=== PATIENT | female | born 1955 | race African-American/Black ===

== ENCOUNTER 2021-05-08 16:26 | Emergency (ER) | payer BC ==
--- OUTSIDE RECORDS SUMMARY | 2021-05-08 16:29 | XMS REPORT | Continuity of Care Document ---
:1955 Author Organization [facility] t Address [address] [place] [address] Care Team Providers Name Role Phone Lucila MONTANEZ Primary Care Physician Ta Attending Clinician [phone] Gaston Attending Clinician Unavailable Karishma Attending Clinician Unavailable Dion SINGH, A Attending Clinician Unavailable Geovany MONTANEZ S Attending Clinician KAREN Attending Clinician Unavailable BRIANNA Attending Clinician Unavailable Crescencio NUÑEZ Attending Clinician Ta Unavailable [phone] Payers Payer Name Policy Type Policy Number Effective Date Expiration Date S ource Problems Condition Condition Condition Status Onset Resolution Last Treating Co mments Source Name Details Category Date Date Treatment Clinician Date BMI Condition Active 2019-092020-09-21 Ermelinda Szymanski [facility]acy 37.0-37.9 13:45:26 Commu ni 00:00: ty 00 Health Exercise Condition Active 2019-092020-09-21 Ermelinda [facility] 13:45:26 Comm uni 00:00: ty 00 Health Dietary Condition Active 2019-092020-09-21 Ermelinda Szymanski [facility] 13:45:26 Comm uni 00:00: ty 00 Health Obesity Condition Active 2019-092020-09-21 Ta, Ermelinda [facility] 13:45:26 Communi 00:00: ty 00 Health Mammogram Condition Active 2019-092020-09-20 Ta, Ermelinda [facility] yearly 16:05:06 Communi screening 00:00: ty 00 Health Diabetes Condition Active 2019-092020-09-20 Ta, Ermelinda [facility] mellitus 16:05:06 Commun i (DM), type 00:00: ty 2, 00 Health controlled with vascular complicati ons Hypothyroi Condition Active 2019-092020-09-20 Ta, Erm[facility]inda [facility] d 16:05:05 Communi 00:00: ty 00 Health Hypertensi Condition Active 2019-092020-09-20 Ta, E[facility] on 16:05:05 Communi 00:00: ty 00 Health Prolapse Condition Active 2019-092020-09-20 Ta, Ermelinda [facility] of vaginal 16:05:05 Comm real5D vault 00:00: ty after 00 Health hysterecto my Annual Condition Active 2019-092020-09-20 Ta, Ermelinda L [facility] gynecologi 16:05:05 Comm uni stevan 00:00: ty examinatio 00 Health n Allergies, Adverse Reactions, Alerts Allergy Allergy Status Severity Reaction(s) Onset Inactive Treating Comm ents Source Name Type Date Date Clinician Diphenhy Propensi Active Palpitations 2018-09 [facility] dramine ty to [address] Hcl adverse 00:00: Hospita reaction 00 l s to drug Other Propensi Active Other (See 2017 antihista M ethodi ty to Comments) 8-[address] adverse 00:00: doesnot Hospita reaction 00 know the l s name get palpitati on Family History Family Member Diagnosis Comments Start Date Stop Date Source Natural [facility] mother [facility] Social History Social Habit Start Date Stop Date Quantity Comments Source smoke detector 2020-09-20 2020-09-20 Yes [facility] present in home 15:13:22 15:13:22 Health helmet use when 2020-09-20 2020-09-20 No [facility] riding 15:13:22 15:13:22 Health seatbelt usage 2020-09-20 2020-09-20 Yes [facility] 15:13:22 15:13:22 Health sunscreen use 2020-09-20 2020-09-20 Yes [facility] 15:13:22 15:13:22 Health I do not always 2020-09-20 2020-09-20 Yes [facility] have enough money 15:13:22 15:13:22 Health to buy food with fiber intake 2020-09-20 2020-09-20 Yes [facility] 15:13:22 15:13:22 Health fat intake per day 2020-09-20 2020-09-20 Yes [facility] 15:13:22 15:13:22 Health iron intake per 2020-09-20 2020-09-20 Yes [facility] day 15:13:22 15:13:22 Health exercise type 2020-09-20 2020-09-20 none [facility] 15:13:22 15:13:22 Health patient considered 2020-09-20 2020-09-20 No [facility] to be homeless 15:13:22 15:13:22 Health drug use 2020-09-20 2020-09-20 Never [facility] ty 15:13:22 15:13:22 Health alcohol use 2020-09-20 2020-09-20 Never [facility] 15:13:22 15:13:22 Health sexual orientation 2020-09-20 2020-09-20 Heterosexual [facility] 15:13:22 15:13:22 Health assessment of 2020-09-20 2020-09-20 Adequate [facility] health literacy 15:13:22 15:13:22 Health ([facility] 2014 Standards, 3C10) passive cigarette 2020-09-20 2020-09-20 No [facility] smoke exposure 15:13:22 15:13:22 Health is there any 2020-09-20 2020-09-20 No [facility] chance that you 15:13:22 15:13:22 Health could be ? if the patient is 2020-09-20 2020-09-20 No [facility] using/has used a 15:13:22 15:13:22 Health vaping item, Current, Former, Never Used, Not asked Alcohol intake 2017-05-30 2017-05-30 Current non-drinker M [facility] 00:00:00 00:00:00 of alcohol Hospital (finding) Sex Ass[birth year] At [birth year] [facility] Smoking Status Start Date Stop Date Source Never smoker [facility] Medications Ordered Filled Start Stop Current Ordering Indication Dosage Frequency Signature Comments Components Source Medication Medication Date Date Medication? Clinician (SIG) Name Name MIRALAX 2019-09 Yes prn [facility] (POLYETHYLE 2-30 Communi NE GLYCOL 00:00: ty 3350 PACK) 00 Health PACK (PRAVASTATI 2019-09 Yes 1{Table 1xD Every Day [facility] N SODIUM) 2-30 t} Communi 80 MG TABS 00:00: ty 00 Health PLAVIX 2019-09 Yes 1 by mouth [facility] (CLOPIDOGRE 2-30 every day Com cesia L 00:00: ty BISULFATE) 00 Health 75 MG TABS (FUROSEMIDE 2019-09 Yes 1{Table 2xD Twice a [facility] ) 40 MG 2-30 t} Day Communi TABS 00:00: ty 00 Health FORTAMET 2019-09 Yes Twice a [facility] (METFORMIN 2-30 Day Communi HCL) 500 MG 00:00: ty [id number] 00 Health OSENI 2019-09 Yes 1{Table 1xD qd [facility] (ALOGLIPTIN 2-30 t} Communi -PIOGLITAZO 00:00: ty NE) 25-30 00 Health MG TABS (GLYBURIDE) 2019-09 Yes 1{Table 2xD bid Leg acy 5 MG TABS 2-30 t} Communi 00:00: ty 00 Health [facility] 2019-09 Yes Twice a [facility] OMEPRAZOLE 2-30 Day Communi (OMEPRAZOLE 00:00: ty ) 20 MG 00 Health TBDD LEVO-T 2019-09 Yes 1{Table 1xD 1 By Mouth [place] [facility] (LEVOTHYROX 2-30 t} Every Day Com cesia INE SODIUM) 00:00: ty 112 MCG 00 Health TABS metFORMIN Yes 500mg Q.5D Take 500 Met hodi (GLUCOPHAGE 8-[address] ) 500 mg 00:17: mouth 2 Hospit a tablet 05 (two) l times a day with meals. metfomin ER glyBURIDE Yes 5mg Q.5D Take 5 mg Met [facility] (DIABETA) 5 05-[address] MG tablet 00:17: (two) Hospita 05 times a l day with meals. metoprolol 2017-0 Yes 50mg Q.[id number] Take 50 mg [facility] tartrate 05-17 [id number] mouth [address] (LOPRESSOR) 00:17: 3D (three) Hos jossie 50 mg 05 times a l tablet day. clopidogrel 2017-0 Yes 75mg QD Take 75 mg [facility] (PLAVIX) 75 05-[address] mg tablet 00:17: nightly. Hosp neo 05 l aspirin 2017-0 Yes 81mg QD Take 81 mg Meth rolando (ECOTRIN) 05-[address] 81 MG 00:17: nightly. Hospita enteric 05 l coated tablet baclofen 2016-0 Yes 10mg Q.55204404 Take 10 mg [facility] (LIORESAL) 05-17 [id number] [address] mouth [address] 10 MG 00:17: 3D (three) Hospita tablet 05 times a l day. As needed only pravastatin 0 Yes 80mg QD Take 80 mg [facility] (PRAVACHOL) 05-[address] 80 MG 00:17: nightly. Hospita tablet 05 l alogliptin- 2016-0 Yes 1{tbl} QD Take 1 Me thodi pioglitazon -[address] (OSENI) 00:17: mouth Hospita 25-30 mg 05 daily. l tablet furosemide 2017-0 Yes 20mg Q.5D Take 20 mg M ethodi (LASIX) 20 05-[address] mg tablet 00:17: (two) Hospita 05 times a l day. magnesium 2017-0 Yes 250mg QD Take 250 Met [facility] oxide 250 8-[address] mg tablet 00:17: mouth Hospita 05 daily. l Vital Signs Vital Name Observation Time Observation Value Comments Source oxygen saturation, 2020-09-20 15:13:22 98 /min [facility] oximetry Health blood pressure, 2020-09-20 15:13:22 78 mm[Hg] [facility] diastolic [facility] blood pressure, 2020-09-20 15:13:22 124 mm[Hg] [facility] systolic [facility] pulse rate 2020-09-20 15:13:22 97 /min [facility] temperature E&M 2020-09-20 15:13:22 98.2 [degF] [facility] weight E&M 2020-09-20 15:13:22 219 [lb_av] [facility] weight in kilograms 2020-09-20 15:13:22 99.55 kg [facility] E&M Health height in 2020-09-20 15:13:22 162.56 cm [facility] centimeters E&M Health temperature site 2020-09-20 15:13:22 oral [facility] Procedures This patient has no known procedures. Plan of Care Planned Activity Planned Date Details Comments Source Future Scheduled Test DIABETES: RETINAL EYE [facility] EXAM [code = DIABETES: RETINAL EYE EXAM] Future Scheduled Test DIABETIC FOOT EXAM [facility] [code = DIABETIC FOOT EXAM] Future Scheduled Test URINE MICROALBUMIN [facility] [code = URINE MICROALBUMIN] Future Scheduled Test COVID-19 VACCINE (1) [facility] [code = COVID-19 VACCINE (1)] Future Scheduled Test Hepatitis C screening [facility] (procedure) [code = 835943087] Future Scheduled Test Screening for malignant [facility] neoplasm of cervix (procedure) [code = 608331941] Future Scheduled Test BREAST CANCER SCREENING [facility] [code = BREAST CANCER SCREENING] Future Scheduled Test COLONOSCOPY SCREENING [facility] [code = COLONOSCOPY SCREENING] Future Scheduled Test SHINGLES VACCINES (#1) [facility] [code = SHINGLES VACCINES (#1)] Future Scheduled Test INFLUENZA VACCINE [code [facility] = INFLUENZA VACCINE] Encounters Start End Encounter Admission Attending Care Care Encounter Source Date/Time Date/Time Type Type Clinicians Facility Department ID 2020-01-28 Outpatient [id number] 10:36:26 2019-09-17 Outpatient [id number] 08:18:24 2020-09-21 2020-09-21 Office Ermelinda Szymanski [facility] Encounter / Legacy 00:00:00 00:00:00 Visit [id number] Com cesia [id number] [facility] 2020-09-21 2020-09-21 Office Ermelinda Szymanski [facility] Encounter / Legacy 00:00:00 00:00:00 Visit [id number] Com cesia 580595 [facility] 2020-09-20 2020-09-20 Office Ta, [facility]inda [facility] En[facility] / [facility] 00:00:00 00:00:00 Visit [id number] Com cesia 787402 [facility] 2020-09-20 2020-09-20 Office Ta, [facility] Encounter / [facility] 00:00:00 00:00:00 Visit [id number] Com cesia 815208 Health 2020-09-20 2020-09-20 Office Ta, [facility] Encounter / [facility] 00:00:00 00:00:00 Visit [id number] Com cesia 774637 Health 2020-09-20 2020-09-20 Office Ta, [facility] Encounter / [facility] 00:00:00 00:00:00 Visit [id number] Com cesia 577745 [facility] 2020-09-20 2020-09-20 Office Ta, [facility]inda [facility] Encounter / Legacy 00:00:00 00:00:00 Visit [id number] Com cesia 960256 [facility] 2020-09-20 2020-09-20 Office Ta, Ermelinda [facility] Encounter / Legacy 00:00:00 00:00:00 Visit Karina Feldman 19 [id number] Ejvioleta KarishmaCora [id number] [facility] 2020-08-30 2020-08-30 Transition Henry Ashleydwain [id number] 00:00:00 00:00:00 of Care Jermaine Brown [id number] [place] [id number] 2020-05-30 2020-05-30 Emergency [facility] [id number] 18:49:00 20:45:00 Brandy Bennett [id number] [place] [id number] [place] [id number] 2019-11-24 2019-11-[address] [facility] [facility] 08:00:00 08:00:00 2019-11-19 2019-11-20 [facility] [id number] [place] [address] 00:00:00 00:00:00 BEAU [address] 2019-08-02 2019-08-02 Outpatient BRIANNA [facility] [id number] [place] 00:00:00 00:00:00 JABARI [address] 2019-05-10 2019-05-10 Telephone PAUL Prather [id number] 00:00:00 00:00:00 Ozzy TAYLOR [id number] MONDAMIN JESSIE [id number] [id number] Results Test Description Test Time Test Comments Results Result [facility] Comments - NM GASTRIC 2020-12-13 [facility]:42[facility] 1955 Sex: F Patie nt Name: LA NENA CHO Unit No: [id number] EXAMS: CPT CODE: [id number] NM GASTRIC EMPTYING 91815 C3 REASON FOR EXAM: K 21.0, K 59.0 COMPARISON: None Tc-99m sulfur colloid labeled to egg in standard meal 40.7 mCi PO at TECHNIQUE: Gastric emptying study was performed after a radiolabeled egg meal. The upper abdomen was imaged in supine ZAMBIAN position for 90 minutes with subsequent data processing and generation of a time/activity curve. FINDINGS: There is approximately 100% emptying of the radiotracer from the stomach at 70 minutes. The normal emptying is greater than 40% emptied at 90 minutes. The lag phase in the time/activity curve is unremarkable. IMPRESSION: 1. Normal gastric emptying. at 1142 Reported and signed by: ABNER BRENNAN M.D. CC: Andrew Kellogg MD Technologist: Jolene Arias Trscr Dt/Tm: 12/13/2020 (7252) by:[email or web address] Printed Date/Time: 12/13/2020 (9354) Name: LA NENA CHO [facility] Phys: ROSARIOLindaYamileth - Andrew Kellogg MD [address] : 1955 Age: 65 Sex: [place] [address] Loc: P.NUC Exam Date: 12/13/2020 Status: REG CLI PH: FAX: PAGE 1 Signed Report - XR ESOPHAGUS 2020-12-06 12:24:00 [facility] 1955 Sex: F Ann Marie nt Name: LA NENA CHO Unit No: [id number] EXAMS: CPT CODE: [id number] XR ESOPHAGUS 83558 Esophagram 6 views 12/06/2020 CLINICAL INDICATION: Astrocytoma deal reflux COMPARISON: None available LOCATION: W1 IMPRESSION: The esophagus is normal in caliber and motility. There is a small reducing hiatal hernia, with evidence for prior fundoplication. No gastroesophageal reflux was elicited during the examination. FLUOROSCOPY TIME: 0.8 minutes. at 1224 Reported and signed by: RENATO DOHERTY M.D. CC: Andrew Kellogg MD; Nolan Duque MD Technologist: Devin Lugo Fluoro Time: DAP (Gy m2): Air Kerma (mGy): Trscr Dt/Tm: 12/06/2020 (7334) by:[email or web address] Printed Date/Time: 12/06/2020 (1227) Name: LA NENA CHO [facility] Phys: Andrew Rodriguez MD [address] : 1955 Age: 65 [place]: [place] [address] Loc: P.RAD Exam Date: 12/06/2020 Status: REG CLI PH: FAX: PAGE 1 Signed Report - XR ABD ACUTE 2020-08-21 W[facility]CHEST 12:47:00 [facility] 1955 Sex: F Patie nt Name: LA NENA CHO Unit No: [id number] EXAMS: CPT CODE: [id number] XR ABD ACUTE W/CHEST 74903 ACUTE ABDOMINAL SERIES DICTATION LOCATION: A1 HISTORY: Retroperitoneal tissue dissection. A single view of the chest and 2 views of the abdomen were obtained at 12:07 PM. Comparison was made to prior exam from June 28, 2019. FINDINGS: The lungs are clear of acute infiltrate or mass. The heart and pulmonary vasculature are within normal limits. No pleural effusion is present. No free air is identified under the diaphragm. There is mild increased gas in the distal colon. The small bowel gas pattern is nonspecific. Cholecystomy clips and inferior vena cava filter noted along with vascular calcifications in the pelvis. No unusual density or calcification is seen. No acute skeletal abnormality is noted. IMPRESSION: 1. Mild increased gas in the distal colon. 2. No other obvious acute thoracic or abdominal abnormality. at 1247 Reported and signed by: Go Freed Jr, MD CC: Andrew Kellogg MD Technologist: Lake Call Time: DAP (Gy m2): Air Kerma (mGy): Trscr Dt/Tm: 08/21/2020 (1247) by:Naresh Printed Date/Time: 08/21/2020 (5874) Name: RAHULPANCHITOLA NENA [facility] Phys: COLRO. - Andrew Kellogg MD [address] : 1955 Age: 64 Sex: [place] [address] Loc: P.RAD Exam Date: 08/21/2020 Status: REG CLI PH: FAX: PAGE 1 Signed Report - XR ABD ACUTE 2019-06-28 Patient Name: W/CHEST 17:15:00 LA NENA CHO Unit No: [id number] EXAMS: CPT CODE: [id number] XR ABD ACUTE W/CHEST 66063 Location code: R 16 Abdomen Three Views Indication: K59.00 Comparison:none Findings: Chest one view: Heart and mediastinum are unremarkable. Costophrenic angles are clear. Lungs are clear. Dextroscoliosis of the thoracic spine. Mild levoscoliosis of lumbar spine. Abdomen two views, flat and upright: Organ silhouettes are unremarkable. Surgical clips in the right upper quadrant post cholecystectomy. IVC filter in place. Moderate feces in the colon. No abnormal masses or calcifications. Bone is unremarkable for patient age. Impression: 1. Patient may be constipated. Correlate clinically. 2. IVC filter in place. 3. Cholecystectomy. at 7535 Reported and signed by: ANJELICA CARNEY M.D. Name: LA NENA CHO [facility] Imaging Phys: RO.Andrew Fernandez MD : 1955 Age: 63 Sex: F [place] Loc: P.RAD Exam Date: 06/28/2019 Status: REG CLI PH: FAX: PAGE 1 Signed Report (CONTINUED) Patient Name: LA NENA CHO Unit No: [id number] EXAMS: CPT CODE: [id number] XR ABD ACUTE W/CHEST 75830 <Continued> CC: Andrew Kellogg MD Technologist: Namrata Cabezas [facility] Dt/Tm: 06/28/2019 (5605) by:[email or web address] Printed Date/Time: 06/28/2019 (2148) Name: LA NENA CHO [facility] Imaging Phys: COLRO.01 - Andrew Kellogg MD : 1955 Age: 63 Sex: F [place] Loc: P.RAD Exam Date: 06/28/2019 Status: REG CLI PH: FAX: PAGE 2 Signed Report
--- NOTE | 2021-05-08 17:39 | RAD REPORT ---
EXAM DESCRIPTION: RAD - Chest Single View - 05/08/2021 5:29 pm CLINICAL HISTORY: CHEST PAIN COMPARISON: Chest Pa And Lat (2 Views) dated 09/18/2018 FINDINGS: No evidence of edema or pneumonia. The heart size is within normal limits.No acute osseous abnormality. No significant pleural effusions or pneumothorax. IMPRESSION: No acute cardiopulmonary disease.
[2021-05-08] MEDS ORDERED: ASPIRIN 81 MG CHEWABLE TABLET ONE (17:57)
[2021-05-08 17:58] LABS: Absolute Lymphocytes (CBC) 0.8 K/uL (0.7-4.9); Basophils % 0.4 % (0-1.3); Hematocrit 37.1 % (36.0-45.0); Protime INR 1.09; RBC Red Blood Cell Count 4.06 M/uL (3.86-4.86)
[2021-05-08 18:23] LABS: ALT/SGPT 19 U/L (12-78); AST/SGOT 10 U/L (15-37); Albumin 3.6 g/dL (3.4-5.0); Alkaline Phosphatase 117 U/L (45-117); BUN Blood Urea Nitrogen 17 mg/dL (7-18); Bicarbonate 33 mmol/L (21-32); Bilirubin Direct < 0.1 mg/dL (0-0.2); Bilirubin Total 0.2 mg/dL (0.2-1.0); Glucose Level 122 mg/dL (74-106); Magnesium 1.6 mg/dL (1.8-2.4); NT PRO-BNP 26 pg/mL (<125); Potassium 3.7 mmol/L (3.5-5.1); Protein, Total 7.7 g/dL (6.4-8.2); Sodium Level 141 mmol/L (136-145); Troponin (Emerg Dept Use Only) < 0.02 ng/mL (0.0-0.045)
[2021-05-08] MEDS ORDERED: Magnesium Sulfate 2gm IVPB 2 G/50 ML BAG IV ONE (18:57)
--- NOTE | 2021-05-08 21:17 | EDPHYS ---
Physician Documentation [facility] Name: Neha Allison Age: 65 yrs Sex: Female : 1955 Arrival Date: 05/08/2021 Time: 16:36 Bed 7 Private MD: ED Physician Nik Esquivel HPI: 05/08 18:36 This 65 yrs old Black Female presents to ER via EMS with complaints of Chest Pain. jr8 18:36 Onset: The symptoms/episode began/occurred acutely, this morning. Associated signs and jr8 symptoms: Pertinent positives: Nausea. Modifying factors: The patient symptoms are alleviated by nothing, the patient symptoms are aggravated by nothing. The patient has experienced a previous episode. The patient has not recently seen a physician. This is a 65-year-old female patient that had reflux sensation that started last night early this morning. Had taken an omeprazole without any relief. While at work today had increase in pain. 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 No EKG changes at that time. Was sent to the emergency room for further evaluation. Patient now with minimal to no chest pain.. Historical: - Allergies: 16:40 Bees; aa5 16:40 ANTIHISTAMINES; aa5 - Home Meds: 17:00 metoprolol tartrate 100 mg oral tab once daily [Active]; Plavix 75 mg oral tab once aa5 daily [Active]; furosemide 40 mg Oral tab once daily [Active]; metformin 500 mg Oral tab 2 times per day [Active]; Oseni oral [Active]; pravastatin oral [Active]; Aspirin Oral [Active]; Potassium Chloride Oral [Active]; Magnesium Oxide Oral [Active]; levothyroxine oral [Active]; glyburide Oral [Active]; - PMHx: 16:40 PE; Myocardial infarction; Diabetes mellitus; Hypercholesterolemia; Hypertensive aa5 disorder; - PSHx: 16:40 IVC filter; Heart stent; Thyroidectomy; Cholecystectomy; aa5 - Immunization history:: Client reports having NOT received the Covid vaccine. Flu vaccine is not up to date. - Social history:: Smoking status: Patient denies any tobacco usage or history of. ROS: 18:36 Eyes: Negative for injury, pain, redness, and discharge, ENT: Negative for injury, jr8 pain, and discharge, Neck: Negative for injury, pain, and swelling, Respiratory: Negative for shortness of breath, cough, wheezing, and pleuritic chest pain, Abdomen/GI: Negative for abdominal pain, nausea, vomiting, diarrhea, and constipation, Back: Negative for injury and pain, MS/Extremity: Negative for injury and deformity, Skin: Negative for injury, rash, and discoloration, Neuro: Negative for headache, weakness, numbness, tingling, and seizure. 18:36 Cardiovascular: Positive for chest pain, Negative for edema, orthopnea, palpitations, paroxysmal nocturnal dyspnea. Exam: 18:36 Constitutional: This is a well developed, well nourished patient who is awake, alert, jr8 and in no acute distress. ENT: Nares patent. No nasal discharge, no septal abnormalities noted. Tympanic membranes are normal and external auditory canals are clear. Oropharynx with no redness, swelling, or masses, exudates, or evidence of obstruction, uvula midline. Mucous membranes moist. Neck: Trachea midline, no thyromegaly or masses palpated, and no cervical lymphadenopathy. Supple, full range of motion without nuchal rigidity, or vertebral point tenderness. No Meningismus. Cardiovascular: Regular rate and rhythm with a normal S1 and S2. No gallops, murmurs, or rubs. Normal PMI, no JVD. No pulse deficits. Respiratory: Lungs have equal breath sounds bilaterally, clear to auscultation and percussion. No rales, rhonchi or wheezes noted. No increased work of breathing, no retractions or nasal flaring. Abdomen/GI: Soft, non-tender, with normal bowel sounds. No distension or tympany. No guarding or rebound. No evidence of tenderness throughout. Back: No spinal tenderness. No costovertebral tenderness. Full range of motion. Skin: Warm, dry with normal turgor. Normal color with no rashes, no lesions, and no evidence of cellulitis. MS/ Extremity: Pulses equal, no cyanosis. Neurovascular intact. Full, normal range of motion. Neuro: Awake and alert, GCS 15, oriented to person, place, time, and situation. Cranial nerves II-XII grossly intact. Motor strength 5/5 in all extremities. Sensory grossly intact. Cerebellar exam normal. Normal gait. Vital Signs: 16:36 BP 134 / 77; Pulse 85; Resp 18 S; Temp 98.1(O); Pulse Ox 100% on R/A; Pain 1/10; aa5 19:00 BP 124 / 64; Pulse 81; Resp 16 S; Pulse Ox 98% on R/A; Pain 1/10; aa5 20:00 BP 102 / 54; Pulse 74; Resp 16; Pulse Ox 96% on R/A; jb4 21:00 BP 126 / 78; Pulse 76; Resp 18; Pulse Ox 96% on R/A; jb4 MDM: 17:04 Patient medically screened. jr8 18:36 Data reviewed: vital signs, nurses notes, lab test result(s), EKG, radiologic studies, jr8 plain films. Data interpreted: Pulse oximetry: on room air is 100 %. Interpretation: normal. Counseling: I had a detailed discussion with the patient and/or guardian regarding: the historical points, exam findings, and any diagnostic results supporting the discharge/admit diagnosis, lab results, radiology results. ED course: Discussed with patient that her first round of cardiac enzymes along with her chemistries and CBC, EKG and chest x-ray were without acute findings. Recommended that we admit her for observation based on her history and story. Patient wants to go home at this time stated that she has a cardiology follow-up appointment this . Explained to her that we cannot fully rule out any impending cardiac abnormality without cardiology assessing her and doing further evaluation but that if she is wanting to go home we can at least do another troponin and continue to monitor her for the next couple hours. That is negative and she is chest pain-free would let her go home to follow-up in the understanding that if she were to have any hint of increase in pain or any other anginal equivalent signs and symptoms that she needs to immediately come back for further evaluation. Patient is receptive to this and agrees with this plan at this time. Patient will be handed to Angela DAVIS at this time for troponin evaluation and determination on whether or not it is negative or positive and if the patient can go home safely . 05/08 17:04 Order name: Basic Metabolic Panel; Complete Time: 18:27 8 05/08 17:04 Order name: CBC with Diff; Complete Time: 18:27 [facility] 05/08 17:04 Order name: LFT's; Complete Time: 18:27 05/08 17:04 Order name: Magnesium; Complete Time: 18:27 05/08 17:04 Order name: NT PRO-BNP; Complete Time: 18:27 05/08 17:04 Order name: PT-INR; Complete Time: 18:27 05/08 17:04 Order name: Troponin (emerg Dept Use Only); Complete Time: 18:27 05/08 17:04 Order name: XRAY Chest (1 view); Complete Time: 17:42 05/08 17:04 Order name: EKG; Complete Time: 17:05 05/08 17:04 Order name: Cardiac monitoring; Complete Time: 17:24 05/08 19:20 Order name: Troponin (emerg Dept Use Only); Complete Time: 21:15 kb 05/08 19:20 Order name: EKG; Complete Time: 19:21 kb 05/08 17:04 Order name: EKG - Nurse/Tech; Complete Time: 17:24 05/08 17:04 Order name: IV Saline Lock; Complete Time: 18:14 05/08 17:04 Order name: Labs collected and sent; Complete Time: 18:14 05/08 17:04 Order name: O2 Per Protocol; Complete Time: 17:24 05/08 17:04 Order name: O2 Sat Monitoring; Complete Time: 17:24 05/08 19:20 Order name: EKG - Nurse/Tech; Complete Time: 21:34 kb Administered Medications: 17:40 Drug: Aspirin Chewable Tablet 324 mg Route: PO; aa5 19:02 Drug: Magnesium Sulfate 2 grams Route: IVPB; Infused Over: 2 hrs; Site: left aa5 antecubital; Disposition Summary: 05/08/21 21:16 Discharge Ordered Location: Home kb Condition: Stable kb Diagnosis - Chest pain, unspecified kb Followup: kb - With: Emergency Department - When: As needed - Reason: Worsening of condition Followup: kb - With: Private Physician - When: 2 - 3 days - Reason: Recheck today's complaints, Continuance of care, Re-evaluation by your physician Discharge Instructions: - Nonspecific Chest Pain, Adult, [id number] kb - Discharge Summary Sheet jb4 Forms: - Medication Reconciliation Form kb - Thank You Letter kb - Antibiotic Education kb - Prescription Opioid Use kb - SBAR form jb4 - Work release form mw2 Addendum: 05/10/2021 07:10 Co-signature as Attending Physician, Nik Esquivel I agree with the assessment and plan s p3 of care. Signatures: Dispatcher [employer] EDAngela Cole, BUTCHER'S ASSISTANT-C BUTCHER'S ASSISTANT-Sheree Jimenez RN RN aa5 Jose Amos PA PA jr8 Nik Esquivel sp3 Corrections: (The following items were deleted from the chart) 05/08 17:14 17:00 Home Meds: levothyroxine oral; aa5 aa5
--- NOTE | 2021-05-08 21:17 | ER ---
Nurse's Notes [facility] Name: Neha Allison Age: 65 yrs Sex: Female : 1955 Arrival Date: 05/08/2021 Time: 16:36 Bed 7 Private MD: Diagnosis: Chest pain, unspecified Presentation: 05/08 16:36 Chief complaint: Patient states: woke up with chest pain today. Pt states "I thought it aa5 was indigestion so I took omeprazole without relief". Pt was at work at the [employer] and started having increased CP, dizziness, and nausea. Pt was given Nitro x 1 by [employer] staff with relief of chest pain. EMS reports pt reported pain was 1/10 upon scene arrival and refused Zofran. 16:36 Coronavirus screen: At this time, the client does not indicate any symptoms associated aa5 with coronavirus-19. Ebola Screen: Patient negative for fever greater than or equal to 101.5 degrees Fahrenheit, and additional compatible Ebola Virus Disease symptoms. Initial Sepsis Screen: Does the patient meet any 2 criteria? No. Patient's initial sepsis screen is negative. Does the patient have a suspected source of infection? No. Patient's initial sepsis screen is negative. Risk Assessment: Do you want to hurt yourself or someone else? Patient reports no desire to harm self or others. Onset of symptoms was May 08, 2021. 16:36 Acuity: PATRICK 3 aa5 16:36 Method Of Arrival: EMS: [facility] aa5 Historical: - Allergies: 16:40 Bees; aa5 16:40 ANTIHISTAMINES; aa5 - Home Meds: 17:00 metoprolol tartrate 100 mg oral tab once daily [Active]; Plavix 75 mg oral tab once aa5 daily [Active]; furosemide 40 mg Oral tab once daily [Active]; metformin 500 mg Oral tab 2 times per day [Active]; Oseni oral [Active]; pravastatin oral [Active]; Aspirin Oral [Active]; Potassium Chloride Oral [Active]; Magnesium Oxide Oral [Active]; levothyroxine oral [Active]; glyburide Oral [Active]; - PMHx: 16:40 PE; Myocardial infarction; Diabetes mellitus; Hypercholesterolemia; Hypertensive aa5 disorder; - PSHx: 16:40 IVC filter; Heart stent; Thyroidectomy; Cholecystectomy; aa5 - Immunization history:: Client reports having NOT received the Covid vaccine. Flu vaccine is not up to date. - Social history:: Smoking status: Patient denies any tobacco usage or history of. Screenin:40 Abuse screen: Denies threats or abuse. Nutritional screening: No deficits noted. aa5 Tuberculosis screening: No symptoms or risk factors identified. Fall Risk None identified. Assessment: 16:40 General: Appears comfortable, Behavior is calm, cooperative, Denies feeling ill. Pain: aa5 Complains of pain in chest Pain does not radiate. Pain currently is 1 out of 10 on a pain scale. Quality of pain is described as Indigestion Pain began "this morning" Is continuous. Neuro: Level of Consciousness is awake, alert, obeys commands, Oriented to person, place, time, situation. Cardiovascular: Heart tones S1 S2 present Rhythm is sinus rhythm. Respiratory: Airway is patent Respiratory effort is even, unlabored, Respiratory pattern is regular, symmetrical, Breath sounds are clear bilaterally. Denies cough, shortness of breath. GI: Abdomen is round non-distended, Patient currently denies diarrhea, nausea, vomiting. : No signs and/or symptoms were reported regarding the genitourinary system. EENT: No signs and/or symptoms were reported regarding the EENT system. Derm: Skin is dry, Skin is normal, Skin temperature is warm. Musculoskeletal: Range of motion: intact in all extremities. 17:42 Reassessment: Pt notified of wait time for lab results. . aa5 17:42 General: Appears comfortable. aa5 19:00 Neuro: Level of Consciousness is awake, alert, obeys commands, Oriented to person, aa5 place, time, situation. Respiratory: Airway is patent Respiratory effort is even, unlabored, Respiratory pattern is regular, symmetrical. Derm: Skin is dry, Skin is normal, Skin temperature is warm. 19:00 Pain: Complains of pain in chest Pain currently is 1 out of 10 on a pain scale. aa5 20:00 Reassessment: Patient appears in no apparent distress at this time. Patient and/or jb4 family updated on plan of care and expected duration. Pain level reassessed. Patient is alert, oriented x 3, equal unlabored respirations, skin warm/dry/pink. 21:00 Reassessment: Patient appears in no apparent distress at this time. Patient and/or jb4 family updated on plan of care and expected duration. Pain level reassessed. Patient is alert, oriented x 3, equal unlabored respirations, skin warm/dry/pink. 22:00 Reassessment: Patient appears in no apparent distress at this time. Patient and/or jb4 family updated on plan of care and expected duration. Pain level reassessed. Patient is alert, oriented x 3, equal unlabored respirations, skin warm/dry/pink. Vital Signs: 16:36 BP 134 / 77; Pulse 85; Resp 18 S; Temp 98.1(O); Pulse Ox 100% on R/A; Pain 1/10; aa5 19:00 BP 124 / 64; Pulse 81; Resp 16 S; Pulse Ox 98% on R/A; Pain 1/10; aa5 20:00 BP 102 / 54; Pulse 74; Resp 16; Pulse Ox 96% on R/A; jb4 21:00 BP 126 / 78; Pulse 76; Resp 18; Pulse Ox 96% on R/A; jb4 ED Course: 16:36 Patient arrived in ED. iw 16:36 Arm band placed on Patient placed in an exam room, on a stretcher. aa5 16:36 Patient has correct armband on for positive identification. Placed in gown. Bed in low aa5 position. Call light in reach. Side rails up X2. equipment monitor phototypesetting on. Pulse ox on. NIBP on. 17:03 Sheree Rodriguez RN is Primary Nurse. aa5 17:04 Jose Amos PA is PHCP. jr8 17:04 Nik Esquivel is Attending Physician. jr8 17:04 EKG done, by ED staff, reviewed by Nik Esquivel. aa5 17:08 Triage completed. aa5 17:29 XRAY Chest (1 view) In Process Unspecified. EDMS 17:42 Initial lab(s) drawn, by me, sent to lab. Inserted saline lock: 20 gauge in left aa5 antecubital area, using aseptic technique. Blood collected. 19:00 No provider procedures requiring assistance completed. Patient maintains SpO2 aa5 saturation greater than 95% on room air. 19:05 Report given to Martin Valdez RN. aa5 19:18 Primary Nurse role handed off by Sheree Rodriguez RN mw2 19:20 PHCP role handed off by Jose Amos PA kb 19:20 Angela Antony FNP-C is PHCP. kb 19:24 Martin Dinh, SAMANTHA is Primary Nurse. jb4 22:08 IV discontinued, intact, bleeding controlled, No redness/swelling at site. Pressure jb4 dressing applied. Administered Medications: 17:40 Drug: Aspirin Chewable Tablet 324 mg Route: PO; aa5 19:02 Drug: Magnesium Sulfate 2 grams Route: IVPB; Infused Over: 2 hrs; Site: left aa5 antecubital; Outcome: 21:16 Discharge ordered by MD. kb 22:08 Discharged to home ambulatory. jb4 22:08 Condition: stable 22:08 Discharge instructions given to patient, Instructed on discharge instructions, follow up and referral plans. Demonstrated understanding of instructions, follow-up care. 22:08 Patient left the ED. jb4 Signatures: Dispatcher [employer] EDMS Angela Antony FNP-C FNP-Steffi Jacome RN RN Sheree Rodriguez RN RN aa5 Jose Amos PA PA jr8 Martin Dinh RN RN jb4 Alvaro Dillon mw2 Corrections: (The following items were deleted from the chart) 17:14 17:00 Home Meds: levothyroxine oral; aa5 aa5
[2021-05-08 22:15] VITALS: TEMP 98.1
[2021-05-08 22:18] VITALS: O2SAT 96
[2021-05-08 22:19] VITALS: BP 126/78
--- NOTE | 2021-05-09 16:26 | EKG ---
Test Date: 2021-05-08 Test Time: 21:30:44 Field Handyman: JENNI MEASUREMENT RESULTS: Intervals: Rate: 75 NC: 170 QRSD: 86 QT: 430 QTc: 480 [place]: P: 42 NC: 170 QRS: 10 T: 18 INTERPRETIVE STATEMENTS: Normal sinus rhythm Cannot rule out Anterior infarct, age undetermined Abnormal ECG No previous ECG available for comparison Electronically Signed On 05-09-21 16:24:02 CDT by Eloy Cruz
--- NOTE | 2021-05-09 16:27 | EKG ---
Test Date: 2021-05-08 Test Time: 17:01:49 Prize Coordinator: MEL MEASUREMENT RESULTS: Intervals: Rate: 87 VA: 160 QRSD: 80 QT: 406 QTc: 488 [place]: P: 51 VA: 160 QRS: 12 T: 29 INTERPRETIVE STATEMENTS: Normal sinus rhythm Cannot rule out Anterior infarct, age undetermined Abnormal ECG No previous ECG available for comparison Electronically Signed On 05-09-21 16:24:08 CDT by Eloy Cruz
== END 2021-05-08 22:08 | disposition home or self-care (01) ==
LOC: ER 16:26
DX: R07.9 Chest pain, unspecified (principal); I10 Essential (primary) hypertension; E78.00 Pure hypercholesterolemia, unspecified; E11.9 Type 2 diabetes mellitus without complications; I25.2 Old myocardial infarction; Z79.01 Long term (current) use of anticoagulants; Z88.8 Allergy status to other drugs, medicaments and biological substances; Z91.030 Bee allergy status; Z95.818 Presence of other cardiac implants and grafts
CPT/HCPCS: 93005 ×2; 85025; 80048; 36415; 83735; 85610; 80076; 84484 ×2; 83880; 71045; 96374; 99285; J3475

== ENCOUNTER 2022-08-05 14:06 | Observation (INO) | payer BC ==
--- OUTSIDE RECORDS SUMMARY | 2022-08-05 14:15 | XMS REPORT | Continuity of Care Document ---
:1955 Author Organization [facility] Address [address] [place] [address] Care Team Providers Name Role Phone Lucila MONTANEZ, Art Primary Care Physician Andrew Kellogg Attending Clinician Unavailable VAL GREENBERG Attending Clinician Unavailable ANALY SCANLON Attending Clinician Unavailable GRADY KING Attending Clinician Unavailable Grady King MD Attending Clinician JERRI WILKINSON Attending Clinician Unavailable Jerri Wilkinson DO Attending Clinician RADHA MARTINEZ Attending Clinician Unavailable Kandi Ritter Attending Clinician [phone] Veronica Koenig Attending Clinician Unavailable Megan Martinez I Attending Clinician Unavailable Ermelinda Szymanski Attending Clinician [phone] Karina Feldman Attending Clinician Unavailable Cora Scwharz Attending Clinician Unavailable Dion SINGH, Jermaine De Oliveira Attending Clinician Unavailable ARJUN GRANADO Attending Clinician Unavailable Brandy Armenta MD Attending Clinician Ozzy Prather PA-C Attending Clinician Andrew Kellogg Admitting Clinician Unavailable GRADY KING Admitting Clinician Unavailable JERRI WILKINSON Admitting Clinician Unavailable ROBBI LOUISE Admitting Clinician Unavailable Kandi Ritter Unavailable [phone] Ermelinda Szymanski Unavailable [phone] Payers Payer Name Policy Type Policy Number Effective Date Expiration Date Cintia rodgers 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 00:00:00 BCBS FED SELECT [id number] 1989 00:00:00 BCBS 2 [id number] 2022 00:00:00 Problems Condition Condition Condition Status Onset Resolution Last Treating Co mments Source Name Details Category Date Date Treatment Clinician Date Pelvic Condition Active 2020-092021-08-02 Carmencita Ritter pain 10-02 14:01:10 [facility] Communi 00:00: ty 00 Health BMI Condition Active 2019-092021-08-02 Ermelinda Szymanski egacy 37.0-37.9 2- 13:36:37 Commu ni 00:00: Health Exercise Condition Active 2019-092021-08-02 Ermelinda Szymanski [facility] - 13:36:37 Comm uni 00:00: 00 Health Dietary Condition Active 2019-092021-08-02 Ermelinda Szymanski [facility] 2- 13:36:37 Comm uni 00:00: Health Obesity Condition Active 2019-092021-08-02 Ermelinda Szymanski [facility] - 13:36:37 Communi 00:00: ty 00 Health Mammogram Condition Active 2019-092020-09-20 Ermelinda Szymanskiacy yearly 16:05:06 Communi screening 00:00: ty 00 [...] Ta, Ermelinda [facility] of vaginal 16:05:05 Comm uni vault 00:00: ty after 00 Health hysterecto my Annual Condition Active 2019-092020-09-20 Ta, Ermelinda L egacy gynecologi 16:05:05 Comm uni stevan 00:00: ty examinatio 00 Health n Acute Acute Disease Active 2019-09 Univers encephalop encephalop 2-08 it y of athy athy 00:00: [place] [facility] Hypotensio Hypotensio Disease Active 2019-09 U nivers n n 2-08 ity of 00:00: [place] 00 Medical Branch Slurred Slurred Disease Active 2019-09 Univers speech speech 2-06 ity of 00:00: [place] 00 Medical Branch Atypical Atypical Disease Active 2018-09 Unive rs chest pain chest pain 0-20 it y of 00:00: [place] 00 Medical Branch 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 Added automatic ally from request for surgery [id number] Shortness Shortness Disease Active Uni vers of breath of breath 3-13 ity of 00:00: [place] 00 Medical Branch QUIÑONEZ QUIÑONEZ Disease Active Univers (dyspnea (dyspnea 3-13 ity of on on 00:00: [place] exertion) exertion) 00 [facility] Branch Obesity Obesity Disease Active Univers (BMI (BMI 3-08 ity of 30-39.9) 30-39.9) 00:00: Medical Branch Goiter Goiter Disease Active Overview: [facility] 13 Formattin ity of 00:00: g of this note Medical might be Branch different from the original. Added automatic ally from request for surgery [id number] Asthma Asthma Disease Active Univers ity of [place] [facility] Allergies, Adverse Reactions, Alerts Allergy Allergy Status Severity Reaction(s) Onset Inactive Treating Comm ents Source Name Type Date Date Clinician HYDROCHL DRUG Active Rash Univers OROTHIAZ INGREDI 5-16 ity of CARLENE 00:00: Medical Branch INFLUENZ DRUG Active Rash Univers A 5-16 ity of VACCINE 00:00: -S 11 00 Medical (PF) Branch Hydrochl Propensi Active Rash [facility] orothiaz ty to 5-16 ity of carlene adverse 00:00: [place] reaction 00 Medical s Branch Influenz Propensi Active Rash Univer s a ty to 5-16 ity of Vaccine adverse 00:00: Tr-S 11 reaction 00 Medical (Pf) s Branch Diphenhy Propensi Active Palpitations 2018-09 Methodi dramine ty to 10-02 st Hcl adverse 00:00: Hospita reaction 00 l s to drug BEE DRUG Active Anaphylaxis Unive rs STING / INGREDI 2-04 ity of VENOM 00:00: Medical Branch Bee Propensi Active Anaphylaxis 2019- Swelling U nivers Sting / ty to 2-04 in the ity of Venom adverse 00:00: throat, [place] reaction 00 palpitati Medic al s ons, Branch elevated bp ANTIHIST DRUG Active High Unknown-Cmnt Un michelle AMINE 12 8- ity of HOUR 00:00: Medical Branch Antihist Drug Active Unknown - Pt Unive rs amine 12 Allergy See comments 04-23 prefers ity of Hour 00:00: not to 00 take any Medical type of Branch Antihista mine. Other Propensi Active Other (See 2017 antihista M ethodi ty to Comments) 8-[address] adverse 00:00: doesnot Hospita reaction 00 know the l s name get palpitati on Family History Family Member Diagnosis Comments Start Date Stop Date Source Natural father Heart attack [facility] Natural mother Diabetes [facility] Natural mother Kidney disease Method [facility] Social History Social Habit Start Date Stop Date Quantity Comments Source Exposure to 2022-05-12 2022-05-22 [facility] 03[facility]21[facility]00 [facility] if the patient is 2021-08-02 2021-08-02 No [facility] using/has used a 13:16:08 13:16:08 Health vaping item, Current, Former, Never Used, Not asked number of children 2021-08-02 2021-08-02 [facility] 13:16:08 13:16:08 Health sexual orientation 2021-08-02 2021-08-02 Heterosexual [facility] 13:16:08 13:16:08 Health assessment of health 2021-08-02 2021-08-02 Adequate [place] [facility] literacy (NCQA [facility] 13:16:08 13:16:08 [employer] 2014 Standards, 3C10) social history 2021-08-02 2021-08-02 reviewed today [facility] reviewed E&M 13:16:08 13:16:08 Health PHQ2 Questionairre 2021-08-02 2021-08-02 [facility] Score 13:16:08 13:16:08 Health drug use 2020-09-20 2020-09-20 Never [facility] ty 15:13:22 15:13:22 Health alcohol use 2020-09-20 2020-09-20 Never [facility] ity 15:13:22 15:13:22 Health I do not always have 2020-09-20 2020-09-20 Yes [facility] enough money to buy 15:13:22 15:13:22 Healt food with fiber intake 2020-09-20 2020-09-20 Yes [facility] nity 15:13:22 15:13:22 Health fat intake per day 2020-09-20 2020-09-20 Yes [facility] 15:13:22 15:13:22 Health iron intake per day 2020-09-20 2020-09-20 Yes [facility] 15:13:22 15:13:22 Health exercise type 2020-09-20 2020-09-20 none [facility] unity 15:13:22 15:13:22 Health patient considered 2020-09-20 2020-09-20 No [facility] to be homeless 15:13:22 15:13:22 Health is there any chance 2020-09-20 2020-09-20 No [facility] that you could be 15:13:22 15:13:22 Health ? smoke detector 2020-09-20 2020-09-20 Yes [facility] munity present in home 15:13:22 15:13:22 Health helmet use when 2020-09-20 2020-09-20 No [facility] mmunity riding 15:13:22 15:13:22 Health seatbelt usage 2020-09-20 2020-09-20 Yes [facility] munity 15:13:22 15:13:22 Health sunscreen use 2020-09-20 2020-09-20 Yes [facility] unity 15:13:22 15:13:22 Health Education 2020-08-27 2020-08-27 15 University of 00:00:00 00:00:00 [place] [facility] History SDOH 2020-08-27 2020-08-27 5 University o f Financial 00:00:00 00:00:00 [place] [facility] History SDWI Food 2020-08-27 2020-08-27 1 Univers ity of Worry 00:00:00 00:00:00 [place] [facility] History SDOH Food 2020-08-27 2020-08-27 1 Univers ity of Scarcity 00:00:00 00:00:00 [place] [facility] History SDWI 2020-08-27 2020-08-27 2 University o f Transport Med 00:00:00 00:00:00 [place] [facility] History SDWI 2020-08-27 2020-08-27 2 University o f Transport Non-Med 00:00:00 00:00:00 [place] M [facility] Tobacco use and 2018-04-23 2018-04-23 Smokeless tobacco Un iversity of exposure 00:00:00 00:00:00 non-user [facility] Alcohol intake 2017-05-30 2017-05-30 Current [employer] 00:00:00 00:00:00 non-drinker of Hospital alcohol (finding) Sex [birth year] At [birth year] [employer] 00:00:00 00:00:00 Hospital Smoking Status Start Date Stop Date Source Never smoked tobacco [facility] Medications Ordered Filled Start Stop Current Ordering Indication Dosage Frequency Signature Comments Components Source Medication Medication Date Date Medication? Clinician (SIG) Name Name LORazepam 2021- No 1mg 1 mg, Slow U nivers (ATIVAN) 05-22 IV Push, ity of injection 1 09:45: 08:53 [place] 1 [place] :[place] dose, On [facility] Branch 05/22/22 at 0445, Routine
Is the medication being used for status epilepticu s? No meclizine Yes [id number] 25mg Take 1 U nivers 25 mg 05-22 tablet by ity of tablet 00:00: mouth [place] 00 every 6 Medical (six) Branch hours. lidocaine No 10mL 10 mL, Unive rs 2% viscous 02-04 Oral, ity of (LIDOCAINE 15:15: 14:06 ONCE, 1 [place] as VISCOUS) 2 00 :00 dose, On Medic al % solution [facility] 10 mL 02/04/22 at 1015, JACKY ondansetron No 4mg 4 mg, Slow Univers (ZOFRAN 02-04 IV Push, ity of (PF)) 13:30: 12:45 ONCE, 1 [place] injection 4 00 :00 dose, On Medi stevan mg [facility] 02/04/22 at 0830, JACKY morpHINE (4 2021- No 4mg 4 mg, Slow Univers mg/mL) 02-04 IV Push, ity of injection 4 13:30: 13:20 [place] 1 [place] mg 00 :[place] dose, On [facility] 02/04/22 at 0830, STAT aspirin 2021- No 243mg 243 mg, Unive rs chewable 02-04 Oral, ity of tablet 243 13:30: 12:44 ONCE, 1 [place] as mg 00 :00 dose, On [facility] 02/04/22 at 0830, Routine iopamidol 2021- No [id number] 100mL 100 mL, Univers (ISOVUE 02-04 Intravenou ity o f 370-500 mL) 13:04: 13:03 s, ONCE, 1 [place] injection 00 :00 dose, On Medica l 100 mL Mon Branch 02/04/22 at 0815, Routine MIRALAX 2019-09 Yes prn [facility] (POLYETHYLE 2-30 [...] Day Communi TABS 00:00: ty 00 Health OSENI 2019-09 Yes 1{Table 1xD [...] 00:00: ty 112 MCG 00 Health TABS FORTAMET 2019-09 Yes Twice a [facility] 500 MG ORAL 2-30 Day Communi TABLET 00:00: ty EXTENDED 00 Health RELEASE 24 HOUR furosemide 2019-09 Yes 40mg Take 40 mg U nivers 40 mg 2-08 by mouth ity of tablet 18:21: every [place] [address] morning Medical and Branch evening. levothyroxi 2019-09 Yes 100ug Take 100 U nivers ne 100 mcg 2-08 mcg by ity of tablet 18:21: mouth. [place] [address] Medical Branch aspirin 81 2019- Yes 81mg Take 81 mg U nivers mg EC 2-08 by mouth. ity of tablet 18:21: [place] [address] Medical Branch alogliptin- 2019-09 Yes 1{tbl} Take 1 Un michelle pioglitazon 2-08 tablet by ity of e 25-30 mg 18:21: mouth. [facility] [place] [facility] 40 Medical Branch ibuprofen 2020- Yes ibuprofen Uni vers 800 mg 2-08 800 mg ity of tablet 18:21: tablet [place] 40 Take 1 Medical tablet 3 Branch times a day by oral route. fluticasone 2019- Yes Advair Univ ers -salmeterol 2-08 Diskus 250 it y of 250-50 18:21: mcg-50 [place] mcg/dose 40 mcg/dose Medical inhalation powder for Bra [facility] disk inhalation Inhale 1 puff twice a day by inhalation route. METOPROLOL 2019- Yes 100mg Take 100 Un michelle SUCCINATE 2-08 mg by ity of ORAL 18:21: mouth [place] 40 daily. Medical Branch potassium 2019- Yes 20meq Take 20 Univ ers chloride 20 2-08 mEq by ity of mEq packet 18:21: mouth [place] 40 daily. Medical Branch pravastatin 2019- Yes 80mg Take 80 mg Univers 80 mg 2-08 by mouth. ity of tablet 18:21: [address] Branch metFORMIN 2019- Yes 500mg Take 500 Uni vers 500 mg 2-08 mg by ity of tablet 18:21: mouth. [address] Branch Magnesium 2020- Yes 250mg Take 250 Uni vers Oxide 250 2-08 mg by ity of mg Tab 18:21: mouth. [address] Branch glyBURIDE 5 2019- Yes 5mg Take 5 mg U nivers mg tablet 2-08 by mouth. ity o f 18:21: [address] Branch clopidogrel 2019- Yes 75mg Take 75 mg Univers 75 mg 2-08 by mouth. ity of tablet 18:21: [address] Branch furosemide 2019- Yes 40mg Take 40 mg U nivers 40 mg 2-08 by mouth ity of tablet 12:21: every [place] [address] morning Medical and Branch evening. levothyroxi 2019- Yes 100ug Take 100 U nivers ne 100 mcg 2-08 mcg by ity of tablet 12:21: mouth. [address] Branch furosemide 2020- Yes 40mg Take 40 mg U nivers 40 mg 2-08 by mouth ity of tablet 12:21: every [place] [address] morning Medical and Branch evening. levothyroxi 2019- Yes 100ug Take 100 U nivers ne 100 mcg 2-08 mcg by ity of tablet 12:21: mouth. [address] Branch pravastatin 2019- Yes 80mg Take 80 mg Univers 80 mg 2-08 by mouth. ity of tablet 12:21: [address] Branch metFORMIN 2019- Yes 500mg Take 500 Uni vers 500 mg 2-08 mg by ity of tablet 12:21: mouth. [address] Branch Magnesium 2019- Yes 250mg Take 250 Uni vers Oxide 250 2-08 mg by ity of mg Tab 12:21: mouth. [address] Branch glyBURIDE 5 2019- Yes 5mg Take 5 mg U nivers mg tablet 2-08 by mouth. ity o f 12:21: [address] Branch clopidogrel 2019- Yes 75mg Take 75 mg Univers 75 mg 2-08 by mouth. ity of tablet 12:21: [address] aspirin 81 2019-09 Yes 81mg Take 81 mg U nivers mg EC 2-08 by mouth. ity of tablet 12:21: [address] alogliptin- 2019-09 Yes 1{tbl} Take 1 Un michelle pioglitazon 2-08 tablet by ity of e 25-30 mg 12:21: mouth. [address] ibuprofen 2019-09 Yes ibuprofen Uni vers 800 mg 2-08 800 mg ity of tablet 12:21: tablet [place] 40 Take 1 Medical tablet 3 Branch times a day by oral route. fluticasone 2019-09 Yes Advair Univ ers -salmeterol 2-08 Diskus 250 it y of 250-50 12:21: mcg-50 [place] mcg/dose 40 mcg/dose Medical inhalation powder for Bra [facility] disk inhalation Inhale 1 puff twice a day by inhalation route. METOPROLOL 2019-09 Yes 100mg Take 100 Un michelle SUCCINATE 2-08 mg by ity of ORAL 12:21: mouth [place] 40 daily. Medical Branch potassium 2019- Yes 20meq Take 20 Univ ers chloride 20 2-08 mEq by ity of mEq packet 12:21: mouth [place] 40 daily. Medical Branch pravastatin 2019- Yes 80mg Take 80 mg Univers 80 mg 2-08 by mouth. ity of tablet 12:21: [address] metFORMIN 2019- Yes 500mg Take 500 Uni vers 500 mg 2-08 mg by ity of tablet 12:21: mouth. [address] Magnesium 2019- Yes 250mg Take 250 Uni vers Oxide 250 2-08 mg by ity of mg Tab 12:21: mouth. [address] Branch glyBURIDE 5 2019-09 Yes 5mg Take 5 mg U nivers mg tablet 2-08 by mouth. ity o f 12:21: [address] Branch clopidogrel 2019- Yes 75mg Take 75 mg Univers 75 mg 2-08 by mouth. ity of tablet 12:21: [address] aspirin 81 2019-09 Yes 81mg Take 81 mg U nivers mg EC 2-08 by mouth. ity of tablet 12:21: [address] alogliptin- 2019-09 Yes 1{tbl} Take 1 Un michelle pioglitazon 2-08 tablet by ity of e 25-30 mg 12:21: mouth. [address] Branch ibuprofen 2019-09 Yes ibuprofen Uni vers 800 mg 2-08 800 mg ity of tablet 12:21: tablet [place] 40 Take 1 Medical tablet 3 Branch times a day by oral route. fluticasone 2019-09 Yes Advair Univ ers -salmeterol 2-08 Diskus 250 it y of 250-50 12:21: mcg-50 [place] mcg/dose 40 mcg/dose Medical inhalation powder for Bra [facility] disk inhalation Inhale 1 puff twice a day by inhalation route. METOPROLOL 2019-09 Yes 100mg Take 100 Un michelle SUCCINATE 2-08 mg by ity of ORAL 12:21: mouth [place] 40 daily. Medical Branch potassium 2019-09 Yes 20meq Take 20 Univ ers chloride 20 2-08 mEq by ity of mEq packet 12:21: mouth [place] 40 daily. Medical Branch acetaminoph 2020- No 1000mg 1,000 mg, Univers en 05-31-09 Oral, ity of (TYLENOL) 00:06: 00:07 ONCE, 1 [place] tablet 00 :00 dose, Tue Medical 1,000 mg 05/30/20 at Branch 1915, JACKY traMADoL 2019- Yes [id number] 50mg Take 1 Univers (ULTRAM) 50 9-08 tablet by ity of mg tablet 00:00: mouth [place] 00 every 6 Medical (six) Branch hours as needed for Pain (scale 7-10). Indication s: acute pain methocarbam 2019-0 Yes [id number] 500mg Take 1 Univers oL 9-08 tablet by ity of (ROBAXIN) 00:00: mouth [place] 500 mg 00 every 6 Medical tablet (six) Branch hours as needed (MUSCLE SPASM). traMADoL 2020-0 Yes [id number] 50mg Take 1 Univers (ULTRAM) 50 9-08 tablet by ity of mg tablet 00:00: mouth [place] 00 every 6 Medical (six) Branch hours as needed for Pain (scale 7-10). Indication s: acute pain methocarbam 2020-0 Yes [id number] 500mg Take 1 Univers oL 9-08 tablet by ity of (ROBAXIN) 00:00: mouth [place] 500 mg 00 every 6 Medical tablet (six) Branch hours as needed (MUSCLE SPASM). traMADoL 2020-0 Yes [id number] 50mg Take 1 Univers (ULTRAM) 50 9-08 tablet by ity of mg tablet 00:00: mouth [place] 00 every 6 Medical (six) Branch hours as needed for Pain (scale 7-10). Indication s: acute pain methocarbam 2020-0 Yes [id number] 500mg Take 1 Univers oL 9-08 tablet by ity of (ROBAXIN) 00:00: mouth [place] 500 mg 00 every 6 Medical tablet (six) Branch hours as needed (MUSCLE SPASM). traMADoL 2020-0 Yes [id number] 50mg Take 1 Univers (ULTRAM) 50 9-08 tablet by ity of mg tablet 00:00: mouth [place] 00 every 6 Medical (six) Branch hours as needed for Pain (scale 7-10). Indication s: acute pain methocarbam 2020-0 Yes [id number] 500mg Take 1 Univers oL 9-08 tablet by ity of (ROBAXIN) 00:00: mouth [place] 500 mg 00 every 6 Medical tablet (six) Branch hours as needed (MUSCLE SPASM). pravastatin 2018-09 Yes 80mg Take 80 mg Univers 80 mg 0-20 by mouth. ity of tablet 20:19: [address] metFORMIN 2019- Yes 500mg Take 500 Uni vers 500 mg 0-20 mg by ity of tablet 20:19: mouth. [address] Magnesium 2019- Yes 250mg Take 250 Uni vers Oxide 250 0-20 mg by ity of mg Tab 20:19: mouth. [address] glyBURIDE 5 2018-09 Yes 5mg Take 5 mg U nivers mg tablet 0-20 by mouth. ity o f 20:19: [address] clopidogrel 2018-09 Yes 75mg Take 75 mg Univers 75 mg 0-20 by mouth. ity of tablet 20:19: [place] 42 Medical Branch aspirin 81 2018-09 Yes 81mg Take 81 mg U nivers mg EC 0-20 by mouth. ity of tablet 20:19: [place] 42 Medical Branch alogliptin- 2018-09 Yes 1{tbl} Take 1 Un michelle pioglitazon 0-20 tablet by ity of e 25-30 mg 20:19: mouth. [place] Tab 42 Medical Branch ibuprofen 2018-09 Yes ibuprofen Uni vers 800 mg 0-20 800 mg ity of tablet 20:19: tablet [place] 42 Take 1 Medical tablet 3 Branch times a day by oral route. fluticasone 2018-09 Yes Advair Univ ers -salmeterol 0-20 Diskus 250 it y of 250-50 20:19: mcg-50 [place] mcg/dose 42 mcg/dose Medical inhalation powder for Bra nch disk inhalation Inhale 1 puff twice a day by inhalation route. METOPROLOL 2018-09 Yes 100mg Take 100 Un michelle SUCCINATE 0-20 mg by ity of ORAL 20:19: mouth [place] 42 daily. Medical Branch potassium 2018-09 Yes 20meq Take 20 Univ ers chloride 20 0-20 mEq by ity of mEq packet 20:19: mouth [place] 42 daily. Medical Branch Levothyroxi 2018-09 Yes 125ug Take 125 U nivers ne 125 mcg 0-20 mcg by ity of capsule 20:19: mouth [place] 42 daily. Medical Branch furosemide 2018-09 Yes 40mg Take 40 mg U nivers 40 mg 0-20 by mouth ity of tablet 20:19: every [place] 42 morning Medical and Branch evening. omeprazole 2019 Yes 40mg Take 1 Unive rs 40 mg 8-20 capsule by ity of capsule 00:00: mouth [place] 00 daily. Medical Branch omeprazole 2019 Yes 40mg Take 1 Unive rs 40 mg 8-20 capsule by ity of capsule 00:00: mouth [place] 00 daily. Medical Branch omeprazole 2019 Yes 40mg Take 1 Unive rs 40 mg 8-20 capsule by ity of capsule 00:00: mouth [place] 00 daily. Medical Branch omeprazole 2018- Yes 40mg Take 1 Unive rs 40 mg 8-20 capsule by ity of capsule 00:00: mouth [place] 00 daily. Medical Branch omeprazole 2019 Yes 40mg Take 1 Unive rs 40 mg 8-20 capsule by ity of capsule 00:00: mouth [place] 00 daily. Medical Branch clopidogrel Yes 75mg Take 75 mg Univers 75 mg 03-22 by mouth. ity of tablet 15:38: [address] baclofen 10 Yes 10mg Take 10 mg Univers mg tablet 7 by mouth. ity o f 15:38: [address] Branch aspirin 81 2019 Yes 81mg Take 81 mg U nivers mg EC 7 by mouth. ity of tablet 15:38: [address] Branch ibuprofen Yes ibuprofen Uni vers 800 mg 7 800 mg ity of tablet 15:38: tablet [place] Take 1 Medical tablet 3 Branch times a day by oral route. pravastatin Yes 80mg Take 80 mg Univers 80 mg 6-10 by mouth. ity of tablet 14:50: [address] metFORMIN Yes 500mg Take 500 Uni vers 500 mg 6-10 mg by ity of tablet 14:50: mouth. [address] Branch Magnesium Yes 250mg Take 250 Uni vers Oxide 250 6-10 mg by ity of mg Tab 14:50: mouth. [address] glyBURIDE 5 Yes 5mg Take 5 mg U nivers mg tablet 6-10 by mouth. ity o f 14:50: [address] alogliptin- 0 Yes 1{tbl} Take 1 Un michelle pioglitazon 6-10 tablet by ity of e 25-30 mg 14:50: mouth. [place] [address] Medical Branch fluticasone 0 Yes Advair Univ ers -salmeterol 6-10 Diskus 250 it y of 250-50 14:50: mcg-50 [place] mcg/dose 35 mcg/dose Medical inhalation powder for Bra nc disk inhalation Inhale 1 puff twice a day by inhalation route. METOPROLOL [id number] Yes 100mg Take 100 Un michelle SUCCINATE 6-10 mg by ity of ORAL 14:50: mouth [place] 35 daily. Medical Branch potassium 2019-0 Yes 20meq Take 20 Univ ers chloride 20 6-10 mEq by ity of mEq packet 14:50: mouth [place] 35 daily. Medical Branch Levothyroxi 0 Yes 125ug Take 125 U nivers ne 125 mcg 6-10 mcg by ity of capsule 14:50: mouth [place] 35 daily. Medical Branch furosemide 2019- Yes 40mg Take 40 mg U nivers 40 mg 6-10 by mouth ity of tablet 14:50: every [place] 35 morning Medical and Branch evening. fluticasone Yes [id number] 2{spray Use 2 Univers 50 6-04 } Sprays in ity of mcg/actuati 00:00: each [place] on nasal 00 nostril Medical spray daily. Branch fluticasone Yes [id number] 2{spray Use 2 Univers 50 6-04 } Sprays in ity of mcg/actuati 00:00: each [place] on nasal 00 nostril Medical spray daily. Branch fluticasone Yes [id number] 2{spray Use 2 Univers 50 6-04 } Sprays in ity of mcg/actuati 00:00: each [place] on nasal 00 nostril Medical spray daily. Branch fluticasone Yes [id number] 2{spray Use 2 Univers 50 6-04 } Sprays in ity of mcg/actuati 00:00: each [place] on nasal 00 nostril Medical spray daily. Branch methylPREDN Yes [id number] Take by Univers ISolone 6-04 mouth ity of (MEDROL, 00:00: SEE-INSTRU Abad as SANDRA,) 4 mg 00 CTIONS. Medica l tablets follow Branch package directions montelukast Yes [id number] 10mg Take 1 Univers (SINGULAIR) 6-04 tablet by ity of 10 mg 00:00: mouth [place] tablet 00 daily. Medical Branch cetirizine Yes [id number] 10mg Take 1 U nivers (ZYRTEC) 10 6-04 tablet by ity of mg tablet 00:00: [place] 00 bedtime. Medical Branch fluticasone Yes [id number] 2{spray Use 2 Univers 50 6-04 } Sprays in ity of mcg/actuati 00:00: each [place] on nasal 00 nostril Medical spray daily. Branch traMADOL 50 Yes [id number] 50mg Take 1 Univers mg tablet 5-22 tablet by ity o f 00:00: mouth [place] 00 every 6 Medical (six) Branch hours as needed for Pain (scale 1-3). traMADOL 50 Yes [id number] 50mg Take 1 Univers mg tablet 5-22 tablet by ity o f 00:00: mouth [place] 00 every 6 Medical (six) Branch hours as needed for Pain (scale 1-3). ranitidine Yes [id number] 300mg Take 1 Univers (ZANTAC) 3-29 tablet by ity of 300 mg 00:00: mouth at [place] tablet 00 bedtime. Medical Branch pantoprazol Yes [id number] 40mg Take 1 Univers e 40 mg EC 3-18 tablet by ity of tablet 00:00: mouth [place] 00 daily. Medical Branch pantoprazol Yes [id number] 40mg Take 1 Univers e 40 mg EC 3-18 tablet by ity of tablet 00:00: mouth [place] 00 daily. Medical Branch HYDROcodone Yes [id number] 1{tbl} Take 1 Univers -acetaminop 3-09 tablet by ity of hen 5-325 00:00: mouth [place] mg tablet 00 every 6 Medical (six) Branch hours as needed for Pain (scale 4-6) or Pain (scale 7-10). docusate Yes [id number] 100mg Take 1 Uni vers 100 mg 3-08 capsule by [facility] [place] capsule 00:[place]: [place] 00 daily as Medical needed for Branch Constipati on. docusate Yes [id number] 100mg Take 1 Uni vers 100 mg 3-08 capsule by [facility] [place] capsule 00:00: mouth [place] 00 daily as Medical needed for Branch Constipati on. docusate Yes [id number] 100mg Take 1 Uni vers 100 mg 3-08 capsule by [facility] of capsule 00:00: mouth [place] 00 daily as Medical needed for Branch Constipati on. lidocaine Yes [id number] 15mL Take 15 mL Univers 2% viscous 3-08 by mouth ity o f 2 % 00:00: every 4 [place] solution 00 (four) Medical hours as Branch needed for Oral mucosal pain. docusate Yes [id number] 100mg Take 1 Uni vers 100 mg 3-08 capsule by [facility] of capsule 00:00: mouth [place] 00 daily as Medical needed for Branch Constipati on. traMADOL 50 Yes [id number] 50mg Take 1 U nivers mg tablet 3-08 tablet by ity o f 00:00: mouth [place] 00 every 6 Medical (six) Branch hours as needed for Pain (scale 4-6). docusate Yes [id number] 100mg Take 1 Uni vers 100 mg 3-08 capsule by [facility] [place] capsule 00:[place]: [place] 00 daily as Medical needed for Branch Constipati on. glyBURIDE 0 Yes 5mg Q.5D Take 5 mg Met [facility] (DIABETA) 5 8-[address] MG tablet 00:17: (two) Hospita 05 times a l day with meals. metoprolol 2016-0 Yes 50mg Q.[id number] Take 50 mg [facility] tartrate 8- [id number] by mouth [facility] (LOPRESSOR) 00:17: 3D (three) Hos jossie 50 mg 05 times a l tablet day. clopidogrel Yes 75mg QD Take 75 mg [facility] (PLAVIX) 75 - by mouth st mg tablet 00:17: nightly. Hosp neo 05 l aspirin 0 Yes 81mg QD Take 81 mg Meth rolando (ECOTRIN) 8- by mouth st 81 MG 00:17: nightly. Hospita enteric 05 l coated tablet baclofen 0 Yes 10mg Q.[id number] Take 10 mg [facility] (LIORESAL) 8- [id number] by mouth [facility] 10 MG 00:17: 3D (three) Hospita tablet 05 times a l day. As needed only pravastatin Yes 80mg QD Take 80 mg [facility] (PRAVACHOL) 8- by mouth st 80 MG 00:17: nightly. Hospita tablet 05 l alogliptin- 2016-0 Yes 1{tbl} QD Take 1 Me thodi pioglitazon 8-[address] (OSENI) 00:17: mouth Hospita 25-30 mg 05 daily. l tablet furosemide 2016-0 Yes 20mg Q.5D Take 20 mg M ethodi (LASIX) 20 8-[address] mg tablet 00:17: (two) Hospita 05 times a l day. magnesium 2017-0 Yes 250mg QD Take 250 Met [facility] oxide 250 8-[address] mg tablet 00:17: mouth Hospita 05 daily. l metFORMIN 2017-0 Yes 500mg Q.5D Take 500 Met [facility] (GLUCOPHAGE 8-[address] ) 500 mg 00:17: mouth 2 Hospit a tablet 05 (two) l times a day with meals. metfomin ER metFORMIN 2017-0 Yes 500mg Q.5D Take 500 Met [facility] (GLUCOPHAGE 8-[address] ) 500 mg 19:17: mouth 2 Hospit a tablet 05 (two) l times a day with meals. metfomin ER glyBURIDE 2017-0 Yes 5mg Q.5D Take 5 mg Met [facility] (DIABETA) 5 8-[address] MG tablet 19:17: (two) Hospita 05 times a l day with meals. metoprolol 2017-0 Yes 50mg Q.[id number] Take 50 mg [facility] tartrate 8-25 [id number] mouth [address] (LOPRESSOR) 19:17: 3D (three) Hos jossie 50 mg 05 times a l tablet day. clopidogrel 2017-0 Yes 75mg QD Take 75 mg [facility] (PLAVIX) 75 8-[address] mg tablet 19:17: nightly. Hosp neo 05 l aspirin 2017-0 Yes 81mg QD Take 81 mg Meth rolando (ECOTRIN) 8-[address] 81 MG 19:17: nightly. Hospita enteric 05 l coated tablet baclofen 2017-0 Yes 10mg Q.[id number] Take 10 mg [facility] (LIORESAL) 8-25 [id number] 10 MG 19:17: 3D (three) Hospita tablet 05 times a l day. As needed only pravastatin 2017-0 Yes 80mg QD Take 80 mg [facility] (PRAVACHOL) 8-[address] 80 MG 19:17: nightly. Hospita tablet 05 l alogliptin- 2017-0 Yes 1{tbl} QD Take 1 Me thodi pioglitazon 8-[address] e (OSENI) 19:17: mouth Hospita 25-30 mg 05 daily. l tablet furosemide 2017-0 Yes 20mg Q.5D Take 20 mg M ethodi (LASIX) 20 8-[address] mg tablet 19:17: (two) Hospita 05 times a l day. magnesium 2017-0 Yes 250mg QD Take 250 Met [facility] oxide 250 8-[address] mg tablet 19:17: mouth Hospita 05 daily. l metFORMIN 2017-0 Yes 500mg Q.5D Take 500 Met [facility] (GLUCOPHAGE 8-[address] ) 500 mg 19:17: mouth 2 Hospit a tablet 05 (two) l times a day with meals. metfomin ER glyBURIDE 2017-0 Yes 5mg Q.5D Take 5 mg Met [facility] (DIABETA) 5 8-[address] MG tablet 19:17: (two) Hospita 05 times a l day with meals. metoprolol 2017-0 Yes 50mg Q.[id number] Take 50 mg [facility] tartrate 8-25 [id number] mouth [address] (LOPRESSOR) 19:17: 3D (three) Hos jossie 50 mg 05 times a l tablet day. clopidogrel 2017-0 Yes 75mg QD Take 75 mg [facility] (PLAVIX) 75 8-[address] mg tablet 19:17: nightly. Hosp neo 05 l aspirin 2017-0 Yes 81mg QD Take 81 mg Meth rolando (ECOTRIN) 8-[address] 81 MG 19:17: nightly. Hospita enteric 05 l coated tablet baclofen 2017-0 Yes 10mg Q.[id number] Take 10 mg [facility] (LIORESAL) 8-[id number] 10 MG 19:17: 3D (three) Hospita tablet 05 times a l day. As needed only pravastatin 2017-0 Yes 80mg QD Take 80 mg [facility] (PRAVACHOL) 8-[address] 80 MG 19:17: nightly. Hospita tablet 05 l alogliptin- 2017-0 Yes 1{tbl} QD Take 1 Me thodi pioglitazon 8-[address] (OSENI) 19:17: mouth Hospita 25-30 mg 05 daily. l tablet furosemide 2017-0 Yes 20mg Q.5D Take 20 mg M ethodi (LASIX) 20 8-[address] mg tablet 19:17: (two) Hospita 05 times a l day. magnesium 2017-0 Yes 250mg QD Take 250 Met hodi oxide 250 8-[address] mg tablet 19:17: mouth Hospita 05 daily. l Vital Signs Vital Name Observation Time Observation Value Comments Source Systolic blood 2022-05-22 11:46:00 128 mm[Hg] Univer sity of pressure [place] [facility] Diastolic blood 2022-05-22 11:46:00 77 mm[Hg] Unive rsity of pressure [place] [facility] Heart rate 2022-05-22 11:46:00 79 /min [facility]i ty [facility] [place] [facility] Respiratory rate 2022-05-22 11:46:00 18 /min Univ ersity of [place] [facility] Oxygen saturation in 2022-05-22 11:46:00 99 /min University of Arterial blood by [place] [facility] stevan Pulse oximetry Branch Body temperature 2022-05-22 08:22:00 36.67 Fadumo Univ ersity of [place] [facility] Body height 2022-05-22 08:22:00 162.6 cm [facility] [place] [facility] Body weight 2022-05-22 08:22:00 90.719 kg [facility] [place] [facility] BMI 2022-05-22 08:22:00 34.33 kg/m2 [facility] [place] [facility] Systolic blood 2022-02-04 14:00:00 125 mm[Hg] Univer sity of pressure [place] [facility] Diastolic blood 2022-02-04 14:00:00 69 mm[Hg] Unive rsity of pressure [place] [facility] Heart rate 2022-02-04 14:00:00 78 /min [facility] [place] [facility] Respiratory rate 2022-02-04 14:00:00 16 /min Univ ersity of [place] [facility] Oxygen saturation in 2022-02-04 14:00:00 97 /min University of Arterial blood by [place] [facility] stevan Pulse oximetry Branch Body temperature 2022-02-04 11:54:00 36.22 Fadumo Univ ersity of [place] [facility] Body height 2022-02-04 11:54:00 162.6 cm [facility] [place] [facility] Body weight 2022-02-04 11:54:00 90.266 kg [facility] [place] [facility] BMI 2022-02-04 11:54:00 34.16 kg/m2 [facility] [place] [facility] Systolic blood 2020-05-31 01:00:00 124 mm[Hg] Univer sity of pressure [place] [facility] Diastolic blood 2020-05-31 01:00:00 74 mm[Hg] Unive rsity of pressure [place] [facility] Heart rate 2020-05-31 01:00:00 83 /min [facility] [place] [facility] Respiratory rate 2020-05-31 01:00:00 18 /min Univ ersity of [place] [facility] Oxygen saturation in 2020-05-31 01:00:00 98 /min University of Arterial blood by [facility] Pulse oximetry Branch Body temperature 2020-05-30 23:58:00 36.67 Fadumo Univ ersity of [place] [facility] Body height 2020-05-30 23:58:00 162.6 cm [facility] [place] [facility] Body weight 2020-05-30 23:58:00 98.431 kg [facility] [place] [facility] BMI 2020-05-30 23:58:00 37.25 kg/m2 [facility] [place] [facility] Systolic blood 2020-05-31 01:00:00 124 mm[Hg] Univer sity of pressure [place] [facility] Diastolic blood 2020-05-31 01:00:00 74 mm[Hg] Unive rsity of pressure [place] [facility] Heart rate 2020-05-31 01:00:00 83 /min [facility] [place] [facility] Respiratory rate 2020-05-31 01:00:00 18 /min Univ ers[facility] of [place] [facility] Oxygen saturation in 2020-05-31 01:00:00 98 /min University of Arterial blood by [facility] Pulse oximetry Branch Body temperature 2020-05-30 23:58:00 36.67 Fadumo Univ ers[facility] [place] [facility] Body height 2020-05-30 23:58:00 162.6 cm [facility] [place] [facility] Body weight 2020-05-30 23:58:00 98.431 kg [facility] [place] [facility] BMI 2020-05-30 23:58:00 37.25 kg/m2 [facility] [place] [facility] temperature site 2021-08-02 13:16:08 oral [facility] pulse rate 2021-08-02 13:16:08 86 /min [facility] blood pressure, 2021-08-02 13:16:08 75 mm[Hg] [facility] blood pressure, 2021-08-02 13:16:08 125 mm[Hg] [facility] systolic Health oxygen saturation, 2021-08-02 13:16:08 98 /min [facility] oximetry Health temperature E&M 2021-08-02 13:16:08 98.6 [degF] [facility] weight E&M 2021-08-02 13:16:08 203 [lb_av] [facility] weight in kilograms 2021-08-02 13:16:08 92.27 kg L [facility] E& Health height in 2021-08-02 13:16:08 162.56 cm [facility] E& Health oxygen saturation, 2020-09-20 15:13:22 98 /min [facility] oximetry Health blood pressure, 2020-09-20 15:13:22 78 mm[Hg] [facility], 2020-09-20 15:13:22 124 mm[Hg] [facility] systolic Health pulse rate 2020-09-20 15:13:22 97 /min [facility] temperature E&M 2020-09-20 15:13:22 98.2 [degF] [facility] weight E&M 2020-09-20 15:13:22 219 [lb_av] [facility] weight in kilograms 2020-09-20 15:13:22 99.55 kg L [facility] E& Health height in 2020-09-20 15:13:22 162.56 cm [facility] centimeters E&M Health temperature site 2020-09-20 15:13:22 oral [facility] Health Procedures Procedure Date / Time Performed Performing Clinician [facility] e TROPONIN I 2022-05-22 10:31:00 Grady King [facility] CT HEAD WO CONTRAST 2022-05-22 09:12:24 Grady King [facility] XR CHEST 1 VW 2022-05-22 08:42:13 Grady King [facility] TROPONIN I 2022-05-22 08:27:00 Grady King [facility] BASIC METABOLIC PANEL 2022-05-22 08:27:00 Grady King [facility] (NA, K, CL, CO2, Medical Branch GLUCOSE, BUN, CREATININE, CA) CBC WITH DIFF 2022-05-22 08:27:00 Grady King [facility] N-TERMINAL PRO-BNP 2022-05-22 08:27:00 Grady King [facility] CT CHEST PULMONARY 2022-02-04 13:07:02 Jerri Wilkinson [facility] ANGIOGRAM [facility] Branch TROPONIN I 2022-02-04 12:35:00 Jerri Wilkinson [facility] COMP. METABOLIC PANEL 2022-02-04 12:35:00 Jerri Wilkinson [facility] ([id number]) [facility] Branch CBC WITH DIFF 2022-02-04 12:35:00 Jerri Wilkinosn [facility] N-TERMINAL PRO-BNP 2022-02-04 12:35:00 Jerri Wilkinson [facility] CT CERVICAL SPINE WO 2020-05-31 00:56:37 Brandy Armenta [facility] CONTRAST [facility] CT HEAD WO CONTRAST 2020-05-31 00:56:37 Brandy Armenta [facility] CT LUMBAR SPINE WO 2020-05-31 00:56:37 Brandy Armenta [facility] CONTRAST [facility] CT THORACIC SPINE WO 2020-05-31 00:56:37 Brandy Armenta [facility] CONTRAST [facility] Plan of Care Planned Activity Planned Date Details Comments Source Future Scheduled 2022-07-24 HEPATITIS B VACCINES Met [facility] Test 20:02:02 (1 of 3 - 3-dose series) [code = HEPATITIS B VACCINES (1 of 3 - 3-dose series)] Future Scheduled 2022-07-24 COVID-19 VACCINE (#1) [facility] Test 20:02:02 [code = COVID-19 VACCINE (#1)] Future Scheduled 2022-07-24 Hepatitis C screening [facility] Test 20:02:02 (procedure) [code = 759706285] Future Scheduled 2022-07-24 Screening for [facility] Test 20:02:02 malignant neoplasm of cervix (procedure) [code = 626473235] Future Scheduled 2022-07-24 BREAST CANCER [facility] Test 20:02:02 SCREENING [code = BREAST CANCER SCREENING] Future Scheduled 2022-07-24 COLONOSCOPY SCREENING [facility] Test 20:02:02 [code = COLONOSCOPY SCREENING] Future Scheduled 2022-07-24 SHINGLES VACCINES (1 Met [facility] Test 20:02:02 of 2) [code = SHINGLES VACCINES (1 of 2)] Future Scheduled 2022-07-24 65+ [facility]OCOCCAL [facility] Test 20:02:02 VACCINE (1 - PCV) [code = 65+ PNEUMOCOCCAL VACCINE (1 - PCV)] Future Scheduled 2022-07-24 INFLUENZA VACCINE Method [facility] Test 20:02:02 [code = INFLUENZA VACCINE] Future Scheduled 2022-05-21 HEPATITIS B VACCINES [facility] Test 16:58:39 (1 of 3 - 3-dose series) [code = HEPATITIS B VACCINES (1 of 3 - 3-dose series)] Future Scheduled 2022-05-21 COVID-19 VACCINE (#1) [facility] Test 16:58:39 [code = COVID-19 VACCINE (#1)] Future Scheduled 2022-05-21 Hepatitis C screening [facility] Test 16:58:39 (procedure) [code = 164341561] Future Scheduled 2022-05-21 Screening for [facility] Test 16:58:39 malignant neoplasm of cervix (procedure) [code = 937622303] Future Scheduled 2022-05-21 BREAST CANCER [facility] Test 16:58:39 SCREENING [code = BREAST CANCER SCREENING] Future Scheduled 2022-05-21 COLONOSCOPY SCREENING [facility] Test 16:58:39 [code = COLONOSCOPY SCREENING] Future Scheduled 2022-05-21 SHINGLES VACCINES (1 Met [facility] Test 16:58:39 of 2) [code = SHINGLES VACCINES (1 of 2)] Future Scheduled 2022-05-21 65+ [facility]OCOCCAL [facility] Test 16:58:39 VACCINE (1 - PCV) [code = 65+ PNEUMOCOCCAL VACCINE (1 - PCV)] Future Scheduled 2022-05-21 INFLUENZA VACCINE Method [facility] Test 16:58:39 [code = INFLUENZA VACCINE] Future Scheduled COVID-19 VACCINE (1) [facility] Test [code = COVID-19 VACCINE (1)] Future Scheduled [facility] (procedure[facility] [code = 157069776] Future Scheduled Scre[facility] Test malignant neoplasm of cervix (procedure) [code = 031659919] Future Scheduled BREAST CANCER [facility] Test SCREENING [code = BREAST CANCER SCREENING] Future Scheduled COL[facility]OSCOPY [facility]ING [facility] [code = COLONOSCOPY SCREENING] Future Scheduled SHINGLES VACCINES (#[facility]) [facility] [code = SHINGLES VACCINES (#1)] Future Scheduled [facility]ZA [facility]INE [facility] [code = INFLUENZA VACCINE] Future Scheduled DIABETES: RETINAL EYE [facility] EXAM [code = DIABETES: RETINAL EYE EXAM] Future Scheduled DIABETIC FOOT EXAM [facility] Test [code = DIABETIC FOOT EXAM] Future Scheduled URINE MICROALBUMIN [facility] Test [code = URINE MICROALBUMIN] Encounters Start End Encounter Admission Attending Care Care Encounter Source Date/Time Date/Time Type Type Clinicians Facility Department ID 2022-02-06 Outpatient [facility] [id number] [place] 07:22:02 [id number] [facility] 2022-02-05 Outpatient [facility] [id number] [place] 12:52:32 [id number] [facility] 2022-02-04 Outpatient [facility] [id number] [place] 15:14:48 [id number] [facility] 2021-07-30 Outpatient Bess [facility] [id number] [facility] 14:23:46 Andrew Ramirez [facility] 2021-07-20 Emergency [facility] [id number] Univers 16:28:55 [facility] 2020-01-28 Outpatient ESPERANZA GREENBERG ALEXIS [id number] [facility] 10:36:26 VAL 2019-09-17 Outpatient [facility] [id number] [facility] 08:18:24 2022-08-27 2022-08-27 Outpatient ANALY SCANLON [id number] Ame 09:30:00 09:30:00 Seybol d 2022-08-02 2022-08-02 Outpatient ANALY SCANLON6 [id number] [facility] 08:30:00 08:30:00 Seybol d 2022-05-29 2022-05-29 Outpatient AOSM AOSM [id number] Mary 00:00:00 00:00:00 [id number] [facility] 2022-05-22 2022-05-22 Emergency [facility] [id number] Univers 03:24:00 06:49:00 GRADY watt [facility] 2022-05-22 2022-05-22 Emergency [facility] [id number] Univers 03:24:00 06:49:00 Grady JORDAN [id number] i [facility] 4.2.7.2.686 [facility] [id number] [address] 2022-02-04 2022-02-04 Emergency [facility] ERT [id number] Univers 06:59:00 09:33:00 JERRI watt [facility] 2022-02-04 2022-02-04 Emergency [facility] [id number] Univers 06:59:00 09:33:00 Jerri [facility]AN [id number] [facility] 4.2.7.2.686 [facility] [id number] [address] 2022-01-29 2022-01-30 Outpatient E JUAN, FB MED [id number] [facility] 15:43:00 17:35:00 RADHA 2021-08-02 2021-08-02 Office Kandi Ritter [facility] Ang cuellar/ Cristofer 00:00:00 00:00:00 Visit Veronica Koenig [id number] Megan Martell I [id number] [facility] 2021-07-30 2021-07-30 Outpatient ABBEY Kellogg [facility] RAD [id number] 53- [facility] 13:05:00 13:05:00 Andrew [id number] [facility] are [facility] 2020-12-13 2020-12-13 Outpatient Bess [facility] NUC [id number] 53- [facility] 09:30:00 09:30:00 [facility] [id number] [facility] 2020-12-08 2020-12-08 Outpatient Bess [facility] NUC [id number] 53- [facility] 08:30:00 08:30:00 Andrew [id number] [facility] 2020-12-06 2020-12-06 Outpatient Bess [facility] [id number] 53- [facility] 08:00:00 08:00:00 Andrew [id number] [facility] 2020-12-01 2020-12-01 Outpatient Bess [facility] [id number] 53- [facility] 07:44:00 07:44:00 Andrew [id number] Elsa [facility] are [facility] 2020-09-21 2020-09-21 Office Ta, Ermelinda [facility] Encounter / [facility] 00:00:00 00:00:00 Visit [id number] Com cesia 135147 Health 2020-09-21 2020-09-21 Office Ta, Ermelinda [facility] Encounter / Legacy 00:00:00 00:00:00 Visit [id number] Com cesia 815756 Health 2020-09-20 2020-09-20 Office Ta, Ermelinda [facility] Encounter / Legacy 00:00:00 00:00:00 Visit [id number] Com cesia 583189 ty Health 2020-09-20 2020-09-20 Office Ta, Ermelinda [facility] Encounter / Legacy 00:00:00 00:00:00 Visit [id number] Com cesia 145373 ty Health 2020-09-20 2020-09-20 Office Ta, Ermelinda [facility] Encounter / Legacy 00:00:00 00:00:00 Visit [id number] Com cesia 353047 Health 2020-09-20 2020-09-20 Office Ta, Ermelinda [facility] Encounter / Legacy 00:00:00 00:00:00 Visit [id number] Com cesia 972368 ty Health 2020-09-20 2020-09-20 Office Ta, Ermelinda [facility] Encounter / Legacy 00:00:00 00:00:00 Visit [id number] Com cesia 593630 Health 2020-09-20 2020-09-20 Office Ta, Ermelinda [facility] Encounter / Legacy 00:00:00 00:00:00 Visit Karina Feldman [id number] Yevgeniy Schwarz Mai [id number] Health 2020-08-30 2020-08-30 Transition Keila Ashley [id number] 00:00:00 00:00:00 of Care Jermaine Tomy [id number] [place] 4.2.7.2.686 [id number] 2020-08-30 2020-08-30 Transition Keila Ashley [id number] Univers 00:00:00 00:00:00 of Care Jermaine Tomy [id number] [place]y [place] [id number] [facility] 403 Branch 2020-08-27 2020-08-29 Inpatient X , [facility] [id number] Univers 11:17:00 12:21:00 ARJUN lopez [facility] 2020-08-21 2020-08-21 [id number]- [facility] 11:31:00 11:31:00 Andrew [id number] [facility] 2020-05-30 2020-05-30 Emergency [facility] [id number] 18:49:00 20:45:00 Brandy [place] [id number] [place] 4.2.7.2.686 [place] [id number] [facility] 2020-05-30 2020-05-30 Emergency [facility] [id number] [facility] 18:49:00 20:45:00 Brandy [place] [id number] ity of [place] 4.2.7[address] [place] [address] [id number] [place] [address] Branch 2019-11-24 2019-11-24 Outpatient DIONICIO, [facility] [id number] [facility] 08:00:00 23:59:00 VAL 2019-05-10 2019-05-10 Telephone [facility] [id number] 00:00:00 00:00:00 Ozzy TAYLOR [id number] [place] 4.2.7.2.686 [id number] [facility] 2019-05-10 2019-05-10 Telephone [facility] [id number] [facility] 00:00:00 00:00:00 Ozzy TAYLOR [id number] i [facility] 4.2.7.2.686 [place] [id number] [address] Results Test Description Test Time Test Comments Results Result Comments Source TROPONIN I 2022-05-22 11:20:06 Test Item Value Reference Range Interpretation Comme nts TROPONIN I (test code = 0.004 ng/mL See_Comment [Au tomated message] The [id number]) system which ge nerated this result tra nsmitted reference range : <=0.034. The reference r erasmo was not used to int erpret this result as normal/abnormal . ODESSA (test code = ODESSA) Reference (Normal) Range (defined by the 99th percentile reference limit): <= 0.034 ng/mL Note: Cardiac troponin begins to rise 3-4 hours after the onset of ischemia. Repeat in 4-6 hours if the sample was drawn within 3-4 hours of the onset of the symptom and found normal. Diagnosis of myocardial injury is made with acute changes in cTn concentrations with at least one serial sample above the 99th percentile upper reference limit (URL), taken together with the patient's clinical presentation. Biotin has been reported to cause a negative bias, interpret results relative to patient's use of biotin. Lab Interpretation Normal (test code = 03017-1) [id number] 09:32:52 Test Item Value Reference Interpretation Comments Range TROPONIN I (test 0.007 ng/mL See_Comment [Automated code = [id number]) message] The system which generated this result transmitted reference range : <=0.034. The reference range was not used to interpret this result as normal/abnormal . ODESSA (test code = Reference (Normal) ODESSA) Range (defined by the 99th percentile reference limit): <= 0.034 ng/mL Note: Cardiac troponin begins to rise 3-4 hours after the onset of ischemia. Repeat in 4-6 hours if the sample was drawn within 3-4 hours of the onset of the symptom and found normal. Diagnosis of myocardial injury is made with acute changes in cTn concentrations with at least one serial sample above the 99th percentile upper reference limit (URL), taken together with the patient's clinical presentation. Biotin has been reported to cause a negative bias, interpret results relative to patient's use of biotin. Lab Interpretation Normal (test code = 99806-4) [id number] 09:29:55 Test Item Value Reference Range Interpretation Comments NT-proBNP (test code 27 pg/mL See_Comment [Autom ated = 3746331626) message] The system which generated this result transmitted reference range : <=125. The reference range was not used to interpret this result as normal/abnormal . ODESSA (test code = ODESSA) Biotin has been reported to cause a negative bias, interpret results relative to patient's use of biotin. Lab Interpretation Normal (test code = 62952-3) [facility] (NA, K, CL, CO2, GLUCOSE, BUN, CREATININE, CA)2022-05-22 09:21:52 Test Item Value Reference Range Interpretation Comments NA (test code = 138 mmol/L 135-145 3098769672) K (test code = 4.1 mmol/L 3.5-5 5289898408) CL (test code = 101 mmol/L 98-108 8573154311) CO2 TOTAL (test code = 29 mmol/L 23-31 5652071585) AGAP (test code = 2-16 1728091511) BUN (test code = 22 mg/dL 7-23 4421753507) GLUCOSE (test code = 201 mg/dL 70-110 H 2489795221) CREATININE (test code = 0.72 mg/dL 0.5-1.04 3737889691) CALCIUM (test code = 8.7 mg/dL 8.6-10.6 2100828141) eGFR (test code = mL/min/1.73m2 7740888722) ODESSA (test code = ODESSA) Association of Glomerular Filtration Rate (GFR) and Staging of Kidney Disease* + --+ --+ ------+| GFR (mL/min/1.73 m2) ?| With Kidney Damage ?| ?Without Kidney Damage+ --------+ --------+ +| ?>90 ?| ?Stage one ?| ? Normal ?+ ---+ ---+ -------+| ?60-89 ?| ?Stage two ?| ? Decreased GFR ? + --+ --+ ------+| ?30-59 ?| ?Stage three ?| ? Stage three ? + --+ --+ ------+| ?15-29 ?| ?Stage four ? | ? Stage four ?+ ---+ ---+ -------+| ?<15 (or dialysis) ? ?| ?Stage five ? | ? Stage five ?+ ---+ ---+ -------+ *Each stage assumes the associated GFR level has been in effect for at least three months. ?Stages 1 to 5, with or without kidney disease, indicate chronic kidney disease. Notes: Determination of stages one and two (with eGFR >59mL/min/1.73 m2) requires estimation of kidney damage for at least three months as defined by structural or functional abnormalities of the kidney, manifested by either:Pathological abnormalities or Markers of kidney damage (including abnormalities in the composition of the blood or urine or abnormalities in imaging tests). Lab Interpretation Abnormal (test code = 43669-0) [facility] WITH [id number] 08:50:29 Test Item Value Reference Range Interpretation Comments WBC (test code = See_Comment [Automated 1390-2) message] The sy stem which generated this result transmitted reference range : 4.30 - 11.10 10*3/?L. The reference range was not used to interpret this result as normal/abnormal . RBC (test code = See_Comment L [Automated 079-8) message] The sy stem which generated this result transmitted reference range : 3.93 - 5.25 10*6/?L. The reference range was not used to interpret this result as normal/abnormal . HGB (test code = 11.7 g/dL 11.6-15 718-7) HCT (test code = 36.2 % 35.7-45.2 4544-3) MCV (test code = 92.6 fL 80.6-95.5 787-2) MCH (test code = 29.9 pg 25.9-32.8 785-6) MCHC (test code = 32.3 g/dL 31.6-35.1 786-4) RDW-SD (test code = 52.0 fL 39-49.9 H 42927-9) RDW-CV (test code = 15.5 % 12-15.5 788-0) PLT (test code = See_Comment [Automated 777-3) message] The sy stem which generated this result transmitted reference range : 166 - 358 10*3/ ?L. The reference r erasmo was not used to interpret this result as normal/abnormal . MPV (test code = 11.6 fL 9.5-12.9 98459-0) NRBC/100 WBC (test See_Comment [Automat ed code = 3936573640) message] The system which generated this result transmitted reference range : 0.0 - 10.0 /100 WBCs. The refer ence range was not u sed to interpret th is result as normal/abnormal . NRBC x10^3 (test code See_Comment [Auto mated = 6058125314) message] The s ystem which generated this result transmitted reference range : 10*3/?L. The reference range was not used to interpret this result as normal/abnormal . GRAN MAT (NEUT) % 59.5 % (test code = 770-8) IMM GRAN % (test code 0.80 % = 6927149920) LYMPH % (test code = 29.9 % 736-9) MONO % (test code = 8.2 % 5905-5) EOS % (test code = 1.2 % 713-8) BASO % (test code = 0.4 % 706-2) GRAN MAT x10^3(ANC) 3.07 10*3/uL 1.88-7.09 (test code = 9376753176) IMM GRAN x10^3 (test 0.04 10*3/uL 0-0.06 code = 7011557811) LYMPH x10^3 (test code 1.54 10*3/uL 1.32-3.29 = 731-0) MONO x10^3 (test code 0.42 10*3/uL 0.33-0.92 = 742-7) EOS x10^3 (test code = 0.06 10*3/uL 0.03-0.39 711-2) BASO x10^3 (test code 0.01-0.07 = 704-7) Lab Interpretation Abnormal (test code = 96853-7) [facility] [id number] 13:32:33 Test Item Value Reference Interpretation Comments Range TROPONIN I (test 0.003 ng/mL See_Comment [Automated code = 6458001864) message] The system which generated this result transmitted reference range : <=0.034. The reference range was not used to interpret this result as normal/abnormal . ODESSA (test code = Reference (Normal) ODESSA) Range (defined by the 99th percentile reference limit): <= 0.034 ng/mL Note: Cardiac troponin begins to rise 3-4 hours after the onset of ischemia. Repeat in 4-6 hours if the sample was drawn within 3-4 hours of the onset of the symptom and found normal. Diagnosis of myocardial injury is made with acute changes in cTn concentrations with at least one serial sample above the 99th percentile upper reference limit (URL), taken together with the patient's clinical presentation. Biotin has been reported to cause a negative bias, interpret results relative to patient's use of biotin. Lab Interpretation Normal (test code = 77121-3) [facility]. METABOLIC PANEL (65630)2022-02-04 13:21:10 Test Item Value Reference Range Interpretation Comments NA (test code = 139 mmol/L 135-145 7489079809) K (test code = 3.6 mmol/L 3.5-5.0 6019449521) CL (test code = 96 mmol/L 98-108 L 3892263092) CO2 TOTAL (test code = 33 mmol/L 23-31 H 6635666054) AGAP (test code = 2-16 5405736109) BUN (test code = 24 mg/dL 7-23 H 7668902819) GLUCOSE (test code = 195 mg/dL 70-110 H 3172121669) CREATININE (test code = 0.86 mg/dL 0.50-1.04 9339449867) TOTAL BILI (test code = 0.4 mg/dL 0.1-1.5 3133220430) CALCIUM (test code = 8.3 mg/dL 8.6-10.6 L 2490697981) T PROTEIN (test code = 7.0 g/dL 6.3-8.2 3202034457) ALBUMIN (test code = 4.2 g/dL 3.5-5.0 8585280509) ALK PHOS (test code = 114 U/L 34-122 1042333576) ALTv (test code = 14 U/L 5-35 1742-6) AST(SGOT) (test code = 18 U/L 13-40 7088653213) eGFR (test code = mL/min/1.73m2 7602521163) ODESSA (test code = ODESSA) Association of Glomerular Filtration Rate (GFR) and Staging of Kidney Disease* + --+ --+ ------+| GFR (mL/min/1.73 m2) ?| With Kidney Damage ?| ?Without Kidney Damage+ --------+ --------+ +| ?>90 ?| ?Stage one ?| ? Normal ?+ ---+ ---+ -------+| ?60-89 ?| ?Stage two ?| ? Decreased GFR ? + --+ --+ ------+| ?30-59 ?| ?Stage three ?| ? Stage three ? + --+ --+ ------+| ?15-29 ?| ?Stage four ? | ? Stage four ?+ ---+ ---+ -------+| ?<15 (or dialysis) ? ?| ?Stage five ? | ? Stage five ?+ ---+ ---+ -------+ *Each stage assumes the associated GFR level has been in effect for at least three months. ?Stages 1 to 5, with or without kidney disease, indicate chronic kidney disease. Notes: Determination of stages one and two (with eGFR >59mL/min/1.73 m2) requires estimation of kidney damage for at least three months as defined by structural or functional abnormalities of the kidney, manifested by either:Pathological abnormalities or Markers of kidney damage (including abnormalities in the composition of the blood or urine or abnormalities in imaging tests). Lab Interpretation Abnormal (test code = 40850-3) [facility] [id number] 13:17:30 Test Item Value Reference Range Interpretation Comments NT-proBNP (test code 32 pg/mL See_Comment [Autom ated = 0376557922) message] The system which generated this result transmitted reference range : <=125. The reference range was not used to interpret this result as normal/abnormal . ODESSA (test code = ODESSA) Biotin has been reported to cause a negative bias, interpret results relative to patient's use of biotin. Lab Interpretation Normal (test code = 78088-8) [facility] WITH [id number] 12:49:32 Test Item Value Reference Range Interpretation Comments WBC (test code = See_Comment [Automated 6690-2) message] The sy stem which generated this result transmitted reference range : 4.30 - 11.10 10*3/?L. The reference range was not used to interpret this result as normal/abnormal . RBC (test code = See_Comment [Automated 789-8) message] The sy stem which generated this result transmitted reference range : 3.93 - 5.25 10*6/?L. The reference range was not used to interpret this result as normal/abnormal . HGB (test code = 12.5 g/dL 11.6-15.0 718-7) HCT (test code = 39.2 % 35.7-45.2 4544-3) MCV (test code = 91.4 fL 80.6-95.5 787-2) MCH (test code = 29.1 pg 25.9-32.8 785-6) MCHC (test code = 31.9 g/dL 31.6-35.1 786-4) RDW-SD (test code = 49.8 fL 39.0-49.9 06010-8) RDW-CV (test code = 14.9 % 12.0-15.5 788-0) PLT (test code = See_Comment [Automated 777-3) message] The sy stem which generated this result transmitted reference range : 166 - 358 10*3/ ?L. The reference r erasmo was not used to interpret this result as normal/abnormal . MPV (test code = 11.5 fL 9.5-12.9 47692-9) NRBC/100 WBC (test See_Comment [Automat ed code = 0377548424) message] The system which generated this result transmitted reference range : 0.0 - 10.0 /100 WBCs. The refer ence range was not u sed to interpret th is result as normal/abnormal . NRBC x10^3 (test code <0.01 See_Comment [Auto mated = 1987690095) message] The s ystem which generated this result transmitted reference range : 10*3/?L. The reference range was not used to interpret this result as normal/abnormal . GRAN MAT (NEUT) % 67.7 % (test code = 770-8) IMM GRAN % (test code 0.20 % = 5820214948) LYMPH % (test code = 23.2 % 736-9) MONO % (test code = 7.0 % 5905-5) EOS % (test code = 1.5 % 713-8) BASO % (test code = 0.4 % 706-2) GRAN MAT x10^3(ANC) 3.08 10*3/uL 1.88-7.09 (test code = 8345070641) IMM GRAN x10^3 (test <0.03 0.00-0.06 code = 3503149061) LYMPH x10^3 (test code 1.06 10*3/uL 1.32-3.29 L = 731-0) MONO x10^3 (test code 0.32 10*3/uL 0.33-0.92 L = 742-7) EOS x10^3 (test code = 0.07 10*3/uL 0.03-0.39 711-2) BASO x10^3 (test code <0.03 0.01-0.07 = 704-7) Lab Interpretation Abnormal (test code = 55121-0) [facility] [id number] 14:20:00 [facility] 1955 Sex: FPatient Name: LA NENA NINO Unit No: [id number] EXAMS: CPT CODE: [id number] XR ABDOM EN 1V 75011 C3 TIME OF STUDY: 07/30/2021 1:16 PM REASON FOR EXAM: K59.0 COMPARISON: July 2020. 2 AP views of the abdomen were obtained. The bowel gas pattern is non obstructive. No free air or organomegaly is seen. No abnormal calcifications are identified. IVC filter is in place. IMPRESSION: Negative abdomen. at 1420 Reported and signedby: ABNER BRENNAN M.D. CC: Andrew Kellogg MD Technologist: Tyrone Call Time: DAP (Gy m2): AirKerma (mGy): Trscr Dt/Tm: 07/30/2021 (142) by:Maria [email or web address] Printed Date/Time: 07/30/2021 (1422) Name: LA NENA CASILLAS [facility] Phys: ROSARIO.Yamileth - Andrew Kellogg MD [address] : 1955 Age: 65 Sex: [place] [id number] Loc: P.RAD Exam Date: 07/30/2021 Status: REG CLI PH: FAX: PAGE 1 Signed Report- NM GASTRIC [id number] 11:42:00 [facility] : 1955 Sex: FPatient Name: LA NENA CHO Unit No: [id number] EXAMS: CPT CODE: [id number] NM GASTRI C EMPTYING 73362 C3 REASON FOR EXAM: K 21.0, K 59.0 COMPARISON: None Tc-99m sulfur colloid labeled to egg in standard meal 40.7 mCi PO at TECHNIQUE: Gastric emptying study was performed after a radiolabeled egg meal. The upper abdomen was imaged in supine KISWAHILI position for 90 minutes with subsequent data [...] MD Technologist: Jolene Arias Trscr Dt/Tm: 12/13/2020 (1142) by:Maria [email or web address] Printed Date/Time: 12/13/2020 (2985) [facility] LA NENA CHO [facility] - Andrew Kellogg MD [address] : 1955 Age: 65 Sex: F [place] [address] Loc: P.NUC Exam Date: 12/13/2020 Status: REG CLI PH: FAX: PAGE 1 Signed Report- XR [id number] 12:24:00 [facility] : 1955 Sex: FPatient Name: LA NENA CHO Unit No: [id number] EXAMS: CPT CODE: [id number] XR ESOPHA HARITHA 13327 Esophagram 6 views 12/06/2020 CLINICAL INDICATION: Astrocytoma deal reflux COMPARISON: Noneavailable LOCATION: W1 IMPRESSION: The esophagus is normal in caliber and motility. There is a smallreducing hiatal hernia, with evidence for prior fundoplication. No gastroesophageal reflux was elicited during the examination. FLUOROSCOPY TIME: 0.8 minutes. at 1224 Reported and signed by: RENATO DOHERTY M.D. CC: Andrew Kellogg MD; Nolan Duque MD Technologist: Devin Lugo Fluoro Time: DAP (Gy m2): Air Kerma (mGy): Trscr Dt/Tm: 12/06/2020 (1224) by:Maria [email or web address] Printed Date/Time: 12/06/2020 (1227) Name: LA NENA CHO [facility] Phys: Andrew Rodriguez MD [address] : 1955 Age: 65 Sex: [place] [address] Loc: P.RAD Exam Date: 12/06/2020 Status: REG CLI PH: FAX: PAGE 1 Signed Report- XR ABD ACUTE [id number] 12:47:00 [facility] : 1955 Sex: FPatient Name: LA NENA CHO Unit No: [id number] EXAMS: CPT CODE: [id number] XR ABD AC KOBUK W/CHEST 86349 ACUTE ABDOMINAL SERIES DICTATION LOCATION: A1 HISTORY: [...] increased gas in the distal colon. The smallbowel gas pattern is nonspecific. Cholecystomy clips and [...] MD CC: Andrew Kellogg MD Technologist: [place] Fluoro Time: DAP (Gy m2): Air Kerma (mGy): Trscr Dt/Tm: 08/21/2020 (4452) by:[facility]eniaJ[facility]IA[facility] Printed Date/Time: 08/21/2020 (3526) Name: TAMMIEKYLAHLA NENA [facility] Phys: ROSARIO.01 - Andrew Kellogg MD [address] : 1955 Age: 64 Sex: F [address]: [id number] Loc: P.RAD Exam Date: 08/21/2020 Status: REG CLI PH: FAX: PAGE 1 Signed ReportCT HEAD WO [id number] 01:06:37 No acute intracranial findings. No acute osseous cervical, thoracic and lumbar spine. HISTORY: Headtrauma, minor, GCS>=13, low clinical risk, initial exam TECHNIQUE:CT head without contrast.CT cervical, thoracic and lumbar spine. COMPARISON: None. FINDINGS: CT HEAD: The ventricles and sulci are within normal limits for patient's age. Thereis no midline shift. The basal cisterns are preserved. Nolarge vascularterritory infarction, intracranial hemorrhage or mass effect is seen. Theextracranial tissues demonstrate no acute findings. CT cervical spine: There is normal sagittal alignment and cervical lordosis. The vertebralbody heights are preserved. 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 Moderate spinalcanal stenosis is seen at T1-T2 due to prominent posterior disc osteophytecomplex. Medialization of theright true vocal cord is seen with a radiodensity,possibly a calcification. ? CT thoracic spine: There is normal thoracic kyphosis and sagittal alignment. The vertebralbody heights are preserved. No acute fractures are seen. Moderatemultilevel degenerative changes are seen in the form of posterior discosteophyte complexes, disc space narrowing and facet arthropathy. CT lumbar spine: There is mild anterolisthesis of L4 on L5. The vertebral body heights arepreserved. No acute fractures are seen. Modera te to severe multilevel facetarthropathy seen with degenerative changes in the form of disc spacenarrowing and marginal osteophytes. Incidental findings include IVC filter and calcifications circumferentiallyaround the right kidney. [facility], Radiant Results Inft User - 05/30/2020 8:07 PM CDTHISTORY: Headtrauma, minor, GCS>=13, low clinical risk, initial exam TECHNIQUE:CT head without contrast.CT cervical, thoracic and lumbar spine.COMPARISON: None.FINDINGS:CT HEAD:The ventricles and sulci are within normal limits for patient's age. Thereis no midline shift. The basal cisterns are preserved. No large vascularterritory infarction, intracranial hemorrhage or mass effect is seen. Theextracranial tissues demonstrate no acute findings.CT cervical spine:There is normal sagittal alignment and cervical lordosis. The vertebralbody heights are preserved. 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 Moderate spinalcanal stenosis is seen at T1-T2 due to prominent posterior disc osteophytecomplex.Medialization of the right true vocal cord is seen with a radiodensity,possibly a calcification. CT thoracic spine:There is normal thoracic kyphosis and sagittal alignment. The vertebralbody heights are preserved. No acute fractures are seen. Moderatemultilevel degenerative changes are seen in the form of posterior discosteophyte complexes, disc space narrowing and facet arthropathy.CT lumbar spine:There is mild anterolisthesisof L4 on L5. The vertebral body heights arepreserved. No acute fractures are seen. Moderate to severe multilevel facetarthropathy seen with degenerative changes in the form of disc spacenarrowing and marginal osteophytes.Incidental findings include IVC filter and calcifications circumferentiallyaroundthe right kidney.IMPRESSIONNo acute intracranial findings.No acute osseous cervical, thoracic and lumbar spine. [facility] [id number] 01:06:37 No acute intracranial findings. No acute osseous cervical, thoracic and lumbar spine. HISTORY: Headtrauma, minor, GCS>=13, low clinical risk, initial exam TECHNIQUE:CT head without contrast.CT cervical, thoracic and lumbar spine. COMPARISON: None. FINDINGS: CT HEAD: The ventricles and sulci are within normal limits for patient's age. Thereis no midline shift. The basal cisterns are preserved. Nolarge vascularterritory infarction, intracranial hemorrhage or mass effect is seen. Theextracranial tissues demonstrate no acute findings. CT cervical spine: There is normal sagittal alignment and cervical lordosis. The vertebralbody heights are preserved. 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 Moderate spinalcanal stenosis is seen at T1-T2 due to prominent posterior disc osteophytecomplex. Medialization of theright true vocal cord is seen with a radiodensity,possibly a calcification. ? CT thoracic spine: There is normal thoracic kyphosis and sagittal alignment. The vertebralbody heights are preserved. No acute fractures are seen. Moderatemultilevel degenerative changes are seen in the form of posterior discosteophyte complexes, disc space narrowing and facet arthropathy. CT lumbar spine: There is mild anterolisthesis of L4 on L5. The vertebral body heights arepreserved. No acute fractures are seen. Moderate to severe multilevel facetarthropathy seen with degenerative changes in the form of disc spacenarr owing and marginal osteophytes. Incidental findings include IVC filter and calcifications circumferentiallyaround the right kidney. [facility], Radiant Results Inft User - 05/30/2020 8:07 PM CDTHISTORY: Headtrauma, minor, GCS>=13, low clinical risk, initial exam TECHNIQUE:CT head without contrast.CT cervical, thoracic and lumbar spine.COMPARISON: None.FINDINGS:CT HEAD:The ventricles and sulci are within normal limits for patient's age. Thereis no midline shift. The basal cisterns are preserved. No large vascularterritory infarction, intracranial hemorrhage or mass effect is seen. Theextracranial tissues demonstrate no acute findings.CT cervical spine:There is normal sagittal alignment and cervical lordosis. The vertebralbody heights are preserved. 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 Moderate spinalcanal stenosis is seen at T1-T2 due to prominent posterior disc osteophytecomplex.Medialization of the right true vocal cord is seen with a radiodensity,possibly a calcification. CT thoracic spine:There is normal thoracic kyphosis and sagittal alignment. The vertebralbody heights are preserved. No acute fractures are seen. Moderatemultilevel degenerative changes are seen in the form of posterior discosteophyte complexes, disc space narrowing and facet arthropathy.CT lumbar spine:There is mild anterolisthesisof L4 on L5. The vertebral body heights arepreserved. No acute fractures are seen. Moderate to severe multilevel facetarthropathy seen with degenerative changes in the form of disc spacenarrowing and marginal osteophytes.Incidental findings include IVC filter and calcifications circumferentiallyaroundthe right kidney.IMPRESSIONNo acute intracranial findings.No acute osseous cervical, thoracic and lumbar spine.[facility] WO [id number] 01:06:37 No acute intracranial findings. No acute osseous cervical, thoracic and lumbar spine. HISTORY: Headtrauma, minor, GCS>=13, low clinical risk, initial exam TECHNIQUE:CT head without contrast.CT cervical, thoracic and lumbar spine. COMPARISON: None. FINDINGS: CT HEAD: The ventricles and sulci are within normal limits for patient's age. Thereis no midline shift. The basal cisterns are preserved. Nolarge vascularterritory infarction, intracranial hemorrhage or mass effect is seen. Theextracranial tissues demonstrate no acute findings. CT cervical spine: There is normal sagittal alignment and cervical lordosis. The vertebralbody heights are preserved. 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 Moderate spinalcanal stenosis is seen at T1-T2 due to prominent posterior disc osteophytecomplex. Medialization of theright true vocal cord is seen with a radiodensity,possibly a calcification. ? CT thoracic spine: There is normal thoracic kyphosis and sagittal alignment. The vertebralbody heights are preserved. No acute fractures are seen. Moderatemultilevel degenerative changes are seen in the form of posterior discosteophyte complexes, disc space narrowing and facet arthropathy. CT lumbar spine: There is mild anterolisthesis of L4 on L5. The vertebral body heights arepreserved. No acute fractures are seen. Moderate to severe multilevel facetarthropathy seen with degenerative changes in the form of disc spacenarr owing and marginal osteophytes. Incidental findings include IVC filter and calcifications circumferentiallyaround the right kidney. [facility], Radiant Results Inft User - 05/30/2020 8:07 PM CDTHISTORY: Headtrauma, minor, GCS>=13, low clinical risk, initial exam TECHNIQUE:CT head without contrast.CT cervical, thoracic and lumbar spine.COMPARISON: None.FINDINGS:CT HEAD:The ventricles and sulci are within normal limits for patient's age. Thereis no midline shift. The basal cisterns are preserved. No large vascularterritory infarction, intracranial hemorrhage or mass effect is seen. Theextracranial tissues demonstrate no acute findings.CT cervical spine:There is normal sagittal alignment and cervical lordosis. The vertebralbody heights are preserved. 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 Moderate spinalcanal stenosis is seen at T1-T2 due to prominent posterior disc osteophytecomplex.Medialization of the right true vocal cord is seen with a radiodensity,possibly a calcification. CT thoracic spine:There is normal thoracic kyphosis and sagittal alignment. The vertebralbody heights are preserved. No acute fractures are seen. Moderatemultilevel degenerative changes are seen in the form of posterior discosteophyte complexes, disc space narrowing and facet arthropathy.CT lumbar spine:There is mild anterolisthesisof L4 on L5. The vertebral body heights arepreserved. No acute fractures are seen. Moderate to severe multilevel facetarthropathy seen with degenerative changes in the form of disc spacenarrowing and marginal osteophytes.Incidental findings include IVC filter and calcifications circumferentiallyaroundthe right kidney.IMPRESSIONNo acute intracranial findings.No acute osseous cervical, thoracic and lumbar spine.[facility] WO [id number] 01:06:37 No acute intracranial findings. No acute osseous cervical, thoracic and lumbar spine. HISTORY: Headtrauma, minor, GCS>=13, low clinical risk, initial exam TECHNIQUE:CT head without contrast.CT cervical, thoracic and lumbar spine. COMPARISON: None. FINDINGS: CT HEAD: The ventricles and sulci are within normal limits for patient's age. Thereis no midline shift. The basal cisterns are preserved. Nolarge vascularterritory infarction, intracranial hemorrhage or mass effect is seen. Theextracranial tissues demonstrate no acute findings. CT cervical spine: There is normal sagittal alignment and cervical lordosis. The vertebralbody heights are preserved. 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 Moderate spinalcanal stenosis is seen at T1-T2 due to prominent posterior disc osteophytecomplex. Medialization of theright true vocal cord is seen with a radiodensity,possibly a calcification. ? CT thoracic spine: There is normal thoracic kyphosis and sagittal alignment. The vertebralbody heights are preserved. No acute fractures are seen. Moderatemultilevel degenerative changes are seen in the form of posterior discosteophyte complexes, disc space narrowing and facet arthropathy. CT lumbar spine: There is mild anterolisthesis of L4 on L5. The vertebral body heights arepreserved. No acute fractures are seen. Moderate to severe multilevel facetarthropathy seen with degenerative changes in the form of disc spacenarr owing and marginal osteophytes. Incidental findings include IVC filter and calcifications circumferentiallyaround the right kidney. [facility], Radiant Results Inft User - 05/30/2020 8:07 PM CDTHISTORY: Headtrauma, minor, GCS>=13, low clinical risk, initial exam TECHNIQUE:CT head without contrast.CT cervical, thoracic and lumbar spine.COMPARISON: None.FINDINGS:CT HEAD:The ventricles and sulci are within normal limits for patient's age. Thereis no midline shift. The basal cisterns are preserved. No large vascularterritory infarction, intracranial hemorrhage or mass effect is seen. Theextracranial tissues demonstrate no acute findings.CT cervical spine:There is normal sagittal alignment and cervical lordosis. The vertebralbody heights are preserved. 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 Moderate spinalcanal stenosis is seen at T1-T2 due to prominent posterior disc osteophytecomplex.Medialization of the right true vocal cord is seen with a radiodensity,possibly a calcification. CT thoracic spine:There is normal thoracic kyphosis and sagittal alignment. The vertebralbody heights are preserved. No acute fractures are seen. Moderatemultilevel degenerative changes are seen in the form of posterior discosteophyte complexes, disc space narrowing and facet arthropathy.CT lumbar spine:There is mild anterolisthesisof L4 on L5. The vertebral body heights arepreserved. No acute fractures are seen. Moderate to severe multilevel facetarthropathy seen with degenerative changes in the form of disc spacenarrowing and marginal osteophytes.Incidental findings include IVC filter and calcifications circumferentiallyaroundthe right kidney.IMPRESSIONNo acute intracranial findings.No acute osseous cervical, thoracic and lumbar spine.[facility]- XR [facility] ACUTE [id number] 17:15:00Patient Name: LA NENA CHO Unit No: [id number] EXAMS: CPT CODE: [id number] XR ABD ACUTE W/CHEST 48600 Location code: R 16 Abdomen Three Views Indication: K59.00 Comparison:none Findings: Chest one view: Heart and mediastinum are unremarkable. Costophrenic angles are clear. Lungs are clear. De xtroscoliosis of the thoracic spine. Mild levoscoliosis of lumbar spine. Abdomen two views, flat andupright: Organ silhouettes are unremarkable. Surgical clips in the right upper quadrant post cholecystectomy. IVC filter in place. Moderate feces in the colon. No abnormal masses or calcifications. Bone is unremarkable for patient age. Impression: 1. Patient may be constipated. Correlate clinically. 2. IVC filter in place. 3. Cholecystectomy. Electronically Signed by ANJELICA CARNEY M.D. 06/28/2019 at 1715 Reported and signed by: ANJELICA CARNEY M.D. Name: LA NENA CHO [facility] OP Imaging Phys: COLRO.Andrew Fernandez MD : 1955 Age: 63 Sex: F [place] Pr Loc: P.RAD Exam Date: 06/28/2019 Status: REG CLI PH: FAX: PAGE 1 Signed Report (CONTINUED) Patient Name: LA NENA CHO Unit No: [id number] EXAMS: CPT CODE: [id number] XR ABD ACUTE W/CHEST 83679 (Continued) CC: Andrew Kellogg MD Technologist: Namrata Cabezas Trs Dt/Tm:06/28/2019 (1715) by:Haley Printed Date/Time: 06/28/2019 (1719) Name: LA NENA CHO [facility] OP Imaging Phys: COLMICHAEL.Andrew Fernandez MD : 1955 Age: 63 Sex: F [place] Pr Loc: P.RAD Exam Date: 06/28/2019 Status: REG CLI PH: FAX: PAGE 2 Signed Report"
[2022-08-05] MEDS ORDERED: NITROGLYCERIN 0.4 MG/TAB SL ONE (14:36)
--- NOTE | 2022-08-05 15:13 | RAD REPORT ---
EXAM DESCRIPTION: RAD - Chest Single View - 08/05/2022 3:03 pm CLINICAL HISTORY: CHEST PAIN Chest pain. COMPARISON: Chest Single View dated 05/08/2021; Chest Pa And Lat (2 Views) dated 09/18/2018 FINDINGS: Portable technique limits examination quality. Mildly hazy appearance of left lung base is present. This could be due to soft tissue position artifa ct or a mild infiltrate. The lungs are otherwise clear. The heart is normal in size.
[2022-08-05 16:10] LABS: Absolute Lymphocytes (CBC) 0.9 K/uL (0.7-4.9); Hematocrit 38.1 % (36.0-45.0); Lymphocytes % 18.6 % (15.3-44.8); MCV 91.1 fL (80-100); MPV 9.6 fL (7.6-11.3); RBC Red Blood Cell Count 4.18 M/uL (3.86-4.86)
[2022-08-05 16:20] LABS: Protime INR 1.59
[2022-08-05 16:29] LABS: Albumin 3.6 g/dL (3.4-5.0); Bilirubin Direct 0.1 mg/dL (0-0.2); Bilirubin Total 0.4 mg/dL (0.2-1.0); Magnesium 1.5 mg/dL (1.8-2.4); Potassium 3.9 mmol/L (3.5-5.1); Protein, Total 7.6 g/dL (6.4-8.2); Troponin High Sensitivity 4.4 pg/mL (<58.9)
[2022-08-05] MEDS ORDERED: MAGNESIUM SULFATE 1 gm IVPB 1 GM/100 ML BAG IV ONE (17:00)
--- NOTE | 2022-08-05 17:19 | RAD REPORT ---
EXAM DESCRIPTION: CT - Chest For Pe Angio - 08/05/2022 5:01 pm CLINICAL HISTORY: Chest pain. chest pain COMPARISON: No comparisons TECHNIQUE: CT angiogram of the pulmonary arteries was performed with MIP. All CT scans are performed using dose optimization technique as appropriate and may include automated exposure control or mA/KV adjustment according to patient size. FINDINGS: No evidence of pulmonary thromboembolism. No acute aortic finding demonstrated. The lungs are clear. No significant pericardial or pleural fluid. Postsurgical changes affect the stomach. No concerning bony finding. IMPRESSION: No evidence of pulmonary thromboembolism. No acute lung findings.
--- NOTE | 2022-08-05 20:12 | P.HP ---
Certification for Inpatient Patient admitted to: Observation With expected LOS: <2 Midnights Patient will require the following post-hospital care: None Practitioner: I am a practitioner with admitting privileges, knowledge of patient current condition, hospital course, and medical plan of care. Services: Services provided to patient in accordance with Admission requirements found in Title 42 Section 412.3 of the Code of Federal Regulations Patient History Date of Service: 08/05/22 Primary Care Provider: HAMILTON Reason for admission: Chest Pain History of Present Illness: Patient is a 66-year-old female with past medical history significant for [id number] type 2 diabetes, hyperlipidemia, hypertension, CAD, and multiple PEs on plavix and aspirin who presented to the ED with complaints of chest discomfort. Patient initially went to the [place] for and they sent her over here for further evaluation. She was given 324 mg aspirin en route. Labs significant for BUN 22, magnesium 1.5, troponin negative. EKG without ST changes. she was given nitroglycerin which relieved her chest pain. She was additionally given supplemental magnesium. Chest CT negative for PE. Patient reports that she had similar chest discomfort in 2014, had cardiac cath which revealed blockage and she had stent placed. Patient is admitted for further management. Home medications list reviewed: Yes - Past Medical/Surgical History Diabetic: Yes -: Type 2 diabetes, [id number] -: Hypertension -: Coronary artery disease -: Hyperlipidemia -: Pulmonary embolism -: Hypothyroidism -: Cholecystectomy -: IVC filter -: Cardiac cath with stent -: Thyroidectomy Psychosocial/ Personal History: Patient lives at home - Family History Family History: Reviewed- Non-Contributory - Social History Smoking Status: Never smoker Alcohol use: No CD- Drugs: No Caffeine use: Yes Place of Residence: Home Review of Systems Cardiovascular: Chest Pain Physical Examination - Physical Exam General: Alert, In no apparent distress HEENT: Atraumatic, PERRLA, EOMI, Sclerae nonicteric Neck: Supple, 2+ carotid pulse no bruit, No LAD, Without JVD or thyroid abnormality Respiratory: Clear to auscultation bilaterally, Normal air movement Cardiovascular: Regular rate/rhythm, Normal S1 S2 Gastrointestinal: Normal bowel sounds, No tenderness Musculoskeletal: No tenderness Integumentary: No rashes Neurological: Normal speech, Normal strength at 5/5 x4 extr, Normal tone, Normal affect - Studies Laboratory Data (last 24 hrs) 11/14/22 15:59: PT 17.5 H, INR 1.59 08/05/22 15:59: WBC 4.70, Hgb 12.5, Hct 38.1, Plt Count 196 08/05/22 15:59: Sodium 137, Potassium 3.9, BUN 22 H, Creatinine 0.91, Glucose 128 H, Magnesium 1.5 L, Total Bilirubin 0.4, AST 9 L, ALT 16, Alkaline Phosphatase 116 Assessment and Plan - Problems (Diagnosis) (1) Chest pain Current Visit: Yes Status: Acute Qualifiers: Chest pain type: unspecified Qualified Code(s): R07.9 - Chest pain, unspecified (2) Hypertension Current Visit: Yes Status: Chronic Qualifiers: Hypertension type: primary hypertension Qualified Code(s): I10 - Essential (primary) hypertension (3) Hyperlipidemia Current Visit: Yes Status: Chronic Qualifiers: Hyperlipidemia type: unspecified Qualified Code(s): E78.5 - Hyperlipidemia, unspecified (4) CAD (coronary artery disease) Current Visit: Yes Status: Chronic Qualifiers: Coronary Disease-Associated Artery/Lesion type: [place] artery [place] vs. transplanted heart: [place] heart Associated angina: with unstable angina Qualified Code(s): I25.110 - Atherosclerotic heart disease of [place] coronary artery with unstable angina pectoris (5) Type 2 diabetes mellitus Current Visit: Yes Status: Acute Qualifiers: Diabetes mellitus termination clerk insulin use: without termination clerk use Diabetes mellitus complication status: with hyperglycemia Qualified Code(s): E11.65 - Type 2 diabetes mellitus with hyperglycemia (6) Hypothyroidism Current Visit: Yes Status: Chronic Qualifiers: Hypothyroidism type: acquired Qualified Code(s): E03.9 - Hypothyroidism, unspecified - Plan Patient is admitted for observation. Monitor on telemetry. Cardiology consult. Echo ordered. Initial troponin negative, repeats pending. Chest pain has resolved. Aspirin, plavix, atorvastatin daily. TSH and lipid panel ordered. Monitor and replete electrolytes per protocol. Reconcile and continue home medications. Lovenox for VTE ppx. Full code. Discharge Plan: Home Plan to discharge in: 24 Hours - Advance Directives Does patient have a Living Will: No Does patient have a Durable POA for Healthcare: No - Code Status/Comfort Care Code Status Assessed: Yes (Full) Critical Care: No Time Spent Managing Pts Care (In Minutes): 50
[2022-08-05 21:44] LABS: SARS-CoV-2 Antigen Rapid Res Negative (Negative)
[2022-08-05] MEDS ORDERED: ACETAMINOPHEN 500 MG TAB PO PRN (22:52)
[2022-08-05] MEDS ORDERED: ATORVASTATIN 40 MG TAB PO SCH (22:52)
[2022-08-05] MEDS ORDERED: ONDANSETRON 4 MG/2 ML VIAL IV PRN (22:52)
[2022-08-05] MEDS ORDERED: NITROGLYCERIN 0.4 MG/TAB SL PRN (22:52)
--- NOTE | 2022-08-05 22:59 | RAD REPORT ---
EXAM DESCRIPTION: US - Extrem Venous W Compress Margarito - 08/05/2022 9:27 pm CLINICAL HISTORY: PAIN Bilateral leg edema and swelling. COMPARISON: No comparisons TECHNIQUE: Real-time sonographic interrogation of the left and right lower extremity deep venous sys tems was performed. FINDINGS: Normal compressibility, flow augmentation, phasic flow and spontaneous flow is identified in both the left and right lower extremity deep venous systems. IMPRESSION: No sonographic evidence of left or right lower extremity deep venous thrombosis.
[2022-08-06] MEDS ORDERED: ATORVASTATIN 40 MG TAB ONE (00:07)
[2022-08-06 00:36] VITALS: BMI 34.2
--- NOTE | 2022-08-06 01:02 | ER ---
Nurse's Notes [facility] Name: Neha Allison Age: 66 yrs Sex: Female : 1955 Arrival Date: 08/05/2022 Time: 14:07 Bed 28 Private MD: Diagnosis: Chest pain, unspecified Presentation: 08/05 14:17 Chief complaint: EMS states: "patient went to the [place] office for chest discomfort and em6 feeling weak. we gave 324 mg of aspirin. normal vital signs". Coronavirus screen: Vaccine status:. Ebola Screen: Patient negative for fever greater than or equal to 101.5 degrees Fahrenheit, and additional compatible Ebola Virus Disease symptoms. Initial Sepsis Screen: Does the patient meet any 2 criteria? No. Patient's initial sepsis screen is negative. Does the patient have a suspected source of infection? No. Patient's initial sepsis screen is negative. Risk Assessment: Do you want to hurt yourself or someone else? Patient reports no desire to harm self or others. Onset of symptoms was August 05, 2022. 14:17 Acuity: PATRICK 3 em6 14:17 Method Of Arrival: EMS: [facility] em6 Historical: - Allergies: 14:19 ANTIHISTAMINES; em6 14:19 Bees; em6 - Home Meds: 14:19 Aspirin Oral [Active]; furosemide 40 mg Oral tab once daily [Active]; Glyburide Oral em6 [Active]; levothyroxine oral [Active]; Magnesium Oxide Oral [Active]; metformin 500 mg Oral tab 2 times per day [Active]; metoprolol tartrate 100 mg Oral tab once daily [Active]; Oseni Oral [Active]; Plavix 75 mg Oral tab once daily [Active]; Potassium Chloride Oral [Active]; pravastatin Oral [Active]; - PMHx: 14:19 diabetes mellitus; Hypercholesterolemia; Hypertensive disorder; Myocardial infarction; em6 PE; - PSHx: 14:19 Cholecystectomy; heart stent; IVC filter; Thyroidectomy; em6 - Immunization history:: Adult Immunizations unknown. - Social history:: Smoking status: unknown. Screenin:17 Abuse screen: Denies threats or abuse. Nutritional screening: No deficits noted. em6 Tuberculosis screening: No symptoms or risk factors identified. 16:54 Fall Risk IV access (20 points). Total Sinclair Fall Scale indicates No Risk (0-24 pts). em6 Assessment: 14:15 General: Appears in no apparent distress. Behavior is cooperative. Pain: Complains of em6 pain in chest Pain radiates to left arm Pain currently is 3 out of 10 on a pain scale. Quality of pain is described as pressure, radiating, Pain began 4 hours ago. Is continuous. Neuro: Level of Consciousness is awake, alert, obeys commands, Oriented to person, place, time, situation, Reports headache frontal area, weakness. Cardiovascular: Reports chest pain, shortness of breath, Heart tones present Patient's skin is warm and dry. Respiratory: Airway is patent Respiratory effort is even, unlabored, Respiratory pattern is regular, symmetrical, Breath sounds are clear bilaterally. GI: Abdomen is non-distended, Abd is soft and non tender X 4 quads. Reports upper abdominal pain. : No signs and/or symptoms were reported regarding the genitourinary system. EENT: No signs and/or symptoms were reported regarding the EENT system. Derm: No signs and/or symptoms reported regarding the dermatologic system. Musculoskeletal: Circulation, motion, and sensation intact. Range of motion: intact in all extremities. 15:15 Reassessment: Patient appears in no apparent distress at this time. No changes from em6 previously documented assessment. Patient and/or family updated on plan of care and expected duration. Pain level reassessed. Patient is alert, oriented x 3, equal unlabored respirations, skin warm/dry/pink. 16:15 Reassessment: No changes from previously documented assessment. Patient and/or family em6 updated on plan of care and expected duration. Pain level reassessed. Patient is alert, oriented x 3, equal unlabored respirations, skin warm/dry/pink. 17:15 Reassessment: Patient appears in no apparent distress at this time. No changes from em6 previously documented assessment. Patient and/or family updated on plan of care and expected duration. Pain level reassessed. Patient is alert, oriented x 3, equal unlabored respirations, skin warm/dry/pink. 18:15 Reassessment: Patient appears in no apparent distress at this time. No changes from em6 previously documented assessment. Patient and/or family updated on plan of care and expected duration. Pain level reassessed. Patient is alert, oriented x 3, equal unlabored respirations, skin warm/dry/pink. 19:15 Reassessment: Patient appears in no apparent distress at this time. No changes from em6 previously documented assessment. Patient and/or family updated on plan of care and expected duration. Pain level reassessed. Patient is alert, oriented x 3, equal unlabored respirations, skin warm/dry/pink. 20:15 Reassessment: Patient appears in no apparent distress at this time. No changes from em6 previously documented assessment. Patient and/or family updated on plan of care and expected duration. Pain level reassessed. Patient is alert, oriented x 3, equal unlabored respirations, skin warm/dry/pink. 21:15 Reassessment: Patient appears in no apparent distress at this time. No changes from em6 previously documented assessment. Patient and/or family updated on plan of care and expected duration. Pain level reassessed. Patient is alert, oriented x 3, equal unlabored respirations, skin warm/dry/pink. 22:15 Reassessment: Patient appears in no apparent distress at this time. No changes from em6 previously documented assessment. Patient and/or family updated on plan of care and expected duration. Pain level reassessed. Patient is alert, oriented x 3, equal unlabored respirations, skin warm/dry/pink. 23:15 Reassessment: Patient appears in no apparent distress at this time. No changes from em6 previously documented assessment. Patient and/or family updated on plan of care and expected duration. Pain level reassessed. Patient is alert, oriented x 3, equal unlabored respirations, skin warm/dry/pink. Vital Signs: 14:17 BP 157 / 91; Pulse 90; Resp 18; Temp 98.6; Pulse Ox 100% on R/A; Weight 90.72 kg; Pain em6 3/10; 15:45 BP 119 / 67; Pulse 87; Resp 17; Pulse Ox 96% on R/A; em6 16:30 BP 107 / 62; Pulse 82; Resp 20; Pulse Ox 96% on R/A; em6 17:45 BP 117 / 63; Pulse 78; Resp 16; Pulse Ox 99% on R/A; em6 20:00 BP 108 / 71; Pulse 80; Resp 18; Pulse Ox 99% on R/A; em6 21:15 BP 117 / 68; Pulse 76; Resp 16; Pulse Ox 98% on R/A; em6 23:00 BP 115 / 72; Pulse 78; Resp 18; Pulse Ox 99% on R/A; em6 ED Course: 14:07 Patient arrived in ED. em6 14:11 Giuliano Sánchez PA is PHCP. cp 14:11 Eliel Lenz MD is Attending Physician. cp 14:15 Camryn Feldman, RN is Primary Nurse. em6 14:19 Triage completed. em6 14:19 Arm band placed on. em6 14:20 Bed in low position. Call light in reach. Side rails up X2. classroom monitor on. Pulse em6 ox on. NIBP on. Warm blanket given. 15:05 XRAY Chest (1 view) In Process Unspecified. EDMS 16:02 Initial lab(s) drawn, by me, sent to lab. Inserted saline lock: 20 gauge in left iw antecubital area, using aseptic technique. Blood collected. 17:02 CT Chest For PE Angio In Process Unspecified. EDMS 20:08 Alberto Marques is Hospitalizing Provider. sb4 23:58 No provider procedures requiring assistance completed. Patient admitted, IV remains in em6 place. Administered Medications: 14:40 Drug: Nitroglycerin 0.4 mg Route: Sublingual; em6 15:20 Follow up: Response: No adverse reaction em6 17:20 Drug: Magnesium Sulfate 1 grams Route: IVPB; Infused Over: 1 hrs; Site: left em6 antecubital; 20:32 Follow up: Response: No adverse reaction; IV Status: Completed infusion; IV Intake: em6 250ml Medication: 23:59 VIS not applicable for this client. em6 Intake: 20:32 IV: 250ml; Total: 250ml. em6 Outcome: 20:08 Decision to Hospitalize by Provider. sb4 23:58 Admitted to Med/surg accompanied by nurse, via wheelchair, room 210, with chart, Report em6 called to mirian 23:58 Condition: stable 23:58 Instructed on the need for admit, Demonstrated understanding of instructions. 23:59 Patient left the ED. em6 Signatures: Dispatcher [employer] EDMS Steffi Alfaro RN RN Giuliano Sánchez PA PA cp Martinez, Erika RN RN em6 Margarita Kelly PA-C PA-C sb4 Corrections: (The following items were deleted from the chart) 20:32 18:30 IV Status: Completed infusion; IV Intake: 250ml em6 em6
--- NOTE | 2022-08-06 01:03 | EDPHYS ---
Physician Documentation [facility] Name: Neha Allison Age: 66 yrs Sex: Female : 1955 Arrival Date: 08/05/2022 Time: 14:07 Bed 28 Private MD: ED Physician Eliel Lenz HPI: 08/05 14:27 This 66 yrs old Black Female presents to ER via EMS with complaints of Chest Pain. cp 14:27 The patient or guardian reports chest pain that is located primarily in the anterior cp chest wall. 14:27 Onset: this morning, about 0900. The pain does not radiate. Associated signs and cp symptoms: Pertinent positives: lower extremity pain, shortness of breath, Pertinent negatives: abdominal pain, cough, diaphoresis, lightheadedness, palpitations, vomiting. The chest pain is described as a pressure. Duration: The patient or guardian reports a single episode, that is still ongoing, and unchanged. Historical: - Allergies: 14:19 ANTIHISTAMINES; em6 14:19 Bees; em6 - Home Meds: 14:19 Aspirin Oral [Active]; furosemide 40 mg Oral tab once daily [Active]; Glyburide Oral em6 [Active]; levothyroxine oral [Active]; Magnesium Oxide Oral [Active]; metformin 500 mg Oral tab 2 times per day [Active]; metoprolol tartrate 100 mg Oral tab once daily [Active]; Oseni Oral [Active]; Plavix 75 mg Oral tab once daily [Active]; Potassium Chloride Oral [Active]; pravastatin Oral [Active]; - PMHx: 14:19 diabetes mellitus; Hypercholesterolemia; Hypertensive disorder; Myocardial infarction; em6 PE; - PSHx: 14:19 Cholecystectomy; heart stent; IVC filter; Thyroidectomy; em6 - Immunization history:: Adult Immunizations unknown. - Social history:: Smoking status: unknown. ROS: 14:30 Constitutional: Negative for body aches, chills, fever, poor PO intake. cp 14:30 Cardiovascular: Positive for chest pain, Negative for edema, palpitations. cp 14:30 Eyes: Negative for injury, pain, redness, and discharge. cp 14:30 ENT: Negative for drainage from ear(s), ear pain, sore throat, difficulty swallowing, difficulty handling secretions. 14:30 Respiratory: Negative for cough, wheezing. 14:30 Abdomen/GI: Negative for abdominal pain, nausea, vomiting, and diarrhea, constipation, black/tarry stool, rectal bleeding. 14:30 Back: Negative for radiated pain. 14:30 Neuro: Negative for altered mental status, dizziness, headache, syncope, weakness. 14:30 All other systems are negative. Exam: 14:35 ECG was reviewed by the Attending Physician. cp 14:37 Constitutional: The patient appears in no acute distress, alert, awake, cp non-diaphoretic, non-toxic, well developed, well nourished, uncomfortable. 14:37 Head/Face: Normocephalic, atraumatic. cp 14:37 Eyes: Periorbital structures: appear normal, Conjunctiva: normal, no exudate, no injection, Sclera: no appreciated abnormality, Lids and lashes: appear normal, bilaterally. 14:37 ENT: External ear(s): are unremarkable, Nose: is normal, Mouth: Lips: moist, Oral mucosa: pink and intact, moist, Posterior pharynx: Airway: no evidence of obstruction, patent, Tonsils: are normal in appearance. 14:37 Neck: ROM/movement: is normal, is supple, without pain, no range of motions limitations, no nuchal rigidity. 14:37 Chest/axilla: Inspection: normal. 14:37 Cardiovascular: Rate: normal, Rhythm: regular, Edema: is not appreciated, JVD: is not appreciated. 14:37 Respiratory: the patient does not display signs of respiratory distress, Respirations: normal, no use of accessory muscles, no retractions, labored breathing, is not present, Breath sounds: are clear throughout, no decreased breath sounds, no stridor, no wheezing. 14:37 Abdomen/GI: Inspection: abdomen appears normal, Palpation: abdomen is soft and non-tender, in all quadrants. 14:37 Back: pain, is absent, ROM is normal. 14:37 Skin: cellulitis, is not appreciated, no rash present. 14:37 Neuro: Orientation: is normal, Mentation: is normal, Motor: is normal, Sensation: no obvious gross deficits. Vital Signs: 14:17 BP 157 / 91; Pulse 90; Resp 18; Temp 98.6; Pulse Ox 100% on R/A; Weight 90.72 kg; Pain em6 3/10; 15:45 BP 119 / 67; Pulse 87; Resp 17; Pulse Ox 96% on R/A; em6 16:30 BP 107 / 62; Pulse 82; Resp 20; Pulse Ox 96% on R/A; em6 17:45 BP 117 / 63; Pulse 78; Resp 16; Pulse Ox 99% on R/A; em6 20:00 BP 108 / 71; Pulse 80; Resp 18; Pulse Ox 99% on R/A; em6 21:15 BP 117 / 68; Pulse 76; Resp 16; Pulse Ox 98% on R/A; em6 23:00 BP 115 / 72; Pulse 78; Resp 18; Pulse Ox 99% on R/A; em6 MDM: 14:24 Patient medically screened. cp 15:00 Differential diagnosis: acute myocardial infarction, costochondritis, pleurisy, cp pneumonia, pneumothorax, pulmonary embolus, stable angina, thoracic aortic disection, unstable angina. 08/05 14:25 Order name: Basic Metabolic Panel; Complete Time: 16:35 08/05 16:35 Interpretation: Normal except: GLUC 128; BUN 22; GFR 70. 08/05 14:25 Order name: CBC with Diff; Complete Time: 16:27 08/05 14:25 Order name: D-Dimer; Complete Time: 16:27 08/05 14:25 Order name: LFT's; Complete Time: 16:35 08/05 16:35 Interpretation: Normal except: AST 9; GLOB 4.0; A/G 0.9. 08/05 14:25 Order name: Magnesium; Complete Time: 16:35 08/05 16:36 Interpretation: Abnormal: MG 1.5. 08/05 14:25 Order name: NT PRO-BNP; Complete Time: 16:35 08/05 14:25 Order name: PT-INR; Complete Time: 16:27 08/05 16:28 Interpretation: Abnormal: PT 17.5. 08/05 14:25 Order name: Troponin HS; Complete Time: 16:35 08/05 14:25 Order name: XRAY Chest (1 view); Complete Time: 15:23 08/05 15:23 Interpretation: Report review. 08/05 16:29 Order name: CT Chest For PE Angio 08/05 16:29 Order name: US Extremity Venous W Compression Margarito cp 08/05 20:46 Order name: SARS-COV-2 Antigen Rapid eh3 08/05 14:25 Order name: EKG; Complete Time: 14:26 cp 08/05 14:25 Order name: Cardiac monitoring; Complete Time: 14:33 cp 08/05 14:25 Order name: EKG - Nurse/Tech; Complete Time: 14:33 cp 08/05 14:25 Order name: IV Saline Lock; Complete Time: 16:12 cp 08/05 14:25 Order name: Labs collected and sent; Complete Time: 16:12 cp 08/05 14:25 Order name: O2 Per Protocol; Complete Time: 14:33 cp 08/05 14:25 Order name: O2 Sat Monitoring; Complete Time: 14:33 cp EC:35 Rate is 86 beats/min. Rhythm is regular. MA interval is normal. QRS interval is normal. cp QT interval is normal. Interpreted by me. Reviewed by me. Administered Medications: 14:40 Drug: Nitroglycerin 0.4 mg Route: Sublingual; em6 15:20 Follow up: Response: No adverse reaction em6 17:20 Drug: Magnesium Sulfate 1 grams Route: IVPB; Infused Over: 1 hrs; Site: left em6 antecubital; 20:32 Follow up: Response: No adverse reaction; IV Status: Completed infusion; IV Intake: em6 250ml Disposition: 08/06 08:17 Co-signature as Attending Physician, Eliel Lenz MD. rn Disposition Summary: 08/05/22 20:08 Hospitalization Ordered Hospitalization Status: Observation sb4 Provider: Alberto Marques sb4 Location: Telemetry/MedSurg (observation) sb4 Condition: Fair sb4 Problem: new sb4 Symptoms: are unchanged sb4 Bed/Room Type: Standard sb4 Room Assignment: 210(08/05/22 22:54) cg Diagnosis - Chest pain, unspecified sb4 Forms: - Medication Reconciliation Form sb4 - SBAR form sb4 Signatures: Dispatcher [employer] Eliel Watkins MD MD rn Page, Corey, PA PA cp Garcia, Cindy, RN RN cg Camryn Feldman RN RN em6 Margarita Kelly PA-C PA-C sb4 Corrections: (The following items were deleted from the chart) 11/14 22:54 20:08 sb4 cg
[2022-08-06 05:08] LABS: Urine Bilirubin NEGATIVE (Negative); Urine Blood Negative (Negative); Urine Clarity Clear (Clear); Urine Color Colorless (Yellow); Urine Glucose NEGATIVE (Negative); Urine Protein NEGATIVE (Negative); Urine Urobilinogen Normal (Normal)
[2022-08-06 05:53] LABS: Absolute Lymphocytes (CBC) 1.1 K/uL (0.7-4.9); Hematocrit 37.5 % (36.0-45.0); Lymphocytes % 31.4 % (15.3-44.8); MCV 91.5 fL (80-100); MPV 9.7 fL (7.6-11.3)
[2022-08-06 06:21] LABS: Phosphorus 3.9 mg/dL (2.5-4.9); Potassium 3.4 mmol/L (3.5-5.1); Thyroid Stimulating Hormone 0.101 uIU/mL (0.360-3.740); Troponin High Sensitivity 4.6 pg/mL (<58.9)
[2022-08-06] MEDS ORDERED: POTASSIUM CL SA 10 MEQ TAB PO ONE (08:00)
--- NOTE | 2022-08-06 08:22 | EKG ---
Test Date: 2022-08-05 Test Time: 14:28:34 [employer] Installation Supervisor: MEASUREMENT RESULTS: Intervals: Rate: 86 CO: 162 QRSD: 80 QT: 400 QTc: 478 [place]: P: 55 CO: 162 QRS: 23 T: 83 INTERPRETIVE STATEMENTS: Normal sinus rhythm Nonspecific ST abnormality Abnormal ECG Compared to ECG 05/08/2021 21:30:44 ST (T wave) deviation now present Myocardial infarct finding no longer present Electronically Signed On 08-06-22 08:19:54 [employer] by Eloy Cruz
[2022-08-06] MEDS ORDERED: D50W 25 GM/50 ML SYRINGE IV PRN (08:27)
[2022-08-06] MEDS ORDERED: GLUCAGON 1 MG/VIAL IM PRN (08:27)
[2022-08-06] MEDS ORDERED: DEXTROSE 10%-WATER 125 ML IV PRN (08:35)
[2022-08-06] MEDS ORDERED: ENOXAPARIN 40 MG/0.4 ML SQ SCH (09:00)
[2022-08-06] MEDS ORDERED: ASPIRIN EC 81 MG TAB PO SCH (09:00)
--- NOTE | 2022-08-06 10:56 | P.DS ---
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 transplanted heart: [place] heart Associated angina: with unstable angina Qualified Code(s): I25.110 - Atherosclerotic heart disease of [place] coronary artery with unstable angina pectoris (4) Hypertension Current Visit: Yes Status: Chronic Qualifiers: Hypertension type: primary hypertension Qualified Code(s): I10 - Essential (primary) hypertension Brief History of Present Illness: Patient is a 66-year-old female with past medical history significant for [id number] type 2 diabetes, hyperlipidemia, hypertension, CAD, and multiple PEs on plavix and aspirin who presented to the ED with complaints of chest discomfort. Patient initially went to the OR and they sent her over here for further evaluation. She was given 324 mg aspirin en route. Labs significant for BUN 22, magnesium 1.5, troponin negative. EKG without ST changes. SDhe feels nitroglycerin relieved her chest pain. She was additionally given supplemental magnesium. Chest CT negative for PE. Patient reports that she had similar chest discomfort in 2014, had cardiac cath which revealed blockage and she had stent placed. Patient was hospitalized for further management. Hospital Course: Patient placed on observation on the medical floor. Troponin trended negative. She was chest pain-free during the hospital stay. She described sharp intermittent anterior chest pain prior to admission. ACS ruled out. Noted patient is on anticoagulation-Eliquis for history of PE and aspirin for CAD. Patient seen and evaluated by cardiology who recommended further work-up as outpatient. Vitals are stable, patient is discharged to follow-up with Dr. Cruz within 1 week for further cardiac evaluation. Vital Signs/Physical Exam: Temp Pulse Resp BP Pulse Ox 97.0 F 63 14 110/64 98 08/06/22 08:00 08/06/22 08:00 08/06/22 08:00 08/06/22 08:00 08/06/22 08:00 General: Alert, In no apparent distress, Oriented x3 HEENT: Mucous membr. moist/pink Neck: Supple, JVD not distended Respiratory: Clear to auscultation bilaterally, Normal air movement Cardiovascular: No edema, Regular rate/rhythm, Normal S1 S2 Gastrointestinal: Normal bowel sounds, Soft and benign, Non-distended, No tenderness Musculoskeletal: No swelling, No tenderness Integumentary: No rashes, No cyanosis Neurological: Normal strength at 5/5 x4 extr Laboratory Data at Discharge: WBC 3.40 K/uL (4.3-10.9) L 08/06/22 05:15 Hgb 12.3 g/dL (12.0-15.0) 08/06/22 05:15 Hct 37.5 % (36.0-45.0) 08/06/22 05:15 Plt Count 171 K/uL (152-406) 08/06/22 05:15 PT 17.5 SECONDS (9.5-12.5) H 08/05/22 15:59 INR 1.59 08/05/22 15:59 Sodium 140 mmol/L (136-145) 08/06/22 05:15 Potassium 3.4 mmol/L (3.5-5.1) L 08/06/22 05:15 BUN 16 mg/dL (7-18) 08/06/22 05:15 Creatinine 0.82 mg/dL (0.55-1.3) 08/06/22 05:15 Glucose 146 mg/dL (74-106) H 08/06/22 05:15 Phosphorus 3.9 mg/dL (2.5-4.9) 08/06/22 05:15 Magnesium 2.0 mg/dL (1.8-2.4) 08/06/22 05:15 Total Bilirubin 0.4 mg/dL (0.2-1.0) 08/05/22 15:59 AST 9 U/L (15-37) L 08/05/22 15:59 ALT 16 U/L (12-78) 08/05/22 15:59 Alkaline Phosphatase 116 U/L (45-117) 08/05/22 15:59 Triglycerides 75 mg/dL (<150) 08/06/22 05:15 Cholesterol 157 mg/dL (<200) 08/06/22 05:15 HDL Cholesterol 66 mg/dL (40-60) H 08/06/22 05:15 Cholesterol/HDL Ratio 2.38 08/06/22 05:15 Home Medications: Alogliptin Zeus/Pioglitazone [Oseni 25-30 mg Tablet] 1 each PO DAILY 08/06/22 Apixaban [Eliquis] 5 mg PO BID 08/06/22 Aspirin [Aspirin EC] 81 mg PO BEDTIME 08/06/22 Doxycycline Hyclate 100 mg PO BID 08/06/22 Furosemide [Lasix*] 40 mg PO BID 08/06/22 Levothyroxine [Synthroid*] 112 mcg PO DAILY 08/06/22 Magnesium Oxide [Magnesium] 250 mg PO BID 08/06/22 Mecobalamin [B12 Active] 1 tab PO DAILY 08/06/22 Metformin ER [Glucophage ER*] 1,000 mg PO BID 08/06/22 Metoprolol Succinate 100 mg PO DAILY 08/06/22 Omeprazole [Prilosec] 40 mg PO DAILY 08/06/22 Polyethylene Glycol 3350 [Miralax] 17 gm PO DAILY 08/06/22 Potassium Chloride 1 tab PO DAILY 08/06/22 Pravastatin Sodium 80 mg PO BEDTIME 08/06/22 glyBURIDE [Glyburide] 5 mg PO BID 08/06/22 Diet: ADA Activity: Ad tito Followup: Eloy Cruz MD [ACTIVE - CAN ADMIT] - 1 Week (Please call to make an appointment. ) BUSTER GOINS [Primary Care Provider] - 1 Week (Please follow-up with your primary care provider. )
[2022-08-06] MEDS ORDERED: INSULIN -REGULAR HUMAN 50 UNIT/0.5 ML ML SQ SCH (11:30)
[2022-08-06 11:35] VITALS: O2SAT 98
[2022-08-06 13:16] VITALS: BP 119/59; TEMP 97.1
== END 2022-08-06 13:25 | disposition home or self-care (01) ==
LOC: ER 14:06 → ERHOLD 20:09 → 2ND 23:11
PROVIDERS: ADMIT Internal Medicine; ATTEND Internal Medicine
DX: R07.9 Chest pain, unspecified (principal); E78.5 Hyperlipidemia, unspecified; I10 Essential (primary) hypertension; I25.10 Atherosclerotic heart disease of native coronary artery without angina pectoris; I25.110 Atherosclerotic heart disease of native coronary artery with unstable angina pectoris; E11.65 Type 2 diabetes mellitus with hyperglycemia; E03.9 Hypothyroidism, unspecified; I26.99 Other pulmonary embolism without acute cor pulmonale; Z79.01 Long term (current) use of anticoagulants; Z20.822 Contact with and (suspected) exposure to COVID-19
CPT/HCPCS: 96365; 93005; 85025 ×2; 81001; 80048 ×2; 36415; 83735 ×2; 84100; 85610; 80061; 82947 ×3; 85379; 80076; 84443; 84484 ×3; 83880; 71275; 71045; 93970; 99285; 96366; 87811; Q9967; J1815; J1650; J3475; G0378 ×2

== ENCOUNTER 2023-08-12 14:34 | Inpatient (IN) | payer BC, OTHER ==
--- OUTSIDE RECORDS SUMMARY | 2023-08-12 14:43 | XMS REPORT | Continuity of Care Document ---
:1955 Author Organization [facility] t Address [address] [facility]. [address] [place] [address] Care Team Providers Name Role Phone Lucila MONTANEZ, Art Primary Care Physician Andrew Kellogg Attending Clinician Unavailable VAL GREENBERG Attending Clinician Unavailable SHA DREW Attending Clinician Unavailable [email or web address] Attending Clinician Unavailable HOLLY DURON Attending Clinician Unavailable [id number] Attending Clinician Unavailable VIK PERKINS Attending Clinician Unavailable Vik Perkins MD Attending Clinician SCANLON, MEIYU T Attending Clinician Unavailable [id number] Attending Clinician Unavailable ADDIS ESTRADA Attending Clinician Unavailable CELSA STEINBERG Attending Clinician Unavailable GRADY KING Attending Clinician Unavailable Grady King MD Attending Clinician JERRI WILKINSON Attending Clinician Unavailable Jerri Wilkinson DO Attending Clinician RADHA MARTINEZ Attending Clinician Unavailable Kandi Ritter Attending Clinician [phone] Veronica Koenig Attending Clinician Unavailable Megan Martinez I Attending Clinician Unavailable Ermelinda Szymanski Attending Clinician [phone] Karina Feldman Attending Clinician Unavailable Coar Schwarz Attending Clinician Unavailable Jermaine Ashley RN Attending Clinician Unavailable ARJUN GRANADO Attending Clinician Unavailable Brandy Armenta MD Attending Clinician Ozzy Prather PA-C Attending Clinician Andrew Kellogg Admitting Clinician Unavailable [email or web address] Admitting Clinician Unavailable VIK PERKINS Admitting Clinician Unavailable CELSA STEINBERG Admitting Clinician Unavailable GRADY KING Admitting Clinician Unavailable JERRI WILKINSON Admitting Clinician Unavailable ROBBI LOUISE Admitting Clinician Unavailable Kandi Ritter Unavailable [phone] Ermelinda Szymanski Unavailable [phone] Payers Payer Name Policy Type Policy Number Effective Date Expiration Date S vishal [facility] [id number] 1989 EMPLOYEE PROGRAM 00:00:00 [facility] FED [employer] [id number] 1989 00:00:00 [facility] 2 [id number] 2022 00:00:00 [facility]: FEDERAL [id number] 1989 EMPLOYEE PROGRAM 00:00:00 (PPO) Problems Condition Condition Condition Status Onset Resolution Last Treating Co mments Source Name Details Category Date Date Treatment Clinician Date 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 1-16 Seybol d mellitus mellitus 00:00: - with with 00 Externa hyperlipid hyperlipid l emia emia Postoperat Postoperat Disease Active K elsey troy troy 1-16 Seybold hypothyroi hypothyroi 00:00: - dism dism 00 Externa l CAD S/P CAD S/P Disease Active Ame percutaneo percutaneo 1-16 Se ybold us us 00:00: - coronary coronary 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 00:00: - 00 Externa l Pelvic Condition Active 2020-092021-08-02 Carmencita Ritter pain 11 14:01:10 Kandi Communi 00:00: ty 00 Health BMI Condition Active 2019-092021-08-02 Ermelinda Szymanski L egacy 37.0-37.9 2- 13:36:37 Commu ni 00:00: ty 00 Health Exercise Condition Active 2019-092021-08-02 Ermelinda Szymanski [facility] 2-31 13:36:37 Comm uni 00:00: ty 00 Health Dietary Condition Active 2019-092021-08-02 Ermelinda Szymanski [facility] 2-31 13:36:37 Comm uni 00:00: ty Health Obesity Condition Active 2019-092021-08-02 Ta, Ermelinda [facility] 2-31 13:36:37 Communi 00:00: ty 00 Health Mammogram Condition Active 2019-092020-09-20 Ermelinda Szymanski [facility] yearly 2- 16:05:06 Communi screening 00:00: ty 00 Health Diabetes Condition Active 2019-092020-09-20 Ermelinda Szymanskiacy mellitus 2-30 16:05:06 Commun i (DM), type 00:00: ty 2, 00 Health controlled with vascular complicati ons Hypothyroi Condition Active 2020-1 2020-09-20 Ta, Ermelinda [facility] d 16:05:05 Communi 00:00: ty 00 Health Hypertensi Condition Active 2019-092020-09-20 Ta, Ermelinda [facility] on 16:05:05 Communi 00:00: ty 00 Health Prolapse Condition Active 2019-092020-09-20 Ta, Ermelinda [facility] of vaginal 16:05:05 Comm uni vault 00:00: ty after Health hysterecto my Annual Condition Active 2019-092020-09-20 Ta, Ermelinda L egacy gynecologi 16:05:05 Comm uni stevan 00:00: ty examinatio 00 Health n Acute Acute Disease Active 2019-09 Univers encephalop encephalop 2-08 it y of athy athy 00:00: [place] 00 [facility] Branch Hypotensio Hypotensio Disease Active 2019-09 U nivers n n 2-08 ity of 00:00: [place] [facility] Slurred Slurred Disease Active 2019-09 Univers speech speech 2-06 ity of 00:00: [place] 00 [facility] Coronary Coronary Disease Active 2018-09 Unive rs artery artery 0-20 ity of disease disease 00:00: [place] involving involving 00 Med[facility] [place] [facility] coronary coronary artery of artery of [place] [facility] heart without without angina angina pectoris pectoris Atypical Atypical Disease Active 2018-09 Unive rs chest pain chest pain 0-20 it y of 00:00: [place] 00 [facility] Coronary Coronary Disease Active 2018-09 Unive rs artery artery 0-20 ity of disease disease 00:00: [place] involving involving 00 Medi [place] [facility] coronary coronary artery of artery of [place] heart without without angina angina pectoris pectoris 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 Added automatic ally from request for surgery [id number] Shortness Shortness Disease Active Uni vers of breath of breath 3-13 ity of 00:00: [place] 00 Medical Branch QUIÑONEZ QUIÑONEZ Disease Active Univers (dyspnea (dyspnea 3-13 ity of on on 00:00: [place] exertion) exertion) 00 [facility] Branch Obesity Obesity Disease Active Univers (BMI (BMI 3-08 ity of 30-39.9) 30-39.9) 00:00: [place] 00 Medical Branch Goiter Goiter Disease Active Overview: Puneet s -13 Formattin ity of 00:00: g of this [place] 00 note Medical might be Branch different from the original. Added automatic ally from request for surgery [id number] Asthma Asthma Disease Active Univers ity of [place] [facility] Pain, Pain, Diagnosis Active 2020-08-13 Me moria joint, joint, 03:45:28 l multiple multiple Cam n sites sites Active Diagnosis 08/13/2020 Na Najam Counseling Counselin Diagnosis Active 2020-08-13 Memoria NOS g NOS 03:45:28 l Active Lino Diagnosis 08/13/2020 Na Najam Hepatitis Hepatitis Diagnosis Active 2020-08-13 Memoria B core B core 03:45:28 l antibody antibody Cam n positive positive Active Diagnosis 08/13/2020 Na Najam Positive Positive Problem Active 2020-08-17 Memoria QuantiFERO QuantiFERO 03:45:14 l N-TB Gold N-TB Gold Herm radha test test Active Problem 08/17/2020 Na Najam Inflammato Inflammat Problem Active 2020-08-17 Memoria ry ory 03:45:14 l arthritis arthritis Herm radha Active Problem 08/17/2020 Na Najam ESR raised ESR Diagnosis Active 2020-08-13 Memoria raised 03:45:28 l Active Lino Diagnosis 08/13/2020 Na Najam Pain in Pain in Diagnosis Active 2020-08-13 Memoria left hand left hand 03:45:28 l Active Braman Diagnosis 08/13/2020 Na Najam Pain in Pain in Diagnosis Active 2020-08-13 Memoria right hand right hand 03:45:28 l Active Braman Diagnosis 08/13/2020 Na Najam Pain in Pain in Diagnosis Active 2020-08-13 Memoria right knee right knee 03:45:28 l Active Braman Diagnosis 08/13/2020 Na Najam Pain in Pain in Diagnosis Active 2020-08-13 Memoria left knee left knee 03:45:28 l Active Lino Diagnosis 08/13/2020 Na Najam Allergies, Adverse Reactions, Alerts Allergy Allergy Status Severity Reaction(s) Onset Inactive Treating Comm ents Source Name Type Date Date Clinician Hydrochl Propensi Active Rash 2022-0 Ame orothiaz ty to 5-16 Seybold carlene adverse 00:00: - reaction 00 Externa s l Influenz Propensi Active Rash 2021-0 Ame a Vac ty to 5-16 Seybold Typ adverse 00:00: - reaction 00 Externa s l HYDROCHL DRUG Active Rash 2021-0 Univers OROTHIAZ INGREDI 5-16 ity of CARLENE 00:00: 00 Medical Branch INFLUENZ DRUG Active Rash 2021-0 Univers A 5-16 ity of VACCINE 00:00: [place] TR-S 11 00 Medical (PF) Branch Hydrochl Propensi Active Rash 0 Univer s orothiaz ty to 5-16 ity of carlene adverse 00:00: [place] reaction 00 Medical s Branch Influenz Propensi Active Rash 2021-0 Univer s a ty to 5-16 ity of Vaccine adverse 00:00: [place] Tr-S 11 reaction 00 Medical (Pf) s Branch Histamin Histamin Active Info Not 2019-09 Gerardo deneen e e Available 1-18 l Phosphat Phosphat 00:00: Cam n e e 00 Histamin Propensi Active Hives 2019-09 Ame e ty to 1-04 Seybold Phosphat adverse 00:00: - e reaction 00 Externa s l Diphenhy Propensi Active Palpitations 2018-09 Methodi dramine ty to 1-11 st Hcl adverse 00:00: Hospita reaction 00 l s to drug Bee Propensi Active Anaphylaxis 2019-0 Swelling K elsey ty to 2-04 in the Seybold adverse 00:00: throat, - reaction 00 palpitati Exter na s ons, l elevated bp BEE DRUG Active Anaphylaxis 2019-0 Unive rs STING / INGREDI 2-04 ity of VENOM 00:00: [place] 00 Medical Branch Bee Propensi Active Anaphylaxis 2019-0 Swelling U nivers Sting / ty to 2-04 in the ity of Venom adverse 00:00: throat, [place] reaction 00 palpitati Medic al s ons, Branch elevated bp ANTIHIST DRUG Active High Unknown-Cmnt 2017-0 Un michelle AMINE 12 04-23 ity of HOUR 00:00: [place] 00 Medical Branch Antihist Drug Active Unknown - 2017-0 Pt Unive rs amine 12 Allergy See comments 04-23 prefers ity of Hour 00:00: not to [place] 00 take any Medical type of Branch Antihista mine. Other Propensi Active Other (See antihista M ethodi ty to Comments) 8-[address] adverse 00:00: doesnot Hospita reaction 00 know the l s name get palpitati on Diphenhy Propensi Active PALPITATIONS Ame dramine ty to 8-20 Seybold adverse 00:00: - reaction 00 Externa s l Family History Family Member Diagnosis Comments Start Date Stop Date Source [facility] Natural mother Kidney disease Method [facility] Social History Social Habit Start Date Stop Date Quantity Comments Source Sexual orientation Method [facility] Gender identity Ame Se ybold - External Exposure to 2023-01-26 2023-02-05 Not sure University of SARS-CoV-2 (event) 00:00:00 02:24:00 [facility] if the patient is 2021-08-02 2021-08-02 No [facility] using/has used a 13:16:08 13:16:08 Health vaping item, Current, Former, Never Used, Not asked number of children 2021-08-02 2021-08-02 [facility] 13:16:08 13:16:08 Health sexual orientation 2021-08-02 2021-08-02 Heterosexual [facility] 13:16:08 13:16:08 Health assessment of health 2021-08-02 2021-08-02 Adequate [facility] literacy (NCQA PCMH 13:16:08 13:16:08 Healt 2014 Standards, 3C10) social history 2021-08-02 2021-08-02 [...] 2020-08-27 2020-08-27 15 University of 00:00:00 00:00:00 [place] [facility] History SD[facility] 2020-08-27 2020-08-27 5 University o f Financial 00:00:00 00:00:00 [place] [facility] History [facility] Food 2020-08-27 2020-08-27 1 Univers ity of Worry 00:00:00 00:00:00 [place] [facility] History [facility] Food 2020-08-27 2020-08-27 1 Univers ity of Scarcity 00:00:00 00:00:00 [place] [facility] History SDOH 2020-08-27 2020-08-27 2 University o f Transport Med 00:00:00 00:00:00 [place] Medic al Branch History SDNH 2020-08-27 2020-08-27 2 University o f Transport Non-Med 00:00:00 00:00:00 [facility] History of Social 2019-11-19 2019-11-[address] function 00:00:00 00:00:00 Hospital Tobacco use and 2018-04-23 2018-04-23 Smokeless tobacco Un iversity of exposure 00:00:00 00:00:00 non-user [facility] Alcohol intake 2017-05-30 2017-05-30 Current Baptism 00:00:00 00:00:00 non-drinker of Hospital alcohol (finding) Sex [birth year] Baptism 00:00:00 00:00:00 Hospital Smoking Status Start Date Stop Date Source Never smoked tobacco Ame Seyb old - External Medications Ordered Filled Start Stop Current Ordering Indication Dosage Frequency Signature Comments Components Source Medication Medication Date Date Medication? 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 a 24 HR hours l glyBURIDE 5 2022-0 Yes 5mg 1 tablet Ke lsey MG oral 6-19 (5 mg Seybold Tablet 08:05: total) - 02 every 12 Externa hours l Magnesium 3-0 Yes 250mg Take 250 Oscar sey Oxide 250 6-19 mg by Seybold MG oral 08:05: mouth - Tablet 02 Externa l Gabapentin 2022-0 Yes 600mg Take 2 Dorothy ey 300 MG oral 6-19 capsules Seyb old Capsule 08:05: (600 mg - 02 total) by Externa mouth as l needed Ibuprofen 2022-0 Yes 800mg 1 tablet Oscar sey 800 MG oral 6-19 (800 mg Seybo ld Tablet 08:05: total) - 02 every 8 Externa hours l Montelukast 2022-0 Yes 10mg 1 tablet Ke lsey (SINGULAIR) 6-19 (10 mg Seybol d 10 MG oral 08:05: total) - Tablet 02 daily Externa tablet l Omeprazole 2022-0 Yes 40mg Take 2 Kelse y 20 MG oral 6-19 capsules Seybo ld Delayed 08:05: (40 mg - Release 02 total) by Externa Capsule mouth 2 l times daily Aspirin 81 2022-0 Yes 81mg Take 1 Kelse y MG oral 6-19 tablet (81 Seybol d Tablet 08:05: mg total) - Delayed 02 by mouth Externa Response l Alogliptin- 2022-0 Yes 1{tbl} Take 1 Ke lsey Pioglitazon 6-19 tablet by Sey bold e 25-30 MG 08:05: mouth - oral Tablet 02 Externa l Fluticasone 2022-0 Yes Advair Dorothy ey -Salmeterol 6-19 Diskus 250 Se ybold 250-50 08:05: mcg-50 - MCG/ACT 02 mcg/dose Externa inhalation powder for l AEROSOL inhalation POWDER, Inhale 1 BREATH puff twice ACTIVATED a day by inhalation route. 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 a 24 HR hours l glyBURIDE 5 2022-0 Yes 5mg 1 tablet Ke lsey MG oral 5-01 (5 mg Seybold Tablet 10:47: total) - 46 every 12 Externa hours l Magnesium 2022-0 Yes 250mg Take 250 Oscar sey Oxide 250 5-01 mg by Seybold MG oral 10:47: mouth - Tablet 46 Externa l Gabapentin 2022-0 Yes 600mg Take 2 Dorothy ey 300 MG oral 5-01 capsules Seyb old Capsule 10:47: (600 mg - 46 total) by Externa mouth as l needed Ibuprofen 2022-0 Yes 800mg 1 tablet Oscar sey 800 MG oral 5-01 (800 mg Seybo ld Tablet 10:47: total) - 46 every 8 Externa hours l Montelukast 2023-0 Yes 10mg 1 tablet Ke lsey (SINGULAIR) 5-01 (10 mg Seybol d 10 MG oral 10:47: total) - Tablet 46 daily Externa tablet l Omeprazole Yes 40mg Take 2 Kelse y 20 MG oral 5-01 capsules Seybo ld Delayed 10:47: (40 mg - Release 46 total) by Externa Capsule mouth 2 l times daily Aspirin 81 Yes 81mg Take 1 Kelse y MG oral 5-01 tablet (81 Seybol d Tablet 10:47: mg total) - Delayed 46 by mouth Externa Response l Alogliptin- Yes 1{tbl} Take 1 Ke lsey Pioglitazon 5-01 tablet by Sejuancarlos bold e 25-30 MG 10:47: mouth - oral Tablet 46 Externa l Fluticasone Yes Advair Dorothy ey -Salmeterol 5-01 Diskus 250 Se ybold 250-50 10:47: mcg-50 - MCG/ACT 46 mcg/dose Externa inhalation powder for l AEROSOL inhalation POWDER, Inhale 1 BREATH puff twice ACTIVATED a day by inhalation route. POTASSIUM Yes 40meq Take 40 Dorothy ey CHLORIDE ER 5-01 mEq by Seybol d OR 10:47: mouth - 46 Externa l Ferrous Yes 325mg Take 1 Ame Sulfate 325 5-01 tablet Seybol d (65 Fe) MG 10:47: (325 mg - oral Tablet 46 total) by Ext lisa mouth 2 l times daily Levothyroxi Yes [id number] 100ug Take 1 Ame ne Sodium 5-01 tablet Seybold 100 MCG 00:00: (100 mcg - oral Tablet 00 total) by Ext lisa mouth l daily Levothyroxi Yes [id number] 100ug Take 1 Ame ne Sodium 5-01 tablet Seybold 100 MCG 00:00: (100 mcg - oral Tablet 00 total) by Ext lisa mouth l daily Apixaban Yes 5mg Take 1 Ame (Eliquis) 5 3-22 tablet (5 Sey bold MG oral 00:00: mg total) - Tablet 00 by mouth 2 Externa times l daily Take 5 mg by mouth 2 times daily Apixaban Yes 5mg Take 1 Ame (Eliquis) 5 3-22 tablet (5 Sey bold MG oral 00:00: mg total) - Tablet 00 by mouth 2 Externa times l daily Take 5 mg by mouth 2 times daily Metformin Yes 2{each} 2 each Oscar sey HCl ER 500 1-17 every 12 Seybo ld MG oral 14:56: hours - TABLET SR 17 Externa 24 HR l glyBURIDE 5 Yes 1{each} 1 each K elsey MG oral 1-17 every 12 Seybold Tablet 14:56: hours - 17 Externa l Magnesium Yes 250mg Take 250 Oscar sey Oxide 250 1-17 mg by Seybold MG oral 14:56: mouth - Tablet 17 Externa l Gabapentin Yes 2{capsu Take 2 Ke lsey 300 MG oral -17 le} capsules Seyb old Capsule 14:56: by mouth - 17 as needed Externa l Ibuprofen Yes 1{each} 1 each Oscar sey 800 MG oral 1-17 every 8 Seybo ld Tablet 14:56: hours - 17 Externa l Montelukast Yes 1{each} 1 each K elsey (SINGULAIR) 1-17 daily Seybold 10 MG oral 14:56: - Tablet 17 Externa tablet l Omeprazole Yes 40mg Take 40 mg K elsey 20 MG oral 1-17 by mouth 2 Sey bold Delayed 14:56: times - Release 17 daily Externa Capsule l Aspirin 81 Yes 81mg Take 81 mg K elsey MG oral 1-17 by mouth Seybold Tablet 14:56: - Delayed 17 Externa Response l Alogliptin- Yes 1{tbl} Take 1 Ke lsey Pioglitazon 1-17 tablet by Sey bold e 25-30 MG 14:56: mouth - oral Tablet 17 Externa l Fluticasone Yes Advair Dorothy ey -Salmeterol 1-17 Diskus 250 Se ybold 250-50 14:56: mcg-50 - MCG/ACT 17 mcg/dose Externa inhalation powder for l AEROSOL inhalation POWDER, Inhale 1 BREATH puff twice ACTIVATED a day by inhalation route. POTASSIUM 2023-0 Yes 40meq Take 40 Dorothy ey CHLORIDE ER 1-17 mEq by Seybol d OR 14:56: mouth - 17 Externa l Ferrous 2022-0 Yes 325mg Take 325 Kelse y Sulfate 325 1-17 mg by Seybold (65 Fe) MG 14:56: mouth 2 - oral Tablet 17 times Externa daily l Baclofen 10 Yes Half to 1 K elsey MG oral 1-17 tablet Seybold Tablet 00:00: p.o. 3 - 00 times Externa daily as l needed muscle spasms and pain Pregabalin 0 Yes 1 po BID Oscar sey (Lyrica) 25 1-17 Seybold MG oral 00:00: - Capsule 00 Externa l Baclofen 10 Yes Half to 1 K elsey MG oral 1-17 tablet Seybold Tablet 00:00: p.o. 3 - 00 times Externa daily as l needed muscle spasms and pain Pregabalin 0 Yes 1 po BID Oscar sey (Lyrica) 25 1-17 Seybold MG oral 00:00: - Capsule 00 Externa l Baclofen 10 0 Yes Half to 1 K elsey MG oral 1-17 tablet Seybold Tablet 00:00: p.o. 3 - 00 times Externa daily as l needed muscle spasms and pain Pregabalin 0 Yes 1 po BID Oscar sey (Lyrica) 25 1-17 Seybold MG oral 00:00: - Capsule 00 Externa l Tobramycin 0 Yes 1[drp] Apply 1 Ke lsey Sulfate 1-16 drop to Seybold (TOBREX) 00:00: eye every - 0.3 % 00 4 (four) Externa ophthalmic hours l Solution Tobramycin 0 Yes 1[drp] Apply 1 Ke lsey Sulfate 1-16 drop to Seybold (TOBREX) 00:00: eye every - 0.3 % 00 4 (four) Externa ophthalmic hours l Solution Tobramycin 2022-0 Yes 1[drp] Apply 1 Ke lsey Sulfate 1-16 drop to Seybold (TOBREX) 00:00: eye every - 0.3 % 00 4 (four) Externa ophthalmic hours l Solution Eliquis 5 2021-09 Yes 5mg Take 5 mg Oscar sey MG oral 2-31 by mouth 2 Seybol d Tablet 00:00: times - 00 daily Externa l Metoprolol 2021-09 Yes 100mg Take 1 Dorothy ey Succinate 2-20 tablet Seybold 100 MG oral 00:00: (100 mg - TABLET SR 00 total) by Exter na 24 HR mouth l daily Metoprolol 2021-09 Yes 100mg Take 100 Ke lsey Succinate 2-20 mg by Seybold 100 MG oral 00:00: mouth - TABLET SR 00 daily Externa 24 HR l Metoprolol 2021-09 Yes 100mg Take 1 Dorothy ey Succinate 2-20 tablet Seybold 100 MG oral 00:00: (100 mg - TABLET SR total) by Exter na 24 HR mouth l daily Pravastatin 2021-09 Yes 80mg Take 1 Dorothy ey Sodium 80 2-12 tablet (80 Seyb old MG oral 00:00: mg total) - Tablet 00 by mouth Externa at bedtime l Pravastatin 2021-09 Yes 80mg Take 80 mg Ame Sodium 80 2-12 by mouth Seybol d MG oral 00:00: at bedtime - Tablet 00 Externa l Pravastatin 2021-09 Yes 80mg Take 1 Dorothy ey Sodium 80 2-12 tablet (80 Seyb old MG oral 00:00: mg total) - Tablet 00 by mouth Externa at bedtime l Furosemide 2021-09 Yes 40mg Take 1 Kelse y 40 MG oral 2-09 tablet (40 Sey bold Tablet 00:00: mg total) - 00 by mouth 2 Externa times l daily Furosemide 2021-09 Yes 40mg Take 40 mg K elsey 40 MG oral 2-09 by mouth 2 Sey bold Tablet 00:00: times - 00 daily Externa l Furosemide 2021-09 Yes 40mg Take 1 Kelse y 40 MG oral 2-09 tablet (40 Sey bold Tablet 00:00: mg total) - 00 by mouth 2 Externa times l daily Levothyroxi 2021-09 Yes 112ug Take 112 K elsey ne Sodium 0-19 mcg by Seybold 112 MCG 00:00: mouth - oral Tablet 00 daily Externa l Levothyroxi 2021-09- No 112ug Take 1 Ke lsey ne Sodium 0-19 05-01 tablet Seybold 112 MCG 00:00: 00:00 (112 mcg - oral Tablet 00 :00 total) by Ext lisa mouth l daily LORazepam 2021- No 1mg 1 mg, Slow U nivers (ATIVAN) 05-22 IV Push, ity of injection 1 09:45: 08:53 [place]CE[place] 1 [place] mg 00 :00 dose, On Medical [facility] Branch 05/22/22 at 0445, Routine
Is the medication being used for status epilepticu s? No meclizine Yes [id number] 25mg Take 1 U nivers 25 mg 8-31 tablet by ity of tablet 00:00: mouth [place] 00 every 6 Medical (six) Branch hours. meclizine Yes [id number] 25mg Take 1 U nivers 25 mg 8-31 tablet by ity of tablet 00:00: mouth [place] 00 every 6 Medical (six) Branch hours. lidocaine 2021- No 10mL 10 mL, Unive rs 2% viscous 02-04 Oral, ity of (LIDOCAINE 15:15: 14:06 ONCE, 1 Abad as VISCOUS) 2 00 :00 dose, On Medic al % solution [facility] Branch 10 mL 02/04/22 at 1015, JACKY ondansetron 2021- No 4mg 4 mg, Slow Univers (ZOFRAN 02-04 IV Push, ity of (PF)) 13:30: 12:45 ONCE, 1 [place] injection 4 00 :00 dose, On Medi stevan mg [facility] Branch 02/04/22 at 0830, JACKY morpHINE (4 2021- No 4mg 4 mg, Slow Univers mg/mL) 02-04 IV Push, ity of injection 4 13:30: 13:20 [place]CE, 1 [place] mg 00 :00 dose, On [facility] Branch 02/04/22 at 0830, STAT aspirin 2021- No 243mg 243 mg, Unive rs chewable 02-04 Oral, ity of tablet 243 13:30: 12:44 ONCE, 1 Abad as mg 00 :00 dose, On [facility] Branch 02/04/22 at 0830, Routine iopamidol 2021- No [id number] 100mL 100 mL, Univers (ISOVUE 5-16 05-16 Intravenou ity o f 370-500 mL) 13:04: [...] EXTENDED 00 Health RELEASE 24 HOUR furosemide 2019- Yes 40mg Take 40 mg U nivers 40 mg 2-08 by mouth ity of tablet 18:21: every [place] [address] morning Medical and Branch evening. levothyroxi 2019- Yes 100ug Take 100 U nivers ne 100 mcg 2-08 mcg by ity of tablet 18:21: mouth. [place] [address] Medical Branch aspirin 81 2019- Yes 81mg Take 81 mg U nivers mg EC 2-08 by mouth. ity of tablet 18:21: [address] Branch alogliptin- 2019- Yes 1{tbl} Take 1 Un michelle pioglitazon 2-08 tablet by ity of e 25-30 mg 18:21: mouth. [address] Branch ibuprofen 2019- Yes ibuprofen Uni vers 800 mg 2-08 800 mg ity of tablet 18:21: tablet [place] 40 Take 1 Medical tablet 3 Branch times a day by oral route. fluticasone 2019- Yes Advair Univ ers -salmeterol 2-08 Diskus 250 it y of 250-50 18:21: mcg-50 [place] mcg/dose 40 mcg/dose Medical inhalation powder for Bra [facility] disk inhalation Inhale 1 puff twice a day by inhalation route. METOPROLOL 2019- Yes 100mg Take 100 Un michelle SUCCINATE 2-08 mg by ity of ORAL 18:21: mouth [place] 40 daily. [facility] Branch potassium 2019- Yes 20meq Take 20 Univ ers chloride 20 2-08 mEq by ity of mEq packet 18:21: mouth [place] 40 daily. [facility] Branch pravastatin 2019- Yes 80mg Take 80 mg [facility] 80 mg 2-08 by mouth. ity of tablet 18:21: [address] Branch metFORMIN 2019- Yes 500mg Take 500 Uni vers 500 mg 2-08 mg by ity of tablet 18:21: mouth. [address] Branch Magnesium 2019- Yes 250mg Take 250 Uni vers Oxide 250 2-08 mg by ity of mg Tab 18:21: mouth. [address] Branch glyBURIDE 5 2019- Yes 5mg Take 5 mg U nivers mg tablet 2-08 by mouth. ity o f 18:21: [address] Branch clopidogrel 2019- Yes 75mg Take 75 mg [facility] 75 mg 2-08 by mouth. ity of tablet 18:21: [address] Branch furosemide 2019- Yes 40mg Take 40 mg U nivers 40 mg 2-08 by mouth ity of tablet 12:21: every [place] [address] morning Medical and Branch evening. levothyroxi 2020- Yes 100ug Take 100 U nivers ne 100 mcg 2-08 mcg by ity of tablet 12:21: mouth. [address] Branch furosemide 2019- Yes 40mg Take 40 mg U nivers 40 mg 2-08 by mouth ity of tablet 12:21: every [place] [address] morning Medical and Branch evening. levothyroxi 2019- Yes 100ug Take 100 U nivers ne 100 mcg 2-08 mcg by ity of tablet 12:21: mouth. [address] Branch furosemide 2020- Yes 40mg Take 40 mg U nivers 40 mg 2-08 by mouth ity of tablet 12:21: every [place] [address] morning Medical and Branch evening. levothyroxi 2020- Yes 100ug Take 100 U nivers ne 100 mcg 2-08 mcg by ity of tablet 12:21: mouth. [address] Branch pravastatin 2019- Yes 80mg Take 80 mg [facility] 80 mg 2-08 by mouth. ity of tablet 12:21: [address] metFORMIN 2019- Yes 500mg Take 500 Uni vers 500 mg 2-08 mg by ity of tablet 12:21: mouth. [address] Magnesium 2019- Yes 250mg Take 250 Uni vers Oxide 250 2-08 mg by ity of mg Tab 12:21: mouth. [address] glyBURIDE 5 2019- Yes 5mg Take 5 mg U nivers mg tablet 2-08 by mouth. ity o f 12:21: [address] clopidogrel 2019- Yes 75mg Take 75 mg [facility] 75 mg 2-08 by mouth. ity of tablet 12:21: [address] aspirin 81 2019- Yes 81mg Take 81 mg U nivers mg EC 2-08 by mouth. ity of tablet 12:21: [address] alogliptin- 2019- Yes 1{tbl} Take 1 Un michelle pioglitazon 2-08 tablet by ity of e 25-30 mg 12:21: mouth. [facility] 40 [facility] Branch ibuprofen 2020- Yes ibuprofen Uni vers 800 mg 2-08 800 mg ity of tablet 12:21: tablet [place] [address] Take 1 Medical tablet 3 Branch times a day by oral route. fluticasone 2019- [facility] Diskus 250 it y of 250-50 12:21: mcg-50 [place] mcg/dose 40 mcg/dose Medical inhalation powder for [facility] disk inhalation Inhale 1 puff twice a day by inhalation route. METOPROLOL 2020- Yes 100mg Take 100 Un michelle SUCCINATE 2-08 mg by ity of ORAL 12:21: mouth [place] [address] daily. Medical Branch potassium 2020- Yes 20meq Take 20 Univ ers chloride 20 2-08 mEq by ity of mEq packet 12:21: mouth [place] 40 daily. Medical Branch pravastatin 2019- Yes 80mg Take 80 mg [facility] 80 mg 2-08 by mouth. ity of tablet 12:21: [place] [address] Medical Branch metFORMIN 2019- Yes 500mg Take 500 Uni vers 500 mg 2-08 mg by ity of tablet 12:21: mouth. [address] Branch Magnesium 2019- Yes 250mg Take 250 Uni vers Oxide 250 2-08 mg by ity of mg Tab 12:21: mouth. [address] Branch glyBURIDE 5 2019-09 Yes 5mg Take 5 mg U nivers mg tablet 2-08 by mouth. ity o f 12:21: [address] Branch clopidogrel 2019- Yes 75mg Take 75 mg [facility] 75 mg 2-08 by mouth. ity of tablet 12:21: [address] aspirin 81 2019-09 Yes 81mg Take 81 mg U nivers mg EC 2-08 by mouth. ity of tablet 12:21: [address] Branch alogliptin- 2019-09 Yes 1{tbl} Take 1 Un michelle pioglitazon 2-08 tablet by ity of e 25-30 mg 12:21: mouth. [address] Branch ibuprofen 2019-09 Yes ibuprofen Uni vers 800 mg 2-08 800 mg ity of tablet 12:21: tablet [place] 40 Take 1 Medical tablet 3 Branch times a day by oral route. fluticasone 2019-09 Yes Advair [facility] ers -salmeterol 2-08 Diskus 250 it y of 250-50 12:21: mcg-50 [place] mcg/dose 40 mcg/dose Medical inhalation powder for [facility] disk inhalation Inhale 1 puff twice a day by inhalation route. METOPROLOL 2019-09 Yes 100mg Take 100 Un michelle SUCCINATE 2-08 mg by ity of ORAL 12:21: mouth [place] 40 daily. Medical Branch potassium 2019-09 Yes 20meq Take 20 Univ ers chloride 20 2-08 mEq by ity of mEq packet 12:21: mouth [place] 40 daily. Medical Branch pravastatin 2019-09 Yes 80mg Take 80 mg [facility] 80 mg 2-08 by mouth. ity of tablet 12:21: [address] Branch metFORMIN 2019- Yes 500mg Take 500 Uni vers 500 mg 2-08 mg by ity of tablet 12:21: mouth. [address] Branch Magnesium 2019- Yes 250mg Take 250 Uni vers Oxide 250 2-08 mg by ity of mg Tab 12:21: mouth. [address] Branch glyBURIDE 5 2019-09 Yes 5mg Take 5 mg U nivers mg tablet 2-08 by mouth. ity o f 12:21: [address] Branch clopidogrel 2019-09 Yes 75mg Take 75 mg [facility] 75 mg 2-08 by mouth. ity of tablet 12:21: [address] aspirin 81 2019-09 Yes 81mg Take 81 mg U nivers mg EC 2-08 by mouth. ity of tablet 12:21: [address] alogliptin- 2019-09 Yes 1{tbl} Take 1 Un michelle pioglitazon 2-08 tablet by ity of e 25-30 mg 12:21: mouth. [address] Branch ibuprofen 2019-09 Yes ibuprofen Uni vers 800 mg 2-08 800 mg ity of tablet 12:21: tablet [place] 40 Take 1 Medical tablet 3 Branch times a day by oral route. fluticasone 2019-09 Yes Advair [facility] ers -salmeterol 2-08 Diskus 250 it y of 250-50 12:21: mcg-50 [place] mcg/dose 40 mcg/dose Medical inhalation powder for [facility] disk inhalation Inhale 1 puff twice a day by inhalation route. METOPROLOL 2019-09 Yes 100mg Take 100 Un michelle SUCCINATE 2-08 mg by ity of ORAL 12:21: mouth [place] 40 daily. Medical Branch potassium 2019-09 Yes 20meq Take 20 Univ ers chloride 20 2-08 mEq by ity of mEq packet 12:21: mouth [place] 40 daily. Medical Branch Ferrous 2019-09 Yes Na 1 tab [facility] Sulfate 1-22 Najam l 03:45: Clopidogrel 2019-09 Yes Na 1 tablet [facility] Bisulfate 1-22 Najam l 03:45: Magnesium 2019-09 Yes Na as Memori a 1-22 Najam directed l 03:45: Oseni 2019-09 Yes Na 1 tablet Memori a 1-22 Najam l 03:45: Lasix 2019-09 Yes Na 1 tablet Memori a 1-22 Najam l 03:45: Levothyroxi 2019-09 Yes Na 1 tablet [facility] ne Sodium 1-22 Najam in the l 03:45: morning on an empty stomach Metoprolol 2019-09 Yes Na 1 capsule [facility] Succinate 1-22 Najam l 03:45: Pravastatin 2019-09 Yes Na 1 tablet [facility] Sodium 1-22 Najam l 03:45: Omeprazole 2019-09 Yes Na 1 capsule [facility] 1-22 Najam 30 minutes l 03:45: before morning meal GlyBURIDE 2019-09 Yes Na 1 tablet Me moria 1-22 Najam with l 03:45: breakfast or the first main meal of the day MetFORMIN 2019-09 Yes Na not Memori a HCl ER 1-22 Najam defined l 03:45: Aspirin 2019-09 Yes Na 1 tablet Gerardo deneen 1-22 Najam l 03:45: Potassium 2019-09 Yes Na 1 tab Memor ia Chloride 1-22 Najam l 03:45: Ferrous 2019-09 Yes Na 1 tab [facility] Sulfate 1-22 Najam l 03:45: Clopidogrel 2019-09 Yes Na 1 tablet [facility] Bisulfate 1-22 Najam l 03:45: Magnesium 2019-09 Yes Na as Memori a 1-22 Najam directed l 03:45: Oseni 2019-09 Yes Na 1 tablet Memori a 1-22 Najam l 03:45: Lasix 2019-09 Yes Na 1 tablet Memori a 1-22 Najam l 03:45: Levothyroxi 2019-09 Yes Na 1 tablet [facility] ne Sodium 1-22 Najam in the l 03:45: morning on an empty stomach Metoprolol 2019-09 Yes Na 1 capsule [facility] Succinate 1-22 Najam l 03:45: Pravastatin 2019-09 Yes Na 1 tablet [facility] Sodium 1-22 Najam l 03:45: Omeprazole 2019-09 Yes Na 1 capsule [facility] 1-22 Najam 30 minutes l 03:45: before morning meal GlyBURIDE 2019-09 Yes Na 1 tablet Me moria 1-22 Najam with l 03:45: breakfast or the first main meal of the day MetFORMIN 2019-09 Yes Na not Memori a HCl ER 1-22 Najam defined l 03:45: Aspirin 2019-09 Yes Na 1 tablet Gerardo deneen 1-22 Najam l 03:45: Potassium 2019-09 Yes Na 1 tab Memor ia Chloride 1-22 Najam l 03:45: Ferrous 2019-09 Yes Na 1 tab [facility] Sulfate 1-22 Najam l 03:45: Clopidogrel 2019-09 Yes Na 1 tablet [facility] Bisulfate 1-22 Najam l 03:45: Magnesium 2019-09 Yes Na as Memori a 1-22 Najam directed l 03:45: Potassium 2019-09 Yes Na 1 tab Memor ia Chloride 1-22 Najam l 03:45: Ferrous 2019-09 Yes Na 1 tab [facility] Sulfate 1-22 Najam l 03:45: Clopidogrel 2019-09 Yes Na 1 tablet [facility] Bisulfate 1-22 Najam l 03:45: Oseni 2019-09 Yes Na 1 tablet Memori a 1-22 Najam l 03:45: Magnesium 2019-09 Yes Na as Memori a 1-22 Najam directed l 03:45: Oseni 2019-09 Yes Na 1 tablet Memori a 1-22 Najam l 03:45: Lasix 2019-09 Yes Na 1 tablet Memori a 1-22 Najam l 03:45: Levothyroxi 2019-09 Yes Na 1 tablet [facility] ne Sodium 1-22 Najam in the l 03:45: morning on an empty stomach Metoprolol 2019-09 Yes Na 1 capsule [facility] Succinate 1-22 Najam l 03:45: Pravastatin 2019-09 Yes Na 1 tablet [facility] Sodium 1-22 Najam l 03:45: Omeprazole 2019-09 Yes Na 1 capsule Memoria 1-22 Najam 30 minutes l 03:45: before morning meal GlyBURIDE 2019-09 Yes Na 1 tablet Me moria 1-22 Najam with l 03:45: breakfast or the first main meal of the day MetFORMIN 2019-09 Yes Na not Memori a HCl ER 1-22 Najam defined l 03:45: Aspirin 2019-09 Yes Na 1 tablet Gerardo deneen 1-22 Najam l 03:45: Lasix 2019-09 Yes Na 1 tablet Memori a 1-22 Najam l 03:45: Levothyroxi 2019-09 Yes Na 1 tablet [facility] ne Sodium 1-22 Najam in the l 03:45: morning on an empty stomach Metoprolol 2019-09 Yes Na 1 capsule [facility] Succinate 1-22 Najam l 03:45: Pravastatin 2019-09 Yes Na 1 tablet [facility] Sodium 1-22 Najam l 03:45: Omeprazole 2019-09 Yes Na 1 capsule Memoria 1-22 Najam 30 minutes l 03:45: before morning meal GlyBURIDE 2019-09 Yes Na 1 tablet Me moria 1-22 Najam with l 03:45: breakfast or the first main meal of the day MetFORMIN 2019-09 Yes Na not Memori a HCl ER 1-22 Najam defined l 03:45: Aspirin 2019-09 Yes Na 1 tablet Gerardo deneen 1-22 Najam l 03:45: Potassium 2019-09 Yes Na 1 tab Memor ia Chloride 1-22 Najam l 03:45: Ferrous 2019-09 Yes Na 1 tab [facility] Sulfate 1-22 Najam l 03:45: Clopidogrel 2019-09 Yes Na 1 tablet [facility] Bisulfate 1-22 Najam l 03:45: Magnesium 2019-09 Yes Na as Memori a 1-22 Najam directed l 03:45: Oseni 2019-09 Yes Na 1 tablet Memori a 1-22 Najam l 03:45: Lasix 2019-09 Yes Na 1 tablet Memori a 1-22 Najam l 03:45: Levothyroxi 2019-09 Yes Na 1 tablet [facility] ne Sodium 1-22 Najam in the l 03:45: morning on an empty stomach Metoprolol 2019-09 Yes Na 1 capsule [facility] Succinate 1-22 Najam l 03:45: Pravastatin 2019-09 Yes Na 1 tablet [facility] Sodium 1-22 Najam l 03:45: Omeprazole 2019-09 Yes Na 1 capsule Memoria 1-22 Najam 30 minutes l 03:45: before morning meal GlyBURIDE 2019-09 Yes Na 1 tablet Me moria 1-22 Najam with l 03:45: breakfast or the first main meal of the day MetFORMIN 2019-09 Yes Na not Memori a HCl ER 1-22 Najam defined l 03:45: Aspirin 2019-09 Yes Na 1 tablet Gerardo deneen 1-22 Najam l 03:45: Potassium 2019-09 Yes Na 1 tab Memor ia Chloride 1-22 Najam l 03:45: Ferrous 2019-09 Yes Na 1 tab [facility] Sulfate 1-22 Najam l 03:45: Clopidogrel 2019-09 Yes Na 1 tablet [facility] Bisulfate 1-22 Najam l 03:45: Magnesium 2019-09 Yes Na as Memori a 1-22 Najam directed l 03:45: Oseni 2019-09 Yes Na 1 tablet Memori a 1-22 Najam l 03:45: Lasix 2019-09 Yes Na 1 tablet Memori a 1-22 Najam l 03:45: Levothyroxi 2019-09 Yes Na 1 tablet [facility] ne Sodium 1-22 Najam in the l 03:45: morning on an empty stomach Metoprolol 2019-09 Yes Na 1 capsule [facility] Succinate 1-22 Najam l 03:45: Pravastatin 2019-09 Yes Na 1 tablet [facility] Sodium 1-22 Najam l 03:45: Omeprazole 2019-09 Yes Na 1 capsule Memoria 1-22 Najam 30 minutes l 03:45: before morning meal GlyBURIDE 2019-09 Yes Na 1 tablet Me moria 1-22 Najam with l 03:45: breakfast or the first main meal of the day MetFORMIN 2019-09 Yes Na not Memori a HCl ER 1-22 Najam defined l 03:45: Aspirin 2019-09 Yes Na 1 tablet Gerardo deneen 1-22 Najam l 03:45: Potassium 2019-09 Yes Na 1 tab Memor ia Chloride 1-22 Najam l 03:45: Ferrous 2019-09 Yes Na 1 tab [facility] Sulfate 1-22 Najam l 03:45: Clopidogrel 2019-09 Yes Na 1 tablet [facility] Bisulfate 1-22 Najam l 03:45: Magnesium 2019-09 Yes Na as Memori a 1-22 Najam directed l 03:45: Oseni 2019-09 Yes Na 1 tablet Memori a 1-22 Najam l 03:45: Lasix 2019-09 Yes Na 1 tablet Memori a 1-22 Najam l 03:45: Levothyroxi 2019-09 Yes Na 1 tablet [facility] ne Sodium 1-22 Najam in the l 03:45: morning on an empty stomach Metoprolol 2019-09 Yes Na 1 capsule [facility] Succinate 1-22 Najam l 03:45: Pravastatin 2019-09 Yes Na 1 tablet [facility] Sodium 1-22 Najam l 03:45: Omeprazole 2019-09 Yes Na 1 capsule [facility]oria 1-22 Najam 30 minutes l 03:45: before morning meal GlyBURIDE 2019-09 Yes Na 1 tablet Me moria 1-22 Najam with l 03:45: breakfast or the first main meal of the day MetFORMIN 2019-09 Yes Na not Memori a HCl ER 1-22 Najam defined l 03:45: Aspirin 2019-09 Yes Na 1 tablet Gerardo deneen 1-22 Najam l 03:45: Potassium 2019-09 Yes Na 1 tab Memor ia Chloride 1-22 Najam l 03:45: Ferrous 2019-09 Yes Na 1 tab [facility] Sulfate 1-22 Najam l 03:45: Clopidogrel 2019-09 Yes Na 1 tablet [facility] Bisulfate 1-22 Najam l 03:45: Magnesium 2019-09 Yes Na as Memori a 1-22 Najam directed l 03:45: Oseni 2019-09 Yes Na 1 tablet Memori a 1-22 Najam l 03:45: Lasix 2019-09 Yes Na 1 tablet Memori a 1-22 Najam l 03:45: Levothyroxi 2019-09 Yes Na 1 tablet [facility] ne Sodium 1-22 Najam in the l 03:45: morning on an empty stomach Metoprolol 2019-09 Yes Na 1 capsule [facility] Succinate 1-22 Najam l 03:45: Pravastatin 2019-09 Yes Na 1 tablet [facility] Sodium 1-22 Najam l 03:45: Omeprazole 2019-09 Yes Na 1 capsule [facility]oria 1-22 Najam 30 minutes l 03:45: before morning meal GlyBURIDE 2019-09 Yes Na 1 tablet Me moria 1-22 Najam with l 03:45: breakfast or the first main meal of the day MetFORMIN 2019-09 Yes Na not Memori a HCl ER 1-22 Najam defined l 03:45: Aspirin 2019-09 Yes Na 1 tablet Gerardo deneen 1-22 Najam l 03:45: Potassium 2019-09 Yes Na 1 tab Memor ia Chloride 1-22 Najam l 03:45: Ferrous 2019-09 Yes Na 1 tab [facility] Sulfate 1-22 Najam l 03:45: Clopidogrel 2019-09 Yes Na 1 tablet [facility] Bisulfate 1-22 Najam l 03:45: Magnesium 2019-09 Yes Na as Memori a 1-22 Najam directed l 03:45: Oseni 2019-09 Yes Na 1 tablet Memori a 1-22 Najam l 03:45: Lasix 2019-09 Yes Na 1 tablet Memori a 1-22 Najam l 03:45: Levothyroxi 2019-09 Yes Na 1 tablet [facility] ne Sodium 1-22 Najam in the l 03:45: morning on an empty stomach Metoprolol 2019-09 Yes Na 1 capsule [facility] Succinate 1-22 Najam l 03:45: Pravastatin 2019-09 Yes Na 1 tablet [facility] Sodium 1-22 Najam l 03:45: Omeprazole 2019-09 Yes Na 1 capsule [facility]oria 1-22 Najam 30 minutes l 03:45: before morning meal GlyBURIDE 2019-09 Yes Na 1 tablet Me moria 1-22 Najam with l 03:45: breakfast or the first main meal of the day MetFORMIN 2019-09 Yes Na not Memori a HCl ER 1-22 Najam defined l 03:45: Aspirin 2019-09 Yes Na 1 tablet Gerardo deneen 1-22 Najam l 03:45: Potassium 2019-09 Yes Na 1 tab Memor ia Chloride 1-22 Najam l 03:45: Hydroxychlo 2019-09 Yes Na 2 tabs Me moria roquine 1-18 Najam l Sulfate 00:00: Hydroxychlo 2019-09 Yes Na 2 tabs Me moria roquine 1-18 Najam l Sulfate 00:00: Hydroxychlo 2019-09 Yes Na 2 tabs Me moria roquine 1-18 Najam l Sulfate 00:00: Hydroxychlo 2020- Yes Na 2 tabs Me moria roquine 1-18 Najam l Sulfate 00:00: Hydroxychlo 2019-09 Yes Na 2 tabs Me moria roquine 1-18 Najam l Sulfate 00:00: Hydroxychlo 2019- Yes Na 2 tabs Me moria roquine 1-18 Najam l Sulfate 00:00: Hydroxychlo 2020- Yes Na 2 tabs Me moria roquine 1-18 Najam l Sulfate 00:00: Hydroxychlo 2019- Yes Na 2 tabs Me moria roquine 1-18 Najam l Sulfate 00:00: Hydroxychlo 2020-1 Yes Na 2 tabs Me moria roquine 1-18 Najam l Sulfate 00:00: acetaminoph 2020-0 2020- No 1000mg 1,000 mg, Univers en 05-31 09-09 Oral, ity of (TYLENOL) 00:06: 00:07 ONCE, 1 [place] tablet 00 :00 dose, Tue Medical 1,000 mg 05/30/20 at Branch 1915, JACKY traMADoL 2020-0 Yes [id number] 50mg Take 1 Univers (ULTRAM) 50 9-08 tablet by ity of mg tablet 00:00: mouth [place] 00 every 6 Medical (six) Branch hours as needed for Pain (scale 7-10). Indication s: acute pain methocarbam 2020-0 Yes [id number] 500mg Take 1 Univers oL 9-08 tablet [...] Indication s: acute pain methocarbam 2020-0 Yes [id number] 500mg Take 1 Univers oL 9-08 tablet [...] Indication s: acute pain methocarbam 2020-0 Yes [id number] 500mg Take 1 Univers oL 9-08 tablet [...] Indication s: acute pain methocarbam 2020-0 Yes [id number] 500mg Take 1 Univers oL 9-08 tablet by ity of (ROBAXIN) 00:00: mouth [place] 500 mg 00 every 6 Medical tablet (six) Branch hours as needed (MUSCLE SPASM). traMADoL Yes [id number] 50mg Take 1 Univers (ULTRAM) 50 9-08 tablet by ity of mg tablet 00:00: mouth [place] 00 every 6 Medical (six) Branch hours as needed for Pain (scale 7-10). Indication s: acute pain methocarbam 2019-0 Yes [id number] 500mg Take 1 Univers oL 9-08 tablet by ity of (ROBAXIN) 00:00: mouth [place] 500 mg 00 every 6 Medical tablet (six) Branch hours as needed (MUSCLE SPASM). pravastatin 2018-09 Yes 80mg Take 80 mg Univers 80 mg 0-20 by mouth. ity of tablet 20:19: [address] metFORMIN 2018-09 Yes 500mg Take 500 Uni vers 500 mg 0-20 mg by ity of tablet 20:19: mouth. [address] Magnesium 2018-09 Yes 250mg Take 250 Uni vers Oxide 250 0-20 mg by ity of mg Tab 20:19: mouth. [address] glyBURIDE 5 2018-09 Yes 5mg Take 5 mg U nivers mg tablet 0-20 by mouth. ity o f 20:19: [address] clopidogrel 2018-09 Yes 75mg Take 75 mg Univers 75 mg 0-20 by mouth. ity of tablet 20:19: [address] aspirin 81 2018-09 Yes 81mg Take 81 mg U nivers mg EC 0-20 by mouth. ity of tablet 20:19: [address] alogliptin- 2018-09 Yes 1{tbl} Take 1 Un michelle pioglitazon 0-20 tablet by ity of e 25-30 mg 20:19: mouth. [address] ibuprofen 2018-09 Yes ibuprofen Uni vers 800 mg 0-20 800 mg ity of tablet 20:19: tablet [place] [id number] Take 1 Medical tablet 3 Branch times a day by oral route. fluticasone 2018-09 Yes Advair Univ ers -salmeterol 0-20 Diskus 250 it y of 250-50 20:19: mcg-50 [place] mcg/dose 42 mcg/dose Medical inhalation powder for [facility] disk inhalation Inhale 1 puff twice a day by inhalation route. METOPROLOL 2019 Yes 100mg Take 100 Un michelle SUCCINATE 0-20 mg by ity of ORAL 20:19: mouth [place] 42 daily. Medical Branch potassium 2019- Yes 20meq [...] 42 morning Medical and Branch evening. omeprazole Yes 40mg Take 1 Unive rs 40 mg 8-20 capsule by ity of capsule 00:00: mouth [place] 00 daily. Medical Branch omeprazole Yes 40mg Take 1 Unive rs 40 mg 8-20 capsule by ity of capsule 00:00: mouth [place] 00 daily. Medical Branch omeprazole Yes 40mg Take 1 Unive rs 40 mg 8-20 capsule by ity of capsule 00:00: mouth [place] 00 daily. Medical Branch omeprazole Yes 40mg Take 1 Unive rs 40 mg 8-20 capsule by ity of capsule 00:00: mouth [place] 00 daily. Medical Branch omeprazole Yes 40mg Take 1 Unive rs 40 mg 8-20 capsule by ity of capsule 00:00: mouth [place] 00 daily. Medical Branch omeprazole Yes 40mg Take 1 Unive rs 40 mg 8-20 capsule by ity of capsule 00:00: mouth [place] 00 daily. Medical Branch clopidogrel Yes 75mg Take 75 mg Univers 75 mg 7-01 by mouth. ity of tablet 15:38: Medical Branch baclofen 10 Yes 10mg Take 10 mg Univers mg tablet 7 by mouth. ity o f 15:38: Medical Branch aspirin 81 2019- Yes 81mg Take 81 mg U nivers mg EC 7 by mouth. ity of tablet 15:38: Medical Branch ibuprofen 2018- Yes ibuprofen Uni vers 800 mg 7 800 mg ity of tablet 15:38: tablet 03 Take 1 Medical tablet 3 Branch times a day by oral route. pravastatin 2019 Yes 80mg Take 80 mg Univers 80 mg 6-10 by mouth. ity of tablet 14:50: [place] [address] Medical Branch metFORMIN 2019-0 Yes 500mg Take 500 Uni vers 500 mg 6-10 mg by ity of tablet 14:50: mouth. [place] [address] Medical Branch Magnesium 2019-0 Yes 250mg Take 250 Uni vers Oxide 250 6-10 mg by ity of mg Tab 14:50: mouth. [place] [address] Medical Branch glyBURIDE 5 2018-0 Yes 5mg Take 5 mg U nivers mg tablet 6-10 by mouth. ity o f 14:50: [address] Branch alogliptin- 0 Yes 1{tbl} Take 1 Un michelle pioglitazon 6-10 tablet by ity of e 25-30 mg 14:50: mouth. [facility] 35 Medical Branch fluticasone Yes Advair Univ ers -salmeterol 6-10 Diskus 250 it y of 250-50 14:50: mcg-50 [place] mcg/dose 35 mcg/dose Medical inhalation powder for [facility] disk inhalation Inhale 1 puff twice a day by inhalation route. METOPROLOL 2019 Yes 100mg Take 100 Un michelle SUCCINATE 6-10 mg by ity of ORAL 14:50: mouth [place] 35 daily. Medical Branch potassium 0 Yes 20meq Take 20 Univ ers chloride 20 6-10 mEq by ity of mEq packet 14:50: mouth [place] 35 daily. Medical Branch Levothyroxi 2019 Yes 125ug Take 125 U nivers ne 125 mcg 6-10 mcg by ity of capsule 14:50: mouth [place] 35 daily. Medical Branch furosemide Yes 40mg Take 40 mg U nivers 40 mg 6-10 by mouth ity of tablet 14:50: every [place] [address] morning Medical and Branch evening. fluticasone Yes [id number] 2{spray Use 2 Univers 50 6-04 } Sprays in ity of mcg/actuati 00:00: each [place] on nasal 00 nostril Medical spray daily. Branch fluticasone Yes [id number] 2{spray Use 2 Univers 50 6-04 } Sprays in ity of mcg/actuati 00:00: each [place] on nasal 00 nostril Medical spray daily. Branch fluticasone Yes [id number] 2{spray Use 2 Univers 50 6-04 } Sprays in ity of mcg/actuati 00:00: each [place] on nasal 00 nostril Medical spray daily. Branch fluticasone Yes [id number] 2{spray Use 2 Univers 50 6-04 } Sprays in ity of mcg/actuati 00:00: each [place] on nasal 00 nostril Medical spray daily. Branch fluticasone Yes [id number] 2{spray Use 2 Univers 50 6-04 } Sprays in ity of mcg/actuati 00:00: each [place] on nasal 00 nostril Medical spray daily. Branch methylPREDN Yes [id number] Take by Univers ISolone 6-04 mouth ity of (MEDROL, 00:00: SEE-INSTRU Abad as SANDRA,) 4 mg 00 CTIONS. Medica l tablets follow Branch package directions montelukast Yes [id number] 10mg Take 1 Univers (SINGULAIR) 6-04 tablet by ity of 10 mg 00:00: mouth [place] tablet 00 daily. Medical Branch cetirizine Yes [id number] 10mg Take 1 U nivers (ZYRTEC) 10 6-04 tablet by ity of mg tablet 00:00: mouth [place] 00 bedtime. Medical Branch fluticasone Yes [id number] 2{spray Use 2 Univers 50 6-04 } Sprays in ity of mcg/actuati 00:00: each [place] on nasal 00 nostril Medical spray daily. Branch traMADOL 50 Yes [id number] 50mg Take 1 Univers mg tablet 5-22 tablet by ity o f 00:00: mouth [place] 00 every 6 Medical (six) Branch hours as needed for Pain (scale 1-3). traMADOL 50 Yes [id number] 50mg Take 1 Univers mg tablet 5-22 tablet by ity o f 00:00: mouth [place] 00 every 6 Medical (six) Branch hours as needed for Pain (scale 1-3). ranitidine Yes [id number] 300mg Take 1 Univers (ZANTAC) 3-29 tablet by ity of 300 mg 00:00: mouth at [place] tablet 00 bedtime. Medical Branch pantoprazol Yes [id number] 40mg Take 1 Univers e 40 mg EC 3-18 tablet by ity of tablet 00:00: mouth [place] 00 daily. Medical Branch pantoprazol Yes [id number] 40mg Take 1 Univers e 40 mg EC 3-18 tablet by ity of tablet 00:00: mouth [place] 00 daily. Medical Branch HYDROcodone 2018- Yes [id number] 1{tbl} Take 1 Univers -acetaminop 3-09 tablet by ity of hen 5-325 00:00: mouth [place] mg tablet 00 every 6 Medical (six) Branch hours as needed for Pain (scale 4-6) or Pain (scale 7-10). docusate Yes [id number] 100mg Take 1 Uni vers 100 mg 3-08 capsule by ity of capsule 00:00: mouth once [place] 00 daily as Medical needed for Branch Constipati on. docusate Yes [id number] 100mg Take 1 Uni vers 100 mg 3-08 capsule by ity of capsule 00:00: mouth once [place] 00 daily as Medical needed for Branch Constipati on. docusate Yes [id number] 100mg Take 1 Uni vers 100 mg 3-08 capsule by ity of capsule 00:00: mouth once [place] 00 daily as Medical needed for Branch Constipati on. lidocaine Yes [id number] 15mL Take 15 mL Univers 2% viscous 3-08 by mouth ity o f 2 % 00:00: every 4 [place] solution 00 (four) Medical hours as Branch needed for Oral mucosal pain. docusate Yes [id number] 100mg Take 1 Uni vers 100 mg 3-08 capsule by ity of capsule 00:00: mouth once [place] 00 daily as Medical needed for Branch Constipati on. traMADOL 50 2018- Yes [id number] 50mg Take 1 U nivers mg tablet 3-08 tablet by ity o f 00:00: mouth [place] 00 every 6 Medical (six) Branch hours as needed for Pain (scale 4-6). docusate Yes [id number] 100mg Take 1 Uni vers 100 mg 3-08 capsule by ity of capsule 00:[place] daily as Medical needed for Branch Constipati on. docusate Yes [id number] 100mg Take 1 Uni vers 100 mg 3-08 capsule by [facility]y of capsule 00:00: mouth [place] 00 daily as Medical needed for Branch Constipati on. glyBURIDE 2017-0 Yes 5mg Q.5D Take 5 mg Met [facility] (DIABETA) 5 05-[address] MG tablet 00:17: (two) [facility]ospita 05 times a l day with meals. metoprolol 2017-0 Yes 50mg Q.[id number] Take 50 mg [facility] tartrate 05-17 [id number] [address] mouth [address] (LOPRESSOR) 00:17: 3D (three) Hos jossie 50 mg 05 times a l tablet day. clopidogrel 2016- Yes 75mg QD Take 75 mg [facility] (PLAVIX) 75 05-[address] mg tablet 00:17: nightly. Hosp neo 05 l aspirin 2016-0 Yes 81mg QD Take 81 mg Meth rolando (ECOTRIN) 05-[address] 81 MG 00:17: nightly. Hospita enteric 05 l coated tablet baclofen Yes 10mg Q.27534756 Take 10 mg [facility] (LIORESAL) 05-17 [id number] by mouth [address] 10 MG 00:17: [...] 00:17: mouth Hospita 05 daily. l metFORMIN 2016-0 Yes 500mg Q.5D Take 500 Met hodi [...] day with meals. metoprolol 2017-0 Yes 50mg Q.[id number] Take 50 mg [facility] tartrate 8-25 [id number] by mouth [facility] (LOPRESSOR) 19:17: 3D [...] l coated tablet baclofen 2017-0 Yes 10mg Q.36209022 Take 10 mg [facility] (LIORESAL) 8-25 [id number] [address] mouth [address] 10 MG 19:17: [...] day with meals. metoprolol 2017-0 Yes 50mg Q.40755663 Take 50 mg [facility] tartrate 8-25 [id number] by mouth [address] (LOPRESSOR) 19:17: 3D [...] l coated tablet baclofen 2017-0 Yes 10mg Q.12303967 Take 10 mg [facility] (LIORESAL) 8-25 [id number] [address] mouth [address] 10 MG 19:17: [...] day with meals. metoprolol 2017-0 Yes 50mg Q.40000032 Take 50 mg [facility] tartrate 8-25 [id number] by mouth [address] (LOPRESSOR) 19:17: 3D [...] l coated tablet baclofen 2017-0 Yes 10mg Q.[id number] Take 10 mg [facility] (LIORESAL) 8-25 [id number] mouth [address] 10 MG 19:17: [...] day with meals. metoprolol 2017-0 Yes 50mg Q.56186056 Take 50 mg [facility] tartrate 8-25 [id number] [address] mouth [address] (LOPRESSOR) 19:17: 3D [...] l coated tablet baclofen 2017-0 Yes 10mg Q.61006059 Take 10 mg [facility] (LIORESAL) 8-25 [id number] [address] mouth [address] 10 MG 19:17: [...] day with meals. metoprolol 2017-0 Yes 50mg Q.77292615 Take 50 mg [facility] tartrate 8-25 [id number] mouth [address] (LOPRESSOR) 19:17: 3D [...] l coated tablet baclofen 2017-0 Yes 10mg Q.[id number] Take 10 mg [facility] (LIORESAL) 8-25 [id number] mouth [address] 10 MG 19:17: [...] Time Observation Value Comments Source Systolic blood 2023-03-10 13:05:00 124 mm[Hg] Ame Tate - pressure External Diastolic blood 2023-03-10 13:05:00 72 mm[Hg] Maritza Tate - pressure External Heart rate 2023-03-10 13:05:00 75 /min Ame wright - External Body temperature 2023-03-10 13:05:00 37.06 Fadumo Dorothy Tate - External Respiratory rate 2023-03-10 13:05:00 17 /min Dorothy Tate - External Body height 2023-03-10 13:05:00 162.6 cm Ame wright - External Body weight 2023-03-10 13:05:00 91.173 kg Ame S eybold - External BMI 2023-03-10 13:05:00 34.50 kg/m2 Ame S eybold - External Systolic blood 2023-02-05 11:00:00 123 mm[Hg] Univer sity of pressure [facility] Diastolic blood 2023-02-05 11:00:00 73 mm[Hg] Unive rsity of [facility] Heart rate 2023-02-05 11:00:00 77 /min [facility] Respiratory rate 2023-02-05 11:00:00 18 /min [facility] Oxygen saturation in 2023-02-05 11:00:00 99 /min [facility] Arterial blood by [facility] Pulse oximetry Branch Body temperature 2023-02-05 07:29:00 36.89 Fadumo [facility] 2023-02-05 07:29:00 162.6 cm [facility] Body weight 2023-02-05 07:29:00 86.183 kg [facility] BMI 2023-02-05 07:29:00 32.61 kg/m2 [facility] Body temperature 2023-01-20 15:44:00 35.44 Fadumo Dorothy ey Seybold - External Respiratory rate 2023-01-20 15:44:00 19 /min Dorothy dunn Seybold - External Body height 2023-01-20 15:44:00 162.6 cm Ame Chamberlain eybold - External Body weight 2023-01-20 15:44:00 85.276 kg Ame Chamberlain eybold - External BMI 2023-01-20 15:44:00 32.27 kg/m2 Ame S eybold - External Systolic blood 2023-01-20 15:44:00 124 mm[Hg] Ame Arellanoybold - pressure External Diastolic blood 2023-01-20 15:44:00 74 mm[Hg] Maritza Tate - pressure External Heart rate 2023-01-20 15:44:00 88 /min Ame Chamberlain eybold - External Body height 2022-10-08 20:52:00 162.6 cm Ame Chamberlain eybold - External Body weight 2022-10-08 20:52:00 90.719 kg Ame Chamberlain eybold - External BMI 2022-10-08 20:52:00 34.33 kg/m2 Ame dunnbodario - External Systolic blood 2022-05-22 11:46:00 128 mm[Hg] Univer sity of pressure [facility] Diastolic blood 2022-05-22 11:46:00 77 mm[Hg] Unive rsity of pressure [facility] Heart rate 2022-05-22 11:46:00 79 /min [facility] Respiratory rate 2022-05-22 11:46:00 18 /min Univ ersity of [facility] Oxygen saturation in 2022-05-22 11:46:00 99 /min University of Arterial blood by [place] [employer] Pulse oximetry Branch Body temperature 2022-05-22 08:22:00 36.67 Fadumo Univ ersity of [facility] Body height 2022-05-22 08:22:00 162.6 cm [facility] Body weight 2022-05-22 08:22:00 90.719 kg [facility] BMI 2022-05-22 08:22:00 34.33 kg/m2 [facility] Systolic blood 2022-02-04 14:00:00 125 mm[Hg] Univer sity of pressure [facility] Diastolic blood 2022-02-04 14:00:00 69 mm[Hg] Unive rsity of pressure [facility] Heart rate 2022-02-04 14:00:00 78 /min [facility] Respiratory rate 2022-02-04 14:00:00 16 /min Univ ersity of [facility] Oxygen saturation in 2022-02-04 14:00:00 97 /min University of Arterial blood by [place] [employer] Pulse oximetry Branch Body temperature 2022-02-04 11:54:00 36.22 Fadumo Univ ersity [facility] Body height 2022-02-04 11:54:00 162.6 cm [facility] Body weight 2022-02-04 11:54:00 90.266 kg [facility] BMI 2022-02-04 11:54:00 34.16 kg/m2 [facility] Systolic blood 2020-05-31 01:00:00 124 mm[Hg] Univer sity of pressure [facility] Diastolic blood 2020-05-31 01:00:00 74 mm[Hg] Unive rsity of pressure [facility] Heart rate 2020-05-31 01:00:00 83 /min [facility] Respiratory rate 2020-05-31 01:00:00 18 /min Univ ersity of [facility] Oxygen saturation in 2020-05-31 01:00:00 98 /min University of Arterial blood by [facility] Pulse oximetry Branch Body temperature 2020-05-30 23:58:00 36.67 Fadumo Univ ersity of [facility] Body height 2020-05-30 23:58:00 162.6 cm [facility] Body weight 2020-05-30 23:58:00 98.431 kg [facility] BMI 2020-05-30 23:58:00 37.25 kg/m2 Universi ty of [facility] Systolic blood 2020-05-31 01:00:00 124 mm[Hg] Univer sity of pressure [facility] Diastolic blood 2020-05-31 01:00:00 74 mm[Hg] Unive rsity of pressure [facility] Heart rate 2020-05-31 01:00:00 83 /min [facility] Respiratory rate 2020-05-31 01:00:00 18 /min Univ ersity of [facility] Oxygen saturation in 2020-05-31 01:00:00 98 /min University of Arterial blood by [facility] Pulse oximetry Branch Body temperature 2020-05-30 23:58:00 36.67 Fadumo Univ ersity of [facility] Branch Body height 2020-05-30 23:58:00 162.6 cm [facility] Body weight 2020-05-30 23:58:00 98.431 kg [facility] BMI 2020-05-30 23:58:00 37.25 kg/m2 [facility] temperature site 2021-08-02 13:16:08 oral [facility] pulse rate 2021-08-02 13:16:08 86 /min [facility] blood pressure, 2021-08-02 13:16:08 75 mm[Hg] [facility] blood pressure, 2021-08-02 13:16:08 125 mm[Hg] [facility] systolic Health oxygen saturation, 2021-08-02 13:16:08 98 /min [facility] oximetry Health temperature E&M 2021-08-02 13:16:08 98.6 [degF] [facility] weight E&M 2021-08-02 13:16:08 203 [lb_av] [facility] weight in kilograms 2021-08-02 13:16:08 92.27 kg L [facility] E&M Health height in 2021-08-02 13:16:08 [facility] oxygen saturation, 2020-09-20 15:13:22 98 /min [facility], 2020-09-20 15:13:22 78 mm[Hg] [facility] diastolic Health blood pressure, 2020-09-20 15:13:22 124 mm[Hg] [facility] systolic Health pulse rate 2020-09-20 15:13:22 97 /min [facility] temperature E&M 2020-09-20 15:13:22 98.2 [degF] [facility] weight E&M 2020-09-20 15:13:22 219 [lb_av] [facility] weight in kilograms 2020-09-20 15:13:22 99.55 kg L [facility] E& Health height in 2020-09-20 15:13:22 162.56 cm [facility] temperature site 2020-09-20 15:13:22 oral [facility] Height 2020-07-26 14:30:00 Delvin Huynh Diastolic (mm Hg) 2020-07-26 14:30:00 Mem orial Lino Systolic (mm Hg) 2020-07-26 14:30:00 Gerardo rial Braman Weight 2020-07-26 14:30:00 Delvin Huynh Procedures Procedure Date / Time Performed Performing Clinician Sourc e D-DIMER 2023-02-05 10:16:00 Vik Perkins [facility] TROPONIN I 2023-02-05 09:21:00 Vik Perkins [facility] LIPASE 2023-02-05 07:37:00 Vik Perkins [facility] TROPONIN I 2023-02-05 07:37:00 Vik Perkins [facility] COMP. METABOLIC PANEL 2023-02-05 07:37:00 Vik Perkins [facility] ([id number]) Medical Branch CBC WITH DIFF 2023-02-05 07:37:00 Vik Perkins [facility] TROPONIN I 2022-05-22 10:31:[address] [facility] HEAD WO CONTRAST 2022-05-22 09:12:24 Grady King [facility] XR CHEST 1 VW 2022-05-22 08:42:13 [facility] TROPONIN I 2022-05-22 08:27:00 [facility] BASIC METABOLIC PANEL 2022-05-22 08:27:00 Grady King [facility] (NA, K, CL, CO2, Medical Branch GLUCOSE, BUN, CREATININE, CA) CBC WITH DIFF 2022-05-22 08:27:00 [facility] N-TERMINAL PRO-BNP 2022-05-22 08:27:00 Grady King [facility] CT CHEST PULMONARY 2022-02-04 13:07:02 Jerri Wilkinson [facility] ANGIOGRAM [facility] Branch TROPONIN I 2022-02-04 12:35:00 Jerri Wilkinson [facility] COMP. METABOLIC PANEL 2022-02-04 12:35:00 Jerri Wilkinson [facility] ([id number]) Medical Branch CBC WITH DIFF 2022-02-04 12:35:00 Jerri Wilkinson [facility] N-TERMINAL PRO-BNP 2022-02-04 12:35:00 Jerri Wilkinson [facility] CT CERVICAL SPINE WO 2020-05-31 00:56:37 Brandy Armenta [facility] CONTRAST [facility] Branch CT HEAD WO CONTRAST 2020-05-31 00:56:37 Brandy Armenta [facility] CT LUMBAR SPINE WO 2020-05-31 00:56:37 Brandy Armenta [facility] CT THORACIC SPINE WO 2020-05-31 00:56:37 Brandy Armenta [facility] Plan of Care Planned Activity Planned Date Details Comments Source Future Scheduled 2023-07-16 Screening for [facility] Test 13:07:12 malignant neoplasm of colon (procedure) [code = 326568856] Future Scheduled 2023-07-16 Screening for [facility] Test 13:07:12 malignant neoplasm of colon (procedure) [code = 206929452] Future Scheduled 2023-07-16 Screening for [facility] Test 13:07:12 malignant neoplasm of colon (procedure) [code = 859882707] Future Scheduled 2023-07-16 COVID-19 VACCINE (#1) [facility] Test 13:07:12 [code = COVID-19 VACCINE (#1)] Future Scheduled 2023-07-16 BREAST CANCER [facility] Test 13:07:12 SCREENING [code = BREAST CANCER SCREENING] Future Scheduled 2023-07-16 SHINGLES VACCINES (1 Met [facility] Test 13:07:12 of 2) [code = SHINGLES VACCINES (1 of 2)] Future Scheduled 2023-07-16 65+ PNEUMOCOCCAL [facility] Test 13:07:12 VACCINE (1 - PCV) [code = 65+ PNEUMOCOCCAL VACCINE (1 - PCV)] Future Scheduled 2023-07-16 Screening for [facility] Test 13:07:12 malignant neoplasm of colon (procedure) [code = 245195842] Future Scheduled 2023-07-16 Screening for [facility] Test 13:07:12 malignant neoplasm of colon (procedure) [code = 929340669] Future Scheduled 2023-07-16 INFLUENZA VACCINE (#1) [facility] Test 13:07:12 [code = INFLUENZA VACCINE (#1)] Future Scheduled 2022-07-24 BREAST CANCER [facility] Test 20:02:02 SCREENING [code = BREAST CANCER SCREENING] Future Scheduled 2022-07-24 COLONOSCOPY SCREENING [facility] Test 20:02:02 [code = COLONOSCOPY SCREENING] Future Scheduled 2022-07-24 SHINGLES VACCINES (1 Met [facility] Test 20:02:02 of 2) [code = SHINGLES VACCINES (1 of 2)] Future Scheduled 2022-07-24 65+ PNEUMOCOCCAL [facility] Test 20:02:02 VACCINE (1 - PCV) [code = 65+ PNEUMOCOCCAL VACCINE (1 - PCV)] Future Scheduled 2022-07-24 INFLUENZA VACCINE Method [facility] Test 20:02:02 [code = INFLUENZA VACCINE] Future Scheduled 2022-07-24 HEPATITIS B VACCINES Met [facility] Test 20:02:02 (1 of 3 - 3-dose series) [code = HEPATITIS B VACCINES (1 of 3 - 3-dose series)] Future Scheduled 2022-07-24 COVID-19 VACCINE (#1) [facility] Test 20:02:02 [code = COVID-19 VACCINE (#1)] Future Scheduled 2022-07-24 Hepatitis C screening [facility] Test 20:02:02 (procedure) [code = 320593382] Future Scheduled 2022-07-24 Screening for [facility] Test 20:02:02 malignant neoplasm of cervix (procedure) [code = 081802626] Future Scheduled 2022-07-24 BREAST CANCER [facility] Test 20:02:02 SCREENING [code = BREAST CANCER SCREENING] Future Scheduled 2022-07-24 COLONOSCOPY SCREENING [facility] Test 20:02:02 [code = COLONOSCOPY SCREENING] Future Scheduled 2022-07-24 SHINGLES VACCINES (1 [facility] Test 20:02:02 of 2) [code = SHINGLES VACCINES (1 of 2)] Future Scheduled 2022-07-24 65+ PNEUMOCOCCAL [facility] Test 20:02:02 VACCINE (1 - PCV) [code = 65+ PNEUMOCOCCAL VACCINE (1 - PCV)] Future Scheduled 2022-07-24 INFLUENZA VACCINE Method [facility] Test 20:02:02 [code = INFLUENZA VACCINE] Future Scheduled 2022-07-24 HEPATITIS B VACCINES Met [facility] Test 20:02:02 (1 of 3 - 3-dose series) [code = HEPATITIS B VACCINES (1 of 3 - 3-dose series)] Future Scheduled 2022-07-24 COVID-19 VACCINE (#1) [facility] Test 20:02:02 [code = COVID-19 VACCINE (#1)] Future Scheduled 2022-07-24 Hepatitis C screening [facility] Test 20:02:02 (procedure) [code = 917900396] Future Scheduled 2022-07-24 Screening for [facility] Test 20:02:02 malignant neoplasm of cervix (procedure) [code = 740162014] Future Scheduled 2022-07-24 BREAST CANCER [facility] Test 20:02:02 SCREENING [code = BREAST CANCER SCREENING] Future Scheduled 2022-07-24 COLONOSCOPY SCREENING [facility] Test 20:02:02 [code = COLONOSCOPY SCREENING] Future Scheduled 2022-07-24 SHINGLES VACCINES (1 Met [facility] Test 20:02:02 of 2) [code = SHINGLES VACCINES (1 of 2)] Future Scheduled 2022-07-24 65+ PNEUMOCOCCAL [facility] Test 20:02:02 VACCINE (1 - PCV) [code = 65+ PNEUMOCOCCAL VACCINE (1 - PCV)] Future Scheduled 2022-07-24 INFLUENZA VACCINE [facility] Test 20:02:02 [code = INFLUENZA VACCINE] Future Scheduled 2022-07-24 HEPATITIS B VACCINES [facility] Test 20:02:02 (1 of 3 - 3-dose series) [code = HEPATITIS B VACCINES (1 of 3 - 3-dose series)] Future Scheduled 2022-07-24 COVID-19 VACCINE (#1) [facility] Test 20:02:02 [code = COVID-19 VACCINE (#1)] Future Scheduled 2022-07-24 Hepatitis C screening [facility] Test 20:02:02 (procedure) [code = 906408233] Future Scheduled 2022-07-24 Screening for [facility] Test 20:02:02 malignant neoplasm of cervix (procedure) [code = 182104664] Future Scheduled 2022-05-21 HEPATITIS B VACCINES [facility] Test 16:58:39 (1 of 3 - 3-dose series) [code = HEPATITIS B VACCINES (1 of 3 - 3-dose series)] Future Scheduled 2022-05-21 COVID-19 VACCINE (#1) [facility] Test 16:58:39 [code = COVID-19 VACCINE (#1)] Future Scheduled 2022-05-21 Hepatitis C screening [facility] Test 16:58:39 (procedure) [code = 270964047] Future Scheduled 2022-05-21 Screening for [facility] Test 16:58:39 malignant neoplasm of cervix (procedure) [code = 538745746] Future Scheduled 2022-05-21 BREAST CANCER [facility] Test 16:58:39 SCREENING [code = BREAST CANCER SCREENING] Future Scheduled 2022-05-21 [facility] Test 16:58:39 [code = COLONOSCOPY SCREENING] Future Scheduled 2022-05-21 SHINGLES VACCINES ([facility] 16:58:39 of 2) [code = SHINGLES VACCINES (1 of 2)] Future Scheduled 2022-05-21 65+ [facility] Test 16:58:39 VACCINE (1 - PCV) [code = 65+ PNEUMOCOCCAL VACCINE (1 - PCV)] Future Scheduled 2022-05-21 [facility] 16:58:39 [code = INFLUENZA VACCINE] Future Scheduled DIABETES: RETINAL EYE [facility] EXAM [code = DIABETES: RETINAL EYE EXAM] Future Scheduled DIABETIC FOOT EXAM [facility] Test [code = DIABETIC FOOT EXAM] Future Scheduled URINE MICROALBUMIN [facility] Test [code = URINE MICROALBUMIN] Future Scheduled COVID-19 VACCINE (1) [facility] [code = COVID-19 VACCINE (1)] Future Scheduled [facility] Test (procedure) [code = 505122374] Future Scheduled Screening for [facility] Test malignant neoplasm of cervix (procedure) [code = 204833273] Future Scheduled BREAST CANCER [facility] Test SCREENING [code = BREAST CANCER SCREENING] Future Scheduled COLONOSCOPY [facility]CRE[facility]ING [facility] [code = COLONOSCOPY SCREENING] Future Scheduled SHINGLES VACCINES (#[facility]) [facility] [code = SHINGLES VACCINES (#1)] Future Scheduled [facility] [code = INFLUENZA VACCINE] Encounters Start End Encounter Admission Attending Care Care Encounter Source Date/Time Date/Time Type Type Clinicians Facility Department ID 2023-08-12 Outpatient [id number] Memoria 14:39:37 [id number]-[id number]-[id number] EAC-41E6- B l -I37J-45M [id number] Braman [id number] 2023-03-10 Outpatient [id number] [id number] Memoria 07:52:48 [id number] B8-09F1-Z81 3V2-07P8- B l -I396-993 [id number] Lino [id number] [id number] 2023-02-20 Outpatient [id number] [id number] [id number] Memoria 11:58:40 [id number] V96-5328- B l -CM43-909 [id number] P05-993GX4 Braman [id number] [id number] 2023-02-05 Outpatient [id number] 6C07-7 Memoria 02:23:23 [id number] 1F-4104-[id number] N5S-1923- A l -A7S1-7SR [id number] [id number] Lino [id number] [facility] [id number] 2023-01-20 Outpatient [id number] FF8D-C Memoria 12:34:47 A1KE-00SS FF-49FF-A90 2FF-49FF- A l -O21M-P40 A-Y846FFWRK 90A-C096EC Lino 1KMGIIXU6 DC2 CDADC2 2022-12-05 Outpatient [id number] 8E6C-2 Memoria 14:25:50 24AE-4666 AE-4666-A6A 4AE-4666- A l -T1U9-A6X [id number] 3C5-Z2SMWV Lino [id number] 7B3 [id number] 2022-10-08 Outpatient [id number] 5F55-F [facility] 14:43:10 [id number]-1L62 [id number]-2X92-521 56C-4F85- 9 l -9684-CFB [id number] Lino [id number] 2022-10-07 Outpatient [id number] [id number]-9 Memoria 14:09:06 [id number]-4074 [id number]-4074-8CE 87C-4074- 8 l -9RP2-8R4 [id number] CE6-8B9C12 Lino [id number] 2022-08-05 Outpatient [id number] [id number]-B [facility]oria 15:16:13 CL64-7U70 80-4A08-4B0 U36-5Y23- 9 l -9G77-QE8 2-RM5XP5TF7 B09-LP1ML4 Braman [id number] [id number] [id number] 2022-02-06 Outpatient [facility] [id number] [place] 07:22:02 [id number] [facility] 2022-02-05 Outpatient [facility] [id number] [place] 12:52:32 [id number] [facility] 2022-02-04 Outpatient [facility] [id number] [place] 15:14:48 [id number] [facility] 2021-07-30 Outpatient Bess [facility] [id number] [facility] 14:23:46 Andrew Ramirez [facility] 2021-07-20 Emergency [facility] [id number] Univers 16:28:55 [facility] 2020-01-28 Outpatient ESPERANZA GREENBERG ALEXIS [id number] [address] 10:36:26 VAL 2019-09-17 Outpatient [facility] [id number] [facility] 08:18:24 2023-08-01 2023-08-01 Outpatient AME DREW [id number] Ame 00:00:00 00:00:00 JERECIA Seybol d 2023-08-01 2023-08-01 Outpatient AME DREW [id number] Ame 00:00:00 00:00:00 JERECIA Seybol d 2023-06-12 2023-06-12 Outpatient AME DREW [id number] Ame 16:00:00 16:00:00 JERECIA Seybol d 2023-06-03 2023-06-03 Outpatient [facility]_Walk PRIV PRIV [id number] [facility] 00:00:00 00:00:00 InSchedul [id number] [facility] 2023-05-13 2023-05-13 Outpatient AME DREW [id number] Ame 00:00:00 00:00:00 JERECIA Seybol d 2023-05-01 2023-05-01 Outpatient AME DURON [id number] Ame 15:15:00 15:15:00 HOLLY Seybol d 2023-05-01 2023-05-01 Outpatient AME DREW [id number] Ame 00:00:00 00:00:00 JERECIA Seybol d 2023-04-15 2023-04-15 Outpatient AME DURON [id number] Ame 08:30:00 08:30:00 HOLLY Seybol d 2023-03-28 2023-03-28 Outpatient AME DREW [id number] Ame 00:00:00 00:00:00 JERECIA Seybol d 2023-03-10 2023-03-10 Outpatient [id number] AME KAUR [id number] Ame 08:55:00 08:55:00 Seybol d 2023-03-10 2023-03-10 Outpatient AME DREW [id number] Ame 08:15:00 08:15:00 JERECIA Seybol d 2023-02-20 2023-02-20 Outpatient AME KAUR [id number] Ame 12:30:00 12:30:00 Seybol d 2023-02-13 2023-02-13 Outpatient AME KAUR [id number] Ame 16:00:00 16:00:00 Seybol d 2023-02-06 2023-02-06 Outpatient AME DREW [id number] Ame 16:15:00 16:15:00 JERECIA Seybol d 2023-02-05 2023-02-05 Emergency X DEANNE, [facility] [id number] Univers 02:23:00 06:33:00 VIK watt [facility] 2023-02-05 2023-02-05 Emergency Deanne, [facility] [id number] Univers 02:23:00 06:33:00 Vik JORDAN [id number] i tenisha DANIELS [id number] [facility] [id number] [facility] 084 Branch 2023-01-21 2023-01-21 Outpatient AME DREW [id number] Ame 00:00:00 00:00:00 JERECIA Seybol d 2023-01-20 2023-01-20 Outpatient [id number] AME KAUR [id number] Ame 11:45:00 11:45:00 Seybol d 2023-01-20 2023-01-20 Outpatient AME DREW [id number] Ame 10:45:00 10:45:00 JERECIA Seybol d 2023-01-15 2023-01-15 Outpatient ANALY SCANLON [id number] Ame 15:15:00 15:15:00 Seybol d 2022-12-11 2022-12-11 Outpatient AME DREW [id number] Ame 00:00:00 00:00:00 JERECIA Seybol d 2022-12-05 2022-12-05 Outpatient LAB90 AME KAUR [id number] Ame 14:25:00 14:25:00 Seybol d 2022-11-26 2022-11-26 Outpatient AME DREW [id number] Ame 00:00:00 00:00:00 JERECIA Seybol d 2022-10-31 2022-10-31 Outpatient AME ESTRADA [id number] Ame 15:30:00 15:30:00 ADDIS Seybol d 2022-10-17 2022-10-17 Outpatient AME DREW [id number] Ame 00:00:00 00:00:00 JERECIA Seybol d 2022-10-08 2022-10-08 Outpatient AME KAUR [id number] Ame 16:25:00 16:25:00 Seybol d 2022-10-08 2022-10-08 Outpatient AME KAUR [id number] Ame 15:50:00 15:50:00 Seybol d 2022-10-08 2022-10-08 Outpatient AME KAUR [id number] Ame 15:45:00 15:45:00 Seybol d 2022-10-08 2022-10-08 Outpatient AME KAUR [id number] Ame 15:40:00 15:40:00 Seybol d 2022-10-08 2022-10-08 Outpatient SCANLONANALY AME KAUR [id number] Ame 14:45:00 14:45:00 Seybol d 2022-10-07 2022-10-07 Outpatient AME DREW [id number] Ame 15:45:00 15:45:00 JERECIA Seybol d 2022-09-12 2022-09-12 Outpatient IDRIS, FB MHFB 7612 MHFB 07:25:00 10:30:00 CELSA 2022-08-27 2022-08-27 Outpatient GHISLAINEANALY AME KAUR [id number] Ame 09:30:00 09:30:00 Seybol d 2022-08-16 2022-08-16 Outpatient AME DREW [id number] Ame 00:00:00 00:00:00 JERECIA Seybol d 2022-08-02 2022-08-02 Outpatient SCANLONANALY AME KAUR [id number] Ame 08:30:00 08:30:00 Seybol d 2022-05-29 2022-05-29 Outpatient AOSM AO [id number] Mary 00:00:00 00:00:00 [id number] Orthop e dic Sports Medicin e 2022-05-22 2022-05-22 Emergency [facility] [id number] Univers 03:24:00 06:49:00 GRADY watt [facility] 2022-05-22 2022-05-22 Emergency [facility] [id number] Univers 03:24:00 06:49:00 Grady JORDAN 350.1.13.10 i otto [facility] 4.2.7.2.686 [facility] [id number] [address] 2022-02-04 2022-02-04 Emergency X [facility] ERT [id number] Univers 06:59:00 09:33:00 JERRI watt [facility] 2022-02-04 2022-02-04 Emergency [facility] [id number] Univers 06:59:00 09:33:00 Jerri Gerardo PRICEJEREL 350.1.13.10 joselynjuancarlos [facility] 4.2.7.2.686 [facility] [id number] [address] 2022-01-29 2022-01-30 Outpatient E JUAN, [facility] [id number] MHFB 15:43:00 17:35:00 RADHA 2021-08-02 2021-08-02 Office Kandi Ritter [facility] Enc ounter/ Legacy 00:00:00 00:00:00 Visit Veronica Koenig [id number] Megan Martell I [id number] [facility] 2021-07-30 2021-07-30 [facility] [id number] [facility]- [facility] 13:05:00 13:05:00 Andrew [id number] [facility] are [facility] 2020-12-13 2020-12-13 Outpatient [place], [facility] NUC [id number] 53- [facility] 09:30:00 09:30:00 Andrew [id number] [facility] are [facility] 2020-12-08 2020-12-08 Outpatient Bess, [facility] NUC [id number] 53- [facility] 08:30:00 08:30:00 Andrew [id number] [facility] are [facility] 2020-12-06 2020-12-06 Outpatient [place], [facility] RAD [id number] 53- [facility] 08:00:00 08:00:00 Andrew [id number] [facility] are [facility] 2020-12-01 2020-12-01 Outpatient [place], [facility] [id number] 53- [facility] 07:44:00 07:44:00 Andrew [id number] [facility] are [facility] 2020-09-21 2020-09-21 Office Ermelinda Szyamnski [facility] Encounter / Legacy 00:00:00 00:00:00 Visit [id number] Com cesia 403073 ty Health 2020-09-21 2020-09-21 Office Ta, Ermelinda [facility] Encounter / Legacy 00:00:00 00:00:00 Visit [id number] Com cesia 140176 ty Health 2020-09-20 2020-09-20 Office Ta, Ermelinda [facility] Encounter / Legacy 00:00:00 00:00:00 Visit [id number] Com cesia 284215 ty Health 2020-09-20 2020-09-20 Office Ta, Ermelinda LC [facility] Encounter / Legacy 00:00:00 00:00:00 Visit [id number] Com cesia 890194 ty Health 2020-09-20 2020-09-20 Office Ta, Ermelinda [facility] Encounter / Legacy 00:00:00 00:00:00 Visit [id number] Com cesia 726320 ty Health 2020-09-20 2020-09-20 Office Ta, Ermelinda [facility] Encounter / Legacy 00:00:00 00:00:00 Visit [id number] Com cesia 736826 ty Health 2020-09-20 2020-09-20 Office Ta, Ermelinda [facility] Encounter / Legacy 00:00:00 00:00:00 Visit [id number] Com cesia 431727 ty Health 2020-09-20 2020-09-20 Office Ta, Ermelinda LC [facility] Encounter / Legacy 00:00:00 00:00:00 Visit Karina Feldman 19 [id number] Yevgeniy Schwarz Mai [id number] Health 2020-08-30 2020-08-30 Transition Keila Ashley [id number] [id number] 00:00:00 00:00:00 of Care Jermaine Tomy 350.1.13.10 [place] 4.2.7.2.686 [id number] [facility] 2020-08-30 2020-08-30 Transition Keila Ashley 1.2.840.114 [id number] Univers 00:00:00 00:00:00 of Care Jermaine Tomy 350.1.13.10 ity [place] [id number] [facility] [address] 2020-08-27 2020-08-29 Inpatient Rene GRANADO [facility] [id number] Univers 11:17:00 12:21:00 ARJUN lopez [facility] 2020-08-21 2020-08-21 Outpatient ABBEY Kellogg [facility] RAD [id number] 53- H[facility] 11:31:00 11:31:00 [facility] [id number] [facility] 2020-08-14 2020-08-14 Outpatient [facility] [id number] Memoria 14:31:00 14:31:00 Rheumatol Rheumatolog l ogy y [facility] 2020-08-14 2020-08-14 Outpatient [facility] [id number] Memoria 10:03:00 10:03:00 Rheumatol Rheumatolog l ogy y [facility] 2020-08-09 2020-08-09 Outpatient [facility] [id number] Memoria 08:45:00 08:45:00 Rheumatol Rheumatolog l ogy y [facility] 2020-07-26 2020-07-26 Outpatient [facility] [id number] Memoria 08:30:00 08:30:00 Rheumatol Rheumatolog l ogy y [facility] 2020-05-30 2020-05-30 [facility] [id number] 18:49:00 20:45:00 Brandy Jordan 350.1.13.10 [place] [address] [place] [address] [id number] [facility] 2020-05-30 2020-05-30 Emergency [facility] [id number] [facility] 18:49:00 20:45:00 Brandy [place] 350.1.13.10 ity of [place] 4.2.7.2.686 [facility] [id number] [facility] [address] 2019-11-24 2019-11-24 Outpatient DIONICIO [facility] 756 4 RUST 08:00:00 23:59:00 VAL 2019-05-10 2019-05-10 [place] [id number] 00:00:00 00:00:00 Ozzy TAYLOR 350.1.13.10 [facility] 4.2.7.2.686 [id number] [facility] 2019-05-10 2019-05-10 Telephone Crescencio [facility] [id number] [facility] 00:00:00 00:00:00 Ozzy TAYLOR 350.1.13.10 i ty of [facility] 4[place].2.686 [place] [id number] [address] Results Test Description Test Time Test Comments Results Result Comments Source TROPONIN I 2023-02-05 08:33:12 Test Item Value Reference Range Interpretation Comme nts TROPONIN I (test code = 8181867821) <=0.034 ODESSA (test code = ODESSA) Reference (Normal) [...] to patient's use of biotin. Lab Interpretation (test code = Normal 98314-1) [facility]. METABOLIC PANEL (82009)2023-02-05 08:22:13 Test Item Value Reference Range Interpretation Comments NA (test code = 139 mmol/L 135-145 9342286320) K (test code = 4.2 mmol/L 3.5-5.0 9402316355) CL (test code = 103 mmol/L 98-108 6710996041) CO2 TOTAL (test code = 31 mmol/L 23-31 4450742409) AGAP (test code = 5 2-16 9560114922) BUN (test code = 18 mg/dL 7-23 9940858061) GLUCOSE (test code = 153 mg/dL 70-110 H 2708199312) CREATININE (test code = 0.89 mg/dL 0.50-1.04 2732376914) TOTAL BILI (test code = 0.4 mg/dL 0.1-1.5 5880133172) CALCIUM (test code = 8.3 mg/dL 8.6-10.6 L 5837663774) T PROTEIN (test code = 5.9 g/dL 6.3-8.2 L 0242041712) ALBUMIN (test code = 3.5 g/dL 3.5-5.0 8383136860) ALK PHOS (test code = 111 U/L 34-122 5632602603) ALTv (test code = 12 U/L 5-35 1742-6) AST(SGOT) (test code = 16 U/L 13-40 9210109022) eGFR (test code = 63.5 mL/min/1.73m2 2758943170) ODESSA (test code = ODESSA) Association of [...] tests). Lab Interpretation Abnormal (test code = 20557-4) [facility] [id number] 08:21:33 Test Item Value Reference Range Interpretation Comments LIPASE (test code = 7931406571) 252 U/L 0-220 H Lab Interpretation (test code = Abnormal 89612-6) [facility] WITH [id number] 07:48:47 Test Item Value Reference Range Interpretation Comments WBC (test code = 4.33 See_Comment [Automated 6690-2) message] The sy stem which generated this result transmitted reference range : 4.30 - 11.10 10*3/?L. The reference range was not used to interpret this result as normal/abnormal . RBC (test code = 3.72 See_Comment L [Automated 789-8) message] The sy stem which generated this result transmitted reference range : 3.93 - 5.25 10*6/?L. The reference range was not used to interpret this result as normal/abnormal . HGB (test code = 10.8 g/dL 11.6-15.0 L 718-7) HCT (test code = 34.7 % 35.7-45.2 L 4544-3) MCV (test code = 93.3 fL 80.6-95.5 787-2) MCH (test code = 29.0 pg 25.9-32.8 785-6) MCHC (test code = 31.1 g/dL 31.6-35.1 L 786-4) RDW-SD (test code = 52.4 fL 39.0-49.9 H 09919-6) RDW-CV (test code = 15.4 % 12.0-15.5 788-0) PLT (test code = 198 See_Comment [Automated 777-3) message] The sy stem which generated this result transmitted reference range : 166 - 358 10*3/ ?L. The reference r erasmo was not used to interpret this result as normal/abnormal . MPV (test code = 11.2 fL 9.5-12.9 79301-1) NRBC/100 WBC (test 0.0 See_Comment [Automat ed code = 7082075591) message] The system which generated this result transmitted reference range : 0.0 - 10.0 /100 WBCs. The refer ence range was not u sed to interpret th is result as normal/abnormal . NRBC x10^3 (test code See_Comment [Auto mated = 4355672312) message] The s ystem which generated this result transmitted reference range : 10*3/?L. The reference range was not used to interpret this result as normal/abnormal . GRAN MAT (NEUT) % 66.0 % (test code = 770-8) IMM GRAN % (test code 0.50 % = 4730071196) LYMPH % (test code = 23.3 % 736-9) MONO % (test code = 8.5 % 5905-5) EOS % (test code = 1.2 % 713-8) BASO % (test code = 0.5 % 706-2) GRAN MAT x10^3(ANC) 2.86 10*3/uL 1.88-7.09 (test code = 6187996969) IMM GRAN x10^3 (test 0.00-0.06 code = 3806867540) LYMPH x10^3 (test code 1.01 10*3/uL 1.32-3.29 L = 731-0) MONO x10^3 (test code 0.37 10*3/uL 0.33-0.92 = 742-7) EOS x10^3 (test code = 0.05 10*3/uL 0.03-0.39 711-2) BASO x10^3 (test code 0.01-0.07 = 704-7) Lab Interpretation Abnormal (test code = 75199-7) [facility] [id number] 11:20:06 Test Item Value Reference Interpretation Comments Range TROPONIN I (test 0.004 ng/mL See_Comment [Automated code = 4132698048) message] The system which generated this result [...] biotin. Lab Interpretation Normal (test code = 27736-1) [facility] [id number] 09:32:52 Test Item Value Reference Interpretation Comments Range TROPONIN I (test 0.007 ng/mL See_Comment [Automated code = 5921599893) message] The system which generated this result [...] biotin. Lab Interpretation Normal (test code = 26631-4) [facility] [id number] 09:29:55 Test Item Value Reference Range Interpretation Comments NT-proBNP (test code 27 pg/mL See_Comment [Autom ated = 8691941667) message] The system which generated this result transmitted reference range : <=125. The reference range was not used to interpret this result as normal/abnormal . ODESSA (test code = ODESSA) Biotin has been reported to cause a negative bias, interpret results relative to patient's use of biotin. Lab Interpretation Normal (test code = 70050-8) [facility] METABOLIC PANEL (NA, K, CL, CO2, GLUCOSE, BUN, CREATININE, CA)2022-05-22 09:21:52 Test Item Value Reference Range Interpretation Comments NA (test code = 138 mmol/L 135-145 3730455806) K (test code = 4.1 mmol/L 3.5-5 5242729018) CL (test code = 101 mmol/L 98-108 8421917689) CO2 TOTAL (test code = 29 mmol/L 23-31 1474690875) AGAP (test code = 2-16 3216210888) BUN (test code = 22 mg/dL 7-23 4419647305) GLUCOSE (test code = 201 mg/dL 70-110 H 8998858356) CREATININE (test code = 0.72 mg/dL 0.5-1.04 0899929031) CALCIUM (test code = 8.7 mg/dL 8.6-10.6 9617604809) eGFR (test code = mL/min/1.73m2 8346378278) ODESSA (test code = ODESSA) Association of [...] tests). Lab Interpretation Abnormal (test code = 77814-0) [facility] WITH [id number] 08:50:29 Test Item Value Reference Range Interpretation Comments WBC (test code = See_Comment [Automated 6690-2) message] The sy stem which generated this result transmitted reference range : 4.30 - 11.10 10*3/?L. The reference range was not used to interpret this result as normal/abnormal . RBC (test code = See_Comment L [Automated 789-8) message] The sy stem which [...] (test code = 52.0 fL 39-49.9 H 46798-3) RDW-CV (test code = 15.5 % 12-15.5 788-0) PLT (test code = See_Comment [Automated 777-3) message] The sy stem which generated this result transmitted reference range : 166 - 358 10*3/ ?L. The reference r erasmo was not used to interpret this result as normal/abnormal . MPV (test code = 11.6 fL 9.5-12.9 35982-4) NRBC/100 WBC (test See_Comment [Automat ed code = 6371500708) message] The system which generated this result transmitted reference range : 0.0 - 10.0 /100 WBCs. The refer ence range was not u sed to interpret th is result as normal/abnormal . NRBC x10^3 (test code See_Comment [Auto mated = 9476426633) message] The s ystem which generated this result transmitted reference range : 10*3/?L. The reference range was not used to interpret this result as normal/abnormal . GRAN MAT (NEUT) % 59.5 % (test code = 770-8) IMM GRAN % (test code 0.80 % = 8443176030) LYMPH % (test code = 29.9 % 736-9) MONO % (test code = 8.2 % 5905-5) EOS % (test code = 1.2 % 713-8) BASO % (test code = 0.4 % 706-2) GRAN MAT x10^3(ANC) 3.07 10*3/uL 1.88-7.09 (test code = 8748081480) IMM GRAN x10^3 (test 0.04 10*3/uL 0-0.06 code = 7912586527) LYMPH x10^3 (test code 1.54 10*3/uL 1.32-3.29 = 731-0) MONO x10^3 (test code 0.42 10*3/uL 0.33-0.92 = 742-7) EOS x10^3 (test code = 0.06 10*3/uL 0.03-0.39 711-2) BASO x10^3 (test code 0.01-0.07 = 704-7) Lab Interpretation Abnormal (test code = 42467-0) [facility] [id number] 13:32:33 Test Item Value Reference Interpretation Comments Range TROPONIN I (test 0.003 ng/mL See_Comment [Automated code = 5576770530) message] The system which generated this result [...] biotin. Lab Interpretation Normal (test code = 96306-3) [facility]. METABOLIC PANEL (08363)2022-02-04 13:21:10 Test Item Value Reference Range Interpretation Comments NA (test code = 139 mmol/L 135-145 0070256928) K (test code = 3.6 mmol/L 3.5-5.0 9822980294) CL (test code = 96 mmol/L 98-108 L 3616022333) CO2 TOTAL (test code = 33 mmol/L 23-31 H 9118380451) AGAP (test code = 2-16 9370174845) BUN (test code = 24 mg/dL 7-23 H 6558204108) GLUCOSE (test code = 195 mg/dL 70-110 H 6017266656) CREATININE (test code = 0.86 mg/dL 0.50-1.04 4520177866) TOTAL BILI (test code = 0.4 mg/dL 0.1-1.3 9287727777) CALCIUM (test code = 8.3 mg/dL 8.6-10.6 L 8348464314) T PROTEIN (test code = 7.0 g/dL 6.3-8.2 6236375034) ALBUMIN (test code = 4.2 g/dL 3.5-5.0 8204355944) ALK PHOS (test code = 114 U/L 34-122 1820663096) ALTv (test code = 14 U/L 5-35 1742-6) AST(SGOT) (test code = 18 U/L 13-40 0302366281) eGFR (test code = mL/min/1.73m2 5170608344) ODESSA (test code = ODESSA) Association of [...] tests). Lab Interpretation Abnormal (test code = 23892-4) [facility] [id number] 13:17:30 Test Item Value Reference Range Interpretation Comments NT-proBNP (test code 32 pg/mL See_Comment [Autom ated = 4128455970) message] The system which generated this result transmitted reference range : <=125. The reference range was not used to interpret this result as normal/abnormal . ODESSA (test code = ODESSA) Biotin has been reported to cause a negative bias, interpret results relative to patient's use of biotin. Lab Interpretation Normal (test code = 13276-9) [facility] WITH [id number] 12:49:32 Test Item Value Reference Range Interpretation Comments WBC (test code = See_Comment [Automated 9590-2) message] The sy stem which generated this result transmitted reference range : 4.30 - 11.10 10*3/?L. The reference range was not used to interpret this result as normal/abnormal . RBC (test code = See_Comment [Automated 104-8) message] The sy stem which generated this [...] RDW-SD (test code = 49.8 fL 39.0-49.9 18465-2) RDW-CV (test code = 14.9 % 12.0-15.5 788-0) PLT (test code = See_Comment [Automated 777-3) message] The sy stem which generated this result transmitted reference range : 166 - 358 10*3/ ?L. The reference r erasmo was not used to interpret this result as normal/abnormal . MPV (test code = 11.5 fL 9.5-12.9 38262-1) NRBC/100 WBC (test See_Comment [Automat ed code = 2356175827) message] The system which generated this result transmitted reference range : 0.0 - 10.0 /100 WBCs. The refer ence range was not u sed to interpret th is result as normal/abnormal . NRBC x10^3 (test code <0.01 See_Comment [Auto mated = 2019500732) message] The s ystem which generated this result transmitted reference range : 10*3/?L. The reference range was not used to interpret this result as normal/abnormal . GRAN MAT (NEUT) % 67.7 % (test code = 770-8) IMM GRAN % (test code 0.20 % = 0135882830) LYMPH % (test code = 23.2 % 736-9) MONO % (test code = 7.0 % 5905-5) EOS % (test code = 1.5 % 713-8) BASO % (test code = 0.4 % 706-2) GRAN MAT x10^3(ANC) 3.08 10*3/uL 1.88-7.09 (test code = 9823568093) IMM GRAN x10^3 (test <0.03 0.00-0.06 code = 2981649589) LYMPH x10^3 (test code 1.06 10*3/uL 1.32-3.29 L = 731-0) MONO x10^3 (test code 0.32 10*3/uL 0.33-0.92 L = 742-7) EOS x10^3 (test code = 0.07 10*3/uL 0.03-0.39 711-2) BASO x10^3 (test code <0.03 0.01-0.07 = 704-7) Lab Interpretation Abnormal (test code = 21208-7) [facility] ABDOMEN [id number] 14:20:00 [facility] 1955 Sex: FPatient Name: LA NENA NINO Unit No: [id number] EXAMS: CPT CODE: [id number] XR ABDO MEN 1V 89495 C3 TIME OF STUDY: 07/30/2021 1:16 PM REASON FOR EXAM: K59.0 COMPARISON: July 2020. 2AP views of the abdomen were obtained. The bowel gas pattern is non obstructive. No free air or organomegaly is seen. No abnormal calcifications are identified. IVC filter is in place. IMPRESSION: Negative abdomen. at 1420 Reported and signed by: ABNER BRENNAN M.D. CC: Andrew Kellogg MD Technologist: Tyrone Call Time: DAP (Gy m2): Air Kerma (mGy): Trscr Dt/Tm: 07/30/2021 (142) by:Maria [email or web address] Printed Date/Time: 07/30/2021 (0701) Name: LA NENA CASILLAS [facility] Phys: RO.[id number] - Andrew Kellogg MD [address] : 1955 Age: 65 Sex: [place] [address] Loc: HODAN Exam Date: 07/30/2021 Status: REG CLI PH: FAX: PAGE 1 Signed Report- NM GASTRIC [id number] 11:42:00 [facility] : 1955 Sex: FPatient Name: LA NENA CHO Unit No: [id number] EXAMS: CPT CODE: [id number] NM GASTRI C EMPTYING 70526 C3 REASON FOR EXAM: K 21.0, K 59.0 COMPARISON: None Tc-99m sulfur colloid labeled to egg in standard meal 40.7 mCi PO at TECHNIQUE: Gastric emptying study was performed after a radiolabeled egg meal. The upper abdomen was imaged in supine NEPALI position for 90 minutes with subsequent data [...] 12/13/2020 (1142) by:Maria [email or web address] Printed Date/Time: 12/13/2020 (5152) [facility] Andrew Kellogg MD [address] : 1955 Age: 65 Sex: F [place], [place] [address]Mngs No: [id number] Loc: P.NUC Exam Date: 12/13/2020 Status: REG CLI PH: FAX: PAGE 1 Signed Report- XR [id number] 12:24:00 [facility] : 1955 Sex: FPatient Name: LA NENA CHO Unit No: [id number] EXAMS: CPT CODE: [id number] [address] Esophagram 6 views 12/06/2020 CLINICAL INDICATION: Astrocytoma deal reflux COMPARISON: None available LOCATION: W1 IMPRESSION: The esophagus is normal in caliber and motility. There is a smallreducing hiatal hernia, with evidence for prior fundoplication. No gastroesophageal reflux was elicited during the examination. FLUOROSCOPY TIME: 0.8 minutes. at 1224 Reported and signed by: RENATO DOHERTY M.D. CC: Andrew Kellogg MD; Sha Drew MD Technologist: Devin Lugo Fluoro Time: DAP (Gy m2): Air Kerma (mGy): Trscr Dt/Tm: 12/06/2020 (1224) by:Maria [email or web address] Printed Date/Time: 12/06/2020 (1227) Name: LA NENA CHO [facility] Phys: COLRO.01 - Andrew Kellogg MD [address] : 1955 Age: 65 Sex: [place] [address] Loc: HODAN Exam Date: 12/06/2020 Status: REG CLI PH: FAX:PAGE 1 Signed Report- XR ABD ACUTE [id number] 12:47:00 [facility] : 1955 Sex: FPatient Name: LA NENA CHO Unit No: [id number] EXAMS: CPT CODE: [id number] XR ABD ACU TE W/CHEST 62605 ACUTE ABDOMINAL SERIES DICTATION LOCATION: A1 HISTORY: Retroperitoneal tissue dissection. A single view of the chest and 2 views of the abdomen were obtained at 12:07 PM. Comparison was made to prior exam from June 28, 2019. FINDINGS: The lungs are clear of acute infiltrate or mass.The heart and pulmonary vasculature are within normal [...] m2): Air Kerma (mGy): Trscr Dt/Tm: 08/21/2020 (1077) by:Naresh Printed Date/Time: 08/21/2020 (3120) Name: LA NENA CHO [facility] Phys: ROSARIO.01 - Andrew Kellogg MD [address] : 1955 Age: 64 Sex: [place] [address] Loc: P.RAD Exam Date: 08/21/2020 Status: REG CLI PH: FAX: PAGE 1 Signed ReportCT HEAD WO [id number] 01:06:37 No acute intracranial findings. No acute osseous cervical, thoracic and lumbar spine. HISTORY: Head trauma, minor, GCS>=13, low clinical risk, initial exam [...] arthropathy. CT lumbar spine: There is mild ante rolisthesis of L4 on L5. The vertebral body [...] findings.No acute osseous cervical, thoracic and lumbar spine.[facility] CERVICAL SPINE WO [id number] 01:06:37 No acute intracranial findings. No acute [...] findings.No acute osseous cervical, thoracic and lumbar spine.[facility] LUMBAR SPINE WO [id number] 01:06:37 No acute intracranial findings. No acute [...] findings.No acute osseous cervical, thoracic and lumbar spine.[facility] THORACIC SPINE WO [id number] 01:06:37 No acute intracranial findings. No acute [...] findings.No acute osseous cervical, thoracic and lumbar spine.[facility]- XR ABD ACUTE [id number] 17:15:00Patient Name: LA NENA CHO Unit No: [id number] EXAMS: CPT CODE: [id number] XR ABD ACUTE W/CHEST 24123 Location code: R 16 Abdomen Three Views Indication: K59.00 Comparison:none Findings: Chest one view: Heart and mediastinum are unremarkable. Costophrenic angles are clear. Lungs are clear. D extroscoliosis of the thoracic spine. Mild levoscoliosis of lumbar spine. Abdomen two views, flat and upright: Organ silhouettes are unremarkable. Surgical clips in the right upper quadrant post cholecystectomy. IVC filter in place. Moderate feces in the colon. No abnormal masses or calcifications. Bone is unremarkable for patient age. Impression: 1. Patient may be constipated. Correlate clinically.2. IVC filter in place. 3. Cholecystectomy. at 1715 Reported and signed by: ANJELICA CARNEY M.D. Name: [facility]: COLRO.Yamileth - Andrew Kellogg MD : [id number] Age: 63 Sex: F [address] Loc: P.RAD Exam Date: 06/28/2019 Status: REG CLI PH: FAX: PAGE 1 Signed Report (CONTINUED) Patient Name: LA NENA CHO Unit No: [id number] EXAMS: CPT CODE: [id number] XR ABD ACUTE W/CHEST 15438 (Continued) CC: Andrew Kellogg MD Technologist: Namrata Tiwari Dt/Tm:06/28/2019 (171) by:Haley Printed Date/Time: 06/28/2019 (171) Name: [facility] Imaging Phys: COLAndrew Sequeira MD : 1955 Age: 63 Sex: F [place] Ct[place] No: [id number] Loc: [facility] Exam Date: 06/28/2019 Status: REG CLI PH: FAX: PAGE 2 Signed Report"
[2023-08-12] MEDS ORDERED: ASPIRIN 81 MG CHEWABLE TABLET ONE (15:08)
[2023-08-12 15:11] LABS: Hematocrit 40.4 % (36.0-45.0); Lymphocytes % 18.8 % (15.3-44.8); MCV 93.6 fL (80-100); MPV 9.2 fL (7.6-11.3); Platelets 228 thou/uL (152-406); RBC Red Blood Cell Count 4.32 M/uL (3.86-4.86)
[2023-08-12 15:14] LABS: Protime INR 1.57
--- NOTE | 2023-08-12 15:25 | RAD REPORT ---
EXAM DESCRIPTION: RAD - Chest Single View - 08/12/2023 3:20 pm CLINICAL HISTORY: CHEST PAIN COMPARISON: Chest Single View dated 08/05/2022; Chest Single View dated 05/08/2021; Chest Pa And Lat (2 Views) dated 09/18/2018 FINDINGS: Lines: None. Lungs: No evidence of edema or pneumonia. Pleural: No significant pleural effusions or pneumothorax. Cardiac: The heart size is within normal limits. Mediastinum: Within normal limits. Bones: No acute fractures. Soft tissue anchors in the right humeral head . Other: None IMPRESSION: No acute cardiopulmonary disease.
[2023-08-12 15:41] LABS: Albumin 3.9 g/dL (3.4-5.0); Bilirubin Direct 0.2 mg/dL (0-0.2); Bilirubin Indirect, Calculated 0.3 mg/dL (0.2-0.8); Bilirubin Total 0.5 mg/dL (0.2-1.0); Magnesium 1.7 mg/dL (1.6-2.4); Potassium 3.8 mEq/L (3.5-5.1); Protein, Total 8.4 g/dL (6.4-8.2); Troponin High Sensitivity 4.7 pg/mL (<58.9)
[2023-08-12 15:48] LABS: Specific Gravity 1.013 (1.005-1.030); Urine Bilirubin NEGATIVE (Negative); Urine Blood Negative (Negative); Urine Clarity Clear (Clear); Urine Color Light-Yellow (Yellow); Urine Glucose NEGATIVE (Negative); Urine Protein NEGATIVE (Negative); Urine Urobilinogen Normal (Normal)
--- NOTE | 2023-08-12 16:15 | ER ---
Nurse's Notes [facility] Name: Neha Allison Age: 67 yrs Sex: Female : 1955 Arrival Date: 08/12/2023 Time: 14:34 Bed 5 Private MD: Diagnosis: Chest pain, unspecified;Dyspnea;oysterman (current) use of anticoagulants Presentation: 08/12 14:43 Chief complaint: Patient states: Chest discomfort since last night, took tums and her nj1 omeprazole with no relief. Coronavirus screen: Vaccine status: Patient reports being unvaccinated. Ebola Screen: Patient reports travel to Ebola-affected area in the 21 days before illness onset. Patient reports having traveled to: [place]. Initial Sepsis Screen: Does the patient meet any 2 criteria? No. Patient's initial sepsis screen is negative. Does the patient have a suspected source of infection? No. Patient's initial sepsis screen is negative. Risk Assessment: Do you want to hurt yourself or someone else? Patient reports no desire to harm self or others. Onset of symptoms was August 11, 2023. 14:43 Method Of Arrival: Ambulatory nj 14:43 Acuity: PATRICK 3 nj1 Historical: - Allergies: 14:45 ANTIHISTAMINES; nj1 14:45 Bees; nj1 14:45 INFLUENZA VIRUS VACCINES; nj1 - PMHx: 14:45 diabetes mellitus; Hypercholesterolemia; Hypertensive disorder; Myocardial infarction; nj1 PE; - PSHx: 14:45 Cholecystectomy; heart stent; IVC filter; Thyroidectomy; nj1 14:46 Hysterectomy; nj1 - Immunization history:: Client reports having NOT received the Covid vaccine. - Social history:: Smoking status: Patient denies any tobacco usage or history of. - Family history:: not pertinent. Screenin:00 [facility] ED Fall Risk Assessment (Adult) History of falling in the last 3 months, mb9 including since admission No falls in past 3 months (0 pts) Confusion or Disorientation No (0 pts) Intoxicated or Sedated No (0 pts) Impaired Gait No (0 pts) Mobility Assist Device Used No (0 pt) Altered Elimination No (0 pt) Score/Fall Risk Level 0 - 2 = Low Risk Oriented to surroundings, Maintained a safe environment, Educated pt \T\ family on fall prevention, incl call for assistance when getting out of bed. Abuse screen: Denies threats or abuse. Nutritional screening: No deficits noted. Tuberculosis screening: No symptoms or risk factors identified. Assessment: 14:58 General: Appears in no apparent distress. Behavior is calm, cooperative. Pain: mb9 Complains of pain in chest Pain does not radiate. Quality of pain is described as dull, heavy, Pain began 1 day ago. Is intermittent. Neuro: Voss Agitation-Sedation Scale (RASS): 0 - Alert and Calm Level of Consciousness is awake, alert, obeys commands, Oriented to person, place, time, situation, Appropriate for age. Cardiovascular: Reports chest pain, shortness of breath, Heart tones S1 S2 present Patient's skin is warm and dry. Respiratory: Reports shortness of breath Airway is patent Respiratory effort is even, unlabored, Respiratory pattern is regular, symmetrical, Breath sounds are clear bilaterally. GI: Abdomen is round non-distended, Bowel sounds present X 4 quads. Abd is soft and non tender X 4 quads. Reports nausea. : No signs and/or symptoms were reported regarding the genitourinary system. EENT: No signs and/or symptoms were reported regarding the EENT system. Derm: Skin is pink, warm \T\ dry. Musculoskeletal: Range of motion: intact in all extremities. 17:14 Reassessment: No changes from previously documented assessment. Patient and/or family mb9 updated on plan of care and expected duration. Pain level reassessed. Patient is alert, oriented x 3, equal unlabored respirations, skin warm/dry/pink. 17:30 Reassessment: Attempted to call report to admitting nurse Pete. mb9 Vital Signs: 14:43 BP 140 / 87; Pulse 88; Resp 18; Temp 98.3; Pulse Ox 99% on R/A; Weight 90.72 kg; Height nj1 5 ft. 5 in. ; Pain 7/10; 15:24 BP 111 / 92; Pulse 78; Resp 16; Pulse Ox 99% ; mb9 17:14 BP 133 / 83; Pulse 88; Resp 18; Pulse Ox 100% on R/A; mb9 14:43 Body Mass Index 33.28 (90.72 kg, 165.1 cm) [facility] 14:43 Pain Scale: Adult [facility] ED Course: 14:36 Patient arrived in ED. mr 14:41 Giuliano Vera MD is Attending Physician. lucius 14:45 Triage completed. nj1 14:47 Arm band placed on left wrist. nj1 14:50 Stacie Franco, SAMANTHA is Primary Nurse. mb9 15:00 Placed in gown. Bed in low position. Call light in reach. Side rails up X 1. Client mb9 placed on continuous cardiac and pulse oximetry monitoring. NIBP monitoring applied. textile conversion manager on. Door closed. Noise minimized. Warm blanket given. 15:00 No provider procedures requiring assistance completed. mb9 15:00 EKG done, by ED staff, reviewed by Giuliano Vera MD. mb9 15:06 Lipase Sent. ko1 15:06 Basic Metabolic Panel Sent. ko1 15:06 CBC with Diff Sent. ko1 15:06 LFT's Sent. ko1 15:06 Magnesium Sent. ko1 15:06 NT PRO-BNP Sent. ko1 15:06 PT-INR Sent. ko1 15:06 Troponin HS Sent. ko1 15:06 Inserted saline lock: 22 gauge in left antecubital area, using aseptic technique. mb9 15:22 XRAY Chest (1 view) In Process Unspecified. EDMS 15:23 Urinalysis w/ reflexes Sent. mb9 16:12 Eliel Lenz MD is Hospitalizing Provider. lucius 16:12 Hospitalizing Provider role handed off by Eliel Lenz MD lucius 16:12 Lobo Lenz MD is Hospitalizing Provider. lucius 16:41 US Extremity Venous W Compression Margarito In Process Unspecified. EDMS 16:50 Patient admitted, IV remains in place. mb9 17:00 CT Chest For PE Angio In Process Unspecified. EDMS Administered Medications: 14:58 Drug: Aspirin PO Chewable Tablet 324 mg PO once; 81 mg tablets x 4 Route: PO; mb9 15:23 Follow up: Response: No adverse reaction mb9 Medication: 15:00 VIS not applicable for this client. mb9 Outcome: 16:14 Decision to Hospitalize by Provider. lucius 17:42 Admitted to Tele room 416, with chart, Report called to SAMANTHA Freeman 17:42 Condition: stable 17:42 Instructed on the need for admit, 18:02 Patient left the ED. mb9 Signatures: Dispatcher [employer] EDMS Giuliano Vera MD MD cha Rivera, Mary, Reg Reg Elisa Brownhy, RN RN ko1 Salvador, Stacie Rivas, RN RN mb9 Luna Harrell, RN RN nj1
--- NOTE | 2023-08-12 16:15 | EDPHYS ---
Physician Documentation [facility] Name: Neha Allison Age: 67 yrs Sex: Female : 1955 Arrival Date: 08/12/2023 Time: 14:34 Bed 5 Private MD: ED Physician Giuliano Vera HPI: 08/12 16:05 This 67 yrs old Black Female presents to ER via Ambulatory with complaints of Chest lucius discomfort. 16:05 The patient has shortness of breath at rest. Onset: The symptoms/episode began/occurred lucius last night. Duration: The symptoms are intermittent, with no pattern. The patient's shortness of breath has no apparent modifying factors. The patient or guardian reports chest pain that is located primarily in the substernal area. Onset: yesterday. The pain does not radiate. Associated signs and symptoms: The patient has no apparent associated signs or symptoms. Severity of symptoms: At their worst the symptoms were mild in the emergency department the symptoms are unchanged. Associated signs and symptoms: Pertinent positives: lower extremity swelling, shortness of breath. The chest pain is described as aching, a pressure. Historical: - Allergies: 14:45 ANTIHISTAMINES; nj1 14:45 Bees; nj1 14:45 INFLUENZA VIRUS VACCINES; nj1 - PMHx: 14:45 diabetes mellitus; Hypercholesterolemia; Hypertensive disorder; Myocardial infarction; nj1 PE; - PSHx: 14:45 Cholecystectomy; heart stent; IVC filter; Thyroidectomy; nj1 14:46 Hysterectomy; nj1 - Immunization history:: Client reports having NOT received the Covid vaccine. - Social history:: Smoking status: Patient denies any tobacco usage or history of. - Family history:: not pertinent. ROS: 16:05 Constitutional: Negative for fever, chills, and weight loss, Eyes: Negative for injury, lucius pain, redness, and discharge, ENT: Negative for injury, pain, and discharge, Neck: Negative for injury, pain, and swelling, Respiratory: Negative for shortness of breath, cough, wheezing, and pleuritic chest pain, Abdomen/GI: Negative for abdominal pain, nausea, vomiting, diarrhea, and constipation, Back: Negative for injury and pain, : Negative for injury, bleeding, discharge, and swelling, MS/Extremity: Negative for injury and deformity, Skin: Negative for injury, rash, and discoloration, Neuro: Negative for headache, weakness, numbness, tingling, and seizure, Psych: Negative for depression, anxiety, suicide ideation, homicidal ideation, and hallucinations, Allergy/Immunology: Negative for hives, rash, and allergies, Endocrine: Negative for neck swelling, polydipsia, polyuria, polyphagia, and marked weight changes, Hematologic/Lymphatic: Negative for swollen nodes, abnormal bleeding, and unusual bruising, 16:05 Cardiovascular: Positive for chest pain, of the chest, Exam: 16:05 Constitutional: This is a well developed, well nourished patient who is awake, alert, lucius and in no acute distress. Head/Face: Normocephalic, atraumatic. Eyes: Pupils equal round and reactive to light, extra-ocular motions intact. Lids and lashes normal. Conjunctiva and sclera are non-icteric and not injected. Cornea within normal limits. Periorbital areas with no swelling, redness, or edema. ENT: Nares patent. No nasal discharge, no septal abnormalities noted. Tympanic membranes are normal and external auditory canals are clear. Oropharynx with no redness, swelling, or masses, exudates, or evidence of obstruction, uvula midline. Mucous membranes moist. Neck: Trachea midline, no thyromegaly or masses palpated, and no cervical lymphadenopathy. Supple, full range of motion without nuchal rigidity, or vertebral point tenderness. No Meningismus. Chest/axilla: Normal chest wall appearance and motion. Nontender with no deformity. No lesions are appreciated. Cardiovascular: Regular rate and rhythm with a normal S1 and S2. No gallops, murmurs, or rubs. Normal PMI, no JVD. No pulse deficits. Respiratory: Lungs have equal breath sounds bilaterally, clear to auscultation and percussion. No rales, rhonchi or wheezes noted. No increased work of breathing, no retractions or nasal flaring. Abdomen/GI: Soft, non-tender, with normal bowel sounds. No distension or tympany. No guarding or rebound. No evidence of tenderness throughout. Back: No spinal tenderness. No costovertebral tenderness. Full range of motion. Female : Normal external genitalia. Skin: Warm, dry with normal turgor. Normal color with no rashes, no lesions, and no evidence of cellulitis. MS/ Extremity: Pulses equal, no cyanosis. Neurovascular intact. Full, normal range of motion. Neuro: Awake and alert, GCS 15, oriented to person, place, time, and situation. Cranial nerves II-XII grossly intact. Motor strength 5/5 in all extremities. Sensory grossly intact. Cerebellar exam normal. Normal gait. Psych: Awake, alert, with orientation to person, place and time. Behavior, mood, and affect are within normal limits. 16:05 ECG was reviewed by the Attending Physician. Vital Signs: 14:43 BP 140 / 87; Pulse 88; Resp 18; Temp 98.3; Pulse Ox 99% on R/A; Weight 90.72 kg; Height nj1 5 ft. 5 in. ; Pain 7/10; 15:24 BP 111 / 92; Pulse 78; Resp 16; Pulse Ox 99% ; mb9 17:14 BP 133 / 83; Pulse 88; Resp 18; Pulse Ox 100% on R/A; mb9 14:43 Body Mass Index 33.28 (90.72 kg, 165.1 cm) nj1 14:43 Pain Scale: Adult nj1 MDM: 14:41 Patient medically screened. [facility] 08/12 14:43 Order name: Basic Metabolic Panel; Complete Time: 16:02 [facility] 08/12 14:43 Order name: CBC with Diff; Complete Time: 16:02 [facility] 08/12 14:43 Order name: LFT's; Complete Time: 16:02 [facility] 08/12 14:43 Order name: Magnesium; Complete Time: 16:02 [facility] 08/12 14:43 Order name: NT PRO-BNP; Complete Time: 16:02 [facility] 08/12 14:43 Order name: PT-INR; Complete Time: 16:02 [facility] 08/12 14:43 Order name: Troponin HS; Complete Time: 16:02 [facility] 08/12 14:43 Order name: Lipase; Complete Time: 16:02 [facility] 08/12 14:43 Order name: Urinalysis w/ reflexes; Complete Time: 16:02 [facility] 08/12 14:43 Order name: XRAY Chest (1 view); Complete Time: 16:02 [facility] 08/12 16:02 Order name: US Extremity Venous W Compression Margarito; Complete Time: 17:14 08/12 16:02 Order name: CT Chest For PE Angio; Complete Time: 17:14 [facility] 08/12 14:43 Order name: EKG; Complete Time: 14:44 [facility] 08/12 14:43 Order name: Cardiac monitoring; Complete Time: 14:54 [facility] 08/12 14:43 Order name: EKG - Nurse/Tech; Complete Time: 14:58 [facility] 08/12 14:43 Order name: IV Saline Lock; Complete Time: 14:58 [facility] 08/12 14:43 Order name: Labs collected and sent; Complete Time: 15:06 [facility] 08/12 14:43 Order name: O2 Per Protocol; Complete Time: 14:54 [facility] 08/12 14:43 Order name: O2 Sat Monitoring; Complete Time: 14:54 [facility] EC:05 Rate is 88 beats/min. Rhythm is regular. QRS [place] is Normal. [place] interval is normal. QRS lucius interval is normal. QT interval is normal. No Q waves. T waves are Normal. No ST changes noted. Clinical impression: NSR w/ Non-specific ST/T Changes, LVH, and No evidence of ischemia. Interpreted by me. Reviewed by me. Administered Medications: 14:58 Drug: Aspirin PO Chewable Tablet 324 mg PO once; 81 mg tablets x 4 Route: PO; mb9 15:23 Follow up: Response: No adverse reaction mb9 Disposition Summary: 08/12/23 16:14 Hospitalization Ordered Notes: Hospitalization Status: Observation lucius Provider: Lobo Lenz cha Location: Telemetry/MedSurg (observation) lucius Condition: Stable lucius Problem: new lucius Symptoms: have improved lucius Bed/Room Type: Standard [facility] Room Assignment: 416(08/12/23 17:23) bd Diagnosis - Chest pain, unspecified lucius - Dyspnea lucius - care home (current) use of anticoagulants lucius Forms: - Medication Reconciliation Form lucius - SBAR form lucius - Leadership Thank You Letter lucius Signatures: Dispatcher [employer] Alexandra Valverde Corey, MD MD cha Attema, Lee, MARKETING STRATEGIST-C MARKETING STRATEGIST-Cla1 Stacie Franco RN RN mb9 Luna Harrell RN RN nj1 Corrections: (The following items were deleted from the chart) 17:23 16:14 lucius bd
--- NOTE | 2023-08-12 16:44 | RAD REPORT ---
EXAM DESCRIPTION: US - Extrem Venous W Compress Margarito - 08/12/2023 4:39 pm CLINICAL HISTORY: PAIN COMPARISON: Extrem Venous W Compress Margarito dated 08/05/2022 TECHNIQUE: Real-time sonographic evaluation of the lower extremity deep venous systems was performed using color Doppler, grayscale, and compression. FINDINGS: Bilateral lower extremities. Normal compressibility, flow augmentation, phasic flow and spontaneous flow is identified in both the left and right lower extremity deep venous systems. No intraluminal filling defects seen. IMPRESSION: No DVT in either lower extremity.
--- NOTE | 2023-08-12 17:08 | RAD REPORT ---
EXAM DESCRIPTION: CT - Chest For Pe Angio - 08/12/2023 4:58 pm CLINICAL HISTORY: CHEST PAIN COMPARISON: Chest For Pe Angio dated 08/05/2022 TECHNIQUE: Dynamically enhanced axial 3 mm thick images of the chest were obtained during administra tion of <100> mL Isovue 370 IV contrast. Coronal and oblique reconstruction images were generated and reviewed. Exam utilizes a protocol for optimal evaluation of pulmonary arterial tree. Maximum intensity projections 3D imaging was utilized All CT scans are performed using dose optimization technique as appropriate and may include automated exposure control or mA/KV adjustment according to patient size. FINDINGS: Chest Wall: No suspicious thyroid nodules or pathologic lymphadenopathy. Lungs: No acute abnormality. Pleura: No significant effusions or pneumothorax. Mediastinum/selene: No pathologic lymphadenopathy. Pulmonary arteries/Aorta: No filling defect identified. No aortic aneurysm. Heart: No significant pericardial effusion. Normal heart size. Mild coronary artery calcifications. Upper abdomen: No acute abnormality.Cholecystectomy. Surgical changes along the stomach. Nonspecific calcifications along the upper pole of the right kidney. Bones: No acute abnormality. Bridging osteophytes in the spine. IMPRESSION: Negative for pulmonary embolism. No acute finding in the chest.
--- NOTE | 2023-08-12 17:24 | P.HP ---
Certification for Inpatient Patient admitted to: Observation With expected LOS: <2 Midnights Patient will require the following post-hospital care: None Practitioner: I am a practitioner with admitting privileges, knowledge of patient current condition, hospital course, and medical plan of care. Services: Services provided to patient in accordance with Admission requirements found in Title 42 Section 412.3 of the Code of Federal Regulations Patient History Date of Service: 08/12/23 History of Present Illness: 67-year-old female with history of CAD, PE, [id number] diabetes, hypertension, hyperlipidemia and hypothyroidism presents emergency department chief complaint of chest pain. She reports waking up this morning with dull aching chest pain with associated shortness of breath. After she thought it was from her GERD/reflux which she deals with regularly but her pain did not improve after taking Tums, omeprazole at home and she did not feel right. Patient reports last heart catheterization 2015 with 1 stent placed, had a stress test 1 to 2 years ago which was normal. She takes Eliquis and aspirin daily and has an IVC filter in place. She was evaluated in the emergency department her labs are significant for initial high sensitive troponin of 4.7 glucose 142 ultrasound bilateral lower extremities negative for DVT, CT PE protocol negative for pulmonary embolism or other acute findings in the chest. Allergies No Known Allergies Allergy (Unverified 08/05/22 23:46) Home Medications: Alogliptin Zeus/Pioglitazone [Oseni 25-30 mg Tablet] 1 each PO DAILY 08/06/22 Apixaban [Eliquis] 5 mg PO BID 08/06/22 Aspirin [Aspirin EC] 81 mg PO BEDTIME 08/06/22 Doxycycline Hyclate 100 mg PO BID 08/06/22 Furosemide [Lasix*] 40 mg PO BID 08/06/22 Levothyroxine [Synthroid*] 112 mcg PO DAILY 08/06/22 Magnesium Oxide [Magnesium] 250 mg PO BID 08/06/22 Mecobalamin [B12 Active] 1 tab PO DAILY 08/06/22 Metformin ER [Glucophage ER*] 1,000 mg PO BID 08/06/22 Metoprolol Succinate 100 mg PO DAILY 08/06/22 Omeprazole [Prilosec] 40 mg PO DAILY 08/06/22 Polyethylene Glycol 3350 [Miralax] 17 gm PO DAILY 08/06/22 Potassium Chloride 1 tab PO DAILY 08/06/22 Pravastatin Sodium 80 mg PO BEDTIME 08/06/22 glyBURIDE [Glyburide] 5 mg PO BID 08/06/22 - Past Medical/Surgical History Diabetic: Yes -: Type 2 diabetes, [id number] -: Hypertension -: Coronary artery disease -: Hyperlipidemia -: Pulmonary embolism -: Hypothyroidism -: Cholecystectomy -: IVC filter -: Cardiac cath with stent -: Thyroidectomy Psychosocial/ Personal History: Patient lives at home - Social History Smoking Status: Never smoker Alcohol use: No CD- Drugs: No Caffeine use: Yes Place of Residence: Home Review of Systems 10-point ROS is otherwise unremarkable Cardiovascular: Chest Pain Physical Examination - Physical Exam General: Alert, In no apparent distress, Oriented x3 HEENT: Atraumatic, Mucous membr. moist/pink Neck: Supple Respiratory: Clear to auscultation bilaterally, Normal air movement Cardiovascular: Regular rate/rhythm, Normal S1 S2 Gastrointestinal: Normal bowel sounds, No tenderness Musculoskeletal: No tenderness Integumentary: No rashes Neurological: Normal speech, Normal affect - Studies Laboratory Data (last 24 hrs) 08/12/23 08/12/23 08/12/23 15:02 15:02 15:02 WBC 5.20 Hgb 13.4 Hct 40.4 Plt Count 228 PT 17.3 H INR 1.57 Sodium 136 Potassium 3.8 BUN 20 H Creatinine 0.97 Glucose 142 H Magnesium 1.7 Total Bilirubin 0.5 AST 10 L ALT 17 Alkaline Phosphatase 131 H Lipase 29 Assessment and Plan - Plan Assessment: Chest pain rule out ACShistory of CAD History of PE on chronic anticoagulation with IVC filter diabetes mellitus type [id number]-lqicumukn Hypertension Hyperlipidemia Hypothyroidism Plan: Chest pain rule out ACShistory of CAD History of PE on chronic anticoagulation with IVC filter Negative for PE on CT Trend troponins, monitor on tele, cardiology consult Continue ASA, statin, beta babar Last heart cath 2015 with stent placement, Stress test ~a year ago normal per patient diabetes mellitus type [id number] ACHS accucheck, SSI Hypertension Hyperlipidemia Hypothyroidism Home meds continued DVT PPX: Continue Eliquis Code status: Full Discharge Plan: Home Plan to discharge in: 24 Hours - Advance Directives Does patient have a Living Will: Yes Does patient have a Durable POA for Healthcare: Yes - Code Status/Comfort Care Code Status Assessed: Yes (Full code) Critical Care: No Time Spent Managing Pts Care (In Minutes): 55
[2023-08-12] MEDS ORDERED: ONDANSETRON 4 MG/2 ML VIAL IV PRN (18:03)
[2023-08-12 18:22] VITALS: BMI 33.3
[2023-08-12] MEDS: APIXABAN 5 MG TABLET PO SCH (20:27)
[2023-08-12] MEDS: INSULIN REGULAR (HUMAN) 100 UNIT/ML SQ SCH (20:30)
[2023-08-12] MEDS: ATORVASTATIN 10 MG TAB PO SCH (21:00)
[2023-08-13] MEDS: MORPHINE 2 MG/ML SYR IV PRN (04:17)
[2023-08-13] MEDS: LEVOTHYROXINE SOD 0.112 MG TAB PO SCH (05:57)
[2023-08-13] MEDS: METOPROLOL XL 100 MG TAB PO SCH (06:00)
[2023-08-13] MEDS: INSULIN REGULAR (HUMAN) 100 UNIT/ML SQ SCH ×4 (07:30→19:27)
[2023-08-13 07:31] LABS: Hematocrit 36.1 % (36.0-45.0); Lymphocytes % 29.7 % (15.3-44.8); MCV 93.4 fL (80-100); MPV 9.4 fL (7.6-11.3); Platelets 189 thou/uL (152-406); RBC Red Blood Cell Count 3.86 M/uL (3.86-4.86)
[2023-08-13 07:53] LABS: Potassium 3.6 mEq/L (3.5-5.1); Troponin High Sensitivity 4.4 pg/mL (<58.9)
[2023-08-13] MEDS ORDERED: POTASSIUM CL SA 10 MEQ TAB PO ONE (08:30)
[2023-08-13] MEDS: ASPIRIN EC 81 MG TAB PO SCH (08:51)
[2023-08-13] MEDS: APIXABAN 5 MG TABLET PO SCH ×2 (08:51→20:43)
[2023-08-13] MEDS ORDERED: PANTOPRAZOLE 40MG TABLET PO ONE (15:10)
--- NOTE | 2023-08-13 16:51 | EKG ---
Test Date: 2023-08-12 Test Time: 15:03:18 Plumber'S Assistant: ROSA MARIA MEASUREMENT RESULTS: Intervals: Rate: 88 WV: 160 QRSD: 80 QT: 398 QTc: 481 Fritch: P: 56 WV: 160 QRS: 9 T: 40 INTERPRETIVE STATEMENTS: Normal sinus rhythm Minimal voltage criteria for LVH, may be normal variant Cannot rule out Anterior infarct, age undetermined Abnormal ECG Compared to ECG 08/05/2022 14:28:34 Left ventricular hypertrophy now present Myocardial infarct finding now present ST (T wave) deviation no longer present Electronically Signed On 08-13-23 16:49:08 LABOR ARBITRATOR HEARING OFFICE by Gautam Maya
--- NOTE | 2023-08-13 17:13 | P.PN ---
Date of Service: 08/13/23 Subjective: Still having some intermittent chest tightness/pressure ROS: 10 point ROS as noted above, otherwise negative Physical exam GEN: Alert, oriented, NAD HEENT: Normal conjunctiva, sclera anicteric CV: Regular rate and rhythm, no edema Pulm: Nonlabored respirations on room air ABD: Soft, nontender, nondistended MSK: No joint tenderness Integumentary: No rashes Neuro: Normal speech, normal affect Vitals reviewed Assessment: Chest pain rule out ACShistory of CAD History of PE on chronic anticoagulation with IVC filter diabetes mellitus type [id number]-[id number] Hypertension Hyperlipidemia Hypothyroidism Plan: Chest pain rule out ACShistory of CAD History of PE on chronic anticoagulation with IVC filter Negative for PE on CT Tropes negative x3, cardiology evaluated patient awaiting recommendations Continue ASA, statin, beta babar Last heart cath 2016 with stent placement, Stress test ~a year ago normal per patient diabetes mellitus type [id number] ACHS accucheck, SSI Hypertension Hyperlipidemia Hypothyroidism Home meds continued DVT PPX: Switch to Lovenox from Eliquis in case of need for procedure Code status: Com Writer Spent Managing Pts Care (In Minutes): 35
[2023-08-13] MEDS ORDERED: POLYETHYL GLY 3350 17 GM/DOSE PO ONE (17:14)
[2023-08-13] MEDS: ATORVASTATIN 10 MG TAB PO SCH (20:43)
[2023-08-14] MEDS: MORPHINE 2 MG/ML SYR IV PRN (03:54)
[2023-08-14] MEDS: METOPROLOL XL 100 MG TAB PO SCH ×2 (06:00→08:16)
[2023-08-14] MEDS: LEVOTHYROXINE SOD 0.112 MG TAB PO SCH (06:02)
[2023-08-14 06:14] LABS: Absolute Lymphocytes (CBC) 0.8 K/uL (0.7-4.9); Hematocrit 38.1 % (36.0-45.0); Lymphocytes % 23.8 % (15.3-44.8); MCV 93.7 fL (80-100); MPV 9.8 fL (7.6-11.3); Platelets 182 thou/uL (152-406); RBC Red Blood Cell Count 4.06 M/uL (3.86-4.86)
[2023-08-14 06:26] LABS: Potassium 3.7 mEq/L (3.5-5.1)
[2023-08-14] MEDS: INSULIN REGULAR (HUMAN) 100 UNIT/ML SQ SCH ×4 (07:30→21:00)
[2023-08-14] MEDS: APIXABAN 5 MG TABLET PO SCH ×2 (08:21→21:09)
[2023-08-14] MEDS: ASPIRIN EC 81 MG TAB PO SCH (08:21)
[2023-08-14] MEDS: PANTOPRAZOLE 40MG TABLET PO SCH ×2 (08:21→16:32)
[2023-08-14] MEDS: FUROSEMIDE 40 MG TABLET PO SCH ×2 (08:21→14:00)
--- NOTE | 2023-08-14 11:23 | P.PN ---
Date of Service: 08/14/23 Subjective: Still having some intermittent chest tightness/pressure Seems be worse with ambluation ROS: 10 point ROS as noted above, otherwise negative Physical exam GEN: Alert, oriented, NAD HEENT: Normal conjunctiva, sclera anicteric CV: Regular rate and rhythm, no edema Pulm: Nonlabored respirations on room air ABD: Soft, nontender, nondistended MSK: No joint tenderness Integumentary: No rashes Neuro: Normal speech, normal affect Vitals reviewed Assessment: Chest pain rule out ACShistory of CAD History of PE on chronic anticoagulation with IVC filter diabetes mellitus type [id number]-iilhblj-gozbyymgd Hypertension Hyperlipidemia Hypothyroidism Plan: Chest pain rule out ACShistory of CAD History of PE on chronic anticoagulation with IVC filter Negative for PE on CT Tropes negative x3, cardiology evaluated patient awaiting recommendations Continue ASA, statin, beta babar Last heart cath 2015 with stent placement, Stress test ~a year ago normal per patient Still having ongoing chest tightness with exertion Cardiology recommends heart catheterization which will need to be performed on Friday the We will switch from Eliquis to therapeutic Lovenox on Friday diabetes mellitus type [id number]-[id number]-vkriiyjnl ACHS accucheck, SSI, continue glyburide Hypertension Hyperlipidemia Hypothyroidism Home meds continued DVT PPX: Switch to Lovenox Friday from Eliquis in anticipation of heart cath Code status: Claims Support Specialist Spent Managing Pts Care (In Minutes): 35
[2023-08-14] MEDS: glyBURIDE 2.5 MG TAB PO SCH (16:32)
[2023-08-14] MEDS ORDERED: GLYBURIDE 5 MG PO SCH (21:00)
[2023-08-14] MEDS: ATORVASTATIN 10 MG TAB PO SCH (21:09)
[2023-08-15] MEDS: LEVOTHYROXINE SOD 0.112 MG TAB PO SCH (06:19)
[2023-08-15] MEDS: INSULIN REGULAR (HUMAN) 100 UNIT/ML SQ SCH ×4 (07:30→21:00)
[2023-08-15] MEDS: FUROSEMIDE 40 MG TABLET PO SCH ×2 (09:20→14:29)
[2023-08-15] MEDS: PANTOPRAZOLE 40MG TABLET PO SCH ×2 (09:20→16:16)
[2023-08-15] MEDS: METOPROLOL XL 100 MG TAB PO SCH (09:20)
[2023-08-15] MEDS: ASPIRIN EC 81 MG TAB PO SCH (09:21)
[2023-08-15] MEDS: APIXABAN 5 MG TABLET PO SCH ×2 (09:21→21:42)
[2023-08-15] MEDS: glyBURIDE 2.5 MG TAB PO SCH ×2 (09:52→16:15)
[2023-08-15] MEDS: POLYETHYL GLY 3350 17 GM/DOSE PO PRN (09:56)
--- NOTE | 2023-08-15 10:13 | P.PN ---
Date of Service: 08/15/23 Subjective: Still having some intermittent chest tightness/pressure Seems be worse with ambluation ROS: 10 point ROS as noted above, otherwise negative Physical exam GEN: Alert, oriented, NAD HEENT: Normal conjunctiva, sclera anicteric CV: Regular rate and rhythm, no edema Pulm: Nonlabored respirations on room air ABD: Soft, nontender, nondistended MSK: No joint tenderness Integumentary: No rashes Neuro: Normal speech, normal affect Vitals reviewed Assessment: Chest pain rule out ACShistory of CAD History of PE on chronic anticoagulation with IVC filter diabetes mellitus type 7fup-jmxhhnn-evabzgqeq Hypertension Hyperlipidemia Hypothyroidism Plan: Chest pain rule out ACShistory of CAD History of PE on chronic anticoagulation with IVC filter Negative for PE on CT Tropes negative x3 Continue ASA, statin, beta babar Last heart cath 2015 with stent placement, Stress test ~a year ago normal per patient Still having ongoing chest tightness with exertion Cardiology recommends heart catheterization which will need to be performed on Friday the We will switch from Eliquis to therapeutic Lovenox on Friday morning diabetes mellitus type 0yhj-ykhuwbo-jpufgqsul ACHS accucheck, SSI, continue glyburide Hypertension Hyperlipidemia Hypothyroidism Home meds continued DVT PPX: Switch to Lovenox Friday from Eliquis in anticipation of heart cath 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
[2023-08-15] MEDS: ATORVASTATIN 10 MG TAB PO SCH (21:42)
[2023-08-15] MEDS: HYDROCODONE/APAP 5/325 MG TAB PO PRN (22:16)
[2023-08-16] MEDS: LEVOTHYROXINE SOD 0.112 MG TAB PO SCH (06:28)
[2023-08-16] MEDS: INSULIN REGULAR (HUMAN) 100 UNIT/ML SQ SCH ×4 (07:30→20:26)
[2023-08-16] MEDS: METOPROLOL XL 100 MG TAB PO SCH (09:00)
[2023-08-16] MEDS: ENOXAPARIN 100 MG/ML SYR SQ SCH ×2 (09:20→21:19)
[2023-08-16] MEDS: glyBURIDE 2.5 MG TAB PO SCH ×2 (09:21→16:30)
[2023-08-16] MEDS: PANTOPRAZOLE 40MG TABLET PO SCH ×2 (09:21→16:30)
[2023-08-16] MEDS: ASPIRIN EC 81 MG TAB PO SCH (09:21)
[2023-08-16] MEDS: FUROSEMIDE 40 MG TABLET PO SCH ×2 (09:21→14:47)
[2023-08-16] MEDS: POLYETHYL GLY 3350 17 GM/DOSE PO PRN (09:26)
--- NOTE | 2023-08-16 10:06 | P.PN ---
Date of Service: 08/16/23 Subjective: Still having some intermittent chest tightness/pressure Seems be worse with ambluation no acute events overnight ROS: 10 point ROS as noted above, otherwise negative Physical exam GEN: Alert, oriented, NAD HEENT: Normal conjunctiva, sclera anicteric CV: Regular rate and rhythm, no edema Pulm: Nonlabored respirations on room air ABD: Soft, nontender, nondistended MSK: No joint tenderness Integumentary: No rashes Neuro: Normal speech, normal affect Vitals reviewed Assessment: Chest pain rule out ACShistory of CAD History of PE on chronic anticoagulation with IVC filter diabetes mellitus type 9vav-yvqucxc-vkygbmyza Hypertension Hyperlipidemia Hypothyroidism Plan: Chest pain rule out ACShistory of CAD History of PE on chronic anticoagulation with IVC filter Negative for PE on CT Tropes negative x3 Continue ASA, statin, beta babar Last heart cath 2015 with stent placement, Stress test ~a year ago normal per patient Still having ongoing chest tightness with exertion Cardiology recommends heart catheterization which will need to be performed on Friday the Eliquis being held, on lovenox now in anticipation of cath diabetes mellitus type 2lod-epbuppn-nfnuikdld ACHS accucheck, SSI, continue glyburide Hypertension Hyperlipidemia Hypothyroidism Home meds continued DVT PPX: Lovenox 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
[2023-08-16] MEDS: ATORVASTATIN 10 MG TAB PO SCH (21:20)
[2023-08-16] MEDS: HYDROCODONE/APAP 5/325 MG TAB PO PRN (23:20)
[2023-08-17 03:23] LABS: Hematocrit 37.5 % (36.0-45.0); MCV 93.5 fL (80-100); MPV 9.8 fL (7.6-11.3); Platelets 193 thou/uL (152-406); RBC Red Blood Cell Count 4.01 M/uL (3.86-4.86)
[2023-08-17 03:37] LABS: Potassium 3.2 mEq/L (3.5-5.1)
[2023-08-17] MEDS: LEVOTHYROXINE SOD 0.112 MG TAB PO SCH (06:07)
[2023-08-17] MEDS: INSULIN REGULAR (HUMAN) 100 UNIT/ML SQ SCH ×4 (07:30→21:39)
[2023-08-17] MEDS: PANTOPRAZOLE 40MG TABLET PO SCH ×2 (07:47→17:02)
[2023-08-17] MEDS: glyBURIDE 2.5 MG TAB PO SCH ×2 (07:47→17:01)
[2023-08-17] MEDS: ENOXAPARIN 100 MG/ML SYR SQ SCH ×2 (08:41→20:48)
[2023-08-17] MEDS: POLYETHYL GLY 3350 17 GM/DOSE PO PRN (08:42)
[2023-08-17] MEDS: METOPROLOL XL 100 MG TAB PO SCH (08:42)
[2023-08-17] MEDS: FUROSEMIDE 40 MG TABLET PO SCH ×2 (08:42→13:05)
[2023-08-17] MEDS: ASPIRIN EC 81 MG TAB PO SCH (08:42)
--- NOTE | 2023-08-17 12:54 | P.CNS ---
Date of Consult: 08/17/23 Reason for Consult: chest pain History of Present Illness: This is a 67-year-old male with past medical history of coronary disease, PE hypertension, hyperlipidemia and insulin-dependent diabetes who is here with chest pain. She has been having on and off chest pain and then on the day of presentation she woke up with dull chest ache. Her chest pain has gotten better since she has been in the hospital about she still have chest pain with activities. She had stent in 2016. Patient denies any fever chills nausea or vomiting or shortness of breath Allergies No Known Allergies Allergy (Unverified 08/05/22 23:46) Home Medications: Alogliptin Zeus/Pioglitazone [Oseni 25-30 mg Tablet] 1 each PO DAILY 08/06/22 Apixaban [Eliquis] 5 mg PO BID 08/06/22 Aspirin [Aspirin EC] 81 mg PO BEDTIME 08/06/22 Furosemide [Lasix*] 40 mg PO BID 08/06/22 Levothyroxine [Synthroid*] 112 mcg PO DAILY 08/06/22 Magnesium Oxide [Magnesium] 250 mg PO BID 08/06/22 Metformin ER [Glucophage ER*] 1,000 mg PO BID 08/06/22 Metoprolol Succinate 100 mg PO DAILY 08/06/22 Potassium Chloride 1 tab PO DAILY 08/06/22 Pravastatin Sodium 80 mg PO BEDTIME 08/06/22 glyBURIDE [Glyburide] 5 mg PO BID 08/06/22 Omeprazole [Prilosec] 40 mg PO BID 08/12/23 - Past Medical/Surgical History Diabetic: Yes -: Type 2 diabetes, bsn-smhxftq-exkhzqslj -: Hypertension -: Coronary artery disease -: Hyperlipidemia -: Pulmonary embolism -: Hypothyroidism -: Cholecystectomy -: IVC filter -: Cardiac cath with stent -: Thyroidectomy Psychosocial/ Personal History: Patient lives at home - Social History Smoking Status: Unknown if ever smoked Alcohol use: No CD- Drugs: No Caffeine use: Yes Place of Residence: Home Review of Systems 10-point ROS is otherwise unremarkable Physical Examination Temp Pulse Resp BP Pulse Ox 97.4 F 88 17 110/67 99 08/17/23 08:00 08/17/23 08:42 08/17/23 08:00 08/17/23 08:42 08/17/23 08:00 General: Oriented x3 Neck: Supple Respiratory: Clear to auscultation bilaterally Cardiovascular: No edema Neurological: Normal speech Conclusions/Impression: 1. Coronary artery disease: Presented with chest pain concerning for unstable angina, continue with aspirin, statin, full dose Lovenox and plan for coronary angiogram possible intervention tomorrow. 2. History of PE: On Eliquis at home now on full dose Lovenox pending heart 3. Diabetes: On insulin per primary Physician Review: Patient Assessed, Agree with Above Assessment and Plan
--- NOTE | 2023-08-17 13:20 | P.PN ---
Date of Service: 08/17/23 Subjective: Still having some intermittent chest tightness/pressure Seems be worse with ambluation no acute events overnight ROS: 10 point ROS as noted above, otherwise negative Physical exam GEN: Alert, oriented, NAD HEENT: Normal conjunctiva, sclera anicteric CV: Regular rate and rhythm, no edema Pulm: Nonlabored respirations on room air ABD: Soft, nontender, nondistended MSK: No joint tenderness Integumentary: No rashes Neuro: Normal speech, normal affect Vitals reviewed Assessment: Chest pain rule out ACShistory of CAD History of PE on chronic anticoagulation with IVC filter diabetes mellitus type 4lam-[id number]-[id number] Hypertension Hyperlipidemia Hypothyroidism Plan: Chest pain rule out ACShistory of CAD History of PE on chronic anticoagulation with IVC filter Negative for PE on CT Tropes negative x3 Continue ASA, statin, beta babar Last heart cath 2016 with stent placement, Stress test ~a year ago normal per patient Still having ongoing chest tightness with exertion Cardiology recommends heart catheterization which will need to be performed on Friday the Eliquis being held, on lovenox now in anticipation of cath diabetes mellitus type 2pzj-ayjtvyj-enjbarlmo ACHS accucheck, SSI, continue glyburide Hypertension Hyperlipidemia Hypothyroidism Home meds continued DVT PPX: Lovenox 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 Plan of care discussed with BOTTOM TURNING LATHE TENDER Fiona. Agree with plan as noted above with the following additions/corrections: Ongoing chest discomfort Today reports seems to be more noticeable when she takes deep breaths Plan for cardiac cath tomorrow <Lobo Lenz - Last Filed: 08/17/23 15:39>
[2023-08-17] MEDS: ATORVASTATIN 10 MG TAB PO SCH (20:49)
[2023-08-17] MEDS: HYDROCODONE/APAP 5/325 MG TAB PO PRN (22:19)
[2023-08-18] MEDS: LEVOTHYROXINE SOD 0.112 MG TAB PO SCH (05:07)
[2023-08-18] MEDS: ASPIRIN EC 81 MG TAB PO SCH (05:15)
[2023-08-18] MEDS: METOPROLOL XL 100 MG TAB PO SCH (05:15)
[2023-08-18 07:25] LABS: Hematocrit 39.7 % (36.0-45.0); MCV 94.3 fL (80-100); MPV 9.9 fL (7.6-11.3); Platelets 237 thou/uL (152-406); RBC Red Blood Cell Count 4.22 M/uL (3.86-4.86)
[2023-08-18 07:28] LABS: Potassium 3.2 mEq/L (3.5-5.1)
[2023-08-18] MEDS: PANTOPRAZOLE 40MG TABLET PO SCH ×2 (07:30→16:35)
[2023-08-18] MEDS: glyBURIDE 2.5 MG TAB PO SCH ×2 (07:30→16:35)
[2023-08-18] MEDS: INSULIN REGULAR (HUMAN) 100 UNIT/ML SQ SCH ×3 (07:30→16:29)
[2023-08-18] MEDS: FUROSEMIDE 40 MG TABLET PO SCH ×2 (07:48→14:00)
[2023-08-18] MEDS: ENOXAPARIN 100 MG/ML SYR SQ SCH (07:48)
[2023-08-18 08:47] VITALS: TEMP 97.9
[2023-08-18 11:17] VITALS: O2SAT 100
[2023-08-18] MEDS ORDERED: PANTOPRAZOLE 40 MG INJ IVP ONE (11:30)
[2023-08-18] MEDS ORDERED: SODIUM CHLORIDE 0.9% 10ML INJ IV PRN (11:30)
[2023-08-18] MEDS ORDERED: POTASSIUM CL SA 10 MEQ TAB PO ONE (12:00)
--- NOTE | 2023-08-18 12:10 | P.PN ---
Date of Service: 08/18/23 Subjective: no acute events overnight plan for [facility] this afternoon ROS: 10 point ROS as noted above, otherwise negative Physical exam GEN: Alert, oriented, NAD HEENT: Normal conjunctiva, sclera anicteric CV: Regular rate and rhythm, no edema Pulm: Nonlabored respirations on room air ABD: Soft, nontender, nondistended MSK: No joint tenderness Integumentary: No rashes Neuro: Normal speech, normal affect Vitals reviewed Problem List: Chest pain history of CAD History of PE on chronic anticoagulation with IVC filter NIDDM2 Hypertension Hyperlipidemia Hypothyroidism Plan: Chest pain History of CAD History of PE on chronic anticoagulation with IVC filter Negative for PE on CT Tropes negative x3 Continue ASA, statin, beta babar Last heart cath 2015 with stent placement, Stress test ~a year ago normal per patient Still having ongoing chest tightness with exertion Cardiology consulted NPO for [facility] today 08/18 Eligalina being held, on lovenox now in anticipation of cath NIDDM2 ACHS accucheck, SSI, continue glyburide Hypertension Hyperlipidemia Hypothyroidism Continue home medications as appropriate DVT PPX: Lovenox Code status: Full Dispo: home, this evening after [facility] vs tomorrow Pending [facility] today
[2023-08-18] MEDS ORDERED: NA CHLORIDE 0.9% 500 ML ONE (12:40)
[2023-08-18] MEDS ORDERED: VERAPAMIL HCL 10 MG/4 ML VIAL IV ONE (12:44)
[2023-08-18] MEDS ORDERED: LIDOCAINE 1% 20 ML MDV ONE (12:44)
[2023-08-18] MEDS ORDERED: HEPARIN 5000 UNIT/ML 1 ML VIAL ONE (12:44)
[2023-08-18] MEDS ORDERED: HEPA 1000U/500MLS 2,000 UNIT/1,000 ML BAG IV ONE (12:44)
[2023-08-18] MEDS ORDERED: NITROGLYCERIN 100 MCG/ML SYR (for cath lab use only) IV ONE (12:45)
[2023-08-18] MEDS ORDERED: HEPARIN 10,000 UNIT/10 ML VIAL IV ONE (12:45)
[2023-08-18] MEDS ORDERED: ASPIRIN 325 MG TAB ONE (13:13)
[2023-08-18] MEDS ORDERED: TICAGRELOR 90 MG TABLET PO ONE (13:13)
[2023-08-18] MEDS ORDERED: CLOPIDOGREL 75 MG TABLET ONE (13:13)
[2023-08-18] MEDS ORDERED: ATROPINE SULF 1 MG/10 ML SYR IV ONE (13:14)
[2023-08-18] MEDS ORDERED: FENTANYL CITR 100 MCG/2 ML ONE (13:55)
[2023-08-18] MEDS ORDERED: MIDAZOLAM HCL 2 MG/2 ML INJ ONE (13:55)
--- NOTE | 2023-08-18 16:25 | OP ---
Date of Procedure: 08/18/2023 Surgeon: JERMAINE ROJAS Procedures Performed: 1.Selective coronary angiogram. 2.Left heart catheterization. Indication: Unstable angina. Access: Right radial artery 6-Irish closed with TR band. Complications: None. Bleeding: Less than 20 mL. Anesthesia: Total sedation time was 35 minutes. Description Of Procedure: After risks, benefits, alternatives were explained, patient agreed to proc edure and signed informed consent. Patient was brought into the cardiac catheterization laboratory, prepped and draped in the usual sterile fashion. Then, I accessed right radial artery using [employer] micropuncture kit, placed a 6-Irish Slender sheath and took 5-Irish [place] 4.0 catheter into the a ortic root over a J-wire, engaged the left main, then the right coronary artery, took standard views and then catheter was passed over the wire into the LV, measured LVEDP. Pullback did not record any gradient across the aortic valve and then I removed the catheter and the sheath, placed TR band with good hemostasis. Findings: 1.Left main; large and normal. 2.LAD; large with luminal irregularities in the proximal segment. In the mid segment, there is a st ent with 30% iSR. Diagonal branches are with luminal irregularities. The rest of the LAD appears to be normal. 3.Left circumflex; it is large and codominant with luminal irregularities. 4.RCA; large and codominant, proximal 50%, mid 30%, distal 40% to 50%. 5.LVEDP normal at 5 mmHg. Conclusion: 1.Patent LAD stent with moderate coronary artery disease. 2.Normal LVEDP. Recommendation: Medical management. SR/MODL Voice ID: [id number] Report ID: [id number]
[2023-08-18 16:45] VITALS: BP 119/66
--- NOTE | 2023-08-18 17:54 | P.DS ---
Admission Date: 08/14/23 Discharge Date: 08/18/23 Disposition: ROUTINE DISCHARGE Discharge Condition: GOOD Reason for Admission: chest pain / unstable angina Consultations: Cardiology Brief History of Present Illness: 67-year-old female with history of CAD, PE, ebg-twwbwpu-dmvcflodv diabetes, hypertension, hyperlipidemia and hypothyroidism presents emergency department chief complaint of chest pain. She reports waking up this morning with dull aching chest pain with associated shortness of breath. After she thought it was from her GERD/reflux which she deals with regularly but her pain did not improve after taking Tums, omeprazole at home and she did not feel right. Patient reports last heart catheterization 2015 with 1 stent placed, had a stress test 1 to 2 years ago which was normal. She takes Eliquis and aspirin daily and has an IVC filter in place. She was evaluated in the emergency department her labs are significant for initial high sensitive troponin of 4.7 glucose 142 ultrasound bilateral lower extremities negative for DVT, CT PE protocol negative for pulmonary embolism or other acute findings in the chest. Hospital Course: Problem List: Chest pain history of CAD s/p PCI History of PE on chronic anticoagulation with IVC filter NIDDM2 Hypertension Hyperlipidemia Hypothyroidism Patient presented with chest pain concerning for unstable angina with h/o prior coronary artery stenting several years ago. On admission, troponin was normal and remained normal, however given her history/risk factors, and current symptoms, Cardiology recommended further evaluation with cardiac catheterization. Due to the holiday and weekend, patient remained in the hospital several days. Cardiac catheterization revealed patent LAD stent with moderate coronary artery disease. RCA was large, codominant, with proximal 50%, mid 30%, distal 40-50%. Dr. Maya recommended continue with medical management, no coronary stenting / intervention warranted at this time. Patient's chest x-ray, CTA chest, cardiac catheterization were all without any acute findings - no signs of infection / mass / pulmonary embolism. Discussed with patient that we were able to exclude the above reasons as possible causes of her pain. She is to continue her home medications as previously prescribed. One possibility would be GI related - due to GERD, however she noted no change - exacerbation nor relief with certain foods. Continue on home GERD medication and to discuss with PCP / consider follow up with GI. Follow up: PCP 3-5 days Cardiology in near future Physical Exam GEN: Alert, oriented, NAD HEENT: Normal conjunctiva, sclera anicteric CV: Regular rate and rhythm, no edema Pulm: Nonlabored respirations on room air ABD: Soft, nontender, nondistended Neuro: Normal speech, normal affect Vital Signs/Physical Exam: Temp Pulse Resp BP Pulse Ox 97.9 F 81 16 119/66 98 08/18/23 16:45 08/18/23 16:45 08/18/23 16:45 08/18/23 16:45 08/18/23 16:45 Laboratory Data at Discharge: WBC 3.50 thou/uL (4.3-10.9) L 08/18/23 06:39 Hgb 13.1 g/dL (12.0-15.0) 08/18/23 06:39 Hct 39.7 % (36.0-45.0) 08/18/23 06:39 Plt Count 237 thou/uL (152-406) 08/18/23 06:39 PT 17.3 SECONDS (9.5-12.5) H 08/12/23 15:02 INR 1.57 08/12/23 15:02 Sodium 136 mEq/L (136-145) 08/18/23 06:39 Potassium 3.2 mEq/L (3.5-5.1) L 08/18/23 06:39 BUN 18 mg/dL (7-18) 08/18/23 06:39 Creatinine 1.18 mg/dL (0.55-1.02) H 08/18/23 06:39 Glucose 240 mg/dL (74-106) H 08/18/23 06:39 Magnesium 2.0 mg/dL (1.6-2.4) 08/18/23 06:39 Total Bilirubin 0.5 mg/dL (0.2-1.0) 08/12/23 15:02 AST 10 U/L (15-37) L 08/12/23 15:02 ALT 17 U/L (13-56) 08/12/23 15:02 Alkaline Phosphatase 131 U/L (45-117) H 08/12/23 15:02 Triglycerides 63 mg/dL (<150) 08/13/23 07:16 Cholesterol 152 mg/dL (<200) 08/13/23 07:16 HDL Cholesterol 64 mg/dL (40-60) H 08/13/23 07:16 Cholesterol/HDL Ratio 2.38 08/13/23 07:16 Lipase 29 U/L (13-75) 08/12/23 15:02 Home Medications: Alogliptin Zeus/Pioglitazone [Oseni 25-30 mg Tablet] 1 each PO DAILY 08/06/22 Apixaban [Eliquis] 5 mg PO BID 08/06/22 Aspirin [Aspirin EC] 81 mg PO BEDTIME 08/06/22 Furosemide [Lasix*] 40 mg PO BID 08/06/22 Levothyroxine [Synthroid*] 112 mcg PO DAILY 08/06/22 Magnesium Oxide [Magnesium] 250 mg PO BID 08/06/22 Metformin ER [Glucophage ER*] 1,000 mg PO BID 08/06/22 Metoprolol Succinate 100 mg PO DAILY 08/06/22 Potassium Chloride 1 tab PO DAILY 08/06/22 Pravastatin Sodium 80 mg PO BEDTIME 08/06/22 glyBURIDE [Glyburide] 5 mg PO BID 08/06/22 Omeprazole [Prilosec] 40 mg PO BID 08/12/23 Physician Discharge Instructions: Patient presented with chest pain concerning for unstable angina with h/o prior coronary artery stenting several years ago. On admission, troponin was normal and remained normal, however given her history/risk factors, and current symp toms, Cardiology recommended further evaluation with cardiac catheterization. Due to the holiday and weekend, patient remained in the hospital several days. Cardiac catheterization revealed patent LAD stent with moderate coronary artery disease. RCA was large, codominant, with proximal 50%, mid 30%, distal 40-50%. Dr. Maya recommended continue with medical management, no coronary stenting / intervention warranted at this time. Patient's chest x-ray, CTA chest, cardiac catheterization were all without any acute findings - no signs of infection / mass / pulmonary embolism. Discussed with patient that we were able to exclude the above reasons as possible causes of her pain. She is to continue her home medications as previously prescribed. One possibility would be GI related - due to GERD, however she noted no change - exacerbation nor relief with certain foods. Continue on home GERD medication and to discuss with PCP / consider follow up with GI. Follow up: PCP 3-5 days Cardiology in near future Diet: ADA Activity: Ad tito Followup: Josias GOINSOT [Primary Care Provider] - 1 Week (Call for appointment.) Gautam Maya MD [ACTIVE - CAN ADMIT] - 1-2 Weeks (Call for appointment.) Time spent managing pt's care (in minutes): 45
--- NOTE | 2023-08-18 19:22 | PN ---
Date of Progress Note: 08/18/2023 Subjective: Seen by bedside. She is doing well, status post coronary angiogram. No significant cor onary artery disease. It is mild to moderate, but does not account for her symptoms. Review of Systems: No chest pain, shortness of breath, orthopnea, or cough. No nausea, vomiting, or diarrhea. All othe r systems were reviewed, they were negative. Objective: Vital Signs: Reviewed. Head and Neck: Pupils are equal, reactive to light. Intact eye movements. No JVD. No cervical lym phadenopathy. Neck is supple. Thyroid is not enlarged. Lungs: Clear to auscultation bilaterally. No rhonchi, wheezing, or crackles. No accessory muscle u se. Heart: Regular rate and rhythm. No extra sounds. Abdomen: Soft, nontender. Bowel sounds positive. No organomegaly. No masses or hernia. No rigidi ty or rebound. Extremities: No edema, clubbing, cyanosis. Intact pulses. Skin: No rash or nodule. Neurologic: Alert, awake, oriented x3. No acute focal deficit appreciated. Lymph Nodes: No cervical or axillary lymphadenopathy. Investigations: Labs reviewed. Assessment And Recommendations: 1.Chest pain with known history of coronary artery disease, status post coronary angiogram. She has fwvm-pd-dwwdgqbv disease. Patient can be released from Cardiology standpoint and to follow up with her heel coverer machine operator. 2.History of PE. I will resume her oral Eliquis to take and follow up as an outpatient. 3.Dyslipidemia. Continue statin. From Cardiology standpoint, patient can be released and follow up with her primary heel coverer machine operator as an outpatient. /YAMILETH Voice ID: [id number] Report ID: [id number]
== END 2023-08-18 18:15 | disposition home or self-care (01) | DRG 287 ==
LOC: ER 14:34 → ERHOLD 17:19 → 4TH 17:43 → OBSVTOIN 08-14 14:29
PROVIDERS: ADMIT Hospitalist; ATTEND Hospitalist
PROC: 4A023N7 Measurement of Cardiac Sampling and Pressure, Left Heart, Percutaneous Approach (ICD-10-PCS; principal; 2023-08-18)
PROC: B2111ZZ Fluoroscopy of Multiple Coronary Arteries using Low Osmolar Contrast (ICD-10-PCS; 2023-08-18)
DX: I25.110 Atherosclerotic heart disease of native coronary artery with unstable angina pectoris (principal); I10 Essential (primary) hypertension; E11.9 Type 2 diabetes mellitus without complications; E78.00 Pure hypercholesterolemia, unspecified; E03.9 Hypothyroidism, unspecified; K21.9 Gastro-esophageal reflux disease without esophagitis; I25.2 Old myocardial infarction; Z95.5 Presence of coronary angioplasty implant and graft; Z88.7 Allergy status to serum and vaccine; Z88.8 Allergy status to other drugs, medicaments and biological substances; Z79.82 Long term (current) use of aspirin; Z90.49 Acquired absence of other specified parts of digestive tract; Z79.01 Long term (current) use of anticoagulants; Z79.84 Long term (current) use of oral hypoglycemic drugs; Z28.310 Unvaccinated for COVID-19; Z79.899 Other long term (current) drug therapy; Z91.030 Bee allergy status; Z86.711 Personal history of pulmonary embolism; Z79.890 Hormone replacement therapy
CPT/HCPCS: 36415; 71045; 71275; 76937; 80048; 80061; 80076; 81003; 82947; 83690; 83735; 83880; 84484; 85025; 85027; 85610; 93005; 93458; 93970; 99152; 99153; 99285; C1893; C9113; G0378; J0461; J1644; J1650; J1815; J2001; J2250; J2270; J3010; J7040; Q9966; Q9967

== ENCOUNTER 2024-03-18 12:52 | Emergency (ER) | payer BC, OTHER ==
[2024-03-18 13:57] LABS: Absolute Lymphocytes (CBC) 0.7 K/uL (0.7-4.9); Absolute Monocytes 0.3 K/uL (0.1-1.3); Absolute Neutrophil 3.8 K/uL (1.8-8.0); Basophils % 0.6 % (0-1.3); Eosinophils % 0.6 % (0-4.4); Hematocrit 39.2 % (36.0-45.0); Hemoglobin 12.9 g/dL (12.0-15.0); Lymphocytes % 15.1 % (15.3-44.8); MCH 30.5 pg (27.0-35.0); MCHC 32.9 g/dL (32.0-36.0); MCV 92.7 fL (80-100); MPV 8.9 fL (7.6-11.3); Monocytes % 6.9 % (3.3-12.3); Neutrophils % 76.8 % (41.7-73.7); Nucleated Red Blood Cells % 0.3 % (0-0); Platelets 271 thou/uL (152-406); RBC Red Blood Cell Count 4.23 M/uL (3.86-4.86); Red Cell Distribution Width 15.4 % (12.1-15.2)
[2024-03-18 14:03] LABS: PT Prothrombin Time 19.5 SECONDS (9.4-12.5); Protime INR 1.8
[2024-03-18 14:15] LABS: Anion Gap 9.5 mEq/L (5.0-15.0); BUN Blood Urea Nitrogen 15 mg/dL (7-18); Bicarbonate 32 mEq/L (21-32); Glomerular Filtration Rate 56 ml/min (=/>90); Glucose Level 163 mg/dL (74-106); Magnesium 1.7 mg/dL (1.6-2.4); NT PRO-BNP 14 pg/mL (<125); Potassium 3.5 mEq/L (3.5-5.1); Sodium Level 135 mEq/L (136-145)
[2024-03-18 14:18] LABS: Troponin High Sensitivity < 3.0 pg/mL (<58.9)
--- NOTE | 2024-03-18 15:01 | RAD REPORT ---
EXAM DESCRIPTION: Ole Single View03/18/2024 2:21 pm CLINICAL HISTORY: Chest pain COMPARISON: 2022 FINDINGS: The lungs appear clear of acute infiltrate. The heart is normal size IMPRESSION: No acute abnormalities displayed
--- NOTE | 2024-03-18 17:31 | RAD REPORT ---
EXAM DESCRIPTION: CT - Chest For Pe Angio - 03/18/2024 4:56 pm CLINICAL HISTORY: Chest pain COMPARISON: 2022 TECHNIQUE: Dynamically enhanced axial 3 mm thick images of the chest were obtained during administra tion of 100 mL Isovue 370 IV contrast. Coronal and oblique reconstruction images were generated and r eviewed. Exam utilizes a protocol for optimal evaluation of pulmonary arterial tree. Maximum intensity projections 3D imaging was utilized All CT scans are performed using dose optimization technique as appropriate and may include automated exposure control or mA/KV adjustment according to patient size. FINDINGS: A pulmonary embolus is not seen. A thoracic aortic aneurysm is not noted. A pleural effusion is not seen. A pericardial effusion is not seen. A lung consolidation is not present. IMPRESSION: Negative for a pulmonary embolism.
--- NOTE | 2024-03-18 17:45 | ER ---
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 ll1 Coronavirus screen: Client denies travel out of the [place] in the last 14 days. At this time, the client does not indicate any symptoms associated with coronavirus-19. Ebola Screen: Patient denies travel to an Ebola-affected area in the 21 days before illness onset. Initial Sepsis Screen: Does the patient meet any 2 criteria? No. Patient's initial sepsis screen is negative. Does the patient have a suspected source of infection? No. Patient's initial sepsis screen is negative. Risk Assessment: Do you want to hurt yourself or someone else? Patient reports no desire to harm self or others. Onset of symptoms was March 18, 2024. 13:10 Method Of Arrival: Ambulatory ll1 13:10 Acuity: PATRICK 3 ll1 Triage Assessment: 13:10 General: Appears uncomfortable, Behavior is calm, cooperative, appropriate for age. ll1 General: Reports fatigue for. Pain: Complains of pain in chest Quality of pain is described as pressure. Neuro: Reports near syncope feeling. Neuro: Reports weakness. Cardiovascular: Reports chest pain, fatigue, lightheadedness. 13:10 Neuro: Reports headache. ll1 Historical: - Allergies: 13:10 ANTIHISTAMINES; ll1 13:10 Bees; ll1 13:10 Influenza Virus Vaccines; ll1 - PMHx: 13:10 diabetes mellitus; Hypertensive disorder; Myocardial infarction; Hypercholesterolemia; ll1 PE; - PSHx: 13:10 Cholecystectomy; heart stent; hysterectomy; IVC filter; Thyroidectomy; ll1 - Immunization history:: Adult Immunizations up to date. - Infectious Disease History:: Denies. - Social history:: Smoking status: Patient denies any tobacco usage or history of. Screenin:14 [facility] ED Fall Risk Assessment (Adult) History of falling in the last 3 months, db including since admission No falls in past 3 months (0 pts) Confusion or Disorientation No (0 pts) Intoxicated or Sedated No (0 pts) Impaired Gait No (0 pts) Mobility Assist Device Used No (0 pt) Altered Elimination No (0 pt) Score/Fall Risk Level 0 - 2 = Low Risk Oriented to surroundings, Maintained a safe environment. Abuse screen: Denies threats or abuse. Denies injuries from another. Nutritional screening: No deficits noted. Tuberculosis screening: No symptoms or risk factors identified. Assessment: 13:50 Reassessment: Patient appears in no apparent distress at this time. Patient and/or db family updated on plan of care and expected duration. Pain level reassessed. Patient is alert, oriented x 3, equal unlabored respirations, skin warm/dry/pink. General: Appears in no apparent distress. comfortable. Pain: Complains of pain in chest Pain radiates to right arm Pain began suddenly. Neuro: Level of Consciousness is awake, alert, obeys commands, Oriented to person, place, time, situation. Cardiovascular: Reports chest pain. Cardiovascular: Capillary refill < 3 seconds Patient's skin is warm and dry. Respiratory: Airway is patent Respiratory effort is even, unlabored, Respiratory pattern is regular. Derm:. 16:27 Reassessment: Patient appears in no apparent distress at this time. Patient and/or db family updated on plan of care and expected duration. Pain level reassessed. Patient is alert, oriented x 3, equal unlabored respirations, skin warm/dry/pink. 18:12 Reassessment: Patient appears in no apparent distress at this time. Patient and/or db family updated on plan of care and expected duration. Pain level reassessed. Patient is alert, oriented x 3, equal unlabored respirations, skin warm/dry/pink. Patient states feeling better. Patient states symptoms have improved. Vital Signs: 13:10 BP 147 / 75; Pulse 84; Resp 17; Temp 97.6; Pulse Ox 100% ; Weight 97.52 kg; Height 5 ll1 ft. 4 in. ; Pain 4/10; 14:00 BP 111 / 59; Pulse 80; Resp 18; Pulse Ox 100% ; db 15:00 BP 113 / 63; Pulse 80; Resp 16; Pulse Ox 100% on R/A; db 16:00 BP 114 / 64; Pulse 79; Resp 16; Pulse Ox 100% on R/A; db 17:00 BP 116 / 68; Pulse 80; Resp 15 S; Pulse Ox 100% on R/A; db 17:30 BP 102 / 62; Pulse 79; Resp 18; Temp 97.8; Pulse Ox 96% ; db 13:10 Body Mass Index 36.90 (97.52 kg, 162.56 cm) ll1 13:10 Pain Scale: Adult ll1 ED Course: 12:57 Patient arrived in ED. mg5 13:11 Triage completed. ll1 13:11 Arm band placed on. EKG completed in triage. Results shown to MD. ll1 13:16 Grisel Crawford MD is Attending Physician. gb1 13:42 Chacha Howard, RN is Primary Nurse. db 13:50 Initial lab(s) drawn, by me, sent to lab. EKG done, by ED staff. Inserted saline lock: db 20 gauge in left antecubital area, using aseptic technique. Blood collected. 14:23 XRAY Chest (1 view) In Process Unspecified. EDMS 16:28 Patient has correct armband on for positive identification. Placed in gown. Bed in low db position. Call light in reach. Side rails up X 1. Client placed on continuous cardiac and pulse oximetry monitoring. NIBP monitoring applied. rental salesperson on. Pulse ox on. NIBP on. Warm blanket given. 16:56 CT Chest For PE Angio In Process Unspecified. EDMS 18:12 Provided Education on: DISCHARGE AND FOLLOWUP. db 18:12 No provider procedures requiring assistance completed. IV discontinued, intact, db bleeding controlled, No redness/swelling at site. O2 via room air. Administered Medications: No medications were administered Medication: 18:12 VIS not applicable for this client. db Outcome: 17:44 Discharge ordered by . gb1 18:11 Discharged to home ambulatory, db 18:11 Condition: stable 18:11 Condition: stable 18:11 Discharge instructions given to patient, Instructed on 18:11 Discharge instructions given to 18:12 Patient left the ED. db Signatures: Dispatcher [employer] EDMS Shruthi Kimball RN RN ll1 Deedee Mary RN RN kc6 Chacha Howard, RN RN db Karlee Rubin mg5 Grisel Crawford MD MD gb1 Corrections: (The following items were deleted from the chart) 16:39 13:10 Neuro: Reports weakness ll1 ll1 18:11 17:31 BP 116 / 68; Pulse 80bpm; Resp 15bpm; Spontaneous; Pulse Ox 100% RA; kc6 db
--- NOTE | 2024-03-18 17:45 | EDPHYS ---
Physician Documentation [facility] Name: Neha Allison Age: 68 yrs Sex: Female : 1955 Arrival Date: 03/18/2024 Time: 12:52 Bed 5 Private MD: ED Physician Grisel Crawford HPI: 03/18 16:00 This 68 yrs old Black Female presents to ER via Ambulatory with complaints of Chest gb1 Pain, Near Syncope. 16:00 68-year-old -[place] female with chest pressure and dizziness at work today. gb1 She has a history of a cardiac stent as well as multiple, Les embolisms her last one was in 2021. She does have an IVC filter as well. Patient denies any fever or chills and she states it is very difficult to take a deep breath. She has a history of diabetes, hypertension, hyperlipidemia as well. She is a non-smoker nondrinker. She denies any radiation of pain to her back or lower extremities.. Historical: - Allergies: 13:10 ANTIHISTAMINES; ll1 13:10 Bees; ll1 13:10 Influenza Virus Vaccines; ll1 - PMHx: 13:10 diabetes mellitus; Hypertensive disorder; Myocardial infarction; Hypercholesterolemia; ll1 PE; - PSHx: 13:10 Cholecystectomy; heart stent; hysterectomy; IVC filter; Thyroidectomy; ll1 - Immunization history:: Adult Immunizations up to date. - Infectious Disease History:: Denies. - Social history:: Smoking status: Patient denies any tobacco usage or history of. Exam: 16:00 Constitutional: This is a well developed, well nourished patient who is awake, alert, gb1 and in no acute distress. Head/Face: Normocephalic, atraumatic. Eyes: Pupils equal round and reactive to light, extra-ocular motions intact. Lids and lashes normal. Conjunctiva and sclera are non-icteric and not injected. Cornea within normal limits. Periorbital areas with no swelling, redness, or edema. ENT: Nares patent. No nasal discharge, no septal abnormalities noted. Tympanic membranes are normal and external auditory canals are clear. Oropharynx with no redness, swelling, or masses, exudates, or evidence of obstruction, uvula midline. Mucous membranes moist. Neck: Trachea midline, no thyromegaly or masses palpated, and no cervical lymphadenopathy. Supple, full range of motion without nuchal rigidity, or vertebral point tenderness. No Meningismus. Chest/axilla: Normal chest wall appearance and motion. Nontender with no deformity. No lesions are appreciated. Cardiovascular: Regular rate and rhythm with a normal S1 and S2. No gallops, murmurs, or rubs. Normal PMI, no JVD. No pulse deficits. Respiratory: Lungs have equal breath sounds bilaterally, clear to auscultation and percussion. No rales, rhonchi or wheezes noted. No increased work of breathing, no retractions or nasal flaring. Abdomen/GI: Soft, non-tender, with normal bowel sounds. No distension or tympany. No guarding or rebound. No evidence of tenderness throughout. Back: No spinal tenderness. No costovertebral tenderness. Full range of motion. Skin: Warm, dry with normal turgor. Normal color with no rashes, no lesions, and no evidence of cellulitis. MS/ Extremity: Pulses equal, no cyanosis. Neurovascular intact. Full, normal range of motion. Neuro: Awake and alert, GCS 15, oriented to person, place, time, and situation. Cranial nerves II-XII grossly intact. Motor strength 5/5 in all extremities. Sensory grossly intact. Cerebellar exam normal. Normal gait. Vital Signs: 13:10 BP 147 / 75; Pulse 84; Resp 17; Temp 97.6; Pulse Ox 100% ; Weight 97.52 kg; Height 5 ll1 ft. 4 in. ; Pain 4/10; 14:00 BP 111 / 59; Pulse 80; Resp 18; Pulse Ox 100% ; db 15:00 BP 113 / 63; Pulse 80; Resp 16; Pulse Ox 100% on R/A; db 16:00 BP 114 / 64; Pulse 79; Resp 16; Pulse Ox 100% on R/A; db 17:00 BP 116 / 68; Pulse 80; Resp 15 S; Pulse Ox 100% on R/A; db 17:30 BP 102 / 62; Pulse 79; Resp 18; Temp 97.8; Pulse Ox 96% ; db 13:10 Body Mass Index 36.90 (97.52 kg, 162.56 cm) ll1 13:10 Pain Scale: Adult ll1 MDM: 13:40 Patient medically screened. gb1 16:00 Data reviewed: vital signs, nurses notes, EKG. ED course: Patient's EKG was completed gb1 at 1305 shows normal sinus rhythm with an interval of 170 ms and a QTc which is prolonged at 509. Patient has normal axis today.. 17:45 ED course: 68-year-old female with atypical chest pain no signs of acute PE on CT chest gb1 angiogram. No focal pneumonia doubt acute coronary syndrome, patient has normal sinus rhythm EKG troponin negative no signs of decompensated heart failure as her BNP is also normal.. 03/18 13:27 Order name: Basic Metabolic Panel; Complete Time: 14:20 03/18 13:27 Order name: CBC with Diff; Complete Time: 14:20 03/18 13:27 Order name: Magnesium; Complete Time: 14:20 03/18 13:27 Order name: NT PRO-BNP; Complete Time: 14:20 gb03/18 13:27 Order name: PT-INR; Complete Time: 14:20 gb03/18 13:27 Order name: Troponin HS; Complete Time: 14:20 03/18 13:27 Order name: XRAY Chest (1 view); Complete Time: 15:43 03/18 15:44 Order name: CT Chest For PE Angio; Complete Time: 17:38 gb03/18 13:27 Order name: Cardiac monitoring; Complete Time: 14:00 03/18 13:27 Order name: EKG - Nurse/Tech; Complete Time: 13:44 03/18 13:27 Order name: IV Saline Lock; Complete Time: 14:00 03/18 13:27 Order name: Labs collected and sent; Complete Time: 14:00 gb03/18 13:27 Order name: O2 Per Protocol; Complete Time: 14:00 gb03/18 13:27 Order name: O2 Sat Monitoring; Complete Time: 14:00 gb1 Administered Medications: No medications were administered Disposition Summary: 03/18/24 17:44 Discharge Ordered Notes: Location: Home gb1 Condition: Stable gb1 Diagnosis - Chest pain on breathing gb1 Followup: gb1 - With: Private Physician - When: 2 - 3 days - Reason: Re-evaluation by your physician Discharge Instructions: - Discharge Summary Sheet gb1 - Nonspecific Chest Pain, Adult gb1 Forms: - Work release form db - Medication Reconciliation Form gb1 - Antibiotic Education gb1 - Prescription Opioid Use gb1 - Patient Portal Instructions gb1 - Leadership Thank You Letter gb1 Signatures: Dispatcher [employer] Shruthi Christiansen, RN RN ll1 Grisel Crawford MD MD gb1
[2024-03-18 18:41] VITALS: BP 102/62; TEMP 97.8; O2SAT 96
--- NOTE | 2024-03-22 14:24 | EKG ---
Test Date: 2024-03-18 Test Time: 13:05:34 Social Services Analyst: SHERRY MEASUREMENT RESULTS: Intervals: Rate: 85 AR: 170 QRSD: 74 QT: 428 QTc: 509 Lockhart: P: 57 AR: 170 QRS: 11 T: 28 INTERPRETIVE STATEMENTS: Normal sinus rhythm Normal ECG Compared to ECG 08/13/2023 05:32:12 Left ventricular hypertrophy no longer present Electronically Signed On 03-22-24 14:16:50 CDT by Gautam Maya
== END 2024-03-18 18:12 | disposition home or self-care (01) ==
LOC: ER 12:52
DX: R07.1 Chest pain on breathing (principal); I10 Essential (primary) hypertension; E11.9 Type 2 diabetes mellitus without complications; I25.2 Old myocardial infarction; E78.00 Pure hypercholesterolemia, unspecified; Z88.7 Allergy status to serum and vaccine; Z88.8 Allergy status to other drugs, medicaments and biological substances; Z91.030 Bee allergy status
CPT/HCPCS: 93005; 85025; 80048; 36415; 83735; 85610; 84484; 83880; 71275; 71045; 99285; Q9967

== ENCOUNTER 2024-10-14 16:15 | Emergency (ER) | payer BC ==
--- NOTE | 2024-10-14 17:33 | RAD REPORT ---
EXAMINATION: ONE VIEW CHEST XR CLINICAL INDICATION: Female, 69 years old.,CHEST PAIN TECHNIQUE: Frontal chest projection is submitted. Examination is limited by patient positioning and t echnique. COMPARISON: 03/18/2024. FINDINGS: The lungs are well inflated and clear. No pneumothorax or sizable effusion. The heart is normal in s ize. Mediastinal contours are unremarkable. IMPRESSION: No acute intrathoracic abnormalities. No significant interval change.
[2024-10-14 17:44] LABS: Absolute Eosinophils 0.1 K/uL (0-0.5); Absolute Lymphocytes (CBC) 0.9 K/uL (0.7-4.9); Absolute Monocytes 0.5 K/uL (0.1-1.3); Basophils % 0.5 % (0-1.3); Hematocrit 37.7 % (36.0-45.0); Hemoglobin 12.5 g/dL (12.0-15.0); Lymphocytes % 15.9 % (15.3-44.8); MCH 30.9 pg (27.0-35.0); MCHC 33.1 g/dL (32.0-36.0); MCV 93.5 fL (80-100); MPV 9.3 fL (7.6-11.3); Neutrophils % 73.6 % (41.7-73.7); Platelets 225 thou/uL (152-406); RBC Red Blood Cell Count 4.03 M/uL (3.86-4.86); Red Cell Distribution Width 15.2 % (12.1-15.2)
[2024-10-14 18:03] LABS: Anion Gap 7.8 mEq/L (5.0-15.0); BUN Blood Urea Nitrogen 25 mg/dL (7-18); Bicarbonate 32 mEq/L (21-32); Glomerular Filtration Rate 64 ml/min (=/>90); Glucose Level 172 mg/dL (74-106); Potassium 3.8 mEq/L (3.5-5.1); Sodium Level 137 mEq/L (136-145)
[2024-10-14 18:28] LABS: Troponin High Sensitivity < 3.0 pg/mL (<58.9)
[2024-10-14] MEDS ORDERED: MAGNES/ALUMIN/SIMET 30ML UCUP ONE (18:29)
[2024-10-14] MEDS ORDERED: ASPIRIN 325 MG TAB ONE (18:29)
[2024-10-14] MEDS ORDERED: NITROGLYCERIN 0.4 MG/TAB SL ONE (18:29)
[2024-10-14] MEDS ORDERED: LIDOCAINE VISCOUS 2% 10ML ORAL SOLN ONE (18:30)
--- NOTE | 2024-10-14 18:45 | RAD REPORT ---
EXAMINATION: US LEFT LOWER EXTREMITY VENOUS DOPPLER CLINICAL INDICATION: [facility] MAIN calf PAIN TECHNIQUE: Complete bilateral duplex sonography of the RIGHT lower extremity veins was performed. The examination included compression for vein patency, color Doppler imaging and flow augmentation in response to distal compression of the distal external iliac, common femoral, femoral, popliteal, tibi al, and great and small saphenous veins. COMPARISON: 08/12/2023. FINDINGS: Duplex sonography testing of the veins of the RIGHT lower extremity was performed. Color flow imaging shows all veins to be compressible with [id number] color filling. Pulsatile and phasic flow is present within all lower extremity deep and superficial veins examined. IMPRESSION: No evidence of deep venous thrombosis.
--- NOTE | 2024-10-14 19:14 | RAD REPORT ---
EXAM: CT Chest For Pe Angio TECHNIQUE: CT angiogram of the chest was performed following intravenous contrast administration, inc luding sagittal and coronal as well as maximum intensity projection reformats. One or more of the following dose reduction techniques were used: Automated exposure control, adjustment of the mA and k V according to patient size, and iterative reconstruction. Unless otherwise specified, incidental findings do not require dedicated imaging follow-up. INDICATION: [facility] MAIN CHEST PAIN Bed Name: IW2 Y COMPARISON: 03/18/2024. FINDINGS: LINES/TUBES: None. PULMONARY ARTERIES: Main pulmonary arteries are normal in caliber. No filling defects within the pul monary arteries to suggest pulmonary embolus. LUNGS AND AIRWAYS: The lungs and central airways are normal without focal abnormality. Scattered left -sided granulomas not exceeding 3 mm, benign in appearance. PLEURA: No effusion or pneumothorax. HEART AND MEDIASTINUM: The visualized thyroid gland is normal. No mediastinal, hilar, or axillary lym phadenopathy. Heart is unremarkable. No pericardial effusion. SOFT TISSUES AND BONES: No acute osseous abnormality. No significant soft tissue finding. UPPER ABDOMEN: Unremarkable. IMPRESSION: No evidence of acute central pulmonary emboli. No suspicious intrathoracic findings..
--- NOTE | 2024-10-14 19:36 | EDPHYS ---
Physician Documentation [facility] Name: Neha Allison Age: 69 yrs Sex: Female : 1955 Arrival Date: 10/14/2024 Time: 16:15 Bed 8 Private MD: ED Physician Feliz Rush HPI: 10/14 17:15 This 69 yrs old Black Female presents to ER via Ambulatory with complaints of Chest rt Pain, Dizziness. 17:15 Patient presents to the ED with chest pressure starting just before eating lunch. rt Patient reports that this pressure radiates to arms, reports tingling to the fingers. States that the symptoms are similar to when she had a previous GA. Patient was reports of pain behind the right knee to the calf. Denies other acute complaints at this time, symptoms are moderate in severity, no other aggravating or alleviating factors.. Historical: - Allergies: 16:35 ANTIHISTAMINES; ld1 16:35 Bees; ld1 16:35 Influenza Virus Vaccines; ld1 - PMHx: 16:35 diabetes mellitus; Myocardial infarction; Hypertensive disorder; PE; ld1 Hypercholesterolemia; Hypercholesterolemia; - PSHx: 16:35 IVC filter; heart stent; Thyroidectomy; Cholecystectomy; hysterectomy; ld1 - Immunization history:: Adult Immunizations up to date. - Infectious Disease History:: Denies. - Social history:: Smoking status: Patient denies any tobacco usage or history of. - Family history:: not pertinent. ROS: 17:15 Constitutional: Negative for fever, chills, and weight loss, Respiratory: Negative for rt shortness of breath, cough, wheezing, and pleuritic chest pain, Abdomen/GI: Negative for abdominal pain, nausea, vomiting, diarrhea, and constipation, MS/Extremity: Negative for injury and deformity, Skin: Negative for injury, rash, and discoloration, Neuro: Negative for headache, weakness, numbness, tingling, and seizure, 17:15 Cardiovascular: Positive for chest pain, Negative for edema, 17:15 MS/extremity: Positive for pain, Negative for swelling, Exam: 17:15 Constitutional: This is a well developed, well nourished patient who is awake, alert, rt and in no acute distress. Head/Face: Normocephalic, atraumatic. Chest/axilla: Normal chest wall appearance and motion. Nontender with no deformity. No lesions are appreciated. Cardiovascular: Regular rate and rhythm with a normal S1 and S2. No gallops, murmurs, or rubs. Normal PMI, no JVD. No pulse deficits. Respiratory: Lungs have equal breath sounds bilaterally, clear to auscultation and percussion. No rales, rhonchi or wheezes noted. No increased work of breathing, no retractions or nasal flaring. Abdomen/GI: Soft, non-tender, with normal bowel sounds. No distension or tympany. No guarding or rebound. No evidence of tenderness throughout. Skin: Warm, dry with normal turgor. Normal color with no rashes, no lesions, and no evidence of cellulitis. MS/ Extremity: Pulses equal, no cyanosis. Neurovascular intact. Full, normal range of motion. Neuro: Awake and alert, GCS 15, oriented to person, place, time, and situation. Cranial nerves II-XII grossly intact. Motor strength 5/5 in all extremities. Sensory grossly intact. Cerebellar exam normal. Normal gait. 17:15 ECG was reviewed by the Attending Physician. Vital Signs: 16:34 BP 162 / 84; Pulse 87; Resp 18; Temp 97.4(TE); Pulse Ox 98% on R/A; Weight 99.79 kg; ld1 Height 5 ft. 4 in. ; Pain 6/10; 18:47 BP 145 / 82; Pulse 81; Resp 16 S; Pulse Ox 99% on R/A; kc6 20:14 BP 170 / 78; Pulse 86; Resp 16 S; Pulse Ox 100% on R/A; kc6 16:34 Body Mass Index 37.76 (99.79 kg, 162.56 cm) ld1 16:34 Pain Scale: Adult ld1 MDM: 16:38 Medical Screening Exam initiated rt 19:32 Differential diagnosis: Uncertain cause for pt's subjective dyspnea, workup is bo1 negative. Data reviewed: vital signs, lab test result(s), EKG, radiologic studies, CT scan, doppler. ED course: Pt was given results of tests done and indepth review of results. No clear indication for acute hospitalization or obs. Pt elects to continue OP trial and F/U with cardiology tomorrow but to return if symptoms worsen or persist. She will take her Eliquis tonight.. 10/14 16:34 Order name: Basic Metabolic Panel; Complete Time: 18:43 ld10/14 16:34 Order name: CBC with Diff; Complete Time: 17:52 ld10/14 16:34 Order name: Troponin HS; Complete Time: 18:43 ld10/14 16:34 Order name: XRAY Chest (1 view); Complete Time: 17:52 ld10/14 16:45 Order name: Extremity Venous Uni Ltd US; Complete Time: 18:57 rt 10/14 16:45 Order name: CT Chest For PE Angio; Complete Time: 19:27 rt 10/14 16:34 Order name: Cardiac monitoring; Complete Time: 18:27 ld10/14 16:34 Order name: EKG - Nurse/Tech; Complete Time: 16:34 ld10/14 16:34 Order name: IV Saline Lock; Complete Time: 17:38 ld10/14 16:34 Order name: Labs collected and sent; Complete Time: 17:38 ld10/14 16:34 Order name: O2 Per Protocol; Complete Time: 16:34 10/14 16:34 Order name: O2 Sat Monitoring; Complete Time: 16:34 ld1 EC:15 Rate is 87 beats/min. Rhythm is regular, Normal Sinus Rhythm with No ectopy. QRS [place] rt is Normal. IN interval is normal. QRS interval is normal. QT interval is normal. No Q waves. T waves are Normal. No ST changes noted. Interpreted by me. Administered Medications: 18:39 Drug: GI Cocktail without - (Maalox PO 30 ml, Lidocaine Mucous Membrane 2 % 15 kc6 ml) PO once Route: PO; 18:56 Follow up: Response: No adverse reaction ph 18:39 Drug: Nitroglycerin Sublingual 0.4 mg Sublingual once; every five minute if needed x3 kc6 Route: Sublingual; 18:56 Follow up: Response: No adverse reaction ph 18:39 Drug: Aspirin PO 325 mg PO once Route: PO; kc6 18:56 Follow up: Response: No adverse reaction ph Disposition Summary: 10/14/24 19:35 Discharge Ordered Notes: Location: Home bo1 Problem: an acute exacerbation bo1 Symptoms: are unchanged bo1 Condition: Stable bo1 Diagnosis - Shortness of breath bo1 - Chest pain, unspecified bo1 Followup: bo1 - With: Private Physician - When: Tomorrow - Reason: Recheck today's complaints, Continuance of care Discharge Instructions: - Discharge Summary Sheet bo1 - Shortness of Breath, Adult, [id number] bo1 Forms: - Medication Reconciliation Form bo1 - Antibiotic Education bo1 - Prescription Opioid Use bo1 - Patient Portal Instructions bo1 - Leadership Thank You Letter bo1 Signatures: Dispatcher [employer] EDMS Kadi Dawn RN RN ld1 Deedee Mary RN RN kc6 Feliz Rush MD MD rt Armando Quinonez MD MD bo1 Afua Loera RN ph Corrections: (The following items were deleted from the chart) 16:34 16:34 BASIC METABOLIC PANEL+C.LAB.BRZ ordered. EDMS EDMS 16:34 16:34 CBC+H.LAB.BRZ ordered. EDMS EDMS 16:34 16:34 Troponin High Sensitivity+C.LAB.BRZ ordered. EDMS EDMS 16:34 16:34 Chest Single View+RAD.RAD.BRZ ordered. EDMS EDMS
--- NOTE | 2024-10-14 19:36 | ER ---
Nurse's Notes [facility] Name: Neha Allison Age: 69 yrs Sex: Female : 1955 Arrival Date: 10/14/2024 Time: 16:15 Bed 8 Private MD: Diagnosis: Shortness of breath;Chest pain, unspecified Presentation: 10/14 16:34 Chief complaint: Patient states: Chest pressure since lunchtime today - pt reports ld1 having gas and burping frequently. Coronavirus screen: At this time, the client does not indicate any symptoms associated with coronavirus-19. Ebola Screen: No symptoms or risks identified at this time. Initial Sepsis Screen: Does the patient meet any 2 criteria? No. Patient's initial sepsis screen is negative. Does the patient have a suspected source of infection? No. Patient's initial sepsis screen is negative. Risk Assessment: Do you want to hurt yourself or someone else? Patient reports no desire to harm self or others. Onset of symptoms was October 14, 2024 at 16:35. 16:34 Method Of Arrival: Ambulatory ld1 16:34 Acuity: PATRICK 3 ld1 Triage Assessment: 16:35 General: Appears in no apparent distress. uncomfortable, Behavior is calm, cooperative, ld1 appropriate for age. Pain: Complains of pain in chest Pain does not radiate. Pain currently is 7 out of 10 on a pain scale. Quality of pain is described as throbbing, Pain began suddenly, Is continuous. EENT: No signs and/or symptoms were reported regarding the EENT system. Neuro: Level of Consciousness is awake, alert, obeys commands, Oriented to person, place, time, situation. Cardiovascular: Capillary refill < 3 seconds Patient's skin is warm and dry. Respiratory: Airway is patent Respiratory effort is even, unlabored. GI: Abdomen is round non-distended. : No signs and/or symptoms were reported regarding the genitourinary system. Derm: No signs and/or symptoms reported regarding the dermatologic system. Musculoskeletal: No signs and/or symptoms reported regarding the musculoskeletal system. Historical: - Allergies: 16:35 ANTIHISTAMINES; ld1 16:35 Bees; ld1 16:35 Influenza Virus Vaccines; ld1 - PMHx: 16:35 diabetes mellitus; Myocardial infarction; Hypertensive disorder; PE; ld1 Hypercholesterolemia; Hypercholesterolemia; - PSHx: 16:35 IVC filter; heart stent; Thyroidectomy; Cholecystectomy; hysterectomy; ld1 - Immunization history:: Adult Immunizations up to date. - Infectious Disease History:: Denies. - Social history:: Smoking status: Patient denies any tobacco usage or history of. - Family history:: not pertinent. Screenin:46 [facility] ED Fall Risk Assessment (Adult) History of falling in the last 3 months, kc6 including since admission No falls in past 3 months (0 pts) Confusion or Disorientation No (0 pts) Intoxicated or Sedated No (0 pts) Impaired Gait No (0 pts) Mobility Assist Device Used No (0 pt) Altered Elimination No (0 pt) Score/Fall Risk Level 0 - 2 = Low Risk Oriented to surroundings, Maintained a safe environment, Educated pt \T\ family on fall prevention, incl call for assistance when getting out of bed. Abuse screen: Denies threats or abuse. Denies injuries from another. Nutritional screening: No deficits noted. Tuberculosis screening: No symptoms or risk factors identified. Assessment: 18:46 General: Appears in no apparent distress. comfortable, well groomed, well developed, kc6 Behavior is calm, cooperative, appropriate for age. Pain: Complains of pain in chest Pain does not radiate. Quality of pain is described as dull, heavy, pressure. Neuro: Level of Consciousness is awake, alert, obeys commands, Oriented to person, place, time, situation, Appropriate for age Reports dizziness. Cardiovascular: Reports chest pain, Heart tones S1 S2 present Capillary refill < 3 seconds Rhythm is regular. Respiratory: Airway is patent Trachea midline Respiratory effort is even, unlabored, Respiratory pattern is regular, symmetrical. GI: No signs and/or symptoms were reported involving the gastrointestinal system. : No signs and/or symptoms were reported regarding the genitourinary system. EENT: No signs and/or symptoms were reported regarding the EENT system. Derm: No signs and/or symptoms reported regarding the dermatologic system. Skin is intact, is healthy with good turgor, Skin is pink, warm \T\ dry. Musculoskeletal: No signs and/or symptoms reported regarding the musculoskeletal system. Circulation, motion, and sensation intact. Range of motion: intact in all extremities. 20:14 Reassessment: Patient appears in no apparent distress at this time. No changes from kc6 previously documented assessment. Patient and/or family updated on plan of care and expected duration. Pain level reassessed. Patient is alert, oriented x 3, equal unlabored respirations, skin warm/dry/pink. Vital Signs: 16:34 BP 162 / 84; Pulse 87; Resp 18; Temp 97.4(TE); Pulse Ox 98% on R/A; Weight 99.79 kg; ld1 Height 5 ft. 4 in. ; Pain 6/10; 18:47 BP 145 / 82; Pulse 81; Resp 16 S; Pulse Ox 99% on R/A; kc6 20:14 BP 170 / 78; Pulse 86; Resp 16 S; Pulse Ox 100% on R/A; kc6 16:34 Body Mass Index 37.76 (99.79 kg, 162.56 cm) ld1 16:34 Pain Scale: Adult ld1 ED Course: 16:19 Patient arrived in ED. sj2 16:35 Triage completed. ld1 16:35 Arm band placed on right wrist. ld1 16:38 Feliz Rush MD is Attending Physician. rt 17:13 Radiology exam delayed due to lab results not completed at this time. (BUN/Creatinine) ls3 IV insertion attempt and/or patient not having appropriate IV at this time. 17:18 XRAY Chest (1 view) In Process Unspecified. EDMS 17:38 Initial lab(s) drawn, by me, sent to lab. Inserted saline lock: 22 gauge in left ap3 antecubital area, using aseptic technique. Blood collected. Flushed with 10 mL NS. 18:25 Extremity Venous Uni Ltd US In Process Unspecified. EDMS 18:39 Deedee Mary, RN is Primary Nurse. kc6 18:[address] via wheelchair. kc6 18:46 Patient has correct armband on for positive identification. Bed in low position. Call [facility] light in reach. Side rails up X 1. lamination spinner on. Pulse ox on. NIBP on. Door closed. Noise minimized. Lights dimmed. Warm blanket given. Pillow given. 18:46 Patient maintains SpO2 saturation greater than 95% on room air. kc6 18:51 CT Chest For PE Angio In Process Unspecified. EDMS 20:14 No provider procedures requiring assistance completed. IV discontinued, intact, kc6 bleeding controlled, No redness/swelling at site. Pressure dressing applied. Administered Medications: 18:39 Drug: GI Cocktail without - (Maalox PO 30 ml, Lidocaine Mucous Membrane 2 % 15 kc6 ml) PO once Route: PO; 18:56 Follow up: Response: No adverse reaction ph 18:39 Drug: Nitroglycerin Sublingual 0.4 mg Sublingual once; every five minute if needed x3 kc6 Route: Sublingual; 18:56 Follow up: Response: No adverse reaction ph 18:39 Drug: Aspirin PO 325 mg PO once Route: PO; kc6 18:56 Follow up: Response: No adverse reaction ph Medication: 18:56 VIS not applicable for this client. ph Outcome: 19:35 Discharge ordered by MD. harden 20:15 Discharged to home ambulatory, kc6 20:15 Condition: good 20:15 Discharge instructions given to patient, Instructed on discharge instructions, follow up and referral plans. Demonstrated understanding of instructions, follow-up care, 20:15 Patient left the ED. kc6 Signatures: Dispatcher [employer] EDAfua Gutiérrez RN RN ph Araceli Gamino RN RN ap3 Shar Chris ls3 Kadi Dawn RN RN dario1 Deedee Mary RN RN kc6 Feliz Rush MD MD rt Oei, Benjamin, MD MD bo1 Alhaji Allison2
[2024-10-14 23:34] VITALS: TEMP 97.4
[2024-10-14 23:46] VITALS: BP 170/78; O2SAT 100
== END 2024-10-14 20:15 | disposition home or self-care (01) ==
LOC: ER 16:15
DX: R07.89 Other chest pain (principal); R06.02 Shortness of breath; I10 Essential (primary) hypertension; Z95.818 Presence of other cardiac implants and grafts
CPT/HCPCS: 85025; 80048; 36415; 84484; 71275; 71045; 93971; 99285; Q9967

== ENCOUNTER 2024-11-29 14:16 | Inpatient (IN) | payer BC, OTHER ==
[2024-11-29 14:50] LABS: Absolute Monocytes 0.4 K/uL (0.1-1.3); Absolute Neutrophil 3.6 K/uL (1.8-8.0); Basophils % 0.7 % (0-1.3); Eosinophils % 0.8 % (0-4.4); Hematocrit 38.3 % (36.0-45.0); Hemoglobin 12.9 g/dL (12.0-15.0); Lymphocytes % 19.1 % (15.3-44.8); MCH 31.1 pg (27.0-35.0); MCHC 33.7 g/dL (32.0-36.0); MCV 92.3 fL (80-100); MPV 9.4 fL (7.6-11.3); Neutrophils % 71.4 % (41.7-73.7); Nucleated Red Blood Cells % 0.1 % (0-0); Platelets 231 thou/uL (152-406); RBC Red Blood Cell Count 4.15 M/uL (3.86-4.86); Red Cell Distribution Width 15.4 % (12.1-15.2)
[2024-11-29 15:08] LABS: Anion Gap 10.5 mEq/L (5.0-15.0); Potassium 3.5 mEq/L (3.5-5.1); Troponin High Sensitivity 3.3 pg/mL (<58.9)
--- NOTE | 2024-11-29 16:15 | RAD REPORT ---
Procedure: Chest Single View HISTORY: Chest pain COMPARISON: September 2024 FINDINGS: The lungs appear clear of acute infiltrate. No significant pleural effusion noted. The heart is normal size. IMPRESSION: No acute abnormality is displayed.
--- NOTE | 2024-11-29 16:15 | RAD REPORT ---
EXAMINATION: CTA CHEST PE CLINICAL INDICATION: Chest pain TECHNIQUE: 100 cc 370 Isovue administered intravenously. This examination was performed according to an angiographic protocol with 3D post-processing. This involves 3D reconstructions, MIPs, volume rendered images and/or shaded surface rendering. One or more of the following dose reduction techniqu es were used: Automated exposure control, adjustment of the mA and/or kV according to patient size, and/or iterative reconstruction. Unless otherwise specified, incidental findings do not require dedic ated imaging follow-up. [id number]. COMPARISON: September 2024 FINDINGS: A pulmonary embolus is not seen. An aortic aneurysm not noted. No pleural effusion. No pericardial effusion. Lungs are clear. IMPRESSION: No evidence of a pulmonary embolism
--- NOTE | 2024-11-29 16:34 | ER ---
Nurse's Notes [facility] Name: Neha Allison Age: 69 yrs Sex: Female : 1955 Arrival Date: 11/29/2024 Time: 14:16 Bed 23 Private MD: Diagnosis: Syncope;Chest pain, unspecified Presentation: 11/29 14:51 Chief complaint: Patient states: Sitting down at computer when patient began ss experiencing sudden onset of chest discomfort. Pt states, "It's not like pain, but like I had to make myself take a deep breath." Pt reports she is feeling much better now. Coronavirus screen: Client denies travel out of the [place] in the last 14 days. Ebola Screen: Patient denies exposure to infectious person. Patient denies travel to an Ebola-affected area in the 21 days before illness onset. Initial Sepsis Screen: Does the patient meet any 2 criteria? No. Patient's initial sepsis screen is negative. Does the patient have a suspected source of infection? No. Patient's initial sepsis screen is negative. Risk Assessment: Do you want to hurt yourself or someone else? Patient reports no desire to harm self or others. Onset of symptoms was November 29, 2024. 14:51 Method Of Arrival: EMS: [facility] 14:51 Acuity: PATRICK 3 ss Historical: - Allergies: 14:53 ANTIHISTAMINES; ss 14:53 Bees; ss 14:53 Influenza Virus Vaccines; ss - PMHx: 14:53 diabetes mellitus; Hypercholesterolemia; Hypertensive disorder; Myocardial infarction; ss PE; - PSHx: 14:53 Cholecystectomy; heart stent; hysterectomy; IVC filter; Thyroidectomy; ss - Infectious Disease History:: Denies. - Family history:: not pertinent. - Social history:: Smoking status: Patient denies any tobacco usage or history of. - Hospitalizations: : No recent hospitalization is reported. Screenin:00 [facility] ED Fall Risk Assessment (Adult) History of falling in the last 3 months, jb4 including since admission No falls in past 3 months (0 pts) Confusion or Disorientation No (0 pts) Intoxicated or Sedated No (0 pts) Impaired Gait No (0 pts) Mobility Assist Device Used No (0 pt) Altered Elimination No (0 pt) Score/Fall Risk Level 0 - 2 = Low Risk Oriented to surroundings, Maintained a safe environment. Abuse screen: Denies threats or abuse. Nutritional screening: No deficits noted. Tuberculosis screening: No symptoms or risk factors identified. Assessment: 14:55 General: Appears in no apparent distress. comfortable, Pt is laughing and joking with ED staff. Behavior is calm, cooperative, Denies fever, feeling ill, fatigue, chills. Pain: Complains of pain in chest Pain currently is 2 out of 10 on a pain scale. Quality of pain is described as "not pain, but unable to take a deep breath." pt states. Neuro: Level of Consciousness is awake, alert, obeys commands, Oriented to person, place, time, situation, Primer Supervisor are equal bilaterally Speech is normal. Respiratory: Respiratory effort is even, unlabored, Respiratory pattern is regular, symmetrical. GI: Patient currently denies diarrhea, nausea, vomiting. : No signs and/or symptoms were reported regarding the genitourinary system. EENT: Oral mucosa is moist. Derm: Skin is intact, is healthy with good turgor, Skin is dry, Skin is pink, warm \\T\\ dry. normal. 15:09 Reassessment: Patient appears in no apparent distress at this time. Patient and/or jb4 family updated on plan of care and expected duration. Pain level reassessed. Patient is alert, oriented x 3, equal unlabored respirations, skin warm/dry/pink. 16:00 Reassessment: Patient appears in no apparent distress at this time. Patient and/or jb4 family updated on plan of care and expected duration. Pain level reassessed. Patient is alert, oriented x 3, equal unlabored respirations, skin warm/dry/pink. 17:37 Reassessment: Patient appears in no apparent distress at this time. Patient and/or jb4 family updated on plan of care and expected duration. Pain level reassessed. Patient is alert, oriented x 3, equal unlabored respirations, skin warm/dry/pink. Vital Signs: 14:51 BP 118 / 68; Pulse 84; Resp 15; Pulse Ox 98% on R/A; Pain 2/10; ss 14:54 Weight 99.79 kg; Height 5 ft. 4 in. ; ss 16:00 BP 149 / 85; Pulse 85; Resp 16; Pulse Ox 100% on R/A; jb4 17:00 BP 158 / 88; Pulse 86; Resp 16; Temp 97.6(O); Pulse Ox 98% on R/A; jb4 14:54 Body Mass Index 37.76 (99.79 kg, 162.56 cm) ss 14:51 Pain Scale: Adult ss ED Course: 14:19 Patient arrived in ED. mr 14:32 Eliel Lenz MD is Attending Physician. rn 14:47 Inserted saline lock: 22 gauge in left antecubital area, using aseptic technique. Blood ss collected. Flushed with 10 mL NS. 14:50 XRAY Chest (1 view) In Process Unspecified. EDMS 14:53 Triage completed. ss 14:53 Arm band placed on right wrist. ss 15:09 Martin Dinh, RN is Primary Nurse. jb4 15:45 CT Chest For PE Angio In Process Unspecified. EDMS 16:00 Patient has correct armband on for positive identification. Bed in low position. Call jb4 light in reach. Side rails up X 1. Provided Education on: plan of care. 16:33 Alberto Marques is Hospitalizing Provider. rn 17:39 No provider procedures requiring assistance completed. Patient admitted, IV remains in jb4 place. Administered Medications: No medications were administered Medication: 14:55 VIS not applicable for this client. ss Outcome: 16:33 Decision to Hospitalize by Provider. rn 17:39 Admitted to Med/surg accompanied by nurse, via wheelchair, room 225, with chart, jb4 17:39 Condition: stable 17:39 Discharge instructions given to patient, family, Instructed on the need for admit, Demonstrated understanding of instructions, 17:58 Patient left the ED. jb4 Signatures: Dispatcher [employer] EDWY Stacie Dailey, Reg Reg mr Eliel Lenz MD MD rn Blanchard, Shelby, RN RN ss Martin Dinh, SAMANTHA RN jb4
--- NOTE | 2024-11-29 16:34 | EDPHYS ---
Physician Documentation [facility] [place], [place] Name: Neha Allison Age: 69 yrs Sex: Female : 1955 Arrival Date: 11/29/2024 Time: 14:16 Bed 23 Private MD: ED Physician Eliel Lenz HPI: 11/29 15:53 This 69 yrs old Black Female presents to ER via EMS with complaints of near syncope, rn Chest discomfort. 15:53 The patient has experienced near-syncope. Onset: The symptoms/episode began/occurred rn just prior to arrival. Duration: This was a single episode. Associated injury: The patient did not suffer any apparent associated injury. Current symptoms: Currently, the patient is not experiencing any symptoms. The patient has experienced similar episodes in the past. Patient reports sitting a desk got lightheaded, dizzy, near syncope but did not completely lose consciousness. Reports brief episode of of chest discomfort but specifically states no chest pain or tightness. She describes the discomfort as feeling like she needed to take an extra deep breath. No abdominal pain. No vomiting or diarrhea. Has had a pulmonary embolism in the past, has IVC filter and taking anticoagulants.. Historical: - Allergies: 14:53 ANTIHISTAMINES; ss 14:53 Bees; ss 14:53 Influenza Virus Vaccines; ss - PMHx: 14:53 diabetes mellitus; Hypercholesterolemia; Hypertensive disorder; Myocardial infarction; ss PE; - PSHx: 14:53 Cholecystectomy; heart stent; hysterectomy; IVC filter; Thyroidectomy; ss - Infectious Disease History:: Denies. - Family history:: not pertinent. - Social history:: Smoking status: Patient denies any tobacco usage or history of. - Hospitalizations: : No recent hospitalization is reported. ROS: 15:53 Constitutional: Negative for fever, chills, and weight loss, Neck: Negative for injury, rn pain, and swelling, Cardiovascular: Negative for palpitations, and edema, Respiratory: Negative for shortness of breath, cough, wheezing, and pleuritic chest pain, Abdomen/GI: Negative for abdominal pain, nausea, vomiting, diarrhea, and constipation, MS/Extremity: Negative for injury and deformity, Skin: Negative for injury, rash, and discoloration, Neuro: Negative for headache, weakness, numbness, tingling, and seizure, Exam: 15:53 Constitutional: This is a well developed, well nourished patient who is awake, alert, rn and in no acute distress. Head/Face: Normocephalic, atraumatic. Cardiovascular: Regular rate and rhythm. No pulse deficits. Respiratory: No increased work of breathing, no retractions or nasal flaring. Abdomen/GI: Soft, non-tender Skin: Warm, dry, no cyanosis MS/ Extremity: Pulses equal, no cyanosis. Neurovascular intact. Full, normal range of motion. Equal circumference. Neuro: Awake and alert, GCS 15 Vital Signs: 14:51 BP 118 / 68; Pulse 84; Resp 15; Pulse Ox 98% on R/A; Pain 2/10; ss 14:54 Weight 99.79 kg; Height 5 ft. 4 in. ; ss 16:00 BP 149 / 85; Pulse 85; Resp 16; Pulse Ox 100% on R/A; jb4 17:00 BP 158 / 88; Pulse 86; Resp 16; Temp 97.6(O); Pulse Ox 98% on R/A; jb4 14:54 Body Mass Index 37.76 (99.79 kg, 162.56 cm) ss 14:51 Pain Scale: Adult ss MDM: 14:32 Medical Screening Exam initiated rn 16:32 Differential Diagnosis: cardiac arrhythmia, emotional response, idiopathic syncope, rn vasovagal episode. Data reviewed: vital signs, nurses notes, lab test result(s), EKG, radiologic studies, plain films, and as a result, I will admit patient. Consideration of Admission/Observation Patient was admitted/placed on observation. Escalation of care including admission/observation considered. Counseling: I had a detailed discussion with the patient and/or guardian regarding the historical points, exam findings, and any diagnostic results supporting the discharge/admit diagnosis, lab results, radiology results, the need for further work-up and treatment in the hospital. Response to treatment: the patient's symptoms have mildly improved after treatment, and as a result, I will admit patient. ED course: Workup grossly negative here. EKG shows prolonged QT. Patient reports has had unclear arrhythmia in the past and has worn a heart monitor for 30 days. Troponin negative. Concerning that patient had syncopal episode or near syncopal episode while seated, continues to have chest discomfort. Will admit to hospitalist service for further workup.. 11/29 14:31 Order name: Basic Metabolic Panel; Complete Time: 15:42 ss 11/29 14:31 Order name: CBC with Diff; Complete Time: 15:42 ss 11/29 14:31 Order name: Troponin HS; Complete Time: 15:42 ss 11/29 14:31 Order name: XRAY Chest (1 view); Complete Time: 16:25 ss 11/29 14:40 Order name: CT Chest For PE Angio; Complete Time: 16:25 rn 11/29 14:31 Order name: Cardiac monitoring; Complete Time: 14:56 ss 11/29 14:31 Order name: EKG - Nurse/Tech; Complete Time: 14:42 ss 11/29 14:31 Order name: IV Saline Lock; Complete Time: 14:56 ss 11/29 14:31 Order name: Labs collected and sent; Complete Time: 14:56 ss 11/29 14:31 Order name: O2 Per Protocol; Complete Time: 14:56 ss 11/29 14:31 Order name: O2 Sat Monitoring; Complete Time: 14:56 ss Administered Medications: No medications were administered Disposition Summary: 11/29/24 16:33 Hospitalization Ordered Notes: Hospitalization Status: Observation rn Provider: Alberto Marques rn Location: Telemetry/MedSurg (observation) rn Condition: Stable rn Problem: new rn Symptoms: have improved rn Bed/Room Type: Standard rn Room Assignment: 225(11/29/24 17:06) ss Diagnosis - Syncope rn - Chest pain, unspecified rn Forms: - Medication Reconciliation Form rn - SBAR form rn - Leadership Thank You Letter rn Signatures: Dispatcher [employer] EDCA Eliel Lenz MD MD rn Blanchard, Shelby, RN RN ss Corrections: (The following items were deleted from the chart) 14:32 14:32 BASIC METABOLIC PANEL+C.LAB.BRZ ordered. EDMS EDMS 14:32 14:32 CBC+H.LAB.BRZ ordered. EDMS EDMS 14:32 14:32 Troponin High Sensitivity+C.LAB.BRZ ordered. EDMS EDMS 14:32 14:32 Chest Single View+RAD.RAD.BRZ ordered. EDMS EDMS 14:40 14:40 Chest For PE Angio+CT.RAD.BRZ ordered. EDMS EDMS 17:06 16:33 rn ss
--- NOTE | 2024-11-29 17:05 | P.HP ---
Certification for Inpatient Patient admitted to: Observation With expected LOS: <2 Midnights Patient will require the following post-hospital care: None Practitioner: I am a practitioner with admitting privileges, knowledge of patient current condition, hospital course, and medical plan of care. Services: Services provided to patient in accordance with Admission requirements found in Title 42 Section 412.3 of the Code of Federal Regulations Patient History Date of Service: 11/29/24 Primary Care Provider: OOT Reason for admission: Presyncope, Palpitations, Chest Pain History of Present Illness: This is a 69-year-old female with a history of pulmonary embolisms, diabetes myelitis, hypertension, hypercholesterolemia, AR, arrhythmias, stent placement, CHF, thyroidectomy that presents the emergency room with complaints of presyncope, chest discomfort, and palpitations that occurred while at work today. Patient stated that she was sitting at her desk when episode occurred. Denies completely passing out, patient was brought in to the emergency room for evaluation at that time. Blood work including CBC showed a white cell count of 5.0, hemoglobin of 12.9, hematocrit of 38.3, platelet of 231, chemistries with a sodium of 136, potassium of 3.5, chloride of 99, bicarb of 30, BUN of 21, creatinine of 1.07, glucose of 191. Troponin was 3.3. Patient had CT chest PE secondary to extensive clot history even on Eliquis and with Brian filter. CT angiography did not show any pulmonary embolism or other acute card iopulmonary pathology. Patient stated that she feels back to normal other than still having some slight chest discomfort and fogginess. Allergies No Known Allergies Allergy (Unverified 08/05/22 23:46) Home medications list reviewed: Yes Home Medications: Alogliptin Zeus/Pioglitazone [Oseni 25-30 mg Tablet] 1 each PO DAILY 08/06/22 Apixaban [Eliquis] 5 mg PO BID 08/06/22 Aspirin [Aspirin EC] 81 mg PO BEDTIME 08/06/22 Furosemide [Lasix*] 40 mg PO BID 08/06/22 Levothyroxine [Synthroid*] 112 mcg PO DAILY 08/06/22 Magnesium Oxide [Magnesium] 250 mg PO BID 08/06/22 Metformin ER [Glucophage ER*] 1,000 mg PO BID 08/06/22 Metoprolol Succinate 100 mg PO DAILY 08/06/22 Potassium Chloride 1 tab PO DAILY 08/06/22 Pravastatin Sodium 80 mg PO BEDTIME 08/06/22 glyBURIDE [Glyburide] 5 mg PO BID 08/06/22 Omeprazole [Prilosec] 40 mg PO BID 08/12/23 - Past Medical/Surgical History Has patient received pneumonia vaccine in the past: No Diabetic: Yes -: Type 2 diabetes, [id number] -: Hypertension -: Coronary artery disease -: Hyperlipidemia -: Pulmonary embolism -: Hypothyroidism -: Cholecystectomy -: IVC filter -: Cardiac cath with stent -: Thyroidectomy Psychosocial/ Personal History: Patient lives at home - Social History Smoking Status: Never smoker Smoking therapy provided: No Alcohol use: No CD- Drugs: No Caffeine use: Yes Place of Residence: Home Review of Systems Eyes: Unremarkable ENT: Unremarkable Respiratory: Unremarkable Cardiovascular: Chest Pain, Palpitations, Light Headedness Gastrointestinal: Unremarkable Musculoskeletal: Unremarkable Integumentary: Unremarkable Neurological: As per HPI Physical Examination - Vital Signs Blood Pressure: 118/68 Pulse: 84 Respirations: 18 Pulse Ox (%): 98 - Physical Exam General: Alert, In no apparent distress, Oriented x3, Cooperative HEENT: Normocephalic, PERRLA, EOMI Neck: Supple Respiratory: Clear to auscultation bilaterally, Normal air movement Cardiovascular: No edema, Normal pulses, Regular rate/rhythm, Normal S1 S2, No gallops, Systolic murmur (2/6 over right sternal border) Gastrointestinal: Normal bowel sounds, Soft and benign, Non-distended, No ascites, No tenderness Musculoskeletal: No clubbing, No swelling, No contractures, No erythema, No tenderness, No warmth Integumentary: No rashes, No breakdown, No significant lesion, No tenderness/swelling, No erythema, No warmth, No cyanosis Neurological: Normal speech, Normal strength at 5/5 x4 extr, Normal tone, Sensation intact, Cranial nerves 3-12 intact, Normal affect - Studies Laboratory Data (last 24 hrs) 11/29/24 11/29/24 14:43 14:43 WBC 5.00 Hgb 12.9 Hct 38.3 Plt Count 231 Sodium 136 Potassium 3.5 BUN 21 H Creatinine 1.07 H Glucose 191 H Assessment and Plan - Problems (Diagnosis) (1) Pre-syncope Current Visit: Yes Status: Acute (2) Palpitations Current Visit: Yes Status: Acute (3) Chest pain Current Visit: Yes Status: Acute Qualifiers: Chest pain type: unspecified Qualified Code(s): R07.9 - Chest pain, unspecified (4) Type 2 diabetes mellitus Current Visit: Yes Status: Chronic Qualifiers: Diabetes mellitus group home insulin use: without tank terminal gauger use Diabetes mellitus complication status: with hyperglycemia Qualified Code(s): E11.65 - Type 2 diabetes mellitus with hyperglycemia (5) Hypertension Current Visit: Yes Status: Chronic Qualifiers: Hypertension type: primary hypertension Qualified Code(s): I10 - Essential (primary) hypertension - Plan 1. Patient will remain on property assessment monitor, EKG in the morning, serial troponins 2. Daily CBC and chemistries including magnesium 3. Will get TSH and T4 4. Cardiology consult 5. DVT prophylaxis with her Eliquis 5 mg twice daily Discharge Plan: Home Plan to discharge in: 24 Hours - Advance Directives Does patient have a Living Will: No Does patient have a Durable POA for Healthcare: No - Code Status/Comfort Care Code Status Assessed: No Critical Care: No Time Spent Managing Pts Care (In Minutes): 45
[2024-11-29] MEDS: FUROSEMIDE 40 MG TABLET PO SCH (19:21)
[2024-11-29 20:03] VITALS: BMI 37.8
[2024-11-29] MEDS: ACETAMINOPHEN 325 MG TABLET PO PRN (20:32)
[2024-11-29] MEDS: APIXABAN 5 MG TABLET PO SCH (20:33)
[2024-11-29 21:45] LABS: Troponin High Sensitivity < 3.0 pg/mL (<58.9)
[2024-11-29] MEDS: PROMETHAZINE INJ 25 MG/ML AMP IV ONE (22:59)
[2024-11-29] MEDS: ONDANSETRON 4 MG/2 ML VIAL IV PRN (23:19)
[2024-11-29] MEDS: HYDROMORPHONE HCL 0.5 MG/0.5 ML INJ IV ONE (23:20)
[2024-11-30 02:19] LABS: Urine Bilirubin NEGATIVE (Negative); Urine Blood Negative (Negative); Urine Clarity Clear (Clear); Urine Color Light-Yellow (Yellow); Urine Glucose NEGATIVE (Negative); Urine Ketones NEGATIVE (Negative); Urine Microscopic Reflex YN NO UMIC; Urine Nitrite NEGATIVE (Negative); Urine Protein NEGATIVE (Negative); Urine Urobilinogen Normal (Normal); Urine pH 5.5 (5.0-7.0)
[2024-11-30 02:43] LABS: Specific Gravity > 1.030 (1.005-1.030)
[2024-11-30 05:21] LABS: Absolute Basophils 0.1 K/uL (0-0.5); Absolute Monocytes 0.5 K/uL (0.1-1.3); Absolute Neutrophil 2.8 K/uL (1.8-8.0); Basophils % 1.3 % (0-1.3); Eosinophils % 0.9 % (0-4.4); Hematocrit 35.3 % (36.0-45.0); Hemoglobin 11.7 g/dL (12.0-15.0); Lymphocytes % 23.4 % (15.3-44.8); MCH 31.1 pg (27.0-35.0); MCHC 33.1 g/dL (32.0-36.0); MCV 94.1 fL (80-100); Monocytes % 11.1 % (3.3-12.3); Neutrophils % 63.3 % (41.7-73.7); Nucleated Red Blood Cells % 0.2 % (0-0); Platelets 197 thou/uL (152-406); RBC Red Blood Cell Count 3.75 M/uL (3.86-4.86)
[2024-11-30 05:37] LABS: Anion Gap 9.8 mEq/L (5.0-15.0); Potassium 3.8 mEq/L (3.5-5.1)
[2024-11-30 05:43] LABS: Magnesium 1.5 mg/dL (1.6-2.4)
[2024-11-30] MEDS: METOPROLOL XL 100 MG TAB PO SCH (05:47)
[2024-11-30] MEDS: Magnesium Sulfate 2gm IVPB 2 G/50 ML BAG IV ONE (06:55)
[2024-11-30] MEDS: METFORMIN ER 500 MG TAB PO SCH (08:47)
--- NOTE | 2024-11-30 10:34 | P.CNS ---
Date of Consult: 11/30/24 Primary Care Provider: BUSTER Chief Complaint: Presyncope, Palpitations, Chest Pain History of Present Illness: Patient with PMH of CAD, PE, presented with sudden onset chest flutter, discomfort and almost passing out, denies chest pain, no SOB, no QUIÑONEZ, no synco pe. Allergies Antihistamines - Piperazine Adverse Reaction (Verified 11/29/24 19:50) palpitations, elevated blood pressure Home medications list reviewed: Yes Home Medications: Alogliptin Zeus/Pioglitazone [Oseni 25-30 mg Tablet] 1 each PO DAILY 08/06/22 Apixaban [Eliquis] 5 mg PO BID 08/06/22 Aspirin [Aspirin EC] 81 mg PO BEDTIME 08/06/22 Furosemide [Lasix*] 40 mg PO BID 08/06/22 Levothyroxine [Synthroid*] 125 mcg PO DAILY 08/06/22 Magnesium Oxide [Magnesium] 250 mg PO BID 08/06/22 Metformin ER [Glucophage ER*] 1,000 mg PO BID 08/06/22 Potassium Chloride 1 tab PO BID 08/06/22 Omeprazole [Prilosec] 40 mg PO BID 08/12/23 Ferrous Sulfate 325 mg PO DAILY 11/29/24 Metoprolol Tartrate 100 mg PO DAILY 11/29/24 Polyethylene Glycol 3350 [Miralax] 17 gm PO PRN PRN 11/29/24 glipiZIDE [Glipizide] 5 mg PO BID 11/29/24 - Past Medical/Surgical History Diabetic: Yes -: Type 2 diabetes, [id number] -: Hypertension -: Coronary artery disease -: Hyperlipidemia -: Pulmonary embolism -: Hypothyroidism -: Cholecystectomy -: IVC filter -: Cardiac cath with stent -: Thyroidectomy Psychosocial/ Personal History: Patient lives at home - Family History Father Medical History: Heart disease, Hypertension, Diabetes, Stroke Mother Medical History: Heart disease, Hypertension, Diabetes, Other (see notes) Notes: thyroid disease - Social History Smoking Status: Unknown if ever smoked Alcohol use: No CD- Drugs: No Caffeine use: Yes Place of Residence: Home Review of Systems 10-point ROS is otherwise unremarkable Physical Examination Temp Pulse Resp BP Pulse Ox 97.6 F 77 15 103/52 L 95 11/30/24 08:00 11/30/24 08:00 11/30/24 08:00 11/30/24 08:00 11/30/24 08:00 General: Alert, In no apparent distress HEENT: Atraumatic, PERRLA, Mucous membr. moist/pink, EOMI, Sclerae nonicteric Neck: Supple, 2+ carotid pulse no bruit, No LAD, Without JVD or thyroid abnormality Respiratory: Clear to auscultation bilaterally, Normal air movement Cardiovascular: Regular rate/rhythm, Normal S1 S2 Gastrointestinal: Normal bowel sounds, No tenderness Musculoskeletal: No tenderness Integumentary: No rashes Neurological: Normal gait, Normal speech, Normal tone, Normal affect Lymphatics: No axilla or inguinal lymphadenopathy Laboratory Data (last 24 hrs) 11/29/24 11/29/24 14:43 14:43 WBC 5.00 Hgb 12.9 Hct 38.3 Plt Count 231 Sodium 136 Potassium 3.5 BUN 21 H Creatinine 1.07 H Glucose 191 H - Problems (1) Pre-syncope Current Visit: Yes Status: Acute Plan: Patient EKG, tele and cardiac enzymes are normal, patient usually follow up with cardiology and got recent echo and stress. advised patient that she will need 30 days event monitor to rule out arrhythmia as reason for her symptoms. lower Toprol XL to 50 mg daily continue lasix as she say if she do not take it, she will have swelling.
--- NOTE | 2024-11-30 10:59 | EKG ---
Test Date: 2024-11-29 Test Time: 14:35:05 Producer Assistant: KENDRICK MEASUREMENT RESULTS: Intervals: Rate: 86 VT: 156 QRSD: 76 QT: 410 QTc: 490 [place]: P: 67 VT: 156 QRS: 16 T: 67 INTERPRETIVE STATEMENTS: Normal sinus rhythm Prolonged QT Abnormal ECG Compared to ECG 10/14/2024 16:32:33 Prolonged QT interval now present Electronically Signed On 11-30-24 10:56:46 CDT by Olivier Cannon
[2024-11-30] MEDS: MECLIZINE HCL 12.5 MG TAB PO ONE (11:38)
[2024-11-30] MEDS: LORazepam 2 MG/ML VIAL IV ONE (14:46)
--- NOTE | 2024-11-30 15:31 | RAD REPORT ---
EXAMINATION: MRI BRAIN WITHOUT CONTRAST CLINICAL INDICATION: Persistent dizziness/headache/instability TECHNIQUE: Multiplanar multisequence MR images of the brain were obtained without intravenous contras t. Unless otherwise specified, incidental findings do not require dedicated imaging follow-up. COMPARISON: No prior exam. FINDINGS: INTRACRANIAL: Diffusion-weighted images show no acute or early subacute infarction. There is mild bra in atrophy with mildT2/FLAIR hyperintensities in the periventricular and deep white matter regions, likely representing chronic microvascular ischemic changes. There is no mass effect or midline shift. No abnormal extraaxial fluid collection. VASCULATURE: Normal signal voids in the larger intracranial arteries and dural venous sinuses. SINUSES: The paranasal sinuses and mastoid air cells are predominantly clear. BONE: The marrow signal pattern is within normal limits. IMPRESSION: Negative for acute CVA or other acute intracranial finding.
--- NOTE | 2024-11-30 17:34 | P.PN ---
Date of Service: 11/30/24 Subjective: Still with persistent dizziness, unsteady gait Periodic headache ROS: 10 point ROS as noted above, otherwise negative Physical exam GEN: Alert, oriented, NAD HEENT: Normal conjunctiva, sclera anicteric CV: Regular rate and rhythm, no edema Pulm: Nonlabored respirations on room air ABD: Soft, nontender, nondistended MSK: No joint tenderness Integumentary: No rashes Neuro: Normal speech, normal affect Vitals reviewed Assessment: Chest pain rule out ACS-history of CAD with stent Dizziness/unsteady gait Diabetes mellitus type [id number] Hypertension History of PE on chronic anticoagulation with IVC filter in place Hypothyroidism Hyperlipidemia Plan: Chest pain rule out ACS-history of CAD with stent Troponin negative x 3 Had recent stress test, echo in July with 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 at [facility] No significant events on telemetry so far Continue to monitor on telemetry, cardiology recommends outpatient event monitor Dizziness/unsteady gait MRI negative for CVA Attempted Chloe x 2 questionable improvement so far Still very dizzy, unsteady on feet Will monitor overnight, get PT evaluation in the morning Consider repeat Chloe attempts Diabetes mellitus type [id number] ACHS Accu-Chek, sliding scale insulin Home medications Hypertension Resume home medications, metoprolol succinate reduced from 100 mg to 50 mg daily Monitor blood pressure throughout hospitalization History of PE on chronic anticoagulation with IVC filter in place Continue Eliquis CTA of the chest negative for PE Hypothyroidism Hyperlipidemia On medication, thyroid panel in the morning DVT PPX:Eliquis 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
[2024-12-01 06:03] LABS: Hematocrit 33.8 % (36.0-45.0); Hemoglobin 11.3 g/dL (12.0-15.0); MCH 31.2 pg (27.0-35.0); MCHC 33.5 g/dL (32.0-36.0); MCV 93.1 fL (80-100); MPV 9.1 fL (7.6-11.3); Platelets 199 thou/uL (152-406); RBC Red Blood Cell Count 3.63 M/uL (3.86-4.86); Red Cell Distribution Width 14.8 % (12.1-15.2)
[2024-12-01 06:32] LABS: Anion Gap 10.4 mEq/L (5.0-15.0); Magnesium 1.8 mg/dL (1.6-2.4); Potassium 3.4 mEq/L (3.5-5.1); Thyroid Stimulating Hormone 1.78 uIU/mL (0.358-3.740)
[2024-12-01] MEDS: glipiZIDE 5 MG TAB PO SCH (09:02)
[2024-12-01] MEDS: MAGNESIUM SULFATE 1 gm IVPB 1 GM/100 ML BAG IV ONE (09:02)
[2024-12-01] MEDS: LEVOTHYROXINE SOD 0.125 MG TAB PO SCH (09:02)
--- NOTE | 2024-12-01 15:59 | P.PN ---
Date of Service: 12/01/24 Subjective: Still with persistent dizziness, unsteady gait Otherwise doing well ROS: 10 point ROS as noted above, otherwise negative Physical exam GEN: Alert, oriented, NAD HEENT: Normal conjunctiva, sclera anicteric CV: Regular rate and rhythm, no edema Pulm: Nonlabored respirations on room air ABD: Soft, nontender, nondistended MSK: No joint tenderness Integumentary: No rashes Neuro: Normal speech, normal affect Vitals reviewed Assessment: Chest pain rule out ACS-history of CAD with stent Dizziness/unsteady gait Diabetes mellitus type [id number] Hypertension History of PE on chronic anticoagulation with IVC filter in place Hypothyroidism Hyperlipidemia Plan: Chest pain rule out ACS-history of CAD with stent Troponin negative x 3 Had recent stress test, echo in July with 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 [facility] No significant events on telemetry so far Continue to monitor on telemetry, cardiology recommends outpatient event monitor Dizziness/unsteady gait MRI negative for CVA Attempted Chloe x 3 questionable improvement so far PT evaluated today, did ok Going to try to ambulate again this evening Diabetes mellitus type [id number] ACHS Accu-Chek, sliding scale insulin Home medications Hypertension Resume home medications, metoprolol succinate reduced from 100 mg to 50 mg daily Monitor blood pressure throughout hospitalization History of PE on chronic anticoagulation with IVC filter in place Continue Eliquis CTA of the chest negative for PE Hypothyroidism Hyperlipidemia On medication, thyroid panel in the morning DVT PPX:Eliquis 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
[2024-12-02] MEDS: MECLIZINE HCL 12.5 MG TAB PO PRN (04:05)
[2024-12-02 05:10] VITALS: TEMP 98.1
[2024-12-02 06:25] LABS: Anion Gap 4.6 mEq/L (5.0-15.0); Magnesium 1.8 mg/dL (1.6-2.4); Potassium 3.6 mEq/L (3.5-5.1)
[2024-12-02] MEDS: MAGNESIUM SULFATE 1 gm IVPB 1 GM/100 ML BAG IV ONE (06:45)
[2024-12-02 08:15] VITALS: BP 130/61
--- NOTE | 2024-12-02 09:26 | P.DS ---
Admission Date: 11/30/24 Discharge Date: 12/02/24 Primary Care Provider: BUSTER Disposition: ROUTINE DISCHARGE Discharge Condition: GOOD Reason for Admission: Presyncope, Palpitations, Chest Pain Brief History of Present Illness: This is a 69-year-old female with a history of pulmonary embolisms, diabetes myelitis, hypertension, hypercholesterolemia, MS, arrhythmias, stent placement, CHF, thyroidectomy that presents the emergency room with complaints of presyncope, chest discomfort, and palpitations that occurred while at work today. Patient stated that she was sitting at her desk when episode occurred. Denies completely passing out, patient was brought in to the emergency room for evaluation at that time. Blood work including CBC showed a white cell count of 5.0, hemoglobin of 12.9, hematocrit of 38.3, platelet of 231, chemistries with a sodium of 136, potassium of 3.5, chloride of 99, bicarb of 30, BUN of 21, creatinine of 1.07, glucose of 191. Troponin was 3.3. Patient had CT chest PE secondary to extensive clot history even on Eliquis and with Brian filter. CT angiography did not show any pulmonary embolism or other acute cardiopulmonary pathology. Patient stated that she feels back to normal other than still having some slight chest discomfort and fogginess. Hospital Course: Assessment: Chest pain rule out ACS-history of CAD with stent Dizziness/unsteady gait Diabetes mellitus type [id number] Hypertension History of PE on chronic anticoagulation with IVC filter in place Hypothyroidism Hyperlipidemia Patient was admitted to the hospital for near syncope, chest pain and dizziness. Troponins were negative/flat x 3, she was seen by cardiology who recommended further evaluation as an outpatient. She had a recent stress test and echocardiogram in July 2024 which were reportedly normal with her shuttle repairer. She had no further episodes of chest pain although she did deal with persistent dizziness which seem to be exacerbated with movement, likely BPPV. MRI of the brain without contrast was obtained which was negative for CVA or other acute findings. Attempted Chloe maneuver multiple times with some mild improvement as well as meclizine. Patient has been ambulatory to the restroom and the nurses station without assistance but still feeling periodically dizzy. We recommend she follows up with ENT and takes meclizine as needed as well as performing the Chloe at home as needed. Please follow-up with your primary care doctor in 1 to 2 weeks Please also follow-up with cardiology either your own or Dr. Cannon in the clinic the next 1 to 2 weeks to set up an event monitor I will also provide the information for a local ENT doctor to further evaluate the BPPV. A reduced dose of the metoprolol 50 mg has been sent to your pharmacy as the blood pressure has been running lower than typical for you Hold the metoprolol if your blood pressure is less than 105 systolic Vital Signs/Physical Exam: Temp Pulse Resp BP Pulse Ox 98.1 F 81 16 130/61 100 12/02/24 04:00 12/02/24 08:13 12/02/24 04:00 12/02/24 08:13 12/02/24 04:00 General: Alert, In no apparent distress, Oriented x3 HEENT: Atraumatic, PERRLA Neck: Supple Respiratory: Normal air movement Cardiovascular: Regular rate/rhythm, Normal S1 S2 Gastrointestinal: Non-distended Musculoskeletal: No tenderness Integumentary: No rashes Neurological: Normal speech Laboratory Data at Discharge: WBC 3.60 thou/uL (4.3-10.9) L 12/01/24 05:38 Hgb 11.3 g/dL (12.0-15.0) L 12/01/24 05:38 Hct 33.8 % (36.0-45.0) L 12/01/24 05:38 Plt Count 199 thou/uL (152-406) 12/01/24 05:38 Sodium 138 mEq/L (136-145) 12/02/24 05:50 Potassium 3.6 mEq/L (3.5-5.1) 12/02/24 05:50 BUN 20 mg/dL (7-18) H 12/02/24 05:50 Creatinine 1.05 mg/dL (0.55-1.02) H 12/02/24 05:50 Glucose 205 mg/dL (74-106) H 12/02/24 05:50 Magnesium 1.8 mg/dL (1.6-2.4) 12/02/24 05:50 Home Medications: Alogliptin Zeus/Pioglitazone [Oseni 25-30 mg Tablet] 1 each PO DAILY 08/06/22 Apixaban [Eliquis] 5 mg PO BID 08/06/22 Aspirin [Aspirin EC] 81 mg PO BEDTIME 08/06/22 Furosemide [Lasix*] 40 mg PO BID 08/06/22 Levothyroxine [Synthroid*] 125 mcg PO DAILY 08/06/22 Magnesium Oxide [Magnesium] 250 mg PO BID 08/06/22 Metformin ER [Glucophage ER*] 1,000 mg PO BID 08/06/22 Potassium Chloride 1 tab PO BID 08/06/22 Omeprazole [Prilosec] 40 mg PO BID 08/12/23 Ferrous Sulfate 325 mg PO DAILY 11/29/24 Polyethylene Glycol 3350 [Miralax] 17 gm PO PRN PRN 11/29/24 glipiZIDE [Glipizide] 5 mg PO BID 11/29/24 Metoprolol Succinate [Toprol Xl*] 50 mg PO DAILY #30 tab 11/30/24 New Medications: Metoprolol Succinate [Toprol Xl*] 50 mg PO DAILY #30 tab Physician Discharge Instructions: Patient was admitted to the hospital for near syncope, chest pain and dizziness. Troponins were negative/flat x 3, she was seen by cardiology who recommended further evaluation as an outpatient. She had a recent stress test and echocardiogram in July 2024 which were reportedly normal with her shuttle repairer. She had no further episodes of chest pain although she did deal with persistent dizziness which seem to be exacerbated with movement, likely BPPV. MRI of the brain without contrast was obtained which was negative for CVA or other acute findings. Attempted [place] maneuver multiple times with some mild improvement as well as meclizine. Patient has been ambulatory to the restroom and the nurses station without assistance but still feeling periodically dizzy. We recommend she follows up with ENT and takes meclizine as needed as well as performing the Chloe at home as needed. Please follow-up with your primary care doctor in 1 to 2 weeks Please also follow-up with cardiology either your own or Dr. Cannon in the clinic the next 1 to 2 weeks to set up an event monitor I will also provide the information for a local ENT doctor to further evaluate the BPPV. A reduced dose of the metoprolol 50 mg has been sent to your pharmacy as the blood pressure has been running lower than typical for you Hold the metoprolol if your blood pressure is less than 105 systolic Diet: AHA Activity: Ad tito Followup: Olivier Cannon MD [ACTIVE - CAN ADMIT] - 1 Week Chen Charles DO [ACTIVE - CAN ADMIT] - 1-2 Weeks Marquez Cobos DO [Primary Care Provider] - 1 Week Time spent managing pt's care (in minutes): 45
[2024-12-02 11:44] VITALS: O2SAT 100
--- NOTE | 2024-12-03 14:54 | EKG ---
Test Date: 2024-11-30 Test Time: 06:10:40 Senior Staff Psychologist: MNINIE MEASUREMENT RESULTS: Intervals: Rate: 76 AK: 168 QRSD: 80 QT: 426 QTc: 479 [place]: P: 55 [place]: 168 QRS: 20 T: 26 INTERPRETIVE STATEMENTS: Normal sinus rhythm Normal ECG Compared to ECG 11/29/2024 14:35:05 Prolonged QT interval no longer present Electronically Signed On 12-03-24 14:44:20 CDT by Olivier Cannon
== END 2024-12-02 12:13 | disposition home or self-care (01) | DRG 149 ==
LOC: ER 14:16 → ERHOLD 16:49 → 2ND 17:33 → OBSVTOIN 11-30 17:26
PROVIDERS: ADMIT Internal Medicine; ATTEND Hospitalist
DX: H81.10 Benign paroxysmal vertigo, unspecified ear (principal); I10 Essential (primary) hypertension; E03.9 Hypothyroidism, unspecified; E11.65 Type 2 diabetes mellitus with hyperglycemia; E78.00 Pure hypercholesterolemia, unspecified; I25.10 Atherosclerotic heart disease of native coronary artery without angina pectoris; I25.2 Old myocardial infarction; Z90.49 Acquired absence of other specified parts of digestive tract; Z88.7 Allergy status to serum and vaccine; Z95.5 Presence of coronary angioplasty implant and graft; Z79.82 Long term (current) use of aspirin; Z79.01 Long term (current) use of anticoagulants; Z90.710 Acquired absence of both cervix and uterus; Z86.711 Personal history of pulmonary embolism; Z91.030 Bee allergy status; Z79.890 Hormone replacement therapy; Z79.899 Other long term (current) drug therapy
CPT/HCPCS: 36415; 70551; 71045; 71275; 80048; 81003; 82947; 83735; 84439; 84443; 84484; 85025; 85027; 93005; 94760; 97116; 97161; 99285; G0378; J1171; J2405; J3475; J8597; Q9967

== ENCOUNTER 2024-12-23 06:28 | Emergency (ER) | payer BC, OTHER ==
[2024-12-23] MEDS ORDERED: NITROGLYCERIN 0.4 MG/TAB SL ONE (06:56)
[2024-12-23 07:16] LABS: Absolute Monocytes 0.4 K/uL (0.1-1.3); Absolute Neutrophil 2.6 K/uL (1.8-8.0); Basophils % 0.7 % (0-1.3); Eosinophils % 1.2 % (0-4.4); Hematocrit 33.4 % (36.0-45.0); Hemoglobin 10.9 g/dL (12.0-15.0); Lymphocytes % 25.3 % (15.3-44.8); MCH 30.4 pg (27.0-35.0); MCHC 32.6 g/dL (32.0-36.0); MCV 93.2 fL (80-100); MPV 8.6 fL (7.6-11.3); Neutrophils % 63.8 % (41.7-73.7); Nucleated Red Blood Cells % 0.1 % (0-0); Platelets 217 thou/uL (152-406); RBC Red Blood Cell Count 3.59 M/uL (3.86-4.86)
[2024-12-23 07:32] LABS: Albumin 3.1 g/dL (3.4-5.0); Albumin/Globulin Ratio 0.8 (1.1-1.8); Alkaline Phosphatase 133 U/L (45-117); Anion Gap 7.7 mEq/L (5.0-15.0); BUN Blood Urea Nitrogen 19 mg/dL (7-18); Bicarbonate 29 mEq/L (21-32); Bilirubin Total 0.3 mg/dL (0.2-1.0); Globulin 3.8 g/dL (2.3-3.5); Glomerular Filtration Rate 75 ml/min (=/>90); Glucose Level 172 mg/dL (74-106); NT PRO-BNP 46 pg/mL (<125); Potassium 3.7 mEq/L (3.5-5.1); Protein, Total 6.9 g/dL (6.4-8.2); Sodium Level 139 mEq/L (136-145); Troponin High Sensitivity 3.6 pg/mL (<58.9)
[2024-12-23 07:33] LABS: ALT/SGPT < 14 U/L (13-56); AST/SGOT < 10 U/L (15-37); Bilirubin Direct < 0.2 mg/dL (0-0.2); Bilirubin Indirect, Calculated 0.1 mg/dL (0.2-0.8)
--- NOTE | 2024-12-23 08:14 | RAD REPORT ---
EXAMINATION: ONE VIEW CHEST XR CLINICAL INDICATION: CHEST PAIN TECHNIQUE: Frontal chest projection is submitted. Examination is limited by patient positioning and t echnique. COMPARISON: 11/29/2024 FINDINGS: Mild bilateral pulmonary edema is suspected. The heart is upper limit of normal in size. No displaced fractures identified. IMPRESSION: Mild CHF versus volume overload pattern is suspected.
--- NOTE | 2024-12-23 09:11 | EDPHYS ---
Physician Documentation [facility] Name: Neha Allison Age: 69 yrs Sex: Female : 1955 Arrival Date: 12/23/2024 Time: 06:28 Bed 5 Private MD: ED Physician Eliel Lenz HPI: 12/23 06:53 This 69 yrs old Black Female presents to ER via Ambulatory with complaints of Chest rt Pain. 06:53 Patient presents to the ED with chest pressure starting this morning with associated rt dizziness. Patient has had the symptoms intermittently. States that was more intense earlier this evening, has improvement completely resolved. She states that she took aspirin last night before going to bed. She denies other acute complaints at this time, symptoms are moderate in severity, no other aggravating or alleviating factors.. Historical: - Allergies: 06:50 ANTIHISTAMINES; kd3 06:50 Bees; kd3 06:50 Influenza Virus Vaccines; kd3 - PMHx: 06:50 diabetes mellitus; diabetes mellitus; Hypercholesterolemia; Hypercholesterolemia; kd3 Hypertensive disorder; Myocardial infarction; PE; - PSHx: 06:50 heart stent; Cholecystectomy; hysterectomy; IVC filter; Thyroidectomy; kd3 - Immunization history:: Adult Immunizations up to date. - Infectious Disease History:: Denies. - Social history:: Smoking status: Patient denies any tobacco usage or history of. - Family history:: not pertinent. ROS: 06:53 Constitutional: Negative for fever, chills, and weight loss, Respiratory: Negative for rt shortness of breath, cough, wheezing, and pleuritic chest pain, Abdomen/GI: Negative for abdominal pain, nausea, vomiting, diarrhea, and constipation, MS/Extremity: Negative for injury and deformity, Skin: Negative for injury, rash, and discoloration, 06:53 Cardiovascular: Positive for chest pain, Negative for edema, 06:53 Neuro: Positive for near syncope, Negative for loss of consciousness, Exam: 06:53 Constitutional: This is a well developed, well nourished patient who is awake, alert, rt and in no acute distress. Head/Face: Normocephalic, atraumatic. Chest/axilla: Normal chest wall appearance and motion. Nontender with no deformity. No lesions are appreciated. Respiratory: Lungs have equal breath sounds bilaterally, clear to auscultation and percussion. No rales, rhonchi or wheezes noted. No increased work of breathing, no retractions or nasal flaring. Abdomen/GI: Soft, non-tender, with normal bowel sounds. No distension or tympany. No guarding or rebound. No evidence of tenderness throughout. Skin: Warm, dry with normal turgor. Normal color with no rashes, no lesions, and no evidence of cellulitis. MS/ Extremity: Pulses equal, no cyanosis. Neurovascular intact. Full, normal range of motion. Neuro: Awake and alert, GCS 15, oriented to person, place, time, and situation. Cranial nerves II-XII grossly intact. Motor strength 5/5 in all extremities. Sensory grossly intact. Cerebellar exam normal. Normal gait. 06:53 Cardiovascular: Regular rate and rhythm, 3/5 systolic murmur heard, 06:53 ECG was reviewed by the Attending Physician. Vital Signs: 06:48 BP 162 / 86; Pulse 90; Resp 16 S; Temp 98.1(O); Pulse Ox 100% ; Weight 99.79 kg; Height kd3 5 ft. 4 in. ; 07:27 BP 127 / 73; Pulse 87; Resp 16; Pulse Ox 97% on R/A; Pain 2/10; ss 09:11 BP 118 / 87; Pulse 85; Resp 16; Pulse Ox 99% on R/A; Pain 0/10; ss 06:48 Body Mass Index 37.76 (99.79 kg, 162.56 cm) kd3 07:27 Pain Scale: Adult ss 09:11 Pain Scale: Adult ss MDM: 06:47 Medical Screening Exam initiated rt 09:09 Differential diagnosis: acute myocardial infarction, acute pericarditis, anxiety, rn coronary artery disease pneumonia, pneumothorax, stable angina, Pulmonary hypertension, right heart pressure. HEART Score: History: Slightly Suspicious (0), ECG: Non specific repolarization disturbance / LBTB / PM (1), Age: > or = 65 years (2), Risk Factors: 1 or 2 risk factors (1), Troponin: < or = 1 x Normal Limit (0), Total Score = 4. Data reviewed: vital signs, nurses notes, lab test result(s), EKG, radiologic studies, plain films, and as a result, I will discharge patient. Consideration of Admission/Observation Patient was admitted/placed on observation. Escalation of care including admission/observation considered. Admission considered but recent admission showed negative heart cath. Troponin repeated and is negative. Patient reports has plans to see [employer] ash handler because she was told she needed a right heart cath. Plans on seeing her ash handler today. Patient would like to be discharged at this time.. Counseling: I had a detailed discussion with the patient and/or guardian regarding the historical points, exam findings, and any diagnostic results supporting the discharge/admit diagnosis, lab results, radiology results, the need for outpatient follow up, to return to the emergency department if symptoms worsen or persist or if there are any questions or concerns that arise at home. 12/23 06:53 Order name: Basic Metabolic Panel; Complete Time: 07:44 rt 12/23 06:53 Order name: CBC with Diff; Complete Time: 07:44 rt 12/23 06:53 Order name: LFT's; Complete Time: 07:44 rt 12/23 06:53 Order name: NT PRO-BNP; Complete Time: 07:44 rt 12/23 06:53 Order name: Troponin HS; Complete Time: 07:44 rt 12/23 08:18 Order name: Troponin High Sensitivity; Complete Time: 09:05 rn 12/23 06:53 Order name: XRAY Chest (1 view); Complete Time: 08:17 rt 12/23 06:53 Order name: Cardiac monitoring; Complete Time: 06:54 rt 12/23 06:53 Order name: EKG - Nurse/Tech; Complete Time: 06:54 rt 12/23 06:53 Order name: IV Saline Lock; Complete Time: 07:06 rt 12/23 06:53 Order name: Labs collected and sent; Complete Time: 07:06 rt 12/23 06:53 Order name: O2 Per Protocol; Complete Time: 07:06 rt 12/23 06:53 Order name: O2 Sat Monitoring; Complete Time: 07:06 rt EC:53 Rate is 90 beats/min. Rhythm is regular, Normal Sinus Rhythm with No ectopy. QRS [place] rt is Normal. TX interval is normal. QRS interval is normal. QT interval is normal. No Q waves. No ST changes noted. Interpreted by me. Administered Medications: 06:58 Drug: Nitroglycerin Sublingual 0.4 mg Sublingual once; every five minute if needed x3 lg3 Route: Sublingual; 09:21 Follow up: Response: No adverse reaction ss Disposition Summary: 12/23/24 09:11 Discharge Ordered Notes: Location: Home rn Problem: an ongoing problem rn Symptoms: have improved rn Condition: Stable rn Diagnosis - Chest pain, unspecified rn Followup: rn - With: Private Physician - When: As needed - Reason: Recheck today's complaints, Re-evaluation by your physician Discharge Instructions: - Discharge Summary Sheet rn - Nonspecific Chest Pain, Adult rn Forms: - Medication Reconciliation Form rn - 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 EDMS EDMS 06:53 06:53 CBC+H.LAB.BRZ ordered. EDMS EDMS 06:53 06:53 HEPATIC FUNCTION+C.LAB.BRZ ordered. EDMS EDMS 06:53 06:53 PROBNP+C.LAB.BRZ ordered. EDMS EDMS 06:53 06:53 Troponin High Sensitivity+C.LAB.BRZ ordered. EDMS EDMS 06:53 06:53 Chest Single View+RAD.RAD.BRZ ordered. EDMS EDMS
--- NOTE | 2024-12-23 09:11 | ER ---
Nurse's Notes [facility] Name: Neha Allison Age: 69 yrs Sex: Female : 1955 Arrival Date: 12/23/2024 Time: 06:28 Bed 5 Private MD: Diagnosis: Chest pain, unspecified Presentation: 12/23 06:48 Chief complaint: Patient states: I started having some chest pressure this morning. I kd3 took a Tums and got ready for work because I thought it was indigestion. I was here not too long ago with the same thing and they didn't find anything wrong. I followed up with cardiology and i'm supposed to have a heart cath done soon. EKG done in triage. Coronavirus screen: Vaccine status: Patient reports being unvaccinated. Ebola Screen: No symptoms or risks identified at this time. Initial Sepsis Screen: Does the patient meet any 2 criteria? No. Patient's initial sepsis screen is negative. Does the patient have a suspected source of infection? No. Patient's initial sepsis screen is negative. Risk Assessment: Do you want to hurt yourself or someone else? Patient reports no desire to harm self or others. Onset of symptoms was December 23, 2024. 06:48 Method Of Arrival: Ambulatory kd3 06:48 Acuity: PATRICK 3 kd3 Triage Assessment: 06:50 General: Appears in no apparent distress. Behavior is calm, cooperative. Pain: kd3 Complains of pain in chest. Cardiovascular: Capillary refill < 3 seconds Patient's skin is warm and dry. Historical: - Allergies: 06:50 ANTIHISTAMINES; kd3 06:50 Bees; kd3 06:50 Influenza Virus Vaccines; kd3 - PMHx: 06:50 diabetes mellitus; diabetes mellitus; Hypercholesterolemia; Hypercholesterolemia; kd3 Hypertensive disorder; Myocardial infarction; PE; - PSHx: 06:50 heart stent; Cholecystectomy; hysterectomy; IVC filter; Thyroidectomy; kd3 - Immunization history:: Adult Immunizations up to date. - Infectious Disease History:: Denies. - Social history:: Smoking status: Patient denies any tobacco usage or history of. - Family history:: not pertinent. Screenin:51 [facility] [place] ED Fall Risk Assessment (Adult) History of falling in the last 3 months, kd3 including since admission No falls in past 3 months (0 pts) Confusion or Disorientation No (0 pts) Intoxicated or Sedated No (0 pts) Impaired Gait No (0 pts) Mobility Assist Device Used No (0 pt) Altered Elimination No (0 pt) Score/Fall Risk Level 0 - 2 = Low Risk Oriented to surroundings. Abuse screen: Denies threats or abuse. Denies injuries from another. Nutritional screening: No deficits noted. Tuberculosis screening: No symptoms or risk factors identified. Assessment: 07:27 General: Appears in no apparent distress. comfortable, Behavior is calm, cooperative, ss Denies fever, feeling ill, fatigue, chills. Pain: Complains of pain in chest Pain does not radiate. Pain currently is 2 out of 10 on a pain scale. Quality of pain is described as pt states, "not a true pain, but discomfort." Pt also reports generalized headache after Nitro administration Pain began this morning Is continuous. Neuro: Level of Consciousness is awake, alert, obeys commands, Oriented to person, place, time, situation, Solvent Process Extractor Operator are equal bilaterally Speech is normal, Facial symmetry appears normal, Pupils are PERRLA. Cardiovascular: Rhythm is sinus rhythm. Respiratory: Airway is patent Respiratory effort is even, unlabored, Respiratory pattern is regular, symmetrical. GI: Patient currently denies diarrhea, nausea, vomiting. EENT: Oral mucosa is moist. Throat is clear. Derm: Skin is intact, is healthy with good turgor, Skin is dry, Skin is pink, warm \\T\\ dry. normal. Musculoskeletal: Circulation, motion, and sensation intact. Range of motion: intact in all extremities, Swelling absent. 07:30 Reassessment: awaiting lab results. 08:30 Reassessment: Patient appears in no apparent distress at this time. Patient and/or ss family updated on plan of care and expected duration. Pain level reassessed. Patient is alert, oriented x 3, equal unlabored respirations, skin warm/dry/pink. Patient denies pain at this time. 09:15 Reassessment: Patient appears in no apparent distress at this time. Patient and/or ss family updated on plan of care and expected duration. Pain level reassessed. Patient states feeling better. Patient states symptoms have improved. Vital Signs: 06:48 BP 162 / 86; Pulse 90; Resp 16 S; Temp 98.1(O); Pulse Ox 100% ; Weight 99.79 kg; Height kd3 5 ft. 4 in. ; 07:27 BP 127 / 73; Pulse 87; Resp 16; Pulse Ox 97% on R/A; Pain 2/10; ss 09:11 BP 118 / 87; Pulse 85; Resp 16; Pulse Ox 99% on R/A; Pain 0/10; ss 06:48 Body Mass Index 37.76 (99.79 kg, 162.56 cm) kd3 07:27 Pain Scale: Adult ss 09:11 Pain Scale: Adult ss ED Course: 06:46 Patient arrived in ED. gm2 06:47 Feliz Rush MD is Attending Physician. rt 06:47 Kelsey Liu, SAMANTHA is Primary Nurse. kd3 06:50 Triage completed. kd3 06:50 Arm band placed on right wrist. kd3 06:51 No provider procedures requiring assistance completed. Patient maintains SpO2 kd3 saturation greater than 95% on room air. 06:52 Patient has correct armband on for positive identification. Provided Education on: kd3 chest pain protocol . Client placed on continuous cardiac and pulse oximetry monitoring. NIBP monitoring applied. greeting card writer on. 06:54 EKG done, by ED staff, reviewed by Feliz Rush MD. kd3 07:02 Attending Physician role handed off by Feliz Rush MD rn 07:02 Eliel Lenz MD is Attending Physician. rn 07:06 Initial lab(s) drawn, by mt, sent to lab. Inserted saline lock: 18 gauge in left bp antecubital area, using aseptic technique. Blood collected. Flushed with 10 mL NS. 07:13 XRAY Chest (1 view) In Process Unspecified. EDMS 09:18 IV discontinued, intact, bleeding controlled, No redness/swelling at site. Pressure ss dressing applied. Administered Medications: 06:58 Drug: Nitroglycerin Sublingual 0.4 mg Sublingual once; every five minute if needed x3 lg3 Route: Sublingual; 09:21 Follow up: Response: No adverse reaction ss Medication: 06:52 VIS not applicable for this client. kd3 Outcome: 09:11 Discharge ordered by . 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 Instructed on discharge instructions, follow up and referral plans. Demonstrated understanding of instructions, follow-up care, 09:21 Patient left the ED. ss Signatures: Dispatcher [employer] Eliel Watkins MD MD rn Blanchard, Shelby, RN RN ss Aaron Wiley RN RN Roseline Resendez RN RN brad3 Kelsey Liu RN RN kd3 Feliz Rush MD MD Parris Bobo 2 Corrections: (The following items were deleted from the chart) 06:52 06:48 Chief complaint: Patient states: I started having some chest pressure this kd3 morning. I took a Tums and got ready for work because I thought it was indigestion. I was here not too long ago with the same thing and they didn't find anything wrong. I followed up with cardiology and i'm supposed to have a heart cath done soon. kd3
[2024-12-23 09:41] VITALS: TEMP 98.1
[2024-12-23 09:47] VITALS: BP 118/87; O2SAT 99
--- NOTE | 2024-12-24 13:27 | EKG ---
Test Date: 2024-12-23 Test Time: 06:42:52 Mycologist: RAKAN MEASUREMENT RESULTS: Intervals: Rate: 90 WI: 172 QRSD: 78 QT: 382 QTc: 467 [place]: P: 60 WI: 172 QRS: 19 T: 52 INTERPRETIVE STATEMENTS: Normal sinus rhythm Cannot rule out Anterior infarct, age undetermined Abnormal ECG Compared to ECG 11/30/2024 06:10:40 Myocardial infarct finding now present Electronically Signed On 12-24-24 13:19:33 CDT by Olivier Cannon
== END 2024-12-23 09:21 | disposition home or self-care (01) ==
LOC: ER 06:28
DX: R07.9 Chest pain, unspecified (principal); I10 Essential (primary) hypertension; E11.9 Type 2 diabetes mellitus without complications; E78.00 Pure hypercholesterolemia, unspecified; I25.2 Old myocardial infarction; Z95.5 Presence of coronary angioplasty implant and graft; Z86.711 Personal history of pulmonary embolism; Z88.7 Allergy status to serum and vaccine; Z88.8 Allergy status to other drugs, medicaments and biological substances; Z91.030 Bee allergy status
CPT/HCPCS: 36415; 71045; 80048; 80076; 83880; 84484; 85025; 93005; 99284